=== PATIENT | male | born 1950 | race Caucasian/White ===

== ENCOUNTER 2021-11-11 12:10 | Outpatient (CLI) | payer MEDICARE, BC, SELFPAY ==
[2021-11-11 14:16] LABS: Chloride* 104 mmol/L (96-114); Sodium* 136 mmol/L (135-149)
[2021-11-11 14:19] LABS: Alanine Aminotransferase* 15 U/L (4-50); Blood Urea Nitrogen* 18 mg/dL (7-30); Carbon Dioxide* 26 mmol/L (20-32); Cholesterol* 154 mg/dL (90-199); Creatinine* 0.6 mg/dL (0.5-1.5); Estimated Glomerular Filt Rate 105 ml/min
[2021-11-11 14:20] LABS: Calcium* 8.6 mg/dL (8.4-10.6); Glucose* 177 mg/dL (60-115); HDL Cholesterol* 52 mg/dL (>=40); LDL Cholesterol Calculated 48 mg/dL (<100); Triglycerides* 270 mg/dL (40-149)
== END 2021-11-11 12:11 | disposition home or self-care (01) ==
PROVIDERS: PCP Family Medicine; Visit Provider Family Medicine
DX: I10 Essential (primary) hypertension (principal); E78.5 Hyperlipidemia, unspecified; E11.9 Type 2 diabetes mellitus without complications; L98.9 Disorder of the skin and subcutaneous tissue, unspecified
CPT/HCPCS: 80048; 80061; 84460

== ENCOUNTER 2023-02-09 12:27 | Outpatient (CLI) | payer MEDICARE, BC, SELFPAY | END 2023-02-09 12:28 | disposition home or self-care (01) | LOC: FBOREF 12:29 | PROVIDERS: PCP Family Medicine; Visit Provider Family Medicine | DX: E78.2 Mixed hyperlipidemia (principal) | CPT/HCPCS: 80061; 86612; 86698 ==

== ENCOUNTER 2023-08-30 16:12 | Outpatient (CLI) | payer MEDICARE, BC, SELFPAY ==
--- OUTSIDE RECORDS SUMMARY | 2023-08-30 16:15 | XMS_ITS | Clinical Summary ---
Author Name Unknown Organization [facility] Address [place], [place] [address] Care Team Providers Care Stain Maker Name Role Phone Milton Holden MD Primary Care Provider + Allergies Active Allergy Reactions Criticality Noted Date Comments Pollen Extracts Itching 11/12/2017 Medications Medication Sig Dispensed Refills Start Date End Date Status lancetsIndications :Controlled type 2 diabetes mellitus without complication, with long-term current use of insulin (HC) Microlet Lancets - tests 8 times a day 200 Each 12 08/19/2016 Active Insulin Syringe-Needle U-100 (BD INSULIN SYRINGE MF) 1/2 mL 28 gauge x 1/2 syrgIndications:Ty pe 2 diabetes mellitus with diabetic polyneuropathy, with long-term current use of insulin (HC) As directed. Inject 5 times a day 450 Each 3 12/29/2016 Active Insulin Syringe-Needle U-100 (INSULIN SYRINGE) 1 mL 29 gauge x 1/2 syrgIndications:Ty pe 2 diabetes mellitus with diabetic polyneuropathy, with long-term current use of insulin (HC) As directed. Inject twice daily 200 Syringe 3 12/29/2016 Active glucagon (GLUCAGON EMERGENCY KIT, HUMAN,) 1 mg kitIndications:Typ e 2 diabetes mellitus with diabetic polyneuropathy, with long-term current use of insulin (HC) Inject 1 mg subcutaneous one time if needed for Blood Gluc < 60 mg/dL. 2 mg 12 05/04/2017 Active insulin aspart U-100 (NOVOLOG) 100 unit/mL solution for injectionIndicatio ns:Type 2 diabetes mellitus with diabetic polyneuropathy, with long-term current use of insulin (HC) Uses 150 units/day per insulin pump 140 mL 3 12/13/2017 Active lisinopril (PRINIVIL; ZESTRIL) 20 mg tabletIndications: Hypertension, unspecified type Take 1 tablet by mouth once daily. 90 tablet 2 12/13/2017 Active blood-glucose meterIndications:C ontrolled type 2 diabetes mellitus without complication, with long-term current use of insulin (HC) [place] Contour Next Meter. E11.9 IDDM type II - Test 8 times/day. Reason: Unstable diabetes 2 Device 12/13/2017 Active CPAPIndications:OS A (obstructive sleep apnea) CPAP supplies, heated humidifier, mask, headgear, filters and tubing. For home use. Pressure: TBD Length of Need: Lifelong 1 unit 03/29/2018 Active aspirin chewable 81 mg chewable tablet Take 81 mg by mouth once daily with a meal. Active blood sugar diagnostic (CONTOUR NEXT TEST STRIPS) stripIndications:C ontrolled type 2 diabetes mellitus without complication, with long-term current use of insulin (HC) TEST 8 TIMES DAILY 800 Strip 1 08/17/2019 Active CALCIUM CARBONATE-VITAMIN D3 ORAL Take 1 Tab by mouth. Active furosemide (LASIX) 40 mg tablet Take 40 mg by mouth. Takes 2 in am and 1 in pm 07/29/2019 Active leuprolide acetate (LUPRON DEPOT, 3 MONTH,) 22.5 mg injection Inject 22.5 mg intramuscular every 3 months. 0 mL 0 08/23/2019 Active CPAPIndications:OS A (obstructive sleep apnea) CPAP machine for home use at pressure: 5-16 cmw , Heated humidifier x 1 q 5 yr, Humidifier chamber x 1 q 6 mo, Full face mask x1 q 3mos, with cushion x 1 q mo, standard tubing x 1 q 3 mo, Headgear x 1 q 6 mo, Filters: Disposable x 2 q mo non-disposable filters x1 q 6mo, Length of Need: 99 months, Frequency of use: Daily 1 Device 11 08/24/2019 Active clopidogreL (Plavix) 75 mg tablet Take 75 mg by mouth once daily. Active metoprolol succinate (Toprol XL) 25 mg Sustained-Release tablet Take 25 mg by mouth once daily. Active pantoprazole (Protonix) 40 mg delayed-release tablet Take 40 mg by mouth once daily. Active eplerenone (INSPRA) 25 mg tablet Take 25 mg by mouth once daily. Active torsemide (DEMADEX) 20 mg tablet Take 20 mg by mouth once daily. Active enzalutamide (Xtandi) 40 mg capsule Take 120 mg by mouth once daily. Active fluticasone (50 mcg per actuation) nasal solution (FLONASE) Inhale 1 [place] into affected nostril(s) once daily. Active insulin lispro (HUMALOG; ADMELOG) 100 unit/mL injection Inject subcutaneous three times daily before meals. Active leuprolide, 1 month, (ELIGARD) 7.5 mg (1 month) subcutaneous syringe Inject 7.5 mg subcutaneous one time. Active Active Problems Problem Noted Date Diagnosed Date Type 2 diabetes mellitus wit h diabetic polyneuropathy, with long-term current use of insulin 04/19/2016 Hypertension 01/26/2015 Hyperlipidemia 01/26/2015 Elevated prostate specific antigen (PSA) 010 Overview: Biopsies showed atypia. Needs PSA every 6 months. Diabetic Neuropathy 10/26/2006 Family history of malignant neoplasm of gastrointestinal tract 10/26/2006 Overview: [place] B, resection & chemo Colonoscopy due 03/30 Obesity, unspecified 03/29/2006 ANA LILIA (obstructive sleep apnea) Resolved Problems Problem Noted Date Diagnosed Date Resolved Date Type 2 diabetes mellitus wit h diabetic polyneuropathy 01/22/2015 04/19/2016 DIABETES MELLITUS TYPE I A1C < 8 08/28/2010 09/01/2010 Megan Care Contract 02/14/2010 011 Overview: This patient, PCP and Care Guide have signed a letter agreeing on a set of goals for diabetes, hypertension and/or CHF. Please look for Megan Care Goal Contract in Chart Review/ Letters and support this effort. Please direct questions to Care Guide Belinda Larkin Phone number [phone] Unspecified essential hypertension 03/29/2006 01/22/2015 Other and unspecified hyperlipidemia 03/29/2006 01/22/2015 DIABETES MELLITUS TYPE I A1C < 8 04/19/1970 01/22/2015 Encounters Date Type Department Care Team Description 08/20/2023 9:43 AM CDT - 08/20/2023 11:59 PM CDT Hospital Encounter [facility] [address] [place] [address] Milton Holden MD 08/20/2023 Travel 08/18/2023 9:48 AM CDT - 08/18/2023 11:59 PM CDT Hospital Encounter [facility] [address] [facility] [place] [address] Milton Holden MD 08/18/2023 Travel 08/16/2023 9:46 AM CDT - 08/16/2023 11:59 PM CDT Hospital Encounter [facility] [address] [place] [address] Milton Holden MD 08/16/2023 Travel 08/13/2023 9:50 AM CDT - 08/13/2023 11:59 PM CDT Hospital Encounter [facility] [address] [place] [address] Milton Holden MD 08/13/2023 Travel 08/11/2023 9:53 AM CDT - 08/11/2023 11:59 PM CDT Hospital Encounter [facility] [address] [facility] [place] [address] Milton Holden MD 08/11/2023 Travel 08/09/2023 9:57 AM CDT - 08/09/2023 11:59 PM CDT Hospital Encounter [address] [place] [address] Milton Holden MD 08/09/2023 Travel 08/03/2023 11:00 AM CDT - 08/03/2023 11:59 PM CDT Hospital Encounter [address] [place] [address] 08/03/2023 Travel from Last 3 Months Immunizations Name Administration Dates Next Due Hepatitis B, Unspecified 06/25/1993,01/29/1993,0 12/17/1992 Influenza, IIV3 (Age >=3 years) 01/31/2011,02/07,01/17/2010 Influenza, IIV4 12/23/2017,02/01/2016,02/15/2014 Pneumococcal Poly,23-Valent (Pneumovax) 10/02/19 11 Td (Age >=7 Years) 06/27/1992 Tdap 02/03/2012,02/14/2010 Zoster (Zostavax-ZVL, live) 02/15/2014 Social History Tobacco Use Types Packs/Day Years Used Date Smoking Tobacco: Never Smokeless Tobacco: Never Alcohol Use Standard Drinks/Week Comments Yes 0 (1 standard drink = 0.6 oz pur e alcohol) Occasional PHQ-2 Answer Date Recorded PHQ-2 Score 0 06/18/2018 Social Connections Answer Date Recorded Frequency of Communication with Friends and Fami ly Not on file 04/19/2021 Financial Resource Strain Answer Date R ecorded Difficulty of Paying Living Expenses Not on file 04/19/2021 Difficulty of Paying Living Expenses Not on file 04/19/2021 Sex and Gender Information Value Date Recorded Sex Assigned at Not on file Gender Identity Not on file Sexual Orientation Not on file Obstetrics History Last Filed Vital Signs Vital Sign Reading Time Taken Comments Blood Pressure 90/50 08/03/2023 1:00 PM CDT Pulse 90 08/03/2023 1:00 PM CDT Temperature 36.7 ??C (98 ??F) 02/06/2019 9:28 PM CDT Respiratory Rate 18 08/03/2023 1:00 PM CDT Oxygen Saturation 97% 08/03/2023 1:00 PM CDT Inhaled Oxygen Concentration - - Weight 165.1 kg (363 lb 14.4 oz) 08/03/2023 1:00 PM CDT Height 185.4 cm (6' 1) 08/03/2023 1:00 PM CDT Body Mass Index 48.01 08/03/2023 1:00 PM CDT Plan of Treatment Upcoming Encounters Date Type Department Care Team (Late st Contact Info) Description 09/01/2023 10:00 AM CDT Appointment [facility] [address] [place] [address] 09/03/2023 10:00 AM CDT Appointment [facility] [address] [place] [address] 09/06/2023 10:00 AM CDT Appointment [facility] [address] [place] [address] 09/08/2023 10:00 AM CDT Appointment [facility] [address] [facility] [place] [address] 09/10/2023 10:00 AM CDT Appointment [facility] [address] [place] [address] 09/15/2023 10:00 AM CDT Appointment [facility] [address] [place] [address] 09/17/2023 10:00 AM CDT Appointment [facility] [address] [place] [address] 09/20/2023 10:00 AM CDT Appointment [facility] [address] [place] [address] 09/22/2023 10:00 AM CDT Appointment [facility] [address] [place] [address] 09/24/2023 10:00 AM CDT Appointment [facility] [address] [place] [address] 09/27/2023 10:00 AM CDT Appointment [facility] [address] [place] [address] 09/29/2023 10:00 AM CDT Appointment [facility] [address] [place] [address] 10/01/2023 10:00 AM CDT Appointment [facility] [address] [place] [address] 10/04/2023 10:00 AM CDT Appointment [facility] [address] [place] [address] 10/06/2023 10:00 AM CDT Appointment [facility] [address] [place] [address] 10/08/2023 10:00 AM CDT Appointment [facility] [address] [place] [address] 10/11/2023 10:00 AM CDT Appointment [facility] [address] [place] [address] 10/13/2023 10:00 AM CDT Appointment [facility] [address] [place] [address] 10/15/2023 10:00 AM CDT Appointment [facility] [address] [place] [address] 10/18/2023 10:00 AM CDT Appointment [facility] [address] [place] [address] 10/20/2023 10:00 AM CDT Appointment [facility] [address] [place] [address] 10/22/2023 10:00 AM CDT Appointment [facility] [address] [place] [address] 10/25/2023 10:00 AM CDT Appointment [facility] [address] [place] [address] 10/27/2023 10:00 AM CDT Appointment [facility] [address] [place] [address] 10/29/2023 10:00 AM CDT Appointment [facility] [address] [place] [address] 11/01/2023 10:00 AM CDT Appointment [facility] [address] [place] [address] 11/03/2023 10:00 AM CDT Appointment [facility] [address] [place] [address] 11/05/2023 10:00 AM CDT Appointment [facility] [address] [place] [address] 11/08/2023 10:00 AM CDT Appointment [facility] [address] [place] [address] Health Maintenance Due Date Last Done Comments Hepatitis C screening for ag e 18-79 1970 Zoster (shingles) series for age 50+ (2 of 3) 04/12/2014 02/15/2014 Medicare Wellness for age 65+ 2017 Pneumococcal series for age 65+ (2 of 2 - PCV) 2017 10/01/2010 BMI (ht and wt on same day) for age 18+ 03/29/2019 03/29/2018, 12/23/2017, 05/04/2017, Additional history exists Colonoscopy through age 75 03/29/2019 03/29/2009 Lipids for age 45-75 12/19/2021 12/19/2016, 09/14/2015, 01/19/2015, Additional history exists Tetanus booster 02/02/2022 02/03/2012, 01/18, 06/27/1992 Influenza for age 65+ 12/19/2023 12/23/2017 , 02/01/2016, 02/15/2014, Additional history exists Depression screening for age 12+ 08/02/2024 08/03/19 24, 12/23/2017 Tdap Completed 02/03/2012, 02/14/2010 COVID-19 vaccine series Completed 02/17/20 23, 02/10/2022, 07/15/2021, Additional history exists Procedures Procedure Name Priority Date/Time Associated Diagnosis Comments SCAN-CARDIAC REHABILITATION 08/20/2023 9:57 AM CDT SCAN-CARDIAC REHABILITATION 08/18/2023 9:53 AM CDT SCAN-CARDIAC REHABILITATION 08/16/2023 9:54 AM CDT SCAN-CARDIAC REHABILITATION 08/13/2023 9:54 AM CDT SCAN-CARDIAC REHABILITATION 08/11/2023 9:57 AM CDT SCAN-CARDIAC REHABILITATION 08/09/2023 10:03 AM CDT SCAN-CARDIAC REHABILITATION 08/03/2023 12:06 PM CDT LIPID PANEL W REFLEX MEASURED LDL Routine 12/19/2016 9:23 AM CDT Type 2 diabetes mellitus with diabetic polyneuropathy, with long-term current use of insulin (HC) COLONOSCOPY DIAGNOSTIC Routine 03/29/2009 Personal History of Colon Cancer from Last 3 Months or Most Recently Relevant to Health Maintenance Results * SCAN-CARDIAC REHABILITATION (08/20/2023 9:57 AM CDT) Only the most recent of7 resultswithin the time period is included. Scanner OTHER * LIPID PANEL W REFLEX MEASURED LDL (12/19/2016 9:23 AM CDT) CHOLESTEROL,TOTAL 184 100 - 199 mg/dL 12/19/2016 10:09 AM CDT [facility] TRIGLYCERIDES 99 <150 mg/dL 12/19/2016 10:09 AM CDT [facility] HDL CHOLESTEROL 58 >40 mg/dL 7 10:09 AM CDT [facility] NON-HDL CHOLESTEROL 126 <145 mg/dl 12/19/2016 10:09 AM CDT [facility] CHOL/HDL RATIO 3.17 <4.50 12/19/2016 10:09 AM CDT [facility] LDL CHOLESTEROL 106 <=130 mg/dL 12/19/2016 10:09 AM CDT [facility] PATIENT STATUS FASTING 12/19/2016 10:09 AM CDT [facility] Blood BLOOD SPECIMEN / Unknown Venipuncture / Unknown 12/19/2016 9:23 AM CDT 12/19/2016 9:29 AM CDT Milton Holden MD CHEMISTRY [facility] [address] [place] [address] [facility] [address] [place] [address], * COLONOSCOPY DIAGNOSTIC (03/29/2009) Milton Holden MD GI PROCEDURE ORD from Last 3 Months or Most Recently Relevant to Health Maintenance Advance Directives Documents on File Type Date Recorded Patient Account Contact Associate Expl anation Healthcare Directive 09/02/2022 023 Care Teams Stain Maker Relationship Specialty Start Date End Date Milton Holden MD [address] [place] [address] PCP - General Family Practice 08/23/19
--- OUTSIDE RECORDS SUMMARY | 2023-08-30 16:16 | XMS_ITS | Clinical Summary ---
Author Name Unknown Organization [facility] Address [address] [place] [id number] Care Team Providers Care [employer] Name Role Phone Unavailable Primary Care Provider Unavailabl e Source Comments Patient records contain information from all sites at [facility]. For routine questions regarding patient records, call [phone] during business hours, M-F 8:00 AM - 5:00 PM Central Time. Record requests for emergency care only can be directed to [phone] at any time.[facility] Allergies Active Allergy Reactions Criticality Noted Date Comments Pollen Extracts Itching,Other (see comments) Low Medications Medication Sig Dispensed Refills Start Date End Date Status lisinopril (for_PRINIVIL,Z ESTRIL) 20 mg tablet Take 1 tablet by mouth every evening. 03/09/2013 Active blood-glucose meter kit [place]ma Contour Next Meter. E11.9 IDDM type II - Test 8 times/day. Reason: Unstable diabetes 12/13/2017 Active CONTOUR NEXT EZ METER misc TEST 8 TIMES PER DAY 0 12/15/2017 Active blood sugar diagnostic strips TEST 8 TIMES PER DAY 01/12/2018 Active CALCIUM CARBONATE-VITAM IN D3 ORAL Take 1 tablet by mouth every evening. In the afternoon. Strength Unknown Active ketotifen (ZADITOR) 0.025 % (0.035 %) ophthalmic solution Administer 1 drop into both eyes 2 (two) times a day as needed (irritation). Active loratadine (CLARITIN) 10 mg tablet Take 10 mg by mouth daily. Active acetaminophen (TYLENOL) 500 mg tablet Take 2 tablets (1,000 mg total) by mouth every 6 (six) hours for 80 doses. Continue to take while requiring narcotic pain medication. Do not take more than 4000 mg in one day. 90 tablet 1 07/01/2020 Active DME CPAP Active leuprolide (ELIGARD 1 MONTH) 7.5 mg (1 month) injection Monthly Active aspirin 81 mg chewable tablet Chew 81 mg daily. Ac tive triamcinolone (KENALOG) 0.1 % ointment 1 Application as needed for irritation. 11/11/2021 Active enzalutamide (XTANDI) 40 mg capsule Take 4 capsules (160 mg total) by mouth daily. Take with or without food at the same time each day. Swallow capsules whole. Do not chew, dissolve, or open the capsules. 120 capsule 11 10/21/2022 Active fluticasone propionate (FLONASE) 50 mcg/actuation nasal spray Administer 2 sprays into each nostril daily. 05/11/2023 Active insulin lispro 100 unit/mL injection INJECT 180 UNITS VIA CONTINUOUS UNDER THE SKIN INFUSION EVERY DAY 06/02/2023 Active FreeStyle Jonathan 3 Sensor device CHANGE EVERY 2 WEEKS 05/11/2023 Active glucagon (BAQSIMI) 3 mg/actuation nasal powder Administer 1 spray (3 mg total) into one nostril as needed for low blood sugar. If no response, may repeat in 15 minutes using a new intranasal device. 1 each 1 07/13/2023 Active metoprolol succinate (TOPROL-XL) 25 mg 24 hr tablet Take 1 tablet (25 mg total) by mouth daily. Do not crush or chew. 90 tablet 07/13/2023 4 Active pantoprazole (PROTONIX) 40 mg EC tablet Take 1 tablet (40 mg total) by mouth every morning before breakfast. 30 tablet 2 07/14/2023 4 Active clopidogreL (PLAVIX) 75 mg tablet Take 1 tablet (75 mg total) by mouth daily. 30 tablet 2 07/13/2023 4 Active atorvastatin (LIPITOR) 80 mg tablet Take 1 tablet (80 mg total) by mouth daily. 90 tablet 3 08/05/2023 5 Active eplerenone (INSPRA) 25 mg tablet Take 1 tablet (25 mg total) by mouth daily. STOP Spironolactone and replace with Elerenone 25 mg daily 30 tablet 08/09/2023 4 Active torsemide (DEMADEX) 20 mg tablet Take 3 tablets (60 mg total) by mouth 2 (two) times a day. 180 tablet 08/10/2023 4 Active atorvastatin (LIPITOR) 80 mg tablet Take 1 tablet (80 mg total) by mouth daily. 90 tablet 3 07/23/2022 4 Discontinu ed(Reorder ) torsemide (DEMADEX) 20 mg tablet Take 3 tablets (60 mg total) by mouth 2 (two) times a day. 180 tablet 07/13/2023 4 Discontinu ed(Reorder ) eplerenone (INSPRA) 25 mg tablet Take 1 tablet (25 mg total) by mouth daily. 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 05/18/19 22 Anemia Posthemorrhagic Acute (Blood Loss Anemia) 05/09/2019 Herniorrhaphy Ventral Status Post 05/03/2019 Overview: Added automatically from request for surgery [id number] Apnea Sleep Obstructive 02/14/2019 Primary Osteoarthritis Hip Right 01/18/2019 Morbid Obesity Body Mass Index 45.0-49.9 Adult 1 Secondary Malignant Neoplasm Bone 11/12/2017 Nodule Pulmonary Solitary 11/09/2017 Rising Prostate Specific Ant igen Following Treatment For Malignant Cancer Of Prostate 11/09/2017 Diabetes Mellitus Type 1 With Diabetic Neuropath y 04/19/2016 Primary Malignant Neoplasm Of Prostate 5 Cancer Staging:Clinical stage from 11/05/2017:Stage IV(T4, N0, M1b, PSA: Less than 10, Telma 7) - Signed by Irina Petty M.B.B.S. on 01/29/2018 Hyperlipidemia 01/26/2015 Hypertension Essential Primary 03/09/2013 Neuropathy Peripheral Hypertension NOS Gastroesophageal Reflux Disease NOS Diabetes Mellitus Type 1 Overview: insulin pump Apnea Sleep Obstructive Overview: wears CPAP Resolved Problems Problem Noted Date Diagnosed Date Resolved Date Infection Wound Postoperative Initial 05/04/2019 05/06/2019 Wound Abdominal Wall Open Initial 05/03/2019 05/06/2019 Overview: Added automatically from request for surgery [id number] Wound Abdominal Wall Open Subsequent 03/13/2019 05/07/2019 Dehiscence Wound Subsequent 03/06/2019 05/15/2019 Overview: Added automatically from request for surgery [id number] Hernia Ventral 02/10/2019 05/15/2019 Overview: Added automatically from request for surgery [id number] Encounters Date Type Department Care Team Description 08/12/2023 10:00 AM CDT Infusion Department of Oncology in [place], [place] [address] [place] [address] Ankush Mancia M.B.B.S., M.S. Primary Malignant Neoplasm Of Prostate (HCC) (Primary Dx) 08/09/2023 Clinical Communication Division of Gastroenterology in [place], [place] [address] [place] [address] Dev Jimenez M.D. Order Request (Appt: 11/03/23 @ 10:00 A.MGali patel/ Dev Jimenez M.D.) 08/09/2023 Clinical Communication Division of Gastroenterology in [place], [place] [address] [place] [address] Provider, Unknown 08/06/2023 Refill Department of Cardiovascular Medicine in [place], [place] [address] [place] [address] Sarina Marroquin APRN, C.NDavid, D.N.P. Med Refill 08/05/2023 Clinical Communication Department of Oncology in [place], [place] [address] [place] [phone] Agnieszka Ochoa R.N. Med Refill (eplerenone) 08/05/2023 Refill Department of Cardiovascular Medicine in [place], [place] [address] [place] [address] Sarina Marroquin APRN, C.NEstrella., D.N.P. Med Refill 08/05/2023 Episode Changes Department of Cardiovascular Medicine in [place], [place] [address] [place] [phone] Stephen Sage, MAYELA 08/04/[address] [address] Milton Holden M.D. Dysphagia (Primary Dx); Gastroesophageal Reflux Disease Without Esophagitis 07/29/2023 Orders Only Department of Oncology in [place], [place] [address] [place] [phone] Ankush Mancia M.B.B.S., M.S. Secondary Malignant Neoplasm Bone (HCC) (Primary Dx); Primary Malignant Neoplasm Of Prostate (HCC) 07/22/2023 Clinical Communication Department of Oncology in [place], [place] [address] [place] [phone] Ankush Mancia M.B.B.S., M.S. 07/21/2023 11:00 AM CDT Office Visit Division of Hematology in [place], [place] [address] [place] [phone] Ankush Mancia M.B.BGaliS., M.S. Secondary Malignant Neoplasm Bone (HCC) (Primary Dx); Rising Prostate Specific Antigen Following Treatment For Malignant Cancer Of Prostate; Primary Malignant Neoplasm Of Prostate (HCC); Atherosclerotic Heart Disease [place] 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 (Stable Angina/Angina Of Exertion) (HCC); Morbid Obesity Body Mass Index 45.0-49.9 Adult (HCC); Hypertension Essential Primary; Acute Systolic (Congestive) Heart Failure (HCC) 07/20/2023 1:30 PM CDT Clinical Communication Virtual Review in [place], [place] 200 [place] [address] Pre-visit Intake 07/20/2023 10:40 AM CDT Internal E-Consult Department of Oncology in [place], [place] [address] [place] [phone] Ankush Mancia M.B.B.S., M.S. Vani Morgan, PharmGaliD., M.S., R.Ph., [facility] Secondary Malignant Neoplasm Bone (HCC); Primary Malignant Neoplasm Of Prostate (HCC) 07/16/2023 4:30 PM CDT Infusion Department of Oncology in [place], [place] [address] [place] [phone] Ankush Mancia M.B.B.S., M.S. Primary Malignant Neoplasm Of Prostate (HCC) (Primary Dx) 07/14/2023 Clinical Communication Department of Oncology in [place], [place] [address] [place] [phone] Ankush Mancia M.B.BGaliS., M.S. 07/13/2023 Clinical Communication Department of Oncology in [place], [place] [address] [place] [phone] Agnieszka Ochoa R.N. Drug interaction - Enzalutamide 07/13/2023 Clinical Communication Division of [facility], [facility], in [place], [place] [address] [place] [phone] Sadiq Celestin M.D. 07/12/2023 2:11 PM CDT - 07/12/2023 3:41 PM CDT Surgery Division of Cardiovascular Diseases in [place], [place] [address] [place] [phone] Mt Crum M.D., Ph.D. Stent Placement 07/08/2023 12:01 PM CDT - 07/08/2023 1:16 PM CDT Surgery Division of Cardiovascular Diseases in [place], [place] [address] [place] [place] [phone] Sky Whatley M.D., Ph.D. CORONARY ANGIOGRAPHY WITH POSSIBLE INTERVENTION 07/08/2023 9:08 AM CDT - 07/13/2023 3:19 PM CDT Hospital Encounter [facility], [facility], Fifth Floor [address] [place] [place] [phone] Sky Whatley M.D., Ph.D. Romina Lizama M.B.BGaliS., Ph.D. Addy Arias M.D. Dysphagia [R13.10] (Primary Dx); Shortness Of Breath; Abnormal Coronary Calcium Computed Tomography; Edema Lower Extremity; Atherosclerotic Heart Disease [place] 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 (Stable Angina/Angina Of Exertion) (HCC); Coronary Stent Status Post Discharge Disposition: Home or Self Care 07/07/2023 9:30 AM CDT Virtual Visit Department of Cardiovascular Medicine in [place], [place] [address] [place] [phone] Sarina Marroquin, MILY, C.N.P., D.N.P. Ledy Hall, R.N. Diabetes Mellitus Type 1 (HCC) (Primary Dx); Hyperlipidemia; Shortness Of Breath; Morbid Obesity Body Mass Index 45.0-49.9 Adult (HCC); Hypertension Essential Primary 07/02/2023 Clinical Communication Department of Oncology in [place], [place] [address] [place] [address] Ankush Mancia M.B.B.S., M.S. 07/02/2023 Orders Only Department of Oncology in [place], [place] [address] [place] [address] Ankush Mancia M.B.B.S., M.S. Primary Malignant Neoplasm Of Prostate (HCC) (Primary Dx); Morbid Obesity Body Mass Index 45.0-49.9 Adult (HCC); Secondary Malignant Neoplasm Bone (HCC) 07/01/2023 12:57 PM CDT - 07/01/2023 11:59 PM CDT Hospital Encounter Department of Cardiovascular Diseases in [place], [place] [address] [place] [phone] Sarina Marroquin APRN C.N.PGali, D.N.P. Shortness Of Breath Discharge Disposition: Home or Self Care 07/01/2023 11:00 AM CDT Office Visit Department of Cardiovascular Medicine in [place], [place] [address] [place] [phone] Sarina Marroquin APRN C.N.Jeniffer., D.N.P. 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 Coronary Artery Disease With Stable Angina (HCC) Discharge Disposition: Home or Self Care 07/01/2023 Clinical Communication Department of Cardiovascular Medicine in [place], [place] [address] [place] [phone] Raleigh Denney P.A.-C. Heart failure clinic triage 06/29/2023 9:30 AM CDT - 06/29/2023 11:59 PM CDT Hospital Encounter Department of Laboratory Medicine in [address] [phone] Shaheen Fuentes M.D. 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 Primary Malignant Neoplasm Of Prostate (HCC) (Primary Dx) from Last 3 Months Immunizations Name Administration Dates Next Due SARS-COV-2 (COVID-19) - MODERNA(Discontinued) Family History Medical History Relation Name Comments Diabetes Brother 1 mirlande Diabetes Brother 2 vinod Alzheimers dementia.. Father's Brother 1 Prostate cancer Father's Brother 3 prosta tectomy Cancer Maternal Cousin type unknown , maybe esophageal Prostate cancer Maternal Grandfather 90s, non-metastatic Kidney cancer Mother rashi 60s Colon cancer Mother's Brother 1 [place] 80s Colon cancer Mother's Sister 2 over 50y Colon cancer Mother's Sister 3 over 50y Melanoma Nephew Breast cancer Paternal Cousin early 50s Relation Name Status Comments Brother 1 mirlande Alive Brother 2 vinod Alive Brother 3 Bhakta Alive Daughter 1 Alive Daughter 2 Alive Father (Age 48) d.heart at tack Father's Brother 1 (Age 70s) Father's Brother 2 Father's Brother 3 (Age 84) Father's Sister 1 Father's Sister 2 Maternal Cousin Maternal Grandfather (Age 99) Maternal Grandmother (Age 70s) Mother rashi (Age 74) Mother's Brother 1 [place] Alive Mother's Brother 2 Alive Mother's Brother 3 Mother's Sister 1 Toshia possible c ancer Mother's Sister 2 Mother's Sister 3 Alive Nephew Alive Niece/Nephew 1 Alive Niece/Nephew 2 Alive Niece/Nephew 3 Alive Niece/Nephew 4 Alive Niece/Nephew 5 Alive Niece/Nephew 6 Alive Paternal Cousin Alive Paternal Grandfather (Age 60s) d .heart attack Paternal Grandmother d. old age Sister 1 Alive Sister 2 Alive Sister 3 Alive Son Alive Social History Tobacco Use Types Packs/Day Years Used Date Smoking Tobacco: Never Passive Smoke Exposure: Past Smokeless Tobacco: Never Tobacco Cessation:Counseling Given: Not Answered Alcohol Use Standard Drinks/Week Comments Not Currently 0 (1 standard drink = 0.6 oz pur e alcohol) [facility] Utilities Answer Date Recorded In the past 12 months has th e electric, gas, oil, or water company threatened to shut off services in your home? No 07/08/2023 Humiliation, Afraid, Rape, and Kick questionnair e Answer Date Recorded Within the last year, have y ou been afraid of your partner or ex-partner? No 07/08/2023 Within the last year, have y ou been humiliated or emotionally abused in other ways by your partner or ex-partner? No Within the last year, have y ou been kicked, hit, slapped, or otherwise physically hurt by your partner or ex-partner? No 07/08/2023 Within the last year, have y ou been raped or forced to have any kind of sexual activity by your partner or ex-partner? No 07/08/2023 Social Connection and Isolat ion Panel [NHANES] Answer Date Recorded In a typical week, how many times do you talk on the phone with family, friends, or neighbors? More than three times a week 04/25/2022 How often do you get togethe r with friends or relatives? More than three times a week 04/25/2022 How often do you attend chur or hoahaoism services? 1 to 4 times per year 04/25/2022 Do you belong to any clubs o r organizations such as christian groups, unions, fraternal or athletic groups, or school groups? No 04/25/2022 How often do you attend meet ings of the clubs or organizations you belong to? Never 04/25/2022 Are you , , di vorced, , never , or living with a partner? 04/25/2022 AUDIT-C Answer Date Recorded Q1: How often do you have a drink containing alc ohol? Monthly or less 04/25/2022 Q2: How many drinks containi ng alcohol do you have on a typical day when you are drinking? 1 or 2 04/25/2022 Q3: How often do you have si x or more drinks on one occasion? Never 04/25/2022 Overall Financial Resource Strain (CARDIA) Answe r Date Recorded How hard is it for you to pa y for the very basics like food, housing, medical care, and heating? Not very hard 04/25/2022 [facility] - Occupational Stress Questionnaire Answer Date Recorded Do you feel stress - tense, restless, nervous, or anxious, or unable to sleep at night because your mind is troubled all the time - these days? Not at all 05/13/2021 Exercise Vital Sign Answer Date Recorde d On average, how many days pe r week do you engage in moderate to strenuous exercise (like a brisk walk)? 0 days 06/25/2023 On average, how many minutes do you engage in exercise at this level? 10 min 06/25/2023 Hunger Vital Sign Answer Date Recorded Within the past 12 months, y ou worried that your food would run out before you got the money to buy more. Never true 07/08/19 24 Within the past 12 months, t he food you bought just didn't last and you didn't have money to get more. Never true 07/08/2023 PRAPARE - Transportation Answer Date Re corded In the past 12 months, has l ack of transportation kept you from medical appointments or from getting medications? No 06/18 In the past 12 months, has l ack of transportation kept you from meetings, work, or from getting things needed for daily living? No 07/08/2023 Nutrition Answer Date Recorded Nutrition: EVOO Fat Source Yes 06/24 On average, how many serving s of fruits and vegetables do you eat per day (serving size is equal to 1 cup or approximately the size of a tennis ball)? 0-2 06/25/2023 Dental Answer Date Recorded Dental: Regular Dentist Yes 10/14/19 Employment Answer Date Recorded Employment status Retired 06/25/2023 Housing Stability Answer Date Recorded What is your living situation today? I have [facility] live 07/08/2023 Education Answer Date Recorded What is the highest level of school you have completed or the highest degree you have received? 12th grade 05/13/2021 Sex and Gender Information Value Date Recorded Sex Assigned at Male 09/14/2019 9:19 PM CDT Gender Identity Not on file Sexual Orientation Not on file Last Filed Vital Signs Vital Sign Reading Time Taken Comments Blood Pressure 94/62 07/21/2023 10:56 AM CDT Pulse 79 07/21/2023 10:56 AM CDT Temperature 36.5 ??C (97.7 ??F) 07/21/2023 10:56 AM C DT Respiratory Rate 16 07/21/2023 10:56 AM CDT Oxygen Saturation 94% 07/21/2023 10:56 AM CDT Inhaled Oxygen Concentration - - Weight 168 kg (369 lb 7.9 oz) 07/21/2023 10:56 A M CDT Height 180.4 cm (5' 11.02) 07/21/2023 10:56 AM CDT Body Mass Index 51.5 07/21/2023 10:56 AM CDT Plan of Treatment Upcoming Encounters Date Type Department Care Team (Late st Contact Info) Description 09/07/2023 4:30 PM CDT Infusion Department of Oncology in [place], [place] [address] [place] [phone] Ankush Mancia M.B.B.S., M.S. [address] [place] [phone] 09/22/2023 1:30 PM CDT Appointment Department of Cardiovascular Diseases in [place], [place] [address] [place] [phone] Addy Arias M.D. [address] [place] [phone] 09/27/2023 10:45 AM CDT Comprehensive Visit Department of Cardiovascular Diseases in [place], [place] [address] [place] [address] Laith Feliciano M.D. [address] [place] [phone] 10/06/2023 9:00 AM CDT Infusion Department of Oncology in [place], [place] [address] [place] [phone] Ankush Mancia M.B.BGaliS., M.S. [address] [place] [phone] 11/01/2023 9:00 AM CDT Clinical Communication Virtual Review in [place], [place] [address] [place] [address] 11/03/2023 10:00 AM CDT Comprehensive Visit Division of Gastroenterology in [place], [place] [address] [place] [phone] Milton Holden M.D. [address] [place] [address] 11/03/2023 1:00 PM CDT Appointment Department of Radiology, [facility], in [place], [place] [address] [place] [phone] Dev Jimenez M.D. [address] [place] [phone] 11/04/2023 8:45 AM CDT Appointment Division of Gastroenterology in [place], [place] [address] [place] [phone] Dev Jimenez M.D. [address] [place] [phone] 11/08/2023 8:00 AM CDT Appointment Division of Gastroenterology in [place], [place] [address] [place] [phone] Dev Jimenez M.D. [address] [place] [phone] 11/09/2023 7:45 AM CDT Appointment Division of Gastroenterology in [place], [place] [address] [place] [phone] Dev Jimenez M.D. [address] [place] [address] Health Maintenance Due Date Last Done Comments CT Colonography 1952 Cologuard 1950 Dilated Eye Exam 1950 Hepatitis C Screening 1950 Urine Albumin 1950 Colonoscopy 03/29/2014 03/29/2009 Colorectal Cancer Surveillance 03/29/2014 Pneumococcal vaccine (65+ years) (4 of 4 - PPSV23 or PCV20) 01/05/2020 01/04/2019, 10/15/2010, 10/01/2010 Diabetic Office Visit with Foot Exam 02/18/2020 02/17/2019, 02/17/2019 COVID-19 Vaccine ( season) 2023 02/16/2023, 02/16/2023, 02/10/2022, Additional history exists Depression Screening (Annual PHQ-2) 04/19/2023 Hemoglobin A1C 12/30/2023 06/29/2023, 06/17, 02/14/2019, Additional history exists Creatinine Level (Kidney Function Test) 07/12/2024 07/13/2023, 07/12/2023, 07/11/2023, Additional history exists Potassium Level 07/12/2024 07/13/2023, 06/18, 07/11/2023, Additional history exists Sodium Level 07/12/2024 07/13/2023, 06/18, 07/11/2023, Additional history exists Office Visit for Blood Pressure Check / Re-check 07/20/2024 07/21/2023 Lipid (Cholesterol) Screening 06/28/2028 06/29/2023, 11/13/2021, 08/06/2021, Additional history exists DTaP,Tdap,and Td Vaccines (4 - Td or Tdap) 08/13/2032 08/13/2022, 02/03/2012, 02/14/2010 Hepatitis B Vaccines Completed 06/25/1993, 01/29/1993, 12/17/1992 Zoster Vaccines Completed 03/31/2018, 0 10/2017, 02/15/2014 Influenza Vaccine Completed 02/16/2023, , 01/16/2021, Additional history exists Fall Risk Screen (Annual) Completed 07/08/2023 HPV Vaccines Aged Out No longer eligi ble based on patient's age to complete this topic Medical Devices Implanted 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 at [facility] Bone Cement N/A: Abdomen Susan [id number] / / Cmnt Bn Hi Visc Pmma 20 - [id number] Implanted:Qty: 1 on 03/07/2019 by Stiven Escalona M.D. at [facility] Bone Cement Susan [id number] 04/18/2021 [id number] / / [id number] Cmnt Bn Hi Visc Pmma 20 - Sna - [id number] Implanted:Qty: 1 on 05/04/2019 by Stiven Escalona M.D. at [facility] Bone Cement N/A: Abdomen Susan [id number] 02/16/2021 [id number] / NA / [id number] Stnt Synergy Xd De 3.50x12 - [id number] Implanted:Qty: 1 on 07/12/2023 by Mt Crum M.D., Ph.D. at [facility] Cardiac Stent N/A: Coronary [facility] [employer] 08/11/2024 [id number] / / [id number] Description:LAD Stnt Synergy Xd De 3.00x12 - [id number] Implanted:Qty: 1 on 07/12/2023 by Mt Crum M.D., Ph.D. at [facility] Cardiac Stent N/A: Coronary [facility] [employer] 03/03/2024 [id number] / / [id number] Description:Proximal Circumf patti Shll Acet Trd Chl 58f - [id number] Implanted:Qty: 1 on 07/02/2020 by Braulio Monge M.D. at [facility] Hip Implant Right: Hip Susan 03/20/2025 702-04-58F / / [id number] Lnr X3 10d Szf 36 - [id number] Implanted:Qty: 1 on 07/02/2020 by Braulio Monge M.D. at [facility] Hip Implant Right: Hip [place] 03/22/2025 623-10-36F / / [id number] Hip Stm Actis Hofst Sz7 - [id number] Implanted:Qty: 1 on 07/02/2020 by Braulio Monge M.D. at [facility] Hip Implant Right: Hip Depuy Synthes 04/18/2030 [id number] / / [id number] Fem Hd Art Ez [facility] +1.5x36 - [id number] Implanted:Qty: 1 on 07/02/2020 by Braulio Monge M.D. at [facility] Hip Implant Right: Hip Depuy Synthes 05/19/2025 0 / / [id number] Mesh Proceed 62j76el (10x13) - [id number] Implanted:Qty: 1 on 03/10/2013 Mesh or Patch Abdomen Ethicon Description:Device Manufactu rer - Ethicon. Body Location - Other. Abdominal. Device Status Text - [id number]. [facility] [place] Oval 6x10 - [id number] Implanted:Qty: 1 on 02/17/2019 by Ramon Ramirez M.D. at [facility] Mesh or Patch N/A: Abdomen C.[employer].Bard 10/14/2020 [id number] / / [id number] Procedures Procedure Name Priority Date/Time Associated Diagnosis Comments PROSTATE-SPECIFIC AG (PSA) DIAGNOSTIC, S Routine 07/21/2023 9:25 AM CDT Primary Malignant Neoplasm Of Prostate (HCC) Morbid Obesity Body Mass Index 45.0-49.9 Adult (HCC) Secondary Malignant Neoplasm Bone (HCC) GLUCOSE POCT, B Routine 07/13/2023 11:43 AM CDT GLUCOSE POCT, B Routine 07/13/2023 8:17 AM CDT MAGNESIUM, S Routine 07/13/2023 7:32 AM CDT BASIC METABOLIC PANEL, S/P Routine 07/13/2023 7:32 AM CDT CBC WITH DIFFERENTIAL, B Routine 07/13/2023 7:32 AM CDT GLUCOSE POCT, B Routine 07/13/2023 2:11 AM CDT GLUCOSE POCT, B Routine 07/12/2023 9:19 PM CDT ECG STAT 07/12/2023 7:46 PM CDT GLUCOSE POCT, B Routine 07/12/2023 6:00 PM CDT CARDIAC CATHETERIZATION Routine 07/12/2023 4:33 PM CDT Atherosclerotic Heart Disease [place] 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 (Stable Angina/Angina Of Exertion) (HCC) CARDIAC CATHETERIZATION Routine 07/12/2023 4:33 PM CDT Atherosclerotic Heart Disease [place] 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 (Stable Angina/Angina Of Exertion) (HCC) CARDIAC CATHETERIZATION Routine 07/12/2023 4:33 PM CDT Atherosclerotic Heart Disease [place] 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 (Stable Angina/Angina Of Exertion) (HCC) CARDIAC CATHETERIZATION Routine 07/12/2023 4:33 PM CDT Atherosclerotic Heart Disease [place] 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 (Stable Angina/Angina Of Exertion) (HCC) CARDIAC CATHETERIZATION Routine 07/12/2023 4:33 PM CDT Atherosclerotic Heart Disease [place] 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 (Stable Angina/Angina Of Exertion) (HCC) ACT, POCT, B Routine 07/12/2023 3:54 PM CDT ACT, POCT, B Routine 07/12/2023 3:16 PM CDT GLUCOSE POCT, B Routine 07/12/2023 3:15 PM CDT GLUCOSE POCT, B Routine 07/12/2023 11:50 AM CDT GLUCOSE POCT, B Routine 07/12/2023 8:55 AM CDT ADULT OXYGEN THERAPY Routine 07/12/2023 8:02 AM CDT MAGNESIUM, S Routine 07/12/2023 6:51 AM CDT CYSTATIN C WITH EGFR Routine 07/12/2023 6:51 AM CDT BASIC METABOLIC PANEL, S/P Routine 07/12/2023 6:51 AM CDT CBC WITHOUT DIFFERENTIAL, B Routine 07/12/2023 6:51 AM CDT GLUCOSE POCT, B Routine 07/12/2023 3:28 AM CDT GLUCOSE POCT, B Routine 07/11/2023 10:30 PM CDT ADULT OXYGEN THERAPY Routine 07/11/2023 8:01 PM CDT GLUCOSE POCT, B Routine 07/11/2023 7:25 PM CDT GLUCOSE POCT, B Routine 07/11/2023 6:55 PM CDT GLUCOSE POCT, B Routine 07/11/2023 6:38 PM CDT GLUCOSE POCT, B Routine 07/11/2023 6:19 PM CDT GLUCOSE POCT, B Routine 07/11/2023 5:58 PM CDT GLUCOSE POCT, B Routine 07/11/2023 5:53 PM CDT GLUCOSE POCT, B Routine 07/11/2023 4:41 PM CDT GLUCOSE POCT, B Routine 07/11/2023 12:38 PM CDT ECG Routine 07/11/2023 9:31 AM CDT GLUCOSE POCT, B Routine 07/11/2023 8:06 AM CDT ADULT OXYGEN THERAPY Routine 07/11/2023 8:00 AM CDT CYSTATIN C WITH EGFR Timed 07/11/2023 7:34 AM CDT MAGNESIUM, S Routine 07/11/2023 7:34 AM CDT BASIC METABOLIC PANEL, S/P Routine 07/11/2023 7:34 AM CDT CBC WITH DIFFERENTIAL, B Routine 07/11/2023 7:34 AM CDT GLUCOSE POCT, B Routine 07/11/2023 6:27 AM CDT GLUCOSE POCT, B Routine 07/11/2023 3:28 AM CDT GLUCOSE POCT, B Routine 07/10/2023 10:14 PM CDT MAGNESIUM, S Timed 07/10/2023 8:02 PM CDT BASIC METABOLIC PANEL, S/P Timed 07/10/2023 8:02 PM CDT ADULT OXYGEN THERAPY Routine 07/10/2023 8:00 PM CDT GLUCOSE POCT, B Routine 07/10/2023 5:15 PM CDT GLUCOSE POCT, B Routine 07/10/2023 5:03 PM CDT GLUCOSE POCT, B Routine 07/10/2023 4:46 PM CDT GLUCOSE POCT, B Routine 07/10/2023 4:32 PM CDT GLUCOSE POCT, B Routine 07/10/2023 4:04 PM CDT GLUCOSE POCT, B Routine 07/10/2023 12:36 PM CDT MAGNESIUM, S Routine 07/10/2023 10:32 AM CDT BASIC METABOLIC PANEL, S/P Routine 07/10/2023 10:32 AM CDT CBC WITH DIFFERENTIAL, B Routine 07/10/2023 10:32 AM CDT GLUCOSE POCT, B Routine 07/10/2023 8:15 AM CDT ADULT OXYGEN THERAPY Routine 07/10/2023 8:00 AM CDT GLUCOSE POCT, B Routine 07/10/2023 2:47 AM CDT GLUCOSE POCT, B Routine 07/09/2023 10:07 PM CDT CYSTATIN C WITH EGFR Routine 07/09/2023 9:01 PM CDT BASIC METABOLIC PANEL, S/P Timed 07/09/2023 9:01 PM CDT ADULT OXYGEN THERAPY Routine 07/09/2023 8:00 PM CDT GLUCOSE POCT, B Routine 07/09/2023 6:31 PM CDT GLUCOSE POCT, B Routine 07/09/2023 4:42 PM CDT GLUCOSE POCT, B Routine 07/09/2023 2:07 PM CDT GLUCOSE POCT, B Routine 07/09/2023 1:21 PM CDT GLUCOSE POCT, B Routine 07/09/2023 12:56 PM CDT GLUCOSE POCT, B Routine 07/09/2023 12:34 PM CDT GLUCOSE POCT, B Routine 07/09/2023 12:05 PM CDT PHOSPHORUS (INORGANIC), S Routine 07/09/2023 8:11 AM CDT MAGNESIUM, S Routine 07/09/2023 8:11 AM CDT BASIC METABOLIC PANEL, S/P Routine 07/09/2023 8:11 AM CDT CBC WITHOUT DIFFERENTIAL, B Routine 07/09/2023 8:11 AM CDT CYSTATIN C WITH EGFR Routine 07/09/2023 8:09 AM CDT GLUCOSE POCT, B Routine 07/09/2023 8:05 AM CDT ADULT OXYGEN THERAPY Routine 07/09/2023 8:01 AM CDT GLUCOSE POCT, B Routine 07/09/2023 6:06 AM CDT GLUCOSE POCT, B Routine 07/09/2023 3:10 AM CDT GLUCOSE POCT, B Routine 07/08/2023 11:55 PM CDT GLUCOSE POCT, B Routine 07/08/2023 10:45 PM CDT GLUCOSE POCT, B Routine 07/08/2023 10:20 PM CDT GLUCOSE POCT, B Routine 07/08/2023 9:45 PM CDT GLUCOSE POCT, B Routine 07/08/2023 9:21 PM CDT GLUCOSE POCT, B Routine 07/08/2023 9:08 PM CDT GLUCOSE POCT, B Routine 07/08/2023 8:53 PM CDT GLUCOSE POCT, B Routine 07/08/2023 8:47 PM CDT ADULT OXYGEN THERAPY Routine 07/08/2023 8:01 PM CDT GLUCOSE POCT, B Routine 07/08/2023 6:23 PM CDT GLUCOSE POCT, B Routine 07/08/2023 6:03 PM CDT DX CHEST PORTABLE 1 VIEW RAD - Routine (most inpatients and all outpatients) 07/08/2023 3:51 PM CDT NT-PRO B-TYPE NATRIURETIC PEPTIDE (BNP), S Routine 07/08/2023 3:44 PM CDT THYROID FUNCTION CASCADE, S Routine 07/08/2023 3:44 PM CDT PHOSPHORUS (INORGANIC), S Routine 07/08/2023 3:44 PM CDT MAGNESIUM, S Routine 07/08/2023 3:44 PM CDT COMPREHENSIVE METABOLIC PANEL, S/P Routine 07/08/2023 3:44 PM CDT CBC WITHOUT DIFFERENTIAL, B Routine 07/08/2023 3:44 PM CDT ADULT OXYGEN THERAPY Routine 07/08/2023 2:18 PM CDT ADULT OXYGEN THERAPY Routine 07/08/2023 2:18 PM CDT CARDIAC CATHETERIZATION Routine 07/08/2023 10:52 AM CDT Shortness Of Breath Abnormal Coronary Calcium Computed Tomography Edema Lower Extremity GLUCOSE POCT, B Routine 07/08/2023 9:42 AM CDT (TTE) 2D ECHO DOPPLER COLOR AND CONTRAST Routine 07/01/2023 2:25 PM CDT Shortness Of Breath DX CHEST AP OR PA AND LATERAL 2 VIEWS RAD - Routine (most inpatients and all outpatients) 07/01/2023 9:40 AM CDT Coronary Artery Disease With Stable Angina (HCC) ECG Routine 07/01/2023 9:14 AM CDT Coronary Artery Disease With Stable Angina (HCC) GLUCOSE, FASTING, S/P Routine 06/29/2023 9:45 AM CDT Coronary Artery Disease With Stable Angina (HCC) ALANINE AMINOTRANSFERASE (ALT), S/P Routine 06/29/2023 9:44 AM CDT Coronary Artery Disease With Stable Angina (HCC) ASPARTATE AMINOTRANSFERASE (AST), S/P Routine 06/29/2023 9:44 AM CDT Coronary Artery Disease With Stable Angina (HCC) LIPID PANEL, S Routine 06/29/2023 9:44 AM CDT Coronary Artery Disease With Stable Angina (HCC) PROTHROMBIN TIME (PT), P Routine 06/29/2023 9:44 AM CDT Coronary Artery Disease With Stable Angina (HCC) HEMOGLOBIN A1C, B Routine 06/29/2023 9:4 4 AM CDT Coronary Artery Disease With Stable Angina (HCC) SODIUM, S/P Routine 06/29/2023 9:44 AM CDT Coronary Artery Disease With Stable Angina (HCC) POTASSIUM, S/P Routine 06/29/2023 9:44 AM CDT Coronary Artery Disease With Stable Angina (HCC) CREATININE WITH EGFR, S/P Routine 06/29/2023 9:44 AM CDT Coronary Artery Disease With Stable Angina (HCC) CHLORIDE, S/P Routine 06/29/2023 9:44 AM CDT Coronary Artery Disease With Stable Angina (HCC) BUN (BLOOD UREA NITROGEN), S/P Routine 06/29/2023 9:44 AM CDT Coronary Artery Disease With Stable Angina (HCC) BICARBONATE, B/S/P Routine 06/29/2023 9: 44 AM CDT Coronary Artery Disease With Stable Angina (HCC) CBC WITH DIFFERENTIAL, B Routine 06/29/2023 9:44 AM CDT Coronary Artery Disease With Stable Angina (HCC) from Last 3 Months Results * PSA (Prostate-Specific Antigen), Diagnostic (07/21/2023 9:25 AM CDT) Prostate-Specific Ag <0.10 <=6.5 ng/mL 07/21/2023 10:34 AM CDT DTL Comment: ----ADDITIONAL INFORMATION---- The testing method is an electrochemiluminescence assay manufactured by [employer] and performed on the Modular or Yeimi system. Values obtained with different assay methods or kits may be different and cannot be used interchangeably. Test results cannot be interpreted as absolute evidence for the presence or absence of malignant disease. Blood (Blood, Venous) 07/21/2023 9:25 AM CDT 07/21/2023 10:02 AM CDT Ankush Meza.S., M.S. LAB BLOOD ADD-ON [facility] [address] [place] [address], [facility] DTL [facility] [address] [place] [address] * (ABNORMAL) Glucose, POCT (07/13/2023 11:43 AM CDT) Only the most recent of52 resultswithin the time period is included. Glucose, POCT, B 228(H) 70 - 140 mg/dL 07/13/2023 11:45 AM CDT PCLX Site Capillary 07/13/2023 11:45 AM CDT PCLX Blood 07/13/2023 11:4 3 AM CDT 07/13/2023 11:45 AM CDT Unknown Provider LAB POCT ORDERABLES- MANUAL POC [facility] [address] [place] [address], [facility] PCLX [facility] P[facility] [address] [place] [address] * (ABNORMAL) CBC with Differential, Blood (07/13/2023 7:32 AM CDT) Only the most recent of4 resultswithin the time period is included. Pathologist [facility] Hemoglobin 13.0(L) 13.2 - 16.6 g/dL 07/13/2023 8:23 AM CDT DTL Hematocrit 39.6 38.3 - 48.6 % 07/13/2023 8:23 AM CDT DTL Erythrocytes 4.66 4.35 - 5.65 x10(12)/L 07/13/2023 8:23 AM CDT DTL MCV 85.0 78.2 - 97.9 fL 07/13/2023 8:23 AM CDT DTL RBC Distrib Width 17.8(H) 11.8 - 14.5 % 07/13/2023 8:23 AM CDT DTL Platelet Count 368(H) 135 - 317 x10(9)/L 07/13/2023 8:23 AM CDT DTL Leukocytes 8.7 3.4 - 9.6 x10(9)/L 07/13/2023 8:23 AM CDT DTL Neutrophils 6.16 1.56 - 6.45 x10(9)/L 07/13/2023 8:23 AM CDT DHPM Lymphocytes 1.64 0.95 - 3.07 x10(9)/L 07/13/2023 8:23 AM CDT DTL Monocytes 0.76 0.26 - 0.81 x10(9)/L 07/13/2023 8:23 AM CDT DTL Eosinophils 0.13 0.03 - 0.48 x10(9)/L 07/13/2023 8:23 AM CDT DTL Basophils 0.03 0.01 - 0.08 x10(9)/L 07/13/2023 8:23 AM CDT DTL Blood (Blood, Venous) 07/13/2023 7:32 AM CDT 07/13/2023 7:32 AM CDT Addy Arias M.D. LAB BLOOD ADD-ON Performing Organization Address City/[facility]/ZIP Co de Phone Number [facility] [address] [place] [address], [facility] [address] [place], [place] [id number] [place] [address] [address] [place] [address] * Magnesium (07/13/2023 7:32 AM CDT) Only the most recent of7 resultswithin the time period is included. Magnesium, S 1.9 1.7 - 2.3 mg/dL 07/13/2023 8:41 AM CDT DTL Blood (Blood, Venous) 07/13/2023 7:32 AM CDT 07/13/2023 7:32 AM CDT Addy Arias M.D. LAB BLOOD ADD-ON Performing Organization Address City/[facility]/ZIP Co de Phone Number [facility] [address] [place] [address], [facility] [address] [place] [address] * (ABNORMAL) Basic Metabolic Panel (07/13/2023 7:32 AM CDT) Only the most recent of7 resultswithin the time period is included. Potassium, S 4.6 3.6 - 5.2 mmol/L 07/13/2023 8:41 AM CDT DTL Sodium, S 134(L) 135 - 145 mmol/L 07/13/2023 8:41 AM CDT DTL Chloride, S 93(L) 98 - 107 mmol/L 07/13/2023 8:41 AM CDT DTL Bicarbonate, S 27 22 - 29 mmol/L 07/13/2023 8:41 AM CDT DTL Anion Gap 14 7 - 15 07/13/2023 8:41 AM CDT DTL BUN (Blood Urea Nitrogen), S 27(H) 8 - 24 mg/dL 07/13/2023 8:41 AM CDT DTL Creatinine 0.88 0.74 - 1.35 mg/dL 07/13/2023 8:41 AM CDT DTL Estimated GFR (eGFR) >90 >=60 mL/min/BSA 07/13/2023 8:41 AM CDT DTL Comment: Estimated GFR calculated using the 2020 CKD_EPI creatinine equation. Calcium, Total, S 9.7 8.8 - 10.2 mg/dL 07/13/2023 8:41 AM CDT DTL Glucose, S 160(H) 70 - 140 mg/dL 07/13/2023 8:41 AM CDT DTL Blood (Blood, Venous) 07/13/2023 7:32 AM CDT 07/13/2023 7:32 AM CDT Addy Arias M.D. LAB BLOOD ADD-ON [facility] [address] [place] [address], [facility] [address] [place] [address] * ECG 12 Lead (07/12/2023 7:46 PM CDT) Only the most recent of3 resultswithin the time period is included. Ventricular Rate ECG/Min 94 BPM MUSE [place] Interval 236 ms MUSE QRSD Interval 138 ms MUSE QT Interval 402 ms MUSE QTC Interval 502 ms MUSE R [place] -84 degrees MUSE T Wave [place] 94 degrees MUSE 07/12/2023 7:46 PM CDT 07/12/2023 7:52 PM CDT Impressions MUSE - 07/12/2023 7:52 PM CDT Normal sinus rhythm with 1st degree A-V block Left axis deviation Non-specific intra-ventricular conduction block Nonspecific ST and T wave abnormality Prolonged QT When compared with ECG of 11-JUL-2023 09:31, Fusion complexes are no longer present Reviewed by PLACIDO Irwin Narrative Procedure Note Enoch Ma M.D., Ph.D. - 07/12/2023 IMPRESSION: Normal sinus rhythm with 1st degree A-V block Left axis deviation Non-specific intra-ventricular conduction block Nonspecific ST and T wave abnormality Prolonged QT When compared with ECG of 11-JUL-2023 09:31, Fusion complexes are no longer present Reviewed by PLACIDO Irwin Romina Law, Ph.D. ECG [facility] MUSE NA * STENT PLACEMENT, PERCUTANEOUS CORONARY ANGIOPLASTY, CORONARY ATHERECTOMY, CORONARY INTRAVASCULAR LITHOTRIPSY, INTRAVASCULAR ULTRASOUND (07/12/2023 4:33 PM CDT) Anatomical Region Laterality Modality X-Ray Angiograph y 07/12/2023 3:02 PM CDT Narrative 07/12/2023 5:59 PM CDT For the complete report, see the Order-Level Documents. PROCEDURE TYPES 1. ??CORONARY STENT PLACEMENT ?? 2. ??PERCUTANEOUS CORONARY ANGIOPLASTY ?? 3. ??CORONARY ATHERECTOMY ?? 4. ??CORONARY INTRAVASCULAR LITHOTRIPSY ?? 5. ??INTRAVASCULAR ULTRASOUND ?? FINAL DIAGNOSIS 1. ??Severe coronary artery atherosclerosis ?? 2. ??Coronary calcification ?? 3. ??IVUS ?? 4. ??Rotational atherectomy ?? 5. ??Successful percutaneous coronary intervention with drug eluting stent ?? PRE-PROCEDURE DIAGNOSIS 1. ??Atherosclerotic Heart Disease [place] 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 (Stable Angina/Angina Of Exertion) (HCC) ?? INTERVENTIONAL NOTE Indication: Decompensated heart failure (stabilized), severe ischemic cardiomyopathy, critical multivessel calcified coronary disease on recent angiogram, angina equivalent, heart-team approach and surgical turndown for CABG, obesity. planned high-risk PCI to LAD and ramus, with initial conservative management planned for occluded circumflex and severe RCA disease Procedures: 1. Rotational atherectomy, PTCA, intravascular lithotripsy and drug eluting stent to mid LAD with IVUS. 2. Rotational atherectomy. PTCA, intravascular lithotripsy and drug eluting stent to proximal ramus Following a discussion of the goals risks and alternatives, Mr. Butler provided informed consent to undergo high-risk PCI. We used 6/7 slender R radial access and a 7F XB 3.5 guide. We began with the LAD. We wired with a WH, exchanged for a rota-floppy wire and performed rotational atherectomy of the mid LAD lesion with a 1.25 mm kenroy at 040130 rpm with successful passage and polishing. We wired with the WH and dilated with a 2.75 NC at 20 ambar with burst. Given residual constraint we performed further lesion preparation with a 3.0 mm intravascular lithotripsy balloon administering 60 pulses at 6 ambar. We next deployed a 3.5 x 12 mm Synergy stent at 14 ambar, performed IVUS and postdilated with a 3.5 x 6 mm NC at 18 ambar with a good angiogram result. We next turned our attention to the ramus, wiring and exchanging for the rotafloppy. We performed atherectomy with the 1.25 mm kenroy with successful passage and polishing. We wired into both limbs, removed the rota wire and dilated the ramus with a 2.75 mm NC balloon at 18 ambar and then performed intravascular lithotripsy with the 3.0 mm balloon administering 40 pulses at 4 ambar, with balloon burst at this point. After check angiography we deployed a 3 x 12 Synergy stent in the ramus at 16 ambar and postdilated with a 3.25 x 6 mm NC at 18 ambar with a good result. Diffuse LM and prox LAD noted at baseline, with no significant new compromise. Collaterals to the RPDA also noted. The procedure was tolerated well, covered with established DAPT, heparin boluses guided by ACTs and transient aminophylline to cover the periods of atherectomy. We used a compression band for radial hemostasis. We then transferred the patient back to the PACU, hemodynamically stable and comfortable. CORONARY DIAGNOSTIC SUMMARY Coronary artery dominance is right. ??The ??right coronary was not injected. ?? The left main coronary artery is 40% obstructed by diffuse disease. ?? The proximal left anterior descending artery is 50% obstructed by diffuse disease. ?? The middle left anterior descending artery is 90% obstructed by a discrete lesion and 50% obstructed by a discrete lesion. The distal segment is normal size, diseased. ?? The proximal circumflex artery is 100% obstructed by a discrete lesion. ?? The ramus intermedius segment is 99% obstructed by a discrete lesion. The distal segment is large size, diseased. ?? The first obtuse marginal receives collaterals from the ramus intermedius segment. ?? CORONARY INTERVENTION SUMMARY Successful intervention of the Middle Left Anterior Descending Artery. The preintervention stenosis was 90%. The post intervention stenosis was 10%. Devices used include Atherectomy, PTCA, Stent, and Lithotripsy. ?? Successful intervention of the Ramus Intermedius Segment. The preintervention stenosis was 99%. The post intervention stenosis was 10%. Devices used include Atherectomy, PTCA, Stent, and Lithotripsy. ?? IVUS SUMMARY An ultrasound study of the Middle Left Anterior Descending Artery was performed Post Intervention. Stent Adequately Expanded. Stent Adequately Apposed. No complications. RADIATION DOSE DATA Procedure cumulative skin dose (mGy): 3867.41 Procedure cumulative dose area product (Gy-cm2): 177.86 Fluoro Time (Min): 26.86 CONTRAST DOSE DATA iohexoL 350 mg iodine/mL solution (OMNIPAQUE): 200mL For the complete report, see the Order-Level Documents. Procedure Note Mt Crum M.D., Ph.D. - 07/12/2023 For the complete report, see the Order-Level Documents. PROCEDURE TYPES 1. CORONARY STENT PLACEMENT 2. PERCUTANEOUS CORONARY ANGIOPLASTY 3. CORONARY ATHERECTOMY 4. CORONARY INTRAVASCULAR LITHOTRIPSY 5. INTRAVASCULAR ULTRASOUND FINAL DIAGNOSIS 1. Severe coronary artery atherosclerosis 2. Coronary calcification 3. IVUS 4. Rotational atherectomy 5. Successful percutaneous coronary intervention with drug eluting stent PRE-PROCEDURE DIAGNOSIS 1. Atherosclerotic Heart Disease [place] Coronary Artery With Other FormsAngina Pectoris (Stable Angina/Angina Of Exertion) (HCC) INTERVENTIONAL NOTE Indication: Decompensated heart failure (stabilized), severe ischemiccardiomyopathy, critical multivessel calcified coronary disease on recentangiogram, angina equivalent, heart-team approach and surgical turndownfor CABG, obesity. planned high-risk PCI to LAD and ramus, with initialconservative management planned for occluded circumflex and severe RCAdisease Procedures: 1. Rotational atherectomy, PTCA, intravascular lithotripsy anddrug eluting stent to mid LAD with IVUS. 2. Rotational atherectomy. PTCA,intravascular lithotripsy and drug eluting stent to proximal ramus Following a discussion of the goals risks and alternatives, Mr. Butlerprovided informed consent to undergo high-risk PCI. We used 6/7 slender Rradial access and a 7F XB 3.5 guide. We began with the LAD. We wired witha WH, exchanged for a rota-floppy wire and performed rotationalatherectomy of the mid LAD lesion with a 1.25 mm kenroy at 613437 rpm withsuccessful passage and polishing. We wired with the WH and dilated with a2.75 NC at 20 ambar with burst. Given residual constraint we performedfurther lesion preparation with a 3.0 mm intravascular lithotripsy balloonadministering 60 pulses at 6 ambar. We next deployed a 3.5 x 12 mm Synergystent at 14 ambar, performed IVUS and postdilated with a 3.5 x 6 mm NC at 18atm with a good angiogram result. We next turned our attention to theramus, wiring and exchanging for the rotafloppy. We performed atherectomywith the 1.25 mm kenroy with successful passage and polishing. We wired intoboth limbs, removed the rota wire and dilated the ramus with a 2.75 mm NCballoon at 18 ambar and then performed intravascular lithotripsy with the3.0 mm balloon administering 40 pulses at 4 ambar, with balloon burst atthis point. After check angiography we deployed a 3 x 12 Synergy stent inthe ramus at 16 ambar and postdilated with a 3.25 x 6 mm NC at 18 ambar with agood result. Diffuse LM and prox LAD noted at baseline, with nosignificant new compromise. Collaterals to the RPDA also noted. Theprocedure was tolerated well, covered with established DAPT, heparinboluses guided by ACTs and transient aminophylline to cover the periods ofatherectomy. We used a compression band for radial hemostasis. We thentransferred the patient back to the PACU, hemodynamically stable andcomfortable. CORONARY DIAGNOSTIC SUMMARY Coronary artery dominance is right. The right coronary was not injected. The left main coronary artery is 40% obstructed by diffuse disease. The proximal left anterior descending artery is 50% obstructed by diffusedisease. The middle left anterior descending artery is 90% obstructed by a discretelesion and 50% obstructed by a discrete lesion. The distal segment isnormal size, diseased. The proximal circumflex artery is 100% obstructed by a discrete lesion. The ramus intermedius segment is 99% obstructed by a discrete lesion. Thedistal segment is large size, diseased. The first obtuse marginal receives collaterals from the ramus intermediussegment. CORONARY INTERVENTION SUMMARY Successful intervention of the Middle Left Anterior Descending Artery. Thepreintervention stenosis was 90%. The post intervention stenosis was 10%.Devices used include Atherectomy, PTCA, Stent, and Lithotripsy. Successful intervention of the Ramus Intermedius Segment. Thepreintervention stenosis was 99%. The post intervention stenosis was 10%.Devices used include Atherectomy, PTCA, Stent, and Lithotripsy. IVUS SUMMARY An ultrasound study of the Middle Left Anterior Descending Artery wasperformed Post Intervention. Stent Adequately Expanded. Stent AdequatelyApposed. No complications. RADIATION DOSE DATA Procedure cumulative skin dose (mGy): 3867.41 Procedure cumulative dose area product (Gy-cm2): 177.86 Fluoro Time (Min): 26.86 CONTRAST DOSE DATA iohexoL 350 mg iodine/mL solution (OMNIPAQUE): 200mL For the complete report, see the Order-Level Documents. Addy Arias M.D. CV CARDIAC CATH [place] OCEDURES * (ABNORMAL) ACT (Activated Clotting Time), POCT (07/12/2023 3:54 PM CDT) Only the most recent of2 resultswithin the time period is included. Pathologist [facility] Activated Clotting Time, POCT 306(H) 84 - 139 sec 07/12/2023 3:59 PM CDT PCSM Blood 07/12/2023 3:54 PM CDT 07/12/2023 4:00 PM CDT Unknown Provider LAB POCT ORDERABLES - DEVICE POC RST [facility] [address] [place] [address], [facility] PCSM [facility] [address] [place] [id number] * (ABNORMAL) Cystatin C with Estimated GFR (07/12/2023 6:51 AM CDT) Only the most recent of4 resultswithin the time period is included. eGFR by Cystatin C 50(L) >60 mL/min/BSA 07/12/2023 8:30 AM CDT DTL Comment: Estimated GFR calculated using the CKD-EPI Cystatin C (2012) equation. ----ADDITIONAL INFORMATION---- Cystatin C-based eGFR may differ substantially from creatinine- based eGFR in patients with abnormal muscle mass or acutely changing renal function. ??Please interpret together with relevant clinical features. On 09/12/2020 the cystatin C assay method changed. Cystatin C eGFR results > 50 ml/min/1.73m2 are approximately 10% lower with the new assay. Cystatin C 1.35(H) 0.67 - 1.21 mg/L 07/12/2023 8:30 AM CDT DTL Blood (Blood, Venous) 07/12/2023 6:51 AM CDT 07/12/2023 8:02 AM CDT Addy Arias M.D. LAB BLOOD ADD-ON [facility] [address] [place] [address], [facility] DTL [facility] [address] [place] [address] * (ABNORMAL) CBC without Differential (07/12/2023 6:51 AM CDT) Only the most recent of3 resultswithin the time period is included. Hemoglobin 12.4(L) 13.2 - 16.6 g/dL 07/12/2023 8:04 AM CDT DTL Hematocrit 38.7 38.3 - 48.6 % 07/12/2023 8:04 AM CDT DTL Erythrocytes 4.50 4.35 - 5.65 x10(12)/L 07/12/2023 8:04 AM CDT DTL MCV 86.0 78.2 - 97.9 fL 07/12/2023 8:04 AM CDT DTL RBC Distrib Width 18.0(H) 11.8 - 14.5 % 07/12/2023 8:04 AM CDT DTL Platelet Count 340(H) 135 - 317 x10(9)/L 07/12/2023 8:04 AM CDT DTL Leukocytes 7.6 3.4 - 9.6 x10(9)/L 07/12/2023 8:04 AM CDT DTL Blood (Blood, Venous) 07/12/2023 6:51 AM CDT 07/12/2023 7:45 AM CDT Addy Arias M.D. LAB BLOOD ADD-ON Performing Organization Address City/[facility]/[place] [address] * Phosphorus Inorganic (07/09/2023 8:11 AM CDT) Only the most recent of2 resultswithin the time period is included. [facility] Phosphorus (Inorganic), S 3.3 2.5 - 4.5 mg/dL 07/09/2023 9:25 AM CDT DTL Blood (Blood, Venous) 07/09/2023 8:11 AM CDT 07/09/2023 9:02 AM CDT Romina Dutta., Ph.D. LAB BLOOD ADD-ON Performing Organization Address City/[facility]/[place] [address] * DX Chest Portable 1 View (07/08/2023 3:51 PM CDT) Anatomical Region Laterality Modality Chest, Thoracic RST LOS, Tho racic ARZ LOS, Thoracic FLA LOS N/A Digital Radiography Impressions 07/08/2023 3:53 PM CDT Enlarged cardiac silhouette with mild increased layering bilateral pleural effusions, small to moderate on the right and small left, in a background of probable mild interstitial edema. No definite pneumothorax. Multilevel degenerative changes of the spine. Narrative 07/08/2023 3:53 PM CDT EXAM: ??DX CHEST PORTABLE 1 VIEW Procedure Note Sami Guerrero D.O. - 07/08/2023 EXAM: DX CHEST PORTABLE 1 VIEW IMPRESSION: Enlarged cardiac silhouette with mild increased layering bilateral pleuraleffusions, small to moderate on the right and small left, in a backgroundof probable mild interstitial edema. No definite pneumothorax. Multileveldegenerative changes of the spine. Romina Law, Ph.D. IMG DIAGNO STIC IMAGING PROCEDURES * Thyroid Function [place] (07/08/2023 3:44 PM CDT) Pathologist [facility] TSH, Sensitive 1.3 0.3 - 4.2 mIU/L 07/08/2023 4:48 PM CDT DTL Blood (Blood, Venous) 07/08/2023 3:44 PM CDT 07/08/2023 4:12 PM CDT Romina Law, Ph.D. LAB BLOOD ADD-ON [facility] [address] [place] [address], [facility] [address] [place] [address] * (ABNORMAL) NT-Pro B-Type Natriuretic Peptide (BNP) (07/08/2023 3:44 PM CDT) NT-Pro BNP 6823(H) <=540 pg/mL 07/08/2023 4:48 PM CDT DTL Comment: NT-proBNP values less than 300 pg/mL have a 99% negative predictive value for excluding acute congestive heart failure. A cutoff of 1200 pg/mL for patients with an eGFR<60 yields a diagnostic sensitivity and specificity of 89% and 72% for acute congestive heart failure. A diagnostic NT-proBNP cutoff of 900 pg/mL has been suggested in adults 50-75 years of age in the absence of renal failure. Blood (Blood, Venous) 07/08/2023 3:44 PM CDT 07/08/2023 4:12 PM CDT Romina Law, Ph.D. LAB BLOOD ADD-ON [facility] [address] [place] [address], [facility] [address] [place] [address] * (ABNORMAL) Comprehensive Metabolic Panel (07/08/2023 3:44 PM CDT) [facility] Potassium, S 4.7 3.6 - 5.2 mmol/L 07/08/2023 4:48 PM CDT DTL Sodium, S 137 135 - 145 mmol/L 07/08/2023 4:48 PM CDT DTL Chloride, S 99 98 - 107 mmol/L 07/08/2023 4:48 PM CDT DTL Bicarbonate, S 27 22 - 29 mmol/L 07/08/2023 4:48 PM CDT DTL Anion Gap 11 7 - 15 07/08/2023 4:48 PM CDT DTL BUN (Blood Urea Nitrogen), S 27(H) 8 - 24 mg/dL 07/08/2023 4:48 PM CDT DTL Creatinine 0.80 0.74 - 1.35 mg/dL 07/08/2023 4:48 PM CDT DTL Estimated GFR (eGFR) >90 >=60 mL/min/BS A 07/08/2023 4:48 PM CDT DTL Comment: Estimated GFR calculated using the 2020 CKD_EPI creatinine equation. Calcium, Total, S 9.6 8.8 - 10.2 mg/dL 07/08/2023 4:48 PM CDT DTL Glucose, S 118 70 - 140 mg/dL 07/08/2023 4:48 PM CDT DTL Protein, Total, S 6.5 6.3 - 7.9 g/dL 07/08/2023 4:48 PM CDT DTL Albumin, S 3.7 3.5 - 5.0 g/dL 07/08/2023 4:48 PM CDT DTL Aspartate Aminotransferase (AST), S 60(H) 8 - 48 U/L 07/08/2023 4:48 PM CDT DTL Alkaline Phosphatase, S 119 40 - 129 U/L 07/08/2023 4:48 PM CDT DTL Alanine Aminotransferase (ALT), S 24 7 - 55 U/L 07/08/2023 4:48 PM CDT DTL Bilirubin, Total, S 0.6 0.0 - 1.2 mg/dL 07/08/2023 4:48 PM CDT DTL Blood (Blood, Venous) 07/08/2023 3:44 PM CDT 07/08/2023 4:12 PM CDT S. Nacho Law, Ph.D. [place] [address], [facility] DTL [facility] [address] [place] [address] * CORONARY ANGIOGRAPHY WITH POSSIBLE INTERVENTION (07/08/2023 10:52 AM CDT) Anatomical Region Laterality Modality X-Ray Angiograph y 07/08/2023 10:2 0 AM CDT Narrative 07/08/2023 11:11 AM CDT For the complete report, see the Order-Level Documents. PROCEDURE TYPES 1. ??CORONARY ANGIOGRAPHY WITH POSSIBLE INTERVENTION ?? FINAL DIAGNOSIS 1. ??Severe coronary artery atherosclerosis ?? PRE-PROCEDURE DIAGNOSIS 1. ??Shortness Of Breath ?? 2. ??Abnormal Coronary Calcium Computed Tomography ?? 3. ??Edema Lower Extremity ?? CORONARY DIAGNOSTIC SUMMARY Coronary artery dominance is right. ?? The left main coronary artery is 30% obstructed by a discrete lesion. ?? The proximal left anterior descending artery is 90% obstructed by a discrete lesion. The distal segment is normal size. ?? The proximal circumflex artery is 100% obstructed by a discrete lesion. The distal segment is not visible. ?? The ramus intermedius segment is 99% obstructed by a discrete lesion. The distal segment is large size. ?? The proximal right coronary artery is 99% obstructed by a discrete lesion. ?? The middle right coronary artery is 99% obstructed by a discrete lesion. ?? The distal right coronary artery is 90% obstructed by a discrete lesion. ?? RADIATION DOSE DATA Procedure cumulative skin dose (mGy): 616.62 Procedure cumulative dose area product (Gy-cm2): 46.71 Fluoro Time (Min): 3.46 CONTRAST DOSE DATA iohexoL 350 mg iodine/mL solution (OMNIPAQUE): 100mL For the complete report, see the Order-Level Documents. Procedure Note Sky Whatley M.D., Ph.D. - 07/08/2023 For the complete report, see the Order-Level Documents. PROCEDURE TYPES 1. CORONARY ANGIOGRAPHY WITH POSSIBLE INTERVENTION FINAL DIAGNOSIS 1. Severe coronary artery atherosclerosis PRE-PROCEDURE DIAGNOSIS 1. Shortness Of Breath 2. Abnormal Coronary Calcium Computed Tomography 3. Edema Lower Extremity CORONARY DIAGNOSTIC SUMMARY Coronary artery dominance is right. The left main coronary artery is 30% obstructed by a discrete lesion. The proximal left anterior descending artery is 90% obstructed by adiscrete lesion. The distal segment is normal size. The proximal circumflex artery is 100% obstructed by a discrete lesion.The distal segment is not visible. The ramus intermedius segment is 99% obstructed by a discrete lesion. Thedistal segment is large size. The proximal right coronary artery is 99% obstructed by a discrete lesion. The middle right coronary artery is 99% obstructed by a discrete lesion. The distal right coronary artery is 90% obstructed by a discrete lesion. RADIATION DOSE DATA Procedure cumulative skin dose (mGy): 616.62 Procedure cumulative dose area product (Gy-cm2): 46.71 Fluoro Time (Min): 3.46 CONTRAST DOSE DATA iohexoL 350 mg iodine/mL solution (OMNIPAQUE): 100mL For the complete report, see the Order-Level Documents. Sairna Spears Cara MINOR, C.N.P., D.N.P. CV CARDIAC CATH PROCEDURES * (TTE) 2D ECHO DOPPLER COLOR AND CONTRAST (07/01/2023 2:25 PM CDT) Ejection Fraction 29 MC CV EIMS Sinus of Valsalva 41 MC CV EIMS Mid-Ascending Aorta 36 MC CV EIMS LV Mass Index 120 MC CV EIMS LV End-Diastolic Diameter 63 MC CV EIMS LV End-Systolic Diameter 53 MC CV EIMS LV End-Diastolic Volume 328 MC CV EIMS LV End-Systolic Volume 229 MC CV EIMS MV E Velocity 1 MC CV EIMS MV e' Velocity Medial 0.06 MC CV EIMS MV e' Velocity Lateral 0.08 MC CV EIMS MV E/e' Medial 16.7 MC CV EIMS MV E/e' Lateral 12.5 MC CV EIMS Left ventricular stroke volume index 34 MC CV EIMS Cardiac Output 8.98 MC CV EIMS Cardiac Index 3.16 MC CV EIMS LV Interventricular Septal Wall Thickness 11 MC CV EIMS LV Posterior Wall Thickness 13 MC CV EIMS LV Relative Wall Thickness 41 MC CV EIMS TAPSE 19 MC CV EIMS Tricuspid Annular S? 0.06 MC CV EIMS RA Pressure 20 MC CV EIMS Estimated diastolic pulmonary artery pressure 28 MC CV EIMS AV mean gradient 5 MC CV EIMS Aortic valve area 3.48 MC CV EIMS Aortic Valve Dimensionless Index 0.65 MC CV EIMS MV mean gradient 3 MC CV EIMS LA Volume Index 43 MC CV EIMS Aortic Valve Systolic Peak Velocity 1.5 MC CV EIMS Anatomical Region Laterality Modality Echocardiography 07/01/2023 1:00 PM CDT Impressions 07/01/2023 2:44 PM CDT LEFT VENTRICLE:Moderate-severely enlarged left ventricular chamber size. Calculated 2-D linear left ventricular ejection fraction 29%. Severe generalized left ventricular hypokinesis. No regional wall motion abnormalities. Indeterminate left ventricular filling pressure. RIGHT VENTRICLE:Mildly enlarged right ventricular chamber size by visual estimate. Mild-moderately reduced right ventricular systolic function. Unable to detect peak tricuspid regurgitation velocity for pulmonary artery systolic pressure calculation. ATRIA:Mild-moderately enlarged left atrial size. Left atrial volume index 43 ml/m2. Normal right atrial size by visual estimate. CARDIAC VALVES:Trileaflet aortic valve. Sclerotic aortic valve. Trivial aortic valve regurgitation. Moderately calcified mitral annulus. Mitral valve diastolic mean Doppler gradient 3 mmHg (heart rate 91 BPM). Thickened mitral valve. Mild mitral valve regurgitation. Pulmonary valve not well visualized. Normal pulmonary valve systolic velocities. Trivial pulmonary valve regurgitation. Normal tricuspid valve. Trivial tricuspid valve regurgitation. OTHER ECHO FINDINGS:Enlarged inferior vena cava size with no inspiratory collapse. Normal mid ascending aorta diameter of 36 mm. Upper limit of normal of the mid ascending aorta, for age, sex and BSA is 46 mm. Abdominal aorta not visualized. Normal abdominal aorta Doppler flow pattern. Imaging inadequate for detection of atrial level shunt by color flow imaging. No intracardiac mass or thrombus, but the left atrial appendage cannot be visualized adequately with transthoracic echo to exclude thrombus in this location. No ??pericardial effusion. Prominent anterior and apical epicardial fat layer. Attempts were made to optimize the echocardiographic images and two or more left ventricular segments were not visualized adequately to evaluate cardiac structure. The patient's current allergies and medications have been screened. Intravenous Definity ultrasound enhancement agent(s) administered to enhance endocardial border definition. Imaging enhancement agent administered per Echocardiography Contrast Administration Protocol Reference Document [id number] Rev 07/31/2021. Patient met an inclusion criterion and did not have contraindications in screening sections. For the complete report, see the Order-Level Documents. Narrative 07/01/2023 2:44 PM CDT For the complete report, see the Order-Level Documents. Hemodynamics Heart Rate: 102 BPM Blood Pressure: 96 / 54 mmHg ECG: Sinus rhythm Final Impressions 1. Moderate-severely enlarged left ventricular chamber size, no regional wall motion abnormalities . Calculated 2-D linear left ventricular ejection fraction 29%. \.br\ Severe generalized left ventricular hypokinesis. Visually, the LVEF appears to be 25%. 2. Mildly enlarged right ventricular chamber size, mild-moderately reduced systolic function, unable to detect peak tricuspid regurgitation velocity for pulmonary artery systolic pressure calculation. 3. Indeterminate left ventricular filling pressure. 4. Moderately calcified mitral annulus with a mitral valve diastolic gradient of 3 mm of Hg (HR of 91 BPM) and mild mitral regurgitation 5. No ??pericardial effusion. 6. Enlarged inferior vena cava size with no inspiratory collapse. 7. Compared to the report of 05/23/2021 the following changes have occurred: Left ventricular ejection fraction is now significantly reduced with severe generalized hypokinesis along with [id number] right ventricular systolic dysfunction. . ??Side by side comparison of images performed. Procedure Note Dallas Gomez M.D. - 07/01/2023 For the complete report, see the Order-Level Documents. Hemodynamics Heart Rate: 102 BPM Blood Pressure: 96 / 54 mmHg ECG: Sinus rhythm Final Impressions 1. Moderate-severely enlarged left ventricular chamber size, no regionalwall motion abnormalities . Calculated 2-D linear left ventricularejection fraction 29%. \.br\ Severe generalized left ventricularhypokinesis. Visually, the LVEF appears to be 25%. 2. Mildly enlarged right ventricular chamber size, mild-moderately reducedsystolic function, unable to detect peak tricuspid regurgitation velocityfor pulmonary artery systolic pressure calculation. 3. Indeterminate left ventricular filling pressure. 4. Moderately calcified mitral annulus with a mitral valve diastolicgradient of 3 mm of Hg (HR of 91 BPM) and mild mitral regurgitation 5. No pericardial effusion. 6. Enlarged inferior vena cava size with no inspiratory collapse. 7. Compared to the report of 05/23/2021 the following changes haveoccurred: Left ventricular ejection fraction is now significantly reducedwith severe generalized hypokinesis along with [id number] rightventricular systolic dysfunction. . Side by side comparison of imagesperformed. Findings LEFT VENTRICLE:Moderate-severely enlarged left ventricular chamber size.Calculated 2-D linear left ventricular ejection fraction 29%. Severegeneralized left ventricular hypokinesis. No regional wall motionabnormalities. Indeterminate left ventricular filling pressure. RIGHT VENTRICLE:Mildly enlarged right ventricular chamber size by visualestimate. Mild-moderately reduced right ventricular systolic function.Unable to detect peak tricuspid regurgitation velocity for pulmonaryartery systolic pressure calculation. ATRIA:Mild-moderately enlarged left atrial size. Left atrial volume index43 ml/m2. Normal right atrial size by visual estimate. CARDIAC VALVES:Trileaflet aortic valve. Sclerotic aortic valve. Trivialaortic valve regurgitation. Moderately calcified mitral annulus. Mitralvalve diastolic mean Doppler gradient 3 mmHg (heart rate 91 BPM).Thickened mitral valve. Mild mitral valve regurgitation. Pulmonary valvenot well visualized. Normal pulmonary valve systolic velocities. Trivialpulmonary valve regurgitation. Normal tricuspid valve. Trivial tricuspidvalve regurgitation. OTHER ECHO FINDINGS:Enlarged inferior vena cava size with no inspiratorycollapse. Normal mid ascending aorta diameter of 36 mm. Upper limit ofnormal of the mid ascending aorta, for age, sex and BSA is 46 mm.Abdominal aorta not visualized. Normal abdominal aorta Doppler flowpattern. Imaging inadequate for detection of atrial level shunt by colorflow imaging. No intracardiac mass or thrombus, but the left atrialappendage cannot be visualized adequately with transthoracic echo toexclude thrombus in this location. No pericardial effusion. Prominentanterior and apical epicardial fat layer. Attempts were made to optimizethe echocardiographic images and two or more left ventricular segmentswere not visualized adequately to evaluate cardiac structure. Thepatient's current allergies and medications have been screened.Intravenous Definity ultrasound enhancement agent(s) administered toenhance endocardial border definition. Imaging enhancement agentadministered per Echocardiography Contrast Administration ProtocolReference Document [id number] Rev 07/31/2021. Patient met an inclusioncriterion and did not have contraindications in screening sections. For the complete report, see the Order-Level Documents. Sarina Marroquin APRN, C.N.P., D.N.P. CV ECHO PROCEDURES * DX Chest AP or PA and Lateral 2 Views (07/01/2023 9:40 AM CDT) Anatomical Region Laterality Modality Chest, Thoracic RST LOS, Tho racic ARZ LOS, Thoracic FLA LOS N/A Digital Radiography Impressions 07/01/2023 11:08 AM CDT No comparison radiographs. Cardiomegaly. ??Mildly prominent central pulmonary vascularity. Bilateral calcified pleural plaques. Small cluster of nodular opacities in the right upper lobe, corresponds to the calcified pleural plaques on CT of 10/26/2022. There may be an additional parenchymal opacities in the right upper lung, better delineated on the chest CT. Consider chest CT follow-up for more accurate comparison. Small right pleural effusion with associated atelectasis. Tiny left pleural effusion. Pleural effusion size is difficult to compare due to differences in positioning. Degenerative changes in the spine. Narrative 07/01/2023 11:08 AM CDT EXAM: ??DX CHEST AP OR PA AND LATERAL 2 VIEWS Procedure Note Beth Vinson M.D. - 07/01/2023 EXAM: DX CHEST AP OR PA AND LATERAL 2 VIEWS IMPRESSION: No comparison radiographs. Cardiomegaly. Mildly prominent centralpulmonary vascularity. Bilateral calcified pleural plaques. Small clusterof nodular opacities in the right upper lobe, corresponds to the calcifiedpleural plaques on CT of 10/26/2022. There may be an additional parenchymal opacities in the rightupper lung, better delineated on the chest CT. Consider chest CT follow-upfor more accurate comparison. Small right pleural effusion with associatedatelectasis. Tiny left pleural effusion. Pleural effusion size is difficult to compare due todifferences in positioning. Degenerative changes in the spine. Shaheen Fuentes M.D. IMG DIAGNOSTIC I MAGING PROCEDURES * (ABNORMAL) Glucose, Fasting (06/29/2023 9:45 AM CDT) Glucose, P 108(H) 70 - 100 mg/dL 06/29/2023 2:34 PM CDT OWAT Last Intake 2 hr 06/29/2023 1:31 PM CDT OWAT Blood (Blood, Venous) 06/29/2023 9:45 AM CDT 06/29/2023 1:29 PM CDT Shaheen Fuentes M.D. LAB BLOOD NON AD D-ON [facility] [address] [place] [address], [facility] OWAT [facility] [place] [address] [place] [address] * Lipid Panel (06/29/2023 9:44 AM CDT) Triglycerides 95 mg/dL 06/29/2023 2:42 PM CDT OWAT Comment: ----REFERENCE VALUE---- Normal: <150 mg/dL Borderline High: 150-199 mg/dL High: 200-499 mg/dL Very High: > or =500 mg/dL Cholesterol, Total 131 mg/dL 2023 2:42 PM CDT OWAT Comment: ----REFERENCE VALUE---- Desirable: < 200 mg/dL Borderline High: 200 - 239 mg/dL High: > or = 240 mg/dL Cholesterol, LDL, Calculated 60 mg/dL 06/29/2023 2:42 PM CDT OWAT Comment: ----REFERENCE VALUE---- Desirable: <100 mg/dL Above Desirable: 100-129 mg/dL Borderline High: 130-159 mg/dL High: 160-189 mg/dL Very High: >=190 mg/dL ----ADDITIONAL INFORMATION---- LDL cholesterol calculated using the Crocker/NIH equation. Cholesterol, HDL 53 >=40 mg/dL 06/29/19 2:42 PM CDT OWAT Cholesterol, Non-HDL, Calculated 78 mg/dL 06/29/2023 2:42 PM CDT OWAT Comment: ----REFERENCE VALUE---- Desirable: <130 mg/dL Above Desirable: 130-159 mg/dL Borderline High: 160-189 mg/dL High: 190-219 mg/dL Very High: > or =220 mg/dL Fasting (8 HR or more) no 06/29/2023 1:31 PM CDT OWAT Blood (Blood, Venous) 06/29/2023 9:44 AM CDT 06/29/2023 1:31 PM CDT Shaheen Fuentes M.D. LAB BLOOD ADD-ON [facility] [address] [place] [address], [facility] OWAT [facility] [place] [address] [place] [address] * Prothrombin Time (PT) (06/29/2023 9:44 AM CDT) Prothrombin Time, P 11.4 9.4 - 12.5 sec 06/29/2023 2:06 PM CDT OWAT INR 1.0 0.9 - 1.1 06/29/2023 2:06 PM CDT OWAT Comment: ----ADDITIONAL INFORMATION---- Standard intensity warfarin therapeutic range: 2.0 to 3.0 ?? High intensity warfarin therapeutic range: 2.5 to 3.5 Blood (Blood, Venous) 06/29/2023 9:44 AM CDT 06/29/2023 1:29 PM CDT Shaheen Fuentes M.D. LAB BLOOD ADD-ON Performing Organization Address City/[facility]/ZIP Co de Phone Number [facility] [address] [place] [address], [place] OWAT [facility] [place] [address], [place] [address] * BUN (Blood Urea Nitrogen) (06/29/2023 9:44 AM CDT) BUN (Blood Urea Nitrogen), P 22 8 - 24 mg/dL 06/29/2023 2:42 PM CDT OWAT Blood (Blood, Venous) 06/29/2023 9:44 AM CDT 06/29/2023 1:31 PM CDT Shaheen Fuentes M.D. LAB BLOOD ADD-ON Performing Organization Address City/[facility]/ZIP Co de Phone Number [facility] [address] [place] [address], [place] [facility] [place] [address], [place] [address] * ALT (Alanine Aminotransferase) (06/29/2023 9:44 AM CDT) Alanine Aminotransferase (ALT), P 9 7 - 55 U/L 06/29/2023 2:42 PM CDT OWAT Blood (Blood, Venous) 06/29/2023 9:44 AM CDT 06/29/2023 1:31 PM CDT Shaheen Fuentes M.D. LAB BLOOD ADD-ON Performing Organization Address City/[facility]/ZIP Co de Phone Number [facility] [address] [place] [address], [place] OWAT [facility] [place] [address] [place] [address] * AST (Aspartate Aminotransferase) (06/29/2023 9:44 AM CDT) Aspartate Aminotransferase (AST), P 20 8 - 48 U/L 06/29/2023 2:42 PM CDT OWAT Blood (Blood, Venous) 06/29/2023 9:44 AM CDT 06/29/2023 1:31 PM CDT Shaheen Fuentes M.D. LAB BLOOD ADD-ON [facility] [address] [place] [address], [facility] [place] [address] [place] [address] * Sodium (06/29/2023 9:44 AM CDT) Sodium, P 139 135 - 145 mmol/L 06/29/2023 2:42 PM CDT OWAT Blood (Blood, Venous) 06/29/2023 9:44 AM CDT 06/29/2023 1:31 PM CDT Shaheen Fuentes M.D. LAB BLOOD ADD-ON [facility] [address] [place] [address], [place] AT [facility] [place] [address], [place] [address] * Potassium (06/29/2023 9:44 AM CDT) Potassium, P 4.0 3.6 - 5.2 mmol/L 06/29/2023 2:42 PM CDT OWAT Blood (Blood, Venous) 06/29/2023 9:44 AM CDT 06/29/2023 1:31 PM CDT Shaheen Fuentes M.D. LAB BLOOD ADD-ON Performing Organization Address City/[facility]/ZIP Co de Phone Number [facility] [address] [place] [address], [place] OW[place] [facility] [address] [place] [address] * (ABNORMAL) Hemoglobin A1c (06/29/2023 9:44 AM CDT) Hemoglobin A1c, B 7.2(H) 4.2 - 5.6 % 06/29/2023 2:09 PM CDT OWAT Comment: Hemoglobin A1c values greater than or equal to 6.5 percent are diagnostic for diabetes mellitus. ??Diagnosis should be confirmed by repeat testing. ??In diabetic patients, HbA1c goals should be discussed with healthcare provider. Blood (Blood, Venous) 06/29/2023 9:44 AM CDT 06/29/2023 1:31 PM CDT Shaheen Fuentes M.D. LAB BLOOD ADD-ON Performing Organization Address City/[facility] Co de Phone Number [facility] [address] [place] [address], [place] OW[place] [facility] [place] [address], [place] [address] * (ABNORMAL) Creatinine with Estimated GFR (06/29/2023 9:44 AM CDT) Creatinine 0.68(L) 0.74 - 1.35 mg/dL 06/29/2023 2:42 PM CDT OWAT Estimated GFR (eGFR) >90 >=60 mL/min/BSA 06/29/2023 2:42 PM CDT OWAT Comment: Estimated GFR calculated using the 2020 CKD_EPI creatinine equation. Blood (Blood, Venous) 06/29/2023 9:44 AM CDT 06/29/2023 1:31 PM CDT Shaheen Fuentes M.D. LAB BLOOD ADD-ON [facility] [address] [place] [address], [place] OW[place] [facility] [place] [address] [place] [address] * Chloride (06/29/2023 9:44 AM CDT) Chloride, P 99 98 - 107 mmol/L 06/29/2023 2:42 PM CDT OWAT Blood (Blood, Venous) 06/29/2023 9:44 AM CDT 06/29/2023 1:31 PM CDT Shaheen Fuentes M.D. LAB BLOOD ADD-ON Performing Organization Address City/[facility]/ZIP Co de Phone Number [facility] [address] [place] [address], [place] OW[place] [facility] [address] [place] [address] * Bicarbonate (06/29/2023 9:44 AM CDT) Bicarbonate, P 27 22 - 29 mmol/L 06/29/2023 2:42 PM CDT OWAT Blood (Blood, Venous) 06/29/2023 9:44 AM CDT 06/29/2023 1:31 PM CDT Shaheen Fuentes M.D. LAB BLOOD ADD-ON [facility] [address] [place] [address], [place] OW[place] [facility] [place] [address] [place] [address] from Last 3 Months Advance Directives For more information, please contact: [phone] Documents on File Type Date Recorded Patient [employer] Expl anation Advance Directives 09/09/2022 4:08 PM Shani Lindsey Brittany Escalona HCPOA/ADVOCATE/AGENT/R EPRESENTATIVE/SURROGAT E * Full Code (Latest Code Status on File) Date Activated Date Inactivated Comments 07/08/2023 2:18 PM 07/13/2023 5:25 PM Question Answer Comments Full Code: Discussed * Full Code Date Activated Date Inactivated Comments 07/02/2020 4:39 PM 07/03/2020 6:17 PM Question Answer Comments Full Code: Not Discussed Due to: Patient not available * Full Code Date Activated Date Inactivated Comments 05/04/2019 3:52 PM 05/09/2019 4:30 PM Question Answer Comments Full Code: Not Discussed Due to: Not medically appropriate * Full Code Date Activated Date Inactivated Comments 03/07/2019 10:49 PM 03/08/2019 4:39 PM Question Answer Comments Full Code: Not Discussed Due to: Patient not available * Full Code Date Activated Date Inactivated Comments 03/07/2019 4:32 PM 03/07/2019 10:49 PM Question Answer Comments Full Code: Discussed Healthcare Agents on File Name Relationship Healthcare Agent Relationship Communication Shani Butler Spouse Health Care Agent Rosalia Goyal Daughter First Alternate Health Care Agent Jose Ramirezver Unknown Second Alternate Health Care Agent Julienne Escalona Unknown Second Alternate Health Care Agent
--- OUTSIDE RECORDS SUMMARY | 2023-08-30 16:16 | XMS_ITS | Referral Summary ---
Author Name Unknown Organization [facility] Address [address] [place] [id number] Care Team Providers Care Director Of Collections And Archives Name Role Phone Unavailable Primary Care Provider Unavailabl e Source Comments Patient records contain information from all sites at [facility]. For routine questions regarding patient records, call [phone] during business hours, M-F 8:00 AM - 5:00 PM Central Time. Record requests for emergency care only can be directed to [phone] at any time.[facility] Encounters Date Type Department Care Team Description 08/12/2023 10:00 AM CDT Infusion Department of Oncology in [place], [place] [address] [place] [phone] Ankush Mancia M.B.B.S., M.S. Primary Malignant Neoplasm Of Prostate (HCC) (Primary Dx) 08/09/2023 Clinical Communication Division of Gastroenterology in [place], [place] [address] [place] [phone] Dev Jimenez M.D. Order Request (Appt: 11/03/23 @ 10:00 A.M. w/ Dev Jimenez M.D.) 08/09/2023 Clinical Communication Division of Gastroenterology in [place], [place] [address] [place] [phone] Provider, Unknown 08/06/2023 Refill Department of Cardiovascular Medicine in [place], [place] [address] [place] [address] Sarina Marroquin APRN C.N.PGali, D.N.P. Med Refill 08/05/2023 Clinical Communication Department of Oncology in [place], [place] [address] [place] [address] Agnieszka Ochoa R.N. Med Refill (eplerenone) 08/05/2023 Refill Department of Cardiovascular Medicine in [place], [place] [address] [place] [address] Sarina Marroquin APRN, C.N.Mercy, D.N.P. Med Refill 08/05/2023 Episode Changes Department of Cardiovascular Medicine in [place], [place] [address] [place] [address] Stephen Sage, CEP 08/04/2023 [facility] AND [address] [address] Milton Holden M.D. Dysphagia (Primary Dx); Gastroesophageal Reflux Disease Without Esophagitis 07/29/2023 Orders Only Department of Oncology in [place], [place] [address] [place] [address] Ankush Mancia M.B.BWillow, M.S. Secondary Malignant Neoplasm Bone (HCC) (Primary Dx); Primary Malignant Neoplasm Of Prostate (HCC) 07/22/2023 Clinical Communication Department of Oncology in [place], [place] [address] [place] [address] Ankush Mancia M.B.B.S., M.S. 07/21/2023 11:00 AM CDT Office Visit Division of Hematology in [place], [place] [address] [place] [address] Ankush Mancia M.B.BGaliS., M.S. Secondary Malignant Neoplasm Bone (HCC) (Primary Dx); Rising Prostate Specific Antigen Following Treatment For Malignant Cancer Of Prostate; Primary Malignant Neoplasm Of Prostate (HCC); Atherosclerotic Heart Disease [place] 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 (Stable Angina/Angina Of Exertion) (HCC); Morbid Obesity Body Mass Index 45.0-49.9 Adult (HCC); Hypertension Essential Primary; Acute Systolic (Congestive) Heart Failure (HCC) 07/20/2023 10:40 AM CDT Internal E-Consult Department of Oncology in [address] [phone] Ankush Mancia M.B.B.S., M.S. Vani Morgan, PharmGaliD., M.S., R.Ph., OP Secondary Malignant Neoplasm Bone (HCC); Primary Malignant Neoplasm Of Prostate (HCC) 07/20/2023 1:30 PM CDT Clinical Communication Virtual Review in [place], [place] 200 [place] [address] Pre-visit Intake 07/16/2023 4:30 PM CDT Infusion Department of Oncology in [place], [place] [address] [place] [phone] Ankush Mancia M.B.B.S., M.S. Primary Malignant Neoplasm Of Prostate (HCC) (Primary Dx) 07/14/2023 Clinical Communication Department of Oncology in [address] [phone] Ankush Mancia M.B.B.S., M.S. 07/13/2023 Clinical Communication Department of Oncology in [address] [phone] Agnieszka Ochoa R.N. Drug interaction - Enzalutamide 07/13/2023 Clinical Communication Division of Community Internal Medicine, [facility], in [place], [place] [address] [place] [phone] Sadiq Celestin M.D. 07/08/2023 9:08 AM CDT - 07/13/2023 3:19 PM CDT Hospital Encounter [facility], [facility], Fifth Floor [address] [place] [phone] Sky Whatley M.D., Ph.D. Romina Liazma M.B.B.S., Ph.D. Addy Arias M.D. Dysphagia [R13.10] (Primary Dx); Shortness Of Breath; Abnormal Coronary Calcium Computed Tomography; Edema Lower Extremity; Atherosclerotic Heart Disease [place] 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 (Stable Angina/Angina Of Exertion) (HCC); Coronary Stent Status Post Discharge Disposition: Home or Self Care 07/12/2023 2:11 PM CDT - 07/12/2023 3:41 PM CDT Surgery Division of Cardiovascular Diseases in [address] [phone] Mt Crum M.D., Ph.D. Stent Placement 07/08/2023 12:01 PM CDT - 07/08/2023 1:16 PM CDT Surgery Division of Cardiovascular Diseases in [place], [place] [address] [place] [phone] Sky Whatley M.D., Ph.D. CORONARY ANGIOGRAPHY WITH POSSIBLE INTERVENTION 07/07/2023 9:30 AM CDT Virtual Visit Department of Cardiovascular Medicine in [place], [place] [address] [place] [phone] Sarina Marroquin, FIELD HAND, C.N.P., D.N.P. Ledy Hall, R.N. Diabetes Mellitus Type 1 (HCC) (Primary Dx); Hyperlipidemia; Shortness Of Breath; Morbid Obesity Body Mass Index 45.0-49.9 Adult (HCC); Hypertension Essential Primary 07/02/2023 Clinical Communication Department of Oncology in [place], [place] [address] [place] [phone] Ankush Mancia M.B.B.S., M.S. 07/02/2023 Orders Only Department of Oncology in [place], [place] [address] [place] [phone] Ankush Mancia M.B.B.S., M.S. Primary Malignant Neoplasm Of Prostate (HCC) (Primary Dx); Morbid Obesity Body Mass Index 45.0-49.9 Adult (HCC); Secondary Malignant Neoplasm Bone (HCC) 07/01/2023 Clinical Communication Department of Cardiovascular Medicine in [place], [place] [address] [place] [phone] Raleigh Denney P.A.-C. Heart failure clinic triage 07/01/2023 12:57 PM CDT - 07/01/2023 11:59 PM CDT Hospital Encounter Department of Cardiovascular Diseases in [place], [place] [address] [place] [phone] Sarina Marroquin APRN, C.N.P., D.N.P. Shortness Of Breath Discharge Disposition: Home or Self Care 07/01/2023 9:31 AM CDT - 07/01/2023 12:56 PM CDT Hospital Encounter Department of Radiology, [facility], in [place], [place] [address] [place] [phone] Shaheen Fuentes M.D. Coronary Artery Disease With Stable Angina (HCC) Discharge Disposition: Home or Self Care 07/01/2023 11:00 AM CDT Office Visit Department of Cardiovascular Medicine in [place], [place] [address] [place] [phone] Sarina Marroquin APRN, C.N.P., D.N.P. 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 Coronary Artery Disease With Stable Angina (HCC) Discharge Disposition: Home or Self Care 06/28/2023 12:45 PM CDT Clinical Communication Virtual Review in [place], [place] [address] [place] [address] Pre-scheduling Questionnaire 06/16/2023 4:30 PM FIELD APPLICATIONS SPECIALIST Infusion Department of Oncology in [place], [place] [address] [place] [address] Ankush Mancia M.B.B.S., M.S. 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 [...] Overview: Added automatically from request for surgery [id number] Wound Abdominal Wall Open Subsequent 03/13/2019 05/07/2019 Dehiscence Wound Subsequent 03/06/2019 05/15/2019 Overview: Added automatically from request for surgery [id number] Hernia Ventral 02/10/2019 05/15/2019 Overview: Added automatically from request for surgery [id number] Immunizations Name Administration Dates Next Due SARS-COV-2 (COVID-19) - MODERNA(Discontinued) Social History Tobacco Use Types Packs/Day Years Used Date Smoking Tobacco: Never Passive Smoke Exposure: Past Smokeless Tobacco: Never Tobacco Cessation:Counseling Given: Not Answered Alcohol Use Standard Drinks/Week Comments Not Currently 0 (1 standard drink = 0.6 oz pur e alcohol) [facility] Utilities Answer Date Recorded In the past 12 months has e [employer], gas, oil, or water [employer] threatened to shut off services in your [...] week 04/25/2022 How often do you attend [facility] or rastafarian services? 1 to 4 times per year 04/25/2022 Do you belong to any clubs o r organizations such as adventist groups, unions, fraternal or athletic groups, or [...] care, and heating? Not very hard 04/25/2022 [facility] - Occupational Stress Questionnaire Answer Date Recorded [...] your living situation today? I have a [facility] place to live 07/08/2023 Education Answer Date [...] PM CDT Infusion Department of Oncology in [place], [place] 200 [place] [address] Ankush Mancia M.B.B.S., M.S. 200 [place] [address] 09/22/2023 1:30 PM CDT Appointment Department of Cardiovascular Diseases in [place] [address] [place] [phone] Addy Arias M.D. [address] [place] [phone] 09/27/2023 10:45 AM CDT Comprehensive Visit Department of Cardiovascular Diseases in [place], [place] [address] [place] [address] Laith Feliciano M.D. [address] [place] [phone] 10/06/2023 9:00 AM CDT Infusion Department of Oncology in [place], [place] [address] [place] [phone] Ankush Mancia M.B.BGaliS., M.S. [address] [place] [phone] 11/01/2023 9:00 AM CDT Clinical Communication Virtual Review in [place], [place] [address] [place] [address] 11/03/2023 10:00 AM CDT Comprehensive Visit Division of Gastroenterology in [place], [place] [address] [place] [phone] Milton Holden M.D. [address] [place] [address] 11/03/2023 1:00 PM CDT Appointment Department of Radiology, [facility], in [place], [place] [address] [place] [phone] Dev Jimenez M.D. [address] [place] [phone] 11/04/2023 8:45 AM CDT Appointment Division of Gastroenterology in [place], [place] [address] [place] [phone] Dev Jimenez M.D. [address] [place] [phone] 11/08/2023 8:00 AM CDT Appointment Division of Gastroenterology in [place], [place] [address] [place] [address] Dev Jimenez M.D. [address] [place] [phone] 11/09/2023 7:45 AM CDT Appointment Division of Gastroenterology in [place], [place] [address] [place] [address] Dev Jimenez M.D. [address] [place] [phone] Medical Devices Implanted Type Area Loss Prevention Agent Device Identifier Shelf Expiration Date Model / Serial / Lot Cmnt Bn Hi Visc Pmma 40 - [id number] Implanted:Qty: 1 on 02/17/2019 by Ramon Ramirez M.D. at [facility] Bone Cement N/A: Abdomen [place] [id number] / / Cmnt Bn Hi Visc Pmma 20 - [id number] Implanted:Qty: 1 on 03/07/2019 by Stiven Escalona M.D. at [facility] Bone Cement Susan [id number] 04/18/2021 6188- / / [id number] Cmnt Bn Hi Visc Pmma 20 - Sna - [id number] Implanted:Qty: 1 on 05/04/2019 by Stiven Escalona M.D. at [facility] Bone Cement N/A: Abdomen [place] [id number] 02/16/2021 6188 / NA / [id number]d De 3.50x12 - [id number] Implanted:Qty: 1 on 07/12/2023 by Mt Crum M.D., Ph.D. at [facility] Cardiac Stent N/A: Coronary [employer] 08/11/2024 [id number] / / [id number] Description:LAD Stnt Synergy Xd De 3.00x12 - [id number] Implanted:Qty: 1 on 07/12/2023 by Mt Crum M.D., Ph.D. at [facility] Cardiac Stent N/A: Coronary [employer] 03/03/2024 [id number] 2300 / / [id number] Description:Proximal Circumf patti Shll Acet Trd Chl 58f - [id number] Implanted:Qty: 1 on 07/02/2020 by Braulio Monge M.D. at [facility] Hip Implant Right: Hip Susan 03/20/2025 702-04-58F / / [id number] Lnr X3 10d Szf 36 - [id number] Implanted:Qty: 1 on 07/02/2020 by Braulio Monge M.D. at [facility] Hip Implant Right: Hip Susan 03/22/2025 623-10-36F / / [id number] Hip Stm Actis Hofst Sz7 - [id number] Implanted:Qty: 1 on 07/02/2020 by Braulio Monge M.D. at [facility] Hip Implant Right: Hip Depuy Synthes 04/18/2030 [id number] / / [id number] Fem Hd Art Ez Crmc +1.5x36 - [id number] Implanted:Qty: 1 on 07/02/2020 by Braulio Monge M.D. at [facility] Hip Implant Right: Hip Depuy Synthes 05/19/2025 0 / / [id number] Mesh Proceed [id number] (10x13) - [id number] Implanted:Qty: 1 on 03/10/2013 Mesh or Patch Abdomen Ethicon Description:Device Manufactu rer - Ethicon. Body Location - Other. Abdominal. Device Status Text - [id number]. [place] Vnt Darby Oval 6x10 - [id number] Implanted:Qty: 1 on 02/17/2019 by Ramon Ramirez M.D. at [facility] Mesh or Patch N/A: Abdomen C.R.Bard 10/14/2020 [id number] / / [id number] Procedures Procedure Name Priority Date/Time Associated Diagnosis [...] 07/12/2023 4:33 PM CDT Atherosclerotic Heart Disease [place] 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 (Stable Angina/Angina Of Exertion) (HCC) CARDIAC CATHETERIZATION Routine 07/12/2023 4:33 PM CDT Atherosclerotic Heart Disease [place] 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 (Stable Angina/Angina Of Exertion) (HCC) CARDIAC CATHETERIZATION Routine 07/12/2023 4:33 PM CDT Atherosclerotic Heart Disease [place] 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 (Stable Angina/Angina Of Exertion) (HCC) CARDIAC CATHETERIZATION Routine 07/12/2023 4:33 PM CDT Atherosclerotic Heart Disease [place] 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 (Stable Angina/Angina Of Exertion) (HCC) CARDIAC CATHETERIZATION Routine 07/12/2023 4:33 PM CDT Atherosclerotic Heart Disease [place] 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 [...] AM CDT 07/21/2023 10:02 AM CDT Ankush Law M.S. LAB BLOOD ADD-ON [facility] [address] [facility] [address] [place] [address] * (ABNORMAL) Glucose, POCT (07/13/2023 11:43 AM CDT) Only the most recent of52 resultswithin the time period is included. Pathologist [facility] Glucose, POCT, B 228(H) 70 - 140 mg/dL 07/13/2023 11:45 AM CDT PCLX Site Capillary 07/13/2023 11:45 AM CDT PCLX Blood 07/13/2023 11:4 3 AM CDT 07/13/2023 11:45 AM CDT Unknown Provider LAB POCT ORDERABLES- MANUAL POC [facility] [address], [place] [phone] [place] [address] PCLX [facility] POC 200 [place] [address] * (ABNORMAL) CBC with Differential, Blood (07/13/2023 7:32 AM CDT) Only the most recent of4 resultswithin the time period is included. Hemoglobin 13.0(L) 13.2 - 16.6 g/dL 07/13/2023 [...] CDT Addy Arias M.D. LAB BLOOD ADD-ON [facility] [address] [place] [address], [facility] D[facility] [address] [place] [address] [facility] [address] [place] [address] * Magnesium (07/13/2023 7:32 AM CDT) Only the most recent of7 resultswithin the time period is included. Magnesium, S 1.9 1.7 - 2.3 mg/dL 07/13/2023 8:41 AM CDT DTL Blood (Blood, Venous) 07/13/2023 7:32 AM CDT 07/13/2023 7:32 AM CDT Addy Arias M.D. LAB BLOOD ADD-ON [facility] [address] [place] [address], [facility] D[facility] [address] [place] [address] * (ABNORMAL) Basic Metabolic Panel (07/13/2023 7:32 [...] CDT Addy Arias M.D. LAB BLOOD ADD-ON [facility] [address] [place] [address], [facility] D[facility] [address] [place] [address] * ECG 12 Lead (07/12/2023 7:46 PM CDT) Only the most recent of3 resultswithin the time period is included. Ventricular Rate ECG/Min 94 BPM MUSE MT Interval 236 ms MUSE QRSD Interval 138 ms MUSE QT Interval 402 ms MUSE QTC Interval 502 ms MUSE R [place] -84 degrees MUSE T Wave [place] 94 degrees MUSE 07/12/2023 7:46 PM CDT [...] PLACIDO Irwin Romina Law, Ph.D. ECG ORDERA [facility] MUSE NA * STENT PLACEMENT, PERCUTANEOUS CORONARY [...] ?? PRE-PROCEDURE DIAGNOSIS 1. ??Atherosclerotic Heart Disease [place] 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 (Stable Angina/Angina Of Exertion) ([facility]) ?? INTERVENTIONAL NOTE Indication: Decompensated heart failure [...] lesion with a 1.25 mm kenroy at 999258 rpm with successful passage and polishing. We [...] stent PRE-PROCEDURE DIAGNOSIS 1. Atherosclerotic Heart Disease [place] Coronary Artery With Other FormsAngina Pectoris (Stable [...] lesion with a 1.25 mm kenroy at 782871 rpm withsuccessful passage and polishing. We wired [...] Documents. Addy Arias M.D. CV CARDIAC CATH MT OCEDURES * (ABNORMAL) ACT (Activated Clotting Time), POCT (07/12/2023 3:54 PM CDT) Only the most recent of2 resultswithin the time period is included. Activated Clotting Time, POCT 306(H) 84 - 139 sec 07/12/2023 3:59 PM CDT PCSM Blood 07/12/2023 3:54 PM CDT 07/12/2023 4:00 PM CDT Unknown Provider LAB POCT ORDERABLES - DEVICE Performing Organization Address [facility] Co de Phone Number POC [facility] [address] [place] [address], [facility] PCSM [facility] [address] [place] [address] * (ABNORMAL) Cystatin C with Estimated GFR (07/12/2023 6:51 AM CDT) Only the most recent of4 resultswithin the time period is included. Pathologist [facility] eGFR by Cystatin C 50(L) >60 mL/min/BSA [...] M.D. LAB BLOOD ADD-ON Performing Organization Address City/[facility]/ZIP Co de Phone Number [facility] [address] [place] [address], [facility] D[facility] [address] [place] [address] * (ABNORMAL) CBC without Differential (07/12/2023 6:51 [...] CDT Addy Arias M.D. LAB BLOOD ADD-ON [facility] 200 [place] [address], [facility] [address] [place] [address] * Phosphorus Inorganic (07/09/2023 8:11 AM CDT) Only the most recent of2 resultswithin the time period is included. Phosphorus (Inorganic), S 3.3 2.5 - 4.5 mg/dL 07/09/2023 9:25 AM CDT DTL Blood (Blood, Venous) 07/09/2023 8:11 AM CDT 07/09/2023 9:02 AM CDT Romina Law, Ph.D. LAB BLOOD ADD-ON [facility] [address] [place] [address], [place] D[place] [facility] [address] [place] [address] * DX Chest Portable 1 View (07/08/2023 [...] DIAGNO STIC IMAGING PROCEDURES * Thyroid Function [place] (07/08/2023 3:44 PM CDT) TSH, Sensitive 1.3 0.3 - 4.2 mIU/L 07/08/2023 4:48 PM CDT DTL Blood (Blood, Venous) 07/08/2023 3:44 PM CDT 07/08/2023 4:12 PM CDT Romina Law, Ph.D. LAB BLOOD ADD-ON [address] [address] * (ABNORMAL) NT-Pro B-Type Natriuretic Peptide (BNP) (07/08/2023 3:44 PM CDT) [facility] NT-Pro BNP 6823(H) <=540 pg/mL 07/08/2023 4:48 [...] 3:44 PM CDT 07/08/2023 4:12 PM CDT Romnia Dutta., Ph.D. LAB BLOOD ADD-ON [address] [address], [address] [address] * (ABNORMAL) Comprehensive Metabolic Panel (07/08/2023 3:44 PM CDT) [facility] Potassium, S 4.7 3.6 - 5.2 mmol/L [...] PM CDT 07/08/2023 4:12 PM CDT Romina PageS., Ph.D. LAB BLOOD ADD-ON [facility] [address] [place] [address], [facility] D[facility] [address] [place] [address] * CORONARY ANGIOGRAPHY WITH POSSIBLE INTERVENTION (07/08/2023 [...] Documents. Sarina Marroquin APRN, C.N.P., D.N.P. CV CARDIAC CATH PROCEDURES * [...] per Echocardiography Contrast Administration Protocol Reference Document [id number] Rev 07/31/2021. Patient met an inclusion criterion [...] reduced with severe generalized hypokinesis along with esoi-yh-hlrygibh right ventricular systolic dysfunction. . ??Side by [...] significantly reducedwith severe generalized hypokinesis along with qnhl-ol-xldglhvo rightventricular systolic dysfunction. . Side by side [...] agentadministered per Echocardiography Contrast Administration ProtocolReference Document [id number] Rev 07/31/2021. Patient met an inclusioncriterion and [...] in positioning. Degenerative changes in the spine. Authorizing Provider Result Sandra Fuentes M.D. IMG DIAGNOSTIC I MAGING PROCEDURES * (ABNORMAL) Glucose, Fasting (06/29/2023 9:45 AM CDT) Glucose, P 108(H) 70 - 100 mg/dL 06/29/2023 2:34 PM CDT OWAT Last Intake 2 hr 06/29/2023 1:31 PM CDT OWAT Blood (Blood, Venous) 06/29/2023 9:45 AM CDT 06/29/2023 1:29 PM CDT Narrative Authorizing Provider Result Sandra Fuentes M.D. LAB BLOOD NON AD D-ON [facility] [address] [place] [address], [facility] OWAT [facility] in [place] [address] [place] [address] * Lipid Panel (06/29/2023 9:44 AM CDT) [...] CDT Shaheen Fuentes M.D. LAB BLOOD ADD-ON [facility] [address] [place], [place] [address] in [place] [address] [place] [address] * Prothrombin Time (PT) (06/29/2023 9:44 AM [...] M.D. LAB BLOOD ADD-ON Performing Organization Address City/[facility]/ZIP Co de Phone Number [facility] [address] [place] [address], [facility] in [place] [address] [place] [address] * BUN (Blood Urea Nitrogen) (06/29/2023 9:44 AM CDT) BUN (Blood Urea Nitrogen), P 22 8 - 24 mg/dL 06/29/2023 2:42 PM CDT OW Blood (Blood, Venous) 06/29/2023 9:44 AM CDT 06/29/2023 1:31 PM CDT Shaheen Fuentes M.D. LAB BLOOD ADD-ON [facility] [address] [place] [address], [facility] in [place] [address] [place] [address] * ALT (Alanine Aminotransferase) (06/29/2023 9:44 AM CDT) Alanine Aminotransferase (ALT), P 9 7 - 55 U/L 06/29/2023 2:42 PM CDT OWAT Blood (Blood, Venous) 06/29/2023 9:44 AM CDT 06/29/2023 1:31 PM CDT Shaheen Fuentes M.D. LAB BLOOD ADD-ON Performing Organization Address City/[facility]/ZIP Co de Phone Number [facility] [address] [place] [address], [place] OWAT [facility] in [place] [address], [place] [address] * AST (Aspartate Aminotransferase) (06/29/2023 9:44 AM CDT) Aspartate Aminotransferase (AST), P 20 8 - 48 U/L 06/29/2023 2:42 PM CDT OWAT Blood (Blood, Venous) 06/29/2023 9:44 AM CDT 06/29/2023 1:31 PM CDT Shaheen Fuentes M.D. LAB BLOOD ADD-ON Performing Organization Address [facility]/ZIP Co de Phone Number [facility] [address] [place] [address], [place] OW[place] [facility] in [place] [address], [place] [address] * Sodium (06/29/2023 9:44 AM CDT) Sodium, P 139 135 - 145 mmol/L 06/29/2023 2:42 PM CDT OWAT Blood (Blood, Venous) 06/29/2023 9:44 AM CDT 06/29/2023 1:31 PM CDT Shaheen Fuentes M.D. LAB BLOOD ADD-ON [facility] [address] [place] [address], [place] [facility] [place] [address] [place] [address] * Potassium (06/29/2023 9:44 AM CDT) Potassium, P 4.0 3.6 - 5.2 mmol/L 06/29/2023 2:42 PM CDT OW Blood (Blood, Venous) 06/29/2023 9:44 AM CDT 06/29/2023 1:31 PM CDT Shaheen Fuentes M.D. LAB BLOOD ADD-ON [facility] [address] [place] [address], [place] [facility] in [place] [address] [place] [address] * (ABNORMAL) Hemoglobin A1c (06/29/2023 9:44 AM CDT) Hemoglobin A1c, B 7.2(H) 4.2 - 5.6 % 06/29/2023 2:09 PM CDT [facility] Comment: Hemoglobin A1c values greater than or equal to 6.5 percent are diagnostic for diabetes mellitus. ??Diagnosis should be confirmed by repeat testing. ??In diabetic patients, HbA1c goals should be discussed with healthcare provider. Blood (Blood, Venous) 06/29/2023 9:44 AM CDT 06/29/2023 1:31 PM CDT Shaheen Fuentes M.D. LAB BLOOD ADD-ON [facility] [address] [place] [address], [place] [facility] [place] [address] [place] [address] * (ABNORMAL) Creatinine with Estimated GFR (06/29/2023 9:44 AM CDT) Creatinine 0.68(L) 0.74 - 1.35 mg/dL 06/29/2023 2:42 PM CDT OWAT Estimated GFR (eGFR) >90 >=60 mL/min/BSA 06/29/2023 2:42 PM CDT OWAT Comment: Estimated GFR calculated using the 2020 CKD_EPI creatinine equation. Blood (Blood, Venous) 06/29/2023 9:44 AM CDT 06/29/2023 1:31 PM CDT Shaheen Fuentes M.D. LAB BLOOD ADD-ON Performing Organization Address City/[facility]/ZIP Co de Phone Number [facility] [address], [place] [address], [facility] in [place] [address] [place] [address] * Chloride (06/29/2023 9:44 AM CDT) Chloride, P 99 98 - 107 mmol/L 06/29/2023 2:42 PM CDT OWAT Blood (Blood, Venous) 06/29/2023 9:44 AM CDT 06/29/2023 1:31 PM CDT Shaheen Fuentes M.D. LAB BLOOD ADD-ON [facility] [address] [place] [address], [facility] [place] [address] [place] [address] * Bicarbonate (06/29/2023 9:44 AM CDT) Bicarbonate, P 27 22 - 29 mmol/L 06/29/2023 2:42 PM CDT OWAT Blood (Blood, Venous) 06/29/2023 9:44 AM CDT 06/29/2023 1:31 PM CDT Shaheen Fuentes M.D. LAB BLOOD ADD-ON [facility] [address] [place] [address], [place] OW[place] [facility] in [place] [address] [place] [address] from Last 3 Months Advance Directives For more information, please contact: [phone] Documents on File Type Date Recorded Patient Household Chores Expl anation Advance Directives 09/09/2022 4:08 PM Shani Escalona HCPOA/ADVOCATE/AGENT/R EPRESENTATIVE/SURROGAT E * Full Code [...] Daughter First Alternate Health Care Agent Jose Butler Unknown Second Alternate Health Care Agent Julienne Escalona Unknown Second Alternate Health Care Agent
--- OUTSIDE RECORDS SUMMARY | 2023-08-30 16:17 | XMS_ITS | Encounter Summary ---
Author Name Unknown Organization [facility] Address [address] [place] [address] Care Team Providers Care Science Instructor Name Role Phone Unavailable Primary Care Provider Unavailabl e Reason for Referral * Outpatient (Routine) - Authorized Specialty Diagnoses / Procedures Referred By Contac t Referred To Contact Diagnoses Dysphagia Procedures EGD (EsophagealGastroDuodenoscopy ) Dev Jimenez M.D. [address] [place] [phone] [facility] Referral ID Status Reason Start Date Expiration Date V isits Requested Visits Authorized [id number] Authorized 08/09/2023 08/08/2024 1 1 * Outpatient (Routine) - Authorized Specialty Diagnoses / Procedures Referred By Contramos t Referred To Contact Diagnoses Dysphagia Procedures Esophageal pH Testing Impedance Removal Dev Jimenez M.D. [address] [place] [phone] [facility] Referral ID Status Reason Start Date Expiration Date V isits Requested Visits Authorized [id number] Authorized 08/09/2023 08/08/2024 1 1 * Outpatient (Routine) - Authorized Specialty Diagnoses / Procedures Referred By Contac t Referred To Contact Diagnoses Dysphagia Procedures Esophageal pH Testing Dev Jimenez M.D. [address] [place] [phone] [facility] Referral ID Status Reason Start Date Expiration Date V isits Requested Visits Authorized [id number] Authorized 08/09/2023 08/08/2024 1 1 * Outpatient (Routine) - Authorized Specialty Diagnoses / Procedures Referred By Cornelio t Referred To Contact Diagnoses Dysphagia Procedures Esophageal Manometry Dev Jimenez M.D. [address] [place] [phone] [facility] Referral ID Status Reason Start Date Expiration Date V isits Requested Visits Authorized [id number] Authorized 08/09/2023 08/08/2024 1 1 * Outpatient (Routine) - Authorized Specialty Diagnoses / Procedures Referred By Contramos t Referred To Contact Diagnoses Dysphagia Procedures FL Esophagram Single Contrast Dev Jimenez M.D. [address] [place] [phone] [facility] Referral ID Status Reason Start Date Expiration Date V isits Requested Visits Authorized [id number] Authorized 08/09/2023 08/08/2024 1 1 Encounter Details Date Type Department Care Team (Latest Contact Info) Description 08/09/2023 Clinical Communication Division of Gastroenterology in [place], [place] [address] [place] [phone] Provider, Unknown Social History Tobacco Use Types Packs/Day Years Used Date Smoking Tobacco: Never Passive Smoke Exposure: Past Smokeless Tobacco: Never Alcohol Use Standard Drinks/Week Comments Not Currently 0 (1 standard drink = 0.6 oz pur e alcohol) [facility] Utilities Answer Date Recorded In the past [...] 04/25/2022 How often do you attend chur ch or zoroastrianism services? 1 to 4 times per year 04/25/2022 Do you belong to any clubs o r organizations such as scientologist groups, unions, fraternal or athletic groups, or [...] care, and heating? Not very hard 04/25/2022 [facility] [place] of Occupat ional [facility] - Occupational Stress Questionnaire Answer Date [...] your living situation today? I have a [facility] place to live 07/08/2023 Education Answer Date Recorded What is the highest level of school you have completed or the highest degree you have received? 12th grade 05/13/2021 Sex and Gender Information Value Date Recorded Sex Assigned at Male 09/14/2019 9:19 PM CDT Gender Identity Not on file Sexual Orientation Not on file documented as of this encounter Miscellaneous Notes * Telephone Encounter - Nadia Yanes - 08/09/2023 9:33 AM CDT Date of appt.: 11/03/23 Are you diabetic? Yes Type 1 Diagnosis or Indication: Dysphagia [R13.10]; Gastroesophageal Reflux Disease Without Esophagitis [K21.9] Are you taking any blood thinners such as Warfarin/Coumadin or anti-platelet agents such as Clopidogrel/Plavix (this excludes aspirin)? Yes, Clopidogrel-- 75 mg once a day What is your height and weight? Height 6' 2 Weight 360 lbs Is BMI over 40? Yes Are you currently taking narcotic medications for chronic pain? No Have you had trouble with anesthesia or sedation in the past? No Have you had head or neck surgery? No Do you have a continuous infusion device or on continuous oxygen? Yes Insulin pump, continuous glucose monitor If answer is Yes to any question, send to [facility] JENELLE NURSE. documented in this encounter Plan of Treatment Upcoming Encounters Date Type Department Care Team (Late st Contact Info) Description 09/07/2023 4:30 PM CDT Infusion Department of Oncology in [place], [place] [address] [place] [phone] Ankush Mancia M.B.B.S., M.S. [address] [place] [phone] 09/22/2023 1:30 PM CDT Appointment Department of Cardiovascular Diseases in [place], [place] [address] [place] [phone] Addy Arias M.D. [address] [place] [phone] 09/27/2023 10:45 AM CDT Comprehensive Visit Department of Cardiovascular Diseases in [place], [place] [address] [place] [phone] Laith Feliciano M.D. [address] [place] [phone] 10/06/2023 9:00 AM CDT Infusion Department of Oncology in [place], [place] [address] [place] [phone] Ankush Mancia M.B.B.S., M.S. [address] [place] [phone] 11/01/2023 9:00 AM CDT Clinical Communication Virtual Review in [place], [place] [address] [place] [phone] 11/03/2023 10:00 AM CDT Comprehensive Visit Division of Gastroenterology in [place], [place] [address] [place] [phone] Milton Holden M.D. [address] [place] [phone] 11/03/2023 1:00 PM CDT Appointment Department of Radiology, [facility], in [place], [place] [address] [place] [phone] Dev Jimenez M.D. [address] [place] [phone] 11/04/2023 8:45 AM CDT Appointment Division of Gastroenterology in [place], [place] [address] [place] [phone] Dev Jimenez M.D. [address] [place] [phone] 11/08/2023 8:00 AM CDT Appointment Division of Gastroenterology in [place], [place] [address] [place] [phone] Dev Jimenez M.D. [address] [place] [phone] 11/09/2023 7:45 AM CDT Appointment Division of Gastroenterology in [place], [place] [address] [place] [phone] Dev Jimenez M.D. [address] [place] [phone] Scheduled Orders Name Type Priority Associated Diagnoses Orde r Schedule FL Esophagram Single Contrast Imaging RAD - Routine (most inpatients and all outpatients) Dysphagia Expected: 11/03/2023 (Approximate), Expires: 11/07/2024 Esophageal Manometry GI Routine Dysphagia Expected: 11/03/2023 (Approximate), Expires: 11/07/2024 Esophageal pH Testing GI Routine Dysphagia Expected: 11/03/2023 (Approximate), Expires: 11/07/2024 Esophageal pH Testing Impedance Removal GI Routine Dysphagia Expected: 11/03/2023 (Approximate), Expires: 11/07/2024 EGD (EsophagealGastroDuo denoscopy) GI Routine Dysphagia Expected: 11/03/2023, Expires: 11/07/2024 documented as of this encounter Visit Diagnoses Diagnosis Dysphagia- Primary documented in this encounter
--- OUTSIDE RECORDS SUMMARY | 2023-08-30 16:17 | XMS_ITS | Encounter Summary ---
Author Name Unknown Organization [facility] Address [address] [place] [address] Care Team Providers Care Pants Busheler Name Role Phone Unavailable Primary Care Provider Unavailabl e Reason for Visit * Reason Onset Date Comments Order Request 08/09/2023 Appt: 11/03/23 @ 10:00 A.Abundio patel/ Dev Jimenez M.D. Encounter Details Date Type Department Care Team (Latest Contact Info) Description 08/09/2023 Clinical Communication Division of Gastroenterology in [place], [place] [address] [place] [address] Dev Jimenez M.D. [address] [place] [phone] Order Request (Appt: 11/03/23 @ 10:00 A.Abundio patel/ Dev Jimenez M.D.) Social History Tobacco Use Types Packs/Day Years Used Date Smoking Tobacco: Never Passive Smoke Exposure: Past Smokeless Tobacco: Never Alcohol Use Standard Drinks/Week Comments Not Currently 0 (1 standard drink = 0.6 oz pur e alcohol) [facility] Utilities Answer Date Recorded In the past 12 months has e electric, gas, oil, or water company [...] How often do you attend chur or buddhist services? 1 to 4 times per year 04/25/2022 Do you belong to any clubs o r organizations such as mormonism groups, unions, fraternal or athletic groups, or [...] care, and heating? Not very hard 04/25/2022 [facility] [place] of Occupat ional Health - Occupational Stress Questionnaire Answer Date Recorded [...] your living situation today? I have a [facility] place to live 07/08/2023 Education Answer Date Recorded What is the highest level of school you have completed or the highest degree you have received? 12th grade 05/13/2021 Sex and Gender Information Value Date Recorded Sex Assigned at Male 09/14/2019 9:19 PM CDT Gender Identity Not on file Sexual Orientation Not on file documented as of this encounter Plan of Treatment Upcoming Encounters Date Type Department Care Team (Late st Contact Info) Description 09/07/2023 4:30 PM CDT Infusion Department of Oncology in [place], [place] [address] [place] [phone] EmAnkush eubanks M.B.B.S., M.S. [address] [place] [phone] 09/22/2023 1:30 PM CDT Appointment Department of Cardiovascular Diseases in [place], [place] 300 [place] [phone] Addy Arias M.D. [address] [place] [phone] 09/27/2023 10:45 AM CDT Comprehensive Visit Department of Cardiovascular Diseases in [place], [place] [address] [place] [phone] Laith Feliciano M.D. [address] [place] [phone] 10/06/2023 9:00 AM CDT Infusion Department of Oncology in [place], [place] [address] [place] [address] Ankush Mancia M.B.B.S., M.S. [address] [place] [phone] 11/01/2023 9:00 AM CDT Clinical Communication Virtual Review in [place], [place] [address] [place] [address] 11/03/2023 10:00 AM CDT Comprehensive Visit Division of Gastroenterology in [place], [place] [address] [place] [phone] Milton Holden M.D. [address] [place] [phone] 11/03/2023 1:00 PM CDT Appointment Department of Radiology, [facility], in [place], [place] [address] [place] [phone] Dev Jimenez M.D. [address] [place] [phone] 11/04/2023 8:45 AM CDT Appointment Division of Gastroenterology in [place], [place] [address] [place] [address] Dev Jimenez M.D. [address] [place] [phone] 11/08/2023 8:00 AM CDT Appointment Division of Gastroenterology in [place], [place] [address] [place] [address] Dev Jimenez M.D. [address] [place] [phone] 11/09/2023 7:45 AM CDT Appointment Division of Gastroenterology in [place], [place] [address] [place] [address] Dev Jimenez M.D. [address] [place] [phone] documented as of this encounter Visit Diagnoses Not on filedocumented in this encounter
--- OUTSIDE RECORDS SUMMARY | 2023-08-30 16:17 | XMS_ITS | Encounter Summary ---
Author Name Unknown Organization [facility] Address [address] [place] [address] Care Team Providers Care Results Engineer Name Role Phone Unavailable Primary Care Provider Unavailabl e Reason for Visit * Reason Comments Med Refill Encounter Details Date Type Department Care Team (Late st Contact Info) Description 08/05/2023 Refill Department of Cardiovascular Medicine in [place], [place] [address] [place] [phone] Sarina Marroquin, CLOTH PRINTING UTILITY WORKER, C.N.P., D.N.P. [address] [place] [phone] Med Refill Social History Tobacco Use Types Packs/Day Years Used Date Smoking Tobacco: Never Passive Smoke Exposure: Past Smokeless Tobacco: Never Alcohol Use Standard Drinks/Week Comments Not Currently 0 (1 standard drink = 0.6 oz pur e alcohol) [facility] Utilities Answer Date Recorded In the [...] often do you attend chur ch or amish services? 1 to 4 times per year 04/25/2022 Do you belong to any clubs o r organizations such as jew groups, unions, fraternal or athletic groups, or [...] care, and heating? Not very hard 04/25/2022 [facility] [place] of Occupat ional Health - Occupational Stress [...] your living situation today? I have a [facility] place to live 07/08/2023 Education Answer [...] PM CDT Infusion Department of Oncology in [place], [place] [address] [place] [address] Ankush Mancia M.B.B.S., M.S. 200 [place] [phone] 09/22/2023 1:30 PM CDT Appointment Department of Cardiovascular Diseases in [place], [place] 300 [place] [phone] Addy Arias M.D. [address] [place] [phone] 09/27/2023 10:45 AM CDT Comprehensive Visit Department of Cardiovascular Diseases in [place], [place] [address] [place] [phone] Laith Feliciano M.D. [address] [place] [phone] 10/06/2023 9:00 AM CDT Infusion Department of Oncology in [place], [place] [address] [place] [phone] Ankush Mancia M.B.B.S., M.S. [address] [place] [phone] 11/01/2023 9:00 AM CDT Clinical Communication Virtual Review in [place], [place] 200 [place] [phone] 11/03/2023 10:00 AM CDT Comprehensive Visit Division of Gastroenterology in [place], [place] [address] [place] [phone] Milton Holden M.D. [address] [place] [address] 11/03/2023 1:00 PM CDT Appointment Department of Radiology, [facility], in [place], [place] [address] [place] [phone] Dev Jimenez M.D. [address] [place] [phone] 11/04/2023 8:45 AM CDT Appointment Division of Gastroenterology in [place], [place] [address] [place] [address] Dev Jimenez M.D. [address] [place] [phone] 11/08/2023 8:00 AM CDT Appointment Division of Gastroenterology in [place], [place] [address] [place] [phone] Dev Jimenez M.D. [address] [place] [phone] 11/09/2023 7:45 AM CDT Appointment Division of Gastroenterology in [place], [place] [address] [place] [address] Dev Jimenez M.D. [address] [place] [phone] documented as of this encounter Visit Diagnoses Not on filedocumented in this encounter
--- OUTSIDE RECORDS SUMMARY | 2023-08-30 16:17 | XMS_ITS | Encounter Summary ---
Author Name Unknown Organization [facility] Address [address] [place] [address] Care Team Providers Care Wafer Slicer Name Role Phone Unavailable Primary Care Provider Unavailabl e Reason for Visit * Reason Onset Date Comments Med Refill 08/05/2023 eplerenone Encounter Details Date Type Department Care Team (Latest Contact Info) Description 08/05/2023 Clinical Communication Department of Oncology in [place], [place] [address] [place] [phone] Agnieszka Ochoa, RGaliN. [address] [place] [phone] Med Refill (eplerenone) Social History Tobacco Use Types Packs/Day Years Used Date Smoking Tobacco: Never Passive Smoke Exposure: Past Smokeless Tobacco: Never Alcohol Use Standard Drinks/Week Comments Not Currently 0 (1 standard drink = 0.6 oz pur e alcohol) [facility] Utilities Answer Date Recorded In the [...] week 04/25/2022 How often do you attend [facility] or rastafari services? 1 to 4 times per year 04/25/2022 Do you belong to any clubs o r organizations such as bahai groups, unions, fraternal or athletic groups, or [...] care, and heating? Not very hard 04/25/2022 [facility] [place] of Occupat ional Health - Occupational Stress [...] money to buy more. Never true 07/08/19 Within the past 12 months, t he [...] your living situation today? I have a [facility] place to live 07/08/2023 Education Answer [...] PM CDT Infusion Department of Oncology in [place], [place] 200 [place] [address] Ankush Mancia M.B.B.S., M.S. [address] [place] [address] 09/22/2023 1:30 PM CDT Appointment Department of Cardiovascular Diseases in [place], [place] 300 [place] [phone] Addy Arias M.D. [address] [place] [phone] 09/27/2023 10:45 AM CDT Comprehensive Visit Department of Cardiovascular Diseases in [place], [place] [address] [place] [phone] Laith Feliciano M.D. [address] [place] [phone] 10/06/2023 9:00 AM CDT Infusion Department of Oncology in [place], [place] [address] [place] [phone] Ankush Mancia M.B.BGaliS., M.S. [address] [place] [phone] 11/01/2023 9:00 AM CDT Clinical Communication Virtual Review in [place], [place] 200 [place] [address] 11/03/2023 10:00 AM CDT Comprehensive Visit Division of Gastroenterology in [place], [place] [address] [place] [phone] Milton Holden M.D. [address] [place] [phone] 11/03/2023 1:00 PM CDT Appointment Department of Radiology, [facility], in [place], [place] [address] [place] [phone] Dev Jimenez M.D. [address] [place] [phone] 11/04/2023 8:45 AM CDT Appointment Division of Gastroenterology in [place], [place] [address] [place] [phone] Dev Jimenez M.D. [address] [place] [phone] 11/08/2023 8:00 AM CDT Appointment Division of Gastroenterology in [place], [place] [address] [place] [phone] Dev Jimenez M.D. [address] [place] [phone] 11/09/2023 7:45 AM CDT Appointment Division of Gastroenterology in [place], [place] [address] [place] [phone] Dev Jimenez M.D. [address] [place] [phone] documented as of this encounter Visit Diagnoses Not on filedocumented in this encounter
--- OUTSIDE RECORDS SUMMARY | 2023-08-30 16:17 | XMS_ITS ---
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 (Stable Angina/Angina Of Exertion) 07/08/2023 Shortness Of Breath 07/01/2023 Abnormal Coronary Calcium Computed Tomography Edema Lower Extremity 07/01/2023 Counseling Phase Of Life Problem 07/20/2022 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 05/18/19 22 Anemia Posthemorrhagic Acute (Blood Loss Anemia) 05/09/2019 Herniorrhaphy Ventral Status Post 05/03/2019 Overview: Added automatically from request for surgery [id number] Apnea Sleep Obstructive 02/14/2019 Primary Osteoarthritis Hip [...] Telma 7) - Signed by Irina Petty M.B.B.SGali on 01/29/2018 Hyperlipidemia 01/26/2015 Hypertension Essential Primary 03/09/2013 Neuropathy Peripheral Hypertension NOS Gastroesophageal Reflux Disease NOS Diabetes Mellitus Type 1 Overview: insulin pump Apnea Sleep Obstructive Overview: wears CPAP Current Oncology Plans Leuprolide Acetate Every 4 Weeks* Plan Start Date:05/08/2022 Plan Provider:Ankush Mancia M.B.B.S. M.S. Linked Problems Primary Malignant Neoplasm O f Prostate (HCC) Treatment Medications No medications scheduled. Past Plans Flushes/Hydration Plan Name Start Date Discontinue Date Treatment Medications Discontinue Reason Plan Provider VASCULAR ACCESS PATENCY - PERIPHERAL INTRAVENOUS CATHETER AND RAPID INFUSION CATHETER 04/23/2021 12/08/2021 No medications scheduled. Therapy Complete - Hem/Onc Therapy Plan 1 Plan Name Start Date Discontinue Date Treatment Medications Discontinue Reason Plan Provider LEUPROLIDE ACETATE EVERY 4 WEEKS 12/03/2020 04/22/2022 No medications scheduled. Amendment Change Curtis Velasquez M.D. Leuprolide Acetate Every 4 Weeks 08/30/2019 12/03/2020 No medications scheduled. Therapy Complete Irina Petty M.B.B.S. LEUPROLIDE ACETATE ( LUPRON DEPOT ) EVERY 12 WEEKS 09/29/2018 08/29/2019 No medications scheduled. Therapy Complete Irina Petty M.B.B.S. LEUPROLIDE ACETATE ( LUPRON DEPOT ) EVERY 12 WEEKS 12/14/2017 09/29/2018 No medications scheduled. Therapy Complete Irina Petty M.B.B.SGali Hem/Onc Therapy Plan 2 Plan Name Start Date Discontinue Date Treatment Medications Discontinue Reason Plan Provider Zoledronic Acid ( ZOMETA ) Every 3 Months - for Bone Metastasis 11/01/2019 11/27/2021 No medications scheduled. Therapy Complete Irina Petty M.B.B.S. Radiation Treatments * No radiation treatments are documented for this patient in [facility]. Treatments may have been administered in another system. Lifetime Dose Tracking * Chemical Lifetime Dose Automatic Entry Manual Entr y Radiation 122.013 mGy 122.013 mGy 0 mGy Fluoro Time 3.005 minutes 3.005 minutes 0 minutes Resolved Problems Problem Noted Date Diagnosed Date Resolved Date Infection Wound Postoperative Initial 05/04/2019 05/06/2019 Wound Abdominal Wall Open Initial 05/03/2019 05/06/2019 Overview: Added automatically from request for surgery [id number] Wound Abdominal Wall Open Subsequent 03/13/2019 05/07/2019 Dehiscence Wound Subsequent 03/06/2019 05/15/2019 Overview: Added automatically from request for surgery [id number] Hernia Ventral 02/10/2019 05/15/2019 Overview: Added automatically from request for surgery [id number]
--- OUTSIDE RECORDS SUMMARY | 2023-08-30 16:17 | XMS_ITS | Encounter Summary ---
Author Name Unknown Organization [facility] Address [address] [place] [address] Care Team Providers Care Gold Blower Name Role Phone Unavailable Primary Care Provider Unavailabl e Reason for Visit * Reason Comments Med Refill Encounter Details Date Type Department Care Team (Late st Contact Info) Description 08/06/2023 Refill Department of Cardiovascular Medicine in [place], [place] [address] [place] [phone] Sarina Marroquin, FIRST OFFICER, C.N.P., D.N.P. [address] [place] [phone] Med Refill Social History Tobacco Use Types Packs/Day Years Used Date Smoking Tobacco: Never Passive Smoke Exposure: Past Smokeless Tobacco: Never Alcohol Use Standard Drinks/Week Comments Not Currently 0 (1 standard drink = 0.6 oz pur e alcohol) [facility] Utilities Answer Date Recorded In the [...] often do you attend chur ch or anabaptist services? 1 to 4 times per year [...] care, and heating? Not very hard 04/25/2022 [facility] [place] of Occupat ional Health - Occupational Stress [...] your living situation today? I have a [facility] place to live 07/08/2023 Education Answer Date Recorded What is the highest level of school you have completed or the highest degree you have received? 12th grade 05/13/2021 Sex and Gender Information Value Date Recorded Sex Assigned at Male 09/14/2019 9:19 PM CDT Gender Identity Not on file Sexual Orientation Not on file documented as of this encounter Miscellaneous Notes * Addendum Note - Sadiq Roger M.D. - 08/10/2023 12:19 PM CDTAddended by: SADIQ ROGER on: 08/10/2023 12:19 PM Modules accepted: Orders * Addendum Note - Sahra Toussaint - 08/10/2023 12:14 PM CDTAddended by: SAHRA TOUSSAINT on: 08/10/2023 12:14 PM Modules accepted: Orders * Telephone Encounter - Yinka Rivas R.N. - 08/10/2023 12:10 PM CDT This patient was dismissed on 13 July 2023 on a new medication, torsemide 60 mg daily, and was notprovided with a sufficient supply to last until his follow-up appointment, nor were arrangements made for serial labs to monitor his renal function. Ms. Sarina Marroquin did not make that change, and she was away from the office. I would request thatsomebody on the Cardiology 1 service provide a prescription for this patient to last him until his follow-up visit with Dr. Laith Feliciano on 26 September * Telephone Encounter - Yinka Rivas R.N. - 08/09/2023 1:17 PM CDT This patient was hospitalized in late June 2023. Furosemide and omeprazole were stopped. Metoprolol spironolactone 25 were started. Patient was provided a prescription for eplerenone (30 days), Toprol-XL 25 (1 year) torsemide 60 (3months) These prescriptions were sent to the requesting pharmacy Labs at the time of his hospitalization included creatinine 0.88 with EGFR greater than 90, potassium 4.6. Given that the patient has adequate prescriptions for metoprolol and torsemide I have removed thesemedications from the request. The patient does not have enough eplerenone to last until his visit with Dr. Laith Feliciano in September documented in this encounter Plan of Treatment Upcoming Encounters Date Type Department Care Team (Late st Contact Info) Description 09/07/2023 4:30 PM CDT Infusion Department of Oncology in [place], [place] [address] [place] [phone] Ankush Mancia M.B.B.S., M.S. [address] [place] [phone] 09/22/2023 1:30 PM CDT Appointment Department of Cardiovascular Diseases in [place], [place] [address] [place] [phone] Addy Arias M.D. [address] [place] [phone] 09/27/2023 10:45 AM CDT Comprehensive Visit Department of Cardiovascular Diseases in [place], [place] [address] [place] [phone] Laith Feliciano M.D. [address] [place] [phone] 10/06/2023 9:00 AM CDT Infusion Department of Oncology in [place], [place] [address] [place] [phone] Ankush Mancia M.B.B.S., M.S. [address] [place] [phone] 11/01/2023 9:00 AM CDT Clinical Communication Virtual Review in [place], [place] 200 [place] [phone] 11/03/2023 10:00 AM CDT Comprehensive Visit Division of Gastroenterology in [place], [place] [address] [place] [phone] Milton Holden M.D. [address] [place] [phone] 11/03/2023 1:00 PM CDT Appointment Department of Radiology, [facility], in [place], [place] [address] [place] [phone] Dev Jimenez M.D. [address] [place] [phone] 11/04/2023 8:45 AM CDT Appointment Division of Gastroenterology in [place], [place] [address] [place] [phone] Dev Jimenez M.D. [address] [place] [phone] 11/08/2023 8:00 AM CDT Appointment Division of Gastroenterology in [place], [place] [address] [place] [phone] Dev Jimenez M.D. [address] [place] [phone] 11/09/2023 7:45 AM CDT Appointment Division of Gastroenterology in [place], [place] [address] [place] [phone] Dev Jimenez M.D. [address] [place] [phone] documented as of this encounter Visit Diagnoses Not on filedocumented in this encounter
--- OUTSIDE RECORDS SUMMARY | 2023-08-30 16:17 | XMS_ITS | Encounter Summary ---
Author Name Unknown Organization [facility] Address [address] [place] [address] Care Team Providers Care Social Sciences Lecturer Name Role Phone Unavailable Primary Care Provider Unavailabl e Reason for Referral * Outpatient (Routine) - Authorized Specialty Diagnoses / Procedures Referred By Cornelio price Referred To Contact Diagnoses Secondary Malignant Neoplasm Bone (HCC) Primary Malignant Neoplasm Of Prostate (HCC) Procedures NM Bone Scan Whole Body Ankush Mancia M.B.BGaliS., M.S. [address] [place] [phone] [place] [facility] Referral ID Status Reason Start Date Expiration Date V isits Requested Visits Authorized [id number] Authorized 07/29/2023 07/28/2024 8 8 * MRI/CAT/PET Scan (Routine) - Authorized Specialty Diagnoses / Procedures Referred By Cornelio price Referred To Contact Radiology Diagnoses Secondary Malignant Neoplasm Bone (HCC) Primary Malignant Neoplasm Of Prostate (HCC) Procedures CT Abdomen Pelvis with IV Contrast Ankush Mancia M.B.BGaliS., M.S. [address] [place] [phone] [facility] Referral ID Status Reason Start Date Expiration Date V isits Requested Visits Authorized [id number] Authorized 07/29/2023 07/28/2024 1 1 * MRI/CAT/PET Scan (Routine) - Authorized Specialty Diagnoses / Procedures Referred By Contac t Referred To Contact Radiology Diagnoses Secondary Malignant Neoplasm Bone (HCC) Primary Malignant Neoplasm Of Prostate (HCC) Procedures CT Chest with IV Contrast Ankush Mancia M.B.B.S., M.S. [address] [place] [phone] [facility] Referral ID Status Reason Start Date Expiration Date V isits Requested Visits Authorized [id number] Authorized 07/29/2023 07/28/2024 1 1 Encounter Details Date Type Department Care Team (Late st Contact Info) Description 07/29/2023 Orders Only Department of Oncology in [place], [place] [address] [place] [phone] Ankush Mancia M.B.B.S., M.S. [address] [place] [phone] Secondary Malignant Neoplasm Bone (HCC) (Primary Dx); Primary Malignant Neoplasm Of Prostate (HCC) Social History Tobacco Use Types Packs/Day Years Used Date Smoking Tobacco: Never Passive Smoke Exposure: Past Smokeless Tobacco: Never Alcohol Use Standard Drinks/Week Comments Not Currently 0 (1 standard drink = 0.6 oz pur e alcohol) [facility] Utilities Answer Date Recorded In the past 12 months has [employer], gas, oil, or water [employer] threatened to shut off services in your [...] week 04/25/2022 How often do you attend [facility] or church services? 1 to 4 times per year 04/25/2022 Do you belong to any clubs o r organizations such as hoahaoism groups, unions, fraternal or athletic groups, or [...] care, and heating? Not very hard 04/25/2022 [facility] [place] of Occupat ional Health - Occupational Stress [...] PM CDT Infusion Department of Oncology in [place], [place] [address] [place] [phone] Ankush Mancia M.B.B.S., M.S. [address] [place] [phone] 09/22/2023 1:30 PM CDT Appointment Department of Cardiovascular Diseases in [place], [place] [address] [place] [phone] Addy Arias M.D. [address] [place] [phone] 09/27/2023 10:45 AM CDT Comprehensive Visit Department of Cardiovascular Diseases in [place], [place] [address] [place] [phone] Laith Feliciano M.D. [address] [place] [phone] 10/06/2023 9:00 AM CDT Infusion Department of Oncology in [place], [place] [address] [place] [phone] Ankush Mancia M.B.BGaliS., M.S. [address] [place] [phone] 11/01/2023 9:00 AM CDT Clinical Communication Virtual Review in [place], [place] [address] [place] [phone] 11/03/2023 10:00 AM CDT Comprehensive Visit Division of Gastroenterology in [place], [place] [address] [place] [phone] Milton Holden M.D. [address] [place] [phone] 11/03/2023 1:00 PM CDT Appointment Department of Radiology, [facility], in [place], [place] [address] [place] [phone] Dev Jimenez M.D. [address] [place] [phone] 11/04/2023 8:45 AM CDT Appointment Division of Gastroenterology in [place], [place] [address] [place] [phone] Dev Jimenez M.D. [address] [place] [phone] 11/08/2023 8:00 AM CDT Appointment Division of Gastroenterology in [place], [place] [address] [place] [phone] Dev Jimenez M.D. [address] [place] [phone] 11/09/2023 7:45 AM CDT Appointment Division of Gastroenterology in [place], [place] [address] [place] [phone] Dev Jimenez M.D. [address] [place] [phone] Scheduled Orders Name Type Priority Associated Diagnoses Order Schedule CT Chest with IV Contrast Imaging RAD - Routine (most inpatients and all outpatients) Secondary Malignant Neoplasm Bone (HCC) Primary Malignant Neoplasm Of Prostate (HCC) Expected: 10/20/2023, Expires: 10/27/2024 CT Abdomen Pelvis with IV Contrast Imaging RAD - Routine (most inpatients and all outpatients) Secondary Malignant Neoplasm Bone (HCC) Primary Malignant Neoplasm Of Prostate (HCC) Expected: 10/20/2023, Expires: 10/27/2024 Comprehensive Metabolic Panel Lab Routine Secondary Malignant Neoplasm Bone (HCC) Primary Malignant Neoplasm Of Prostate (HCC) Expected: 10/20/2023, Expires: 10/27/2024 CBC with Differential, Blood Lab Routine Secondary Malignant Neoplasm Bone (HCC) Primary Malignant Neoplasm Of Prostate (HCC) Expected: 10/20/2023, Expires: 10/27/2024 PSA (Prostate-Specific Antigen), Diagnostic Lab Routine Secondary Malignant Neoplasm Bone (HCC) Primary Malignant Neoplasm Of Prostate (HCC) Expected: 10/20/2023, Expires: 10/27/2024 NM Bone Scan Whole Body Imaging RAD - Routine (most inpatients and all outpatients) Secondary Malignant Neoplasm Bone (HCC) Primary Malignant Neoplasm Of Prostate (HCC) Expected: 10/20/2023, Expires: 10/27/2024 documented as of this encounter Visit Diagnoses Diagnosis Secondary Malignant Neoplasm Bone (HCC)- Primary Primary Malignant Neoplasm Of Prostate (HCC) documented in this encounter
--- OUTSIDE RECORDS SUMMARY | 2023-08-30 16:17 | XMS_ITS | Encounter Summary ---
Author Name Unknown Organization [facility] Address [address] [place] [id number] Care Team Providers Care Material Carrier Name Role Phone Unavailable Primary Care Provider Unavailabl e Reason for Visit * Reason Comments Med Management * Outpatient (Routine) - Closed Specialty Diagnoses / Procedures Referred By Cornelio price Referred To Contact Pharmacy Diagnoses Secondary Malignant Neoplasm Bone (HCC) Primary Malignant Neoplasm Of Prostate (HCC) Procedures Pharmacy - Medical oncology eConsult Ankush Mancia M.B.B.S., M.S. [address] [place] [phone] [facility] Referral ID Status Reason Start Date Expiration Date Visits Re quested Visits Authorized [id number] Closed 07/14/2023 07/13/2024 1 1 Encounter Details Date Type Department Care Team (Late st Contact Info) Description 07/20/2023 10:40 AM CDT Internal E-Consult Department of Oncology in [place], [place] [address] [place] [phone] Ankush Mancia M.B.B.S., M.S. [address] [place] [address] [phone] Vani Morgan, D., M.S., R.Ph., [facility] [address] [place] [phone] Secondary Malignant Neoplasm Bone (HCC); Primary Malignant Neoplasm Of Prostate (HCC) Social History Tobacco Use Types Packs/Day Years Used Date Smoking Tobacco: Never Passive Smoke Exposure: Past Smokeless Tobacco: Never Alcohol Use Standard Drinks/Week Comments Not Currently 0 (1 standard drink = 0.6 oz pur e alcohol) [facility] Utilities Answer Date Recorded In the past 12 months has e electric, gas, oil, or water [employer] threatened to shut off services in your [...] often do you attend chur ch or oriental orthodox services? 1 to 4 times per year 04/25/2022 Do you belong to any clubs o r organizations such as restoration groups, unions, fraternal or athletic groups, or [...] care, and heating? Not very hard 04/25/2022 [facility] [place] of Occupat ional Health - Occupational Stress [...] living situation today? I have a [facility] [place] place to live 07/08/2023 Education Answer Date Recorded What is the highest level of school you have completed or the highest degree you have received? 12th grade 05/13/2021 Sex and Gender Information Value Date Recorded Sex Assigned at Male 09/14/2019 9:19 PM CDT Gender Identity Not on file Sexual Orientation Not on file documented as of this encounter Consult Notes * Popeye Young - 07/20/2023 10:40 AM CDT Medication Therapy Management SUBJECTIVE Referring Provider:Ankush aMncia M.B.B.S., M.S. Reason for Visit Targeted eConsult - drug interaction review for Enzalutamide. History of Present Illness Mr. [place] is a 72 y.o. male with a history of Prostate cancer, T2DM, HTN, HF, CAD, sleep apnea, HLD, neuropathy. I was asked to review Mr. [place]'s medications for prostate cancer and coronary artery disease. I have reviewed his medications as listed in the most current outpatient medication list. The following portions of the patient's history were reviewed as appropriate: allergies, current medications, family history, medical history, social history, surgical history and problem list. OBJECTIVE Current Medications Current Outpatient Medications Medication Sig Dispense Refill acetaminophen (TYLENOL) 500 mg tablet Take 2 tablets (1,000 mg total) by mouth every 6 (six) hours for 80 doses. Continue to take while requiring narcotic pain medication. Do not take more than 4000 mg in one day. 90 tablet 1 aspirin 81 mg chewable tablet Chew 81 mg daily. atorvastatin (LIPITOR) 80 mg tablet Take 1 tablet (80 mg total) by mouth daily. 90 tablet 3 blood sugar diagnostic strips TEST 8 TIMES PER DAY blood-glucose meter kit [place] Contour Next Meter. E11.9 IDDM type II - Test 8 times/day. Reason: Unstable diabetes CALCIUM CARBONATE-VITAMIN D3 ORAL Take 1 tablet by mouth every evening. In the afternoon. Strength Unknown clopidogreL (PLAVIX) 75 mg tablet Take 1 tablet (75 mg total) by mouth daily. 30 tablet 2 CONTOUR NEXT EZ METER misc TEST 8 TIMES PER DAY 0 DME CPAP enzalutamide (XTANDI) 40 mg capsule Take 4 capsules (160 mg total) by mouth daily. Take with or without food at the same time each day. Swallow capsules whole. Do not chew, dissolve, or open the capsules. 120 capsule 11 fluticasone propionate (FLONASE) 50 mcg/actuation nasal spray Administer 2 sprays into each nostrildaily. FreeStyle Jonathan 3 Sensor device CHANGE EVERY 2 WEEKS glucagon (BAQSIMI) 3 mg/actuation nasal powder Administer 1 spray (3 mg total) into one nostril as needed for low blood sugar. If no response, may repeat in 15 minutes using a new intranasal device. 1 each 1 insulin lispro 100 unit/mL injection INJECT 180 UNITS VIA CONTINUOUS UNDER THE SKIN INFUSION EVERY DAY ketotifen (ZADITOR) 0.025 % (0.035 %) ophthalmic solution Administer 1 drop into both eyes 2 (two) times a day as needed (irritation). leuprolide (ELIGARD 1 MONTH) 7.5 mg (1 month) injection Monthly lisinopril (for_PRINIVIL,ZESTRIL) 20 mg tablet Take 1 tablet by mouth every evening. loratadine (CLARITIN) 10 mg tablet Take 10 mg by mouth daily. metoprolol succinate (TOPROL-XL) 25 mg 24 hr tablet Take 1 tablet (25 mg total) by mouth daily. Do not crush or chew. 90 tablet 0 pantoprazole (PROTONIX) 40 mg EC tablet Take 1 tablet (40 mg total) by mouth every morning before breakfast. 30 tablet 2 spironolactone (ALDACTONE) 25 mg tablet Take 0.5 tablets (12.5 mg total) by mouth daily. 45 tablet 0 torsemide (DEMADEX) 20 mg tablet Take 3 tablets (60 mg total) by mouth 2 (two) times a day. 180 tablet 0 triamcinolone (KENALOG) 0.1 % ointment 1 Application as needed for irritation. No current facility-administered medications for this visit. Labs: Lab Results Component Value Date NA 134 (L) 07/13/2023 CL 93 (L) 07/13/2023 CREATININE 0.88 07/13/2023 EGFR >90 07/13/2023 BUN 27 (H) 07/13/2023 ANIONGAP 14 07/13/2023 GLUCOSE 160 (H) 07/13/2023 CALCIUM 9.7 07/13/2023 Lab Results Component Value Date WBC 8.7 07/13/2023 RBC 4.66 07/13/2023 HGB 13.0 (L) 07/13/2023 HCT 39.6 07/13/2023 PLT 368 (H) 07/13/2023 Lab Results Component Value Date ALT 24 07/08/2023 AST 60 (H) 07/08/2023 ALKPHOS 119 07/08/2023 BILITOT 0.6 07/08/2023 ASSESSMENT / PLAN 1. Medication Therapy Management: Targeted eConsult - drug interaction review for Enzalutamide. RECOMMENDATIONS: Enzalutamide may reduce the effectiveness of atorvastatin. Monitor the patient's cholesterol levels, and signs of enzalutamide toxicity such as asthenia and hot flushes. Enzalutamide levels may be elevated due to concurrent clopidogrel use. Recommend monitoring for adverse effects We recommend switching to eplerenone and converting from spironolactone equivalent in light of spironolactone's antiadrenergic effects. Enzalutamide is a CY inducer and CYP2D8 substrate. Given his concurrent therapy with clopidogrel (a CYP2D8 inhibitor) and atorvastatin (A CY substrate) we recommend enhanced monitoring. Evidence suggests dose reductions to 80 mg with strong inhibitors of CYP2D8 but evidence is scant to support dose changes with moderate inhibitors such as clopidogrel. Above recommendations were communicated to the care team via an electronically routed chart. Popeye Young References: Unintentional combining enzalutamide with a moderate CYP2C8 inhibitor in a patient withmetastatic castration-resistant prostate cancer: a case report - PubMed (nih.gov) Pharmacokinetic Drug Interaction Studies with Enzalutamide - PubMed (nih.gov) documented in this encounter Plan of Treatment Upcoming Encounters Date Type Department Care Team (Late st Contact Info) Description 09/07/2023 4:30 PM CDT Infusion Department of Oncology in [place], [place] [address] [place] [phone] Ankush Mancia M.B.B.S., M.S. [address] [place] [phone] 09/22/2023 1:30 PM CDT Appointment Department of Cardiovascular Diseases in [place], [place] [address] [place] [phone] Addy Arias M.D. [address] [place] [phone] 09/27/2023 10:45 AM CDT Comprehensive Visit Department of Cardiovascular Diseases in [place], [place] [address] [place] [phone] Laith Feliciano M.D. [address] [place] [phone] 10/06/2023 9:00 AM CDT Infusion Department of Oncology in [place], [place] [address] [place] [phone] Ankush Mancia M.B.B.S., M.S. [address] [place] [phone] 11/01/2023 9:00 AM CDT Clinical Communication Virtual Review in [place], [place] 200 [place] [phone] 11/03/2023 10:00 AM CDT Comprehensive Visit Division of Gastroenterology in [place], [place] [address] [place] [phone] Milton Holden M.D. [address] [place] [phone] 11/03/2023 1:00 PM CDT Appointment Department of Radiology, [facility], in [place], [place] [address] [place] [phone] Dev Jimenez M.D. [address] [place] [phone] 11/04/2023 8:45 AM CDT Appointment Division of Gastroenterology in [place], [place] [address] [place] [phone] Dev Jimenez M.D. [address] [place] [phone] 11/08/2023 8:00 AM CDT Appointment Division of Gastroenterology in [place], [place] [address] [place] [phone] Dev Jimenez M.D. [address] [place] [phone] 11/09/2023 7:45 AM CDT Appointment Division of Gastroenterology in [place], [place] [address] [place] [phone] Dev Jimenez M.D. [address] [place] [phone] documented as of this encounter Visit Diagnoses Diagnosis Secondary Malignant Neoplasm Bone (HCC) Primary Malignant Neoplasm Of Prostate (HCC) documented in this encounter
--- OUTSIDE RECORDS SUMMARY | 2023-08-30 16:17 | XMS_ITS | Encounter Summary ---
Author Name Unknown Organization [facility] Address [address] [place] [address] Care Team Providers Care Tunnel Form Placing Supervisor Name Role Phone Unavailable Primary Care Provider Unavailabl e Reason for Referral * Outpatient (Routine) - Authorized Specialty Diagnoses / Procedures Referred By Contact Referred To Contact Gastroenterology and Hepatology Diagnoses Dysphagia Gastroesophageal Reflux Disease Without Esophagitis Milton Holden M.D. [address] [place] [phone] [facility] Referral ID Status Reason Start Date Expiration Date V isits Requested Visits Authorized [id number] Authorized 08/04/2023 02/02/2025 1 1 Encounter Details Date Type Department Care Team (Late st Contact Info) Description 08/04/2023 [facility] [address] [place], [place] [phone] Milton Holden M.D. [address] [place] [phone] Dysphagia (Primary Dx); Gastroesophageal Reflux Disease Without Esophagitis Social History Tobacco Use Types Packs/Day Years Used Date Smoking Tobacco: Never Passive Smoke Exposure: Past Smokeless Tobacco: Never Alcohol Use Standard Drinks/Week Comments Not Currently 0 (1 standard drink = 0.6 oz pur e alcohol) [facility] Utilities Answer Date Recorded In the past [...] How often do you attend chur or restorationist services? 1 to 4 times per year 04/25/2022 Do you belong to any clubs o r organizations such as nondenominational groups, unions, fraternal or athletic groups, or [...] care, and heating? Not very hard 04/25/2022 [facility] [place] of Occupat ional Health - Occupational Stress [...] your living situation today? I have a [facility] place to live 07/08/2023 Education Answer Date [...] PM CDT Infusion Department of Oncology in [place], [place] [address] [place] [phone] Ankush Mancia M.B.B.S., M.S. [address] [place] [place] [phone] 09/22/2023 1:30 PM CDT Appointment Department of Cardiovascular Diseases in [place], [place] 300 [place] [phone] Addy Arias M.D. [address] [place] [place] [phone] 09/27/2023 10:45 AM CDT Comprehensive Visit Department of Cardiovascular Diseases in [place], [place] [address] [place] [phone] Laith Feliciano M.D. [address] [place] [place] [phone] 10/06/2023 9:00 AM CDT Infusion Department of Oncology in [place], [place] [address] [place] [phone] Ankush Mancia M.B.BGaliS., M.S. [address] [place] [place] [phone] 11/01/2023 9:00 AM CDT Clinical Communication Virtual Review in [place], [place] 200 [place] [address] 11/03/2023 10:00 AM CDT Comprehensive Visit Division of Gastroenterology in [place], [place] [address] [place] [phone] Milton Holden M.D. [address] [place] [phone] 11/03/2023 1:00 PM CDT Appointment Department of Radiology, [facility], in [place], [place] [address] [place] [phone] Dev Jimenez M.D. [address] [place] [place] [phone] 11/04/2023 8:45 AM CDT Appointment Division of Gastroenterology in [place], [place] [address] [place] [phone] Dev Jimenez M.D. [address] [place] [place] [phone] 11/08/2023 8:00 AM CDT Appointment Division of Gastroenterology in [place], [place] [address] [place] [phone] Dev Jimenez M.D. [address] [place] [place] [phone] 11/09/2023 7:45 AM CDT Appointment Division of Gastroenterology in [place], [place] [address] [place] [phone] Dev Jimenez M.D. [address] [place] [place] [phone] Scheduled Referrals Name Type Priority Associated Diagnoses Order Schedule Gastroenterology & Hepatology Referral Outpatient Referral Routine Dysphagia Gastroesophageal Reflux Disease Without Esophagitis Expected: 08/04/2023 (Approximate), Expires: 11/02/2024 documented as of this encounter Visit Diagnoses Diagnosis Dysphagia- Primary Gastroesophageal Reflux Disease Without Esophagitis documented in this encounter
--- OUTSIDE RECORDS SUMMARY | 2023-08-30 16:17 | XMS_ITS | Encounter Summary ---
Author Name Unknown Organization [facility] Address [address] [place] [address] Care Team Providers Care Tile Trimmer Name Role Phone Unavailable Primary Care Provider Unavailabl e Encounter Details Date Type Department Care Team (Late st Contact Info) Description 08/05/2023 Episode Changes Department of Cardiovascular Medicine in [place], [place] [address] [place] [address] Stephen Sage, [facility] Social History Tobacco Use Types Packs/Day Years Used Date Smoking Tobacco: Never Passive Smoke Exposure: Past Smokeless Tobacco: Never Alcohol Use Standard Drinks/Week Comments Not Currently 0 (1 standard drink = 0.6 oz pur e alcohol) [facility] Utilities Answer Date Recorded In the past 12 months has [facility] [employer], gas, oil, or water [employer] threatened to shut off services in your [...] often do you attend chur ch or judaism services? 1 to 4 times per year 04/25/2022 Do you belong to any clubs o r organizations such as holiness groups, unions, fraternal or athletic groups, or [...] care, and heating? Not very hard 04/25/2022 [facility] of Occupat ional Health - Occupational Stress [...] your living situation today? I have a [facility] place to live 07/08/2023 Education Answer [...] PM CDT Infusion Department of Oncology in [place], [place] 200 [place] [address] Ankush Mancia M.B.B.S., M.S. 200 [place] [phone] 09/22/2023 1:30 PM CDT Appointment Department of Cardiovascular Diseases in [place] [address] [place] [phone] Addy Arias M.D. [address] [place] [phone] 09/27/2023 10:45 AM CDT Comprehensive Visit Department of Cardiovascular Diseases in [place], [place] [address] [place] [phone] Laith Feliciano M.D. [address] [place] [phone] 10/06/2023 9:00 AM CDT Infusion Department of Oncology in [place], [place] [address] [place] [phone] Anuksh Mancia M.B.BGaliS., M.S. [address] [place] [phone] 11/01/2023 9:00 AM CDT Clinical Communication Virtual Review in [place], [place] [address] [place] [address] 11/03/2023 10:00 AM CDT Comprehensive Visit Division of Gastroenterology in [place], [place] [address] [place] [phone] Milton Holden M.D. [address] [place] [phone] 11/03/2023 1:00 PM CDT Appointment Department of Radiology, [facility], in [place], [place] [address] [place] [phone] Dev Jimenez M.D. [address] [place] [phone] 11/04/2023 8:45 AM CDT Appointment Division of Gastroenterology in [place], [place] [address] [place] [phone] Dev Jimenez M.D. [address] [place] [phone] 11/08/2023 8:00 AM CDT Appointment Division of Gastroenterology in [place], [place] [address] [place] [address] Dev Jimenez M.D. [address] [place] [phone] 11/09/2023 7:45 AM CDT Appointment Division of Gastroenterology in [place], [place] [address] [place] [address] Dev Jimenez M.D. [address] [place] [phone] documented as of this encounter Visit Diagnoses Not on filedocumented in this encounter
--- OUTSIDE RECORDS SUMMARY | 2023-08-30 16:17 | XMS_ITS ---
Author Name Unknown Organization [facility] Address [address] [place] [address] Care Team Providers Care Fruit Washer Name Role Phone Unavailable Unavailable Unavailable Surgery Details Not on file Complications Check Surgery Details section. Procedure Estimated Blood Loss Check Surgery Details section. Procedure Findings Check Surgery Details section. Procedure Specimens Taken Check Surgery Details section.
--- OUTSIDE RECORDS SUMMARY | 2023-08-30 16:17 | XMS_ITS | Encounter Summary ---
Author Name Unknown Organization [facility] Address [address] [place] [address] Care Team Providers Care Rotary Drier Name Role Phone Unavailable Primary Care Provider Unavailabl e Reason for Referral * Outpatient (Routine) - Closed Specialty Diagnoses / Procedures Referred By Cornelio price Referred To Contact Pharmacy Diagnoses Secondary Malignant Neoplasm Bone (HCC) Primary Malignant Neoplasm Of Prostate (HCC) Procedures Pharmacy - Medical oncology eConsult Ankush Mancia M.B.BWillow, M.S. [address] [place] [address] [facility] Referral ID Status Reason Start Date Expiration Date Visits Re quested Visits Authorized [id number] Closed 07/14/2023 07/13/2024 1 1 Reason for Visit * Outpatient (Routine) - Closed Specialty Diagnoses / Procedures Referred By Cornelio price Referred To Contact Oncology Diagnoses Primary Malignant Neoplasm Of Prostate (HCC) Morbid Obesity Body Mass Index 45.0-49.9 Adult (HCC) Secondary Malignant Neoplasm Bone (HCC) Ankush Mancia M.B.B.S., M.S. [address] [place] [address] [facility] Referral ID Status Reason Start Date Expiration Date Visits Re quested Visits Authorized [id number] Closed 07/02/2023 2024 1 1 Encounter Details Date Type Department Care Team (Late st Contact Info) Description 07/21/2023 11:00 AM CDT Office Visit Division of Hematology in [place], [place] [address] [place] [phone] Ankush Mancia M.B.B.S., M.S. [address] [place] [phone] Secondary Malignant Neoplasm Bone (HCC) (Primary Dx); Rising Prostate Specific Antigen Following Treatment For Malignant Cancer Of Prostate; Primary Malignant Neoplasm Of Prostate (HCC); Atherosclerotic Heart Disease [place] 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 (Stable Angina/Angina Of Exertion) (HCC); Morbid Obesity Body Mass Index 45.0-49.9 Adult (HCC); Hypertension Essential Primary; Acute Systolic (Congestive) Heart Failure (HCC) Social History Tobacco Use Types Packs/Day Years Used Date Smoking Tobacco: Never Passive Smoke Exposure: Past Smokeless Tobacco: Never Alcohol Use Standard Drinks/Week Comments Not Currently 0 (1 standard drink = 0.6 oz pur e alcohol) [facility] Utilities Answer Date Recorded In the past 12 months has [facility] [employer], gas, oil, or water [employer] threatened to shut off services in your [...] How often do you attend chur or spiritism services? 1 to 4 times per year 04/25/2022 Do you belong to any clubs o r organizations such as alevism groups, unions, fraternal or athletic groups, or [...] care, and heating? Not very hard 04/25/2022 [facility]at ionmi Health - Occupational Stress Questionnaire Answer Date [...] your living situation today? I have a [facility] place to live 07/08/2023 Education Answer Date Recorded What is the highest level of school you have completed or the highest degree you have received? 12th grade 05/13/2021 Sex and Gender Information Value Date Recorded Sex Assigned at Male 09/14/2019 9:19 PM CDT Gender Identity Not on file Sexual Orientation Not on file documented as of this encounter Last Filed Vital Signs Vital Sign Reading [...] Mass Index 51.5 07/21/2023 10:56 AM CDT documented in this encounter Progress Notes * Ankush Mancia M.B.B.S., M.S. - 07/21/2023 11:00 AM CDT SUBJECTIVE PRIMARY [place] ONCOLOGIST Curtis Velasquez M.D. Supervising oncologist Miki Mansfield M.D Responsible fellow Ankush Mancia M.B.B.S., M.S. CHIEF COMPLAINT / REASON FOR VISIT Lawrence Butler is a 72 y.o. male who presents for evaluation of metastatic castrate resistant prostate adenocarcinoma. He is accompanied by his . HISTORY OF PRESENT ILLNESS Oncology History Overview Note PSA had remained normal from 2801-5910. First elevated PSA noted in 2009. He presented to his localoncologist after rising PSA to 4.86ng/ml noted in April 2011. Prostate was imaged and biopsy dated 06/09/2011 and pathology was consistent with high-grade prostatic intraepithelial neoplasia. He was started on finasteride. PSA was noted to be 9.10 ng/mL on 01/31/2015; MRI performed 02/13/2015 was highly suggestive of prostate cancer, without evidence metastatic disease, or pelvic adenopathy. Prostate biopsy Was repeated 02/26/2015, 18 cores were examined; Telma 3 + 4 in 11 cores, Buffalo 4 + 3 in 4 cores, perineural invasion was present. Bone scan 03/13/2015 demonstrated no osseous disease. He was assessed as clinical stage IIB( T2c, N0 N0). He started Casodex 50 mg per day for 2 weeks on 03/15/2015, and Lupron 30 mg (4 months) IM on 03/19/2015. His PSA responded well, and declined to 0.36ng/ml on evaluation 05/14/2015. This was followedby radiation, total of 4500cGy in [address], with boost to prostate and proximal seminal vessels for a total of 7740cGy in 43 fractions. His PSA was trended at the [facility] , and remained below 1.0 from August 31, 2015 till February 23, 2017 ( 0.04 => 0.07=> 0.15 => 0.50 => 0.69 ), until follow up on 08/18/2017 demonstrated a sharp uptrend to 3.70ng/ml and 6.9on 10/16/2017. An endorectal MRI on 10/25/2017 demonstrated small areas of moderate diffusion restriction in the right mid to lower prostate which was concerning for residual prostate cancer. Primary Malignant Neoplasm Of Prostate (HCC) 03/11/2015 Initial Diagnosis Primary Malignant Neoplasm Of Prostate (HCC) Clinical Stage Cancer Staging Primary Malignant Neoplasm Of Prostate (HCC) Staging form: Prostate, AJCC V7 - Clinical stage from 08/12/2017: T2c, N0, M0, PSA: 10 to 19, Buffalo 7 Staged by: Managing physician Specimen type: Biopsy / Limited Resection Telma 3 + 4 in 11 cores, Telma 4 + 3 in 4 cores, + PNI 2014 - Biological/Targeted/Hormone Therapy Casodex 50 mg a day for two weeks initiated March 15, 2015, followed by a four month Lupron injection on March 19, 2015, no additional hormone therapy is planned 2015 - Radiation Therapy Definitive radiation therapy completed July 17, 2015 10/16/2017 Progression/Relapse PSA 6.49 10/2017 Other Endorectal MRI consistent with recurrence of prostate cancer PET choline CT demonstrates multiple choline avid osseous metastases. Several focal areas of increased choline activity right side of the prostate gland suggestive of locally recurrent disease. Indeterminate 1.3 cm noncalcified pulmonary nodule in the right upper lobe which demonstrates subtle choline activity. PSA 7.2 11/05/2017 Restage Restaged Cancer Staging: Cancer Staging Primary Malignant Neoplasm Of Prostate (HCC) Staging form: Prostate, AJCC V7 - Clinical stage from 08/12/2017: T2, N0, M0, PSA: 10 to 19, Telma 7 Staged by: Managing physician Specimen type: Biopsy / Limited Resection 11/05/[address] Choline: Multiple choline avid osseous metastases.Several focal areas of increased choline activity right side of the prostate gland suggestive of locally recurrent disease.Indeterminate 1.3 cm noncalcified pulmonary nodule in the right upper lobe which demonstrates subtle choline activity. Extensive calcified and noncalcified pleural plaques, some with low level uptake (correlate for prior asbestos exposure). 12/14/2017 - Biological/Targeted/Hormone Therapy 3 month Lupron 01/13/2019 Other PET CHOLINE Increased choline activity in the prostate could be intraprostatic recurrence, BPH or prostatitis. Nearly all prior choline avid osseous metastases have responded to therapy and are no longer choline avid. A few remain choline avid but are unchanged. Extensive degenerative changes with inflammatory choline activity about the right hip, without new discrete osseous metastasis here. 10/31/2019 Progression/Relapse Continued biochemical progression, based on doubling of PSA to 1.4 Bone scan of 10/29/2019 demonstrates increased activity at known sites of disease and new areas of osseous disease 11/06/2019 - Biological/Targeted/Hormone Therapy Enzalutamide 160 mg daily 05/08/2022 Genetic Testing and Tumor Genotyping [employer] 60 gene panel germline testing: NEGATIVE. 05/18/2022 Genetic Testing and Tumor Genotyping Negative germline genetic testing in 2022; Custom Cancer panel (Common Hereditary Cancers + Colorectal Cancer + Prostate Cancer + Prostate Cancer HRR panels) through [facility] INTERVAL HISTORY was diagnosed with heart failure with reduced ejection fraction on 07/01/2023 with LVEF of 25%, secondary to coronary artery disease for which he underwent cardiac catheterization on 07/08/2023 and was found to have severe multivessel coronary artery disease requiring intervention with stenting on 07/12/2023. Following his coronary catheterization and stenting, he has been commenced on dual antiplatelet therapy with clopidogrel and aspirin. For his heart failure, he has been commencedon spironolactone 12.5 mg daily and metoprolol; and he continues his statin, and RADHA inhibitor. For his prostate cancer treatment, he remains on enzalutamide 160 mg daily, to which he is adherent. He continues leuprolide monthly, most recent treatment in 07/16/2023. He has no bone pain, no myalgia, no arthralgia. He reports subjectively feeling better, with much less peripheral edema, and is able to ambulate better. The following portions of the patient's history were reviewed and updated as appropriate: allergies, current medications, medical history, surgical history, and problem list. REVIEW OF SYSTEMS Pertinent review of systems as in interval history. OBJECTIVE BP 94/62 (BP Location: Left arm, Patient Position: Sitting, Cuff Size: Large) Pulse 79 Temp 36.5 ??C (Tympanic) Resp 16 Ht 180.4 cm Wt (!) 168 kg SpO2 94% BMI 51.50 kg/m?? PHYSICAL EXAM Vitals reviewed. Constitutional General: He is not in acute distress. Appearance: He is not toxic-appearing. Cardiovascular Rate and Rhythm: Regular rhythm. Heart sounds: No murmur heard. No gallop. Pulmonary Effort: No respiratory distress. Breath sounds: No wheezing. Comments: Unable to appreciate added sounds on auscultation, probably due to body habitus Musculoskeletal Right lower leg: Edema present. Left lower leg: Edema present. Comments: Chronic bilateral lower extremity edema, much less compared to April 2023 Neurological Mental Status: He is alert and oriented to person, place, and time. LABORATORY DATA Latest Reference Range & Units 07/13/23 07:32 07/21/23 09:25 Sodium, S 135 - 145 mmol/L 134 (L) Potassium, S 3.6 - 5.2 mmol/L 4.6 Chloride, S 98 - 107 mmol/L 93 (L) Bicarbonate, S 22 - 29 mmol/L 27 Anion Gap 7 - 15 14 BUN (Blood Urea Nitrogen), S 8 - 24 mg/dL 27 (H) Creatinine 0.74 - 1.35 mg/dL 0.88 Estimated GFR (eGFR) >=60 mL/min/BSA >90 Calcium, Total, S 8.8 - 10.2 mg/dL 9.7 Glucose, S 70 - 140 mg/dL 160 (H) Magnesium 1.7 - 2.3 mg/dL 1.9 Prostate-Specific Ag <=6.5 ng/mL <0.10 (L): Data is abnormally low (H): Data is abnormally high ASSESSMENT / PLAN # Metastatic castrate resistant prostate cancer ( bone only), on enzalutamide, androgen deprivationtherapy with monthly Lupron # Secondary Malignancy of Bone # acute heart failure with reduced ejection fraction secondary to multivessel coronary artery disease status post PCI with stenting June 2023 # Pancreatic Cyst, stable dating back to MRI on 02/14/[address] scans in 2019, 2020, 2021 # Osteoarthritis status post right total hip replacement in June 2020 # infectious/inflammatory nodularities on CT chest Jan 2023 Mr. Butler is a pleasant 72-year-old male with metastatic castrate resistant prostate cancer. In summary, he was treated with with definitive radiation therapy in 2016, with biochemical and osseous relapse in 2018 evident with high volume osseous disease. He was started on bicalutamide in October 2017 and ADT with leuprolide was initiated on December 14, 2017. He has been on ADT with leuprolide since November 2017. Docetaxel was not given because of significant diabetic neuropathy; abiraterone/prednisone was alsonot chosen because of concerns with worsening of blood glucose control with chronic prednisone. Enzaluatmide was not approved for upfront metastatic castrate sensitive prostate cancer at that time. He again had biochemical and osseous progression in October 2019 so he was switched to enzalutamide 160 mg daily with ADT with monthly leuprolide. He has completed his 2 year course of zoledronic acid every 3 months. He underwent germline testing in April 2022 in view of his metastatic castrate resistant prostate cancer, and this was negative. Since initiating enzlutamide, he has had good response, PSA continues to be undetectable on labs from 07/21/2023, and no evidence of progression on CT chest, abdomen and pelvis and bone scan from 02/02/2023. He will continue with enzalutamide 160mg daily, and Monthly leuprolide. Most recent leuprolide injection was on July 16, 2023. Mr Butler has been on enzaluatmide for metastatic prostate cancer for the last 4 years with good control of his cancer. It is never possible to draw a causal link between enzalutamide and a specific cardiac event but we know that enzalutamide is associated with higher risk of secondary cardiovascular events. He has clearly benefitted from enzalutamide, and arbiraterone is contraindicated because of his diabetes. In the face of other major cardiac risk factors including diabetes mellitus, hypertension, hyperlipidemia and extreme obesity, I am not sure how much of his CAD can be attributed to enzalutamide. Since the benefit outweighs the risk in this case, he is in agreement with continuing en zalutamide. We will follow-up again in 3 months with PSA, labs, CT chest, abdomen pelvis and bone scan, but sooner if new symptoms develop. Thankfully, his pancreatic cyst remains stable dating back to MRI on 02/14/[address] scans in 2019, 2020, 2021 and 2022. We discussed medication interactions with enzalutamide including potential for interaction between clopidogrel and enzalutamide, and discussed Enzalutamide side effects to monitor for. Given potential androgenic effect of spironolactone, we will replace spironolactone with eplerenone 25 mg daily, and I have provided an initial prescription today. I did discuss this with his cardiology service attending Dr. Arias, and he is in agreement. He has a planned follow-up with his family physician on 07/28/2023, and at that time he will have his basic metabolic panel rechecked to monitor his potassiumlevel following initiation of eplerenone. Appreciate the assistance of Vani Morgan, Nora.D., M.S., R.Ph., BCPS in reviewing medication interactions (Please see econsult dated 07/20/2023). He will continue follow-up with Cardiology, currently scheduled for September 2023 in [place], but willattempt to schedule a heart failure follow-up sooner if possible. Since I will be graduating from the fellowship in the summer of 2023, Mr. Butler understands that he will meet with a new fellow at his next follow-up appointment in 3 months. Summary of plan Follow-up with cardiology Follow-up with family physician for repeat BMP on 07/28/2023 following initiation of eplerenone Continue enzalutamide 160 mg daily Stop Spironolactone Start eplerenone 25 mg daily Continue all other goal-directed medical therapy as recommended by Cardiology Continue leuprolide monthly (most recent injection July 16, 2023) Follow-up with PSA, labs, CT chest, abdomen pelvis and bone scan in 3 months, but sooner if new symptoms develop. Plan discussed with Dr. Velasquez. PATIENT EDUCATION Explained diagnosis and treatment plan; patient expressed understanding of the content. ADMINISTRATIVE BILLING I personally spent over half of a total 40 minutes face to face with the patient in counseling and discussion and/or coordination of care as described above. documented in this encounter Plan of Treatment Upcoming Encounters Date Type Department Care Team (Late st Contact Info) Description 09/07/2023 4:30 PM CDT Infusion Department of Oncology in [place], [place] [address] [place] [address] Ankush Mancia M.B.B.S., M.S. [address] [place] [address] 09/22/2023 1:30 PM CDT Appointment Department of Cardiovascular Diseases in [place], [place] [address] [place] [address] Addy Arias M.D. [address] [place] [phone] 09/27/2023 10:45 AM CDT Comprehensive Visit Department of Cardiovascular Diseases in [place], [place] [address] [place] [phone] Laith Feliciano M.D. [address] [place] [phone] 10/06/2023 9:00 AM CDT Infusion Department of Oncology in [place], [place] [address] [place] [phone] Ankush Mancia M.B.BGaliS., M.S. [address] [place] [phone] 11/01/2023 9:00 AM CDT Clinical Communication Virtual Review in [place], [place] [address] [place] [address] 11/03/2023 10:00 AM CDT Comprehensive Visit Division of Gastroenterology in [place], [place] [address] [place] [phone] Milton Holden M.D. [address] [place] [address] 11/03/2023 1:00 PM CDT Appointment Department of Radiology, [facility], in [place], [place] [address] [place] [phone] Dev Jimenez M.D. [address] [place] [phone] 11/04/2023 8:45 AM CDT Appointment Division of Gastroenterology in [place], [place] [address] [place] [phone] Dev Jimenez M.D. [address] [place] [phone] 11/08/2023 8:00 AM CDT Appointment Division of Gastroenterology in [place], [place] [address] [place] [phone] Dev Jimenez M.D. [address] [place] [phone] 11/09/2023 7:45 AM CDT Appointment Division of Gastroenterology in [place], [place] [address] [place] [phone] Dev Jimenez M.D. [address] [place] [phone] documented as of this encounter Visit Diagnoses Diagnosis Secondary Malignant Neoplasm Bone (HCC)- Primary Rising Prostate Specific Antigen Following Treatment For Malignant Cancer Of Prostate Primary Malignant Neoplasm Of Prostate (HCC) Atherosclerotic Heart Disease [place] 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 (Stable Angina/Angina Of Exertion) (HCC) Morbid Obesity Body Mass Index 45.0-49.9 Adult (HCC) Hypertension Essential Primary Acute Systolic (Congestive) Heart Failure (HCC) documented in this encounter
--- OUTSIDE RECORDS SUMMARY | 2023-08-30 16:17 | XMS_ITS | Encounter Summary ---
Author Name Unknown Organization [facility] Address [address] [place] [address] Care Team Providers Care Occupational Therapy Manager Name Role Phone Unavailable Primary Care Provider Unavailabl e Encounter Details Date Type Department Care Team (Late st Contact Info) Description 07/22/2023 Clinical Communication Department of Oncology in [place], [place] [address] [place] [phone] Ankush Mancia M.B.B.S., M.S. [address] [place] [phone] Social History Tobacco Use Types Packs/Day Years Used Date Smoking Tobacco: Never Passive Smoke Exposure: Past Smokeless Tobacco: Never Alcohol Use Standard Drinks/Week Comments Not Currently 0 (1 standard drink = 0.6 oz pur e alcohol) [facility] Utilities Answer Date Recorded In the [...] How often do you attend chur or yazdanism services? 1 to 4 times per year 04/25/2022 Do you belong to any clubs o r organizations such as gnosticist groups, unions, fraternal or athletic groups, or [...] care, and heating? Not very hard 04/25/2022 [facility] of Occupat ional Health - Occupational Stress [...] your living situation today? I have a [facility] place to live 07/08/2023 Education [...] PM CDT Infusion Department of Oncology in [place], [place] [address] [place] [address] Ankush Mancia M.B.B.S., M.S. [address] [place] [phone] 09/22/2023 1:30 PM CDT Appointment Department of Cardiovascular Diseases in [place], [place] [address] [place] [phone] Addy Arias M.D. [address] [place] [phone] 09/27/2023 10:45 AM CDT Comprehensive Visit Department of Cardiovascular Diseases in [place], [place] [address] [place] [phone] Laith Feliciano M.D. [address] [place] [phone] 10/06/2023 9:00 AM CDT Infusion Department of Oncology in [place], [place] [address] [place] [phone] Ankush Mancia M.B.B.S., M.S. [address] [place] [phone] 11/01/2023 9:00 AM CDT Clinical Communication Virtual Review in [place], [place] 200 [place] [address] 11/03/2023 10:00 AM CDT Comprehensive Visit Division of Gastroenterology in [place], [place] [address] [place] [phone] Milton Holden M.D. [address] [place] [phone] 11/03/2023 1:00 PM CDT Appointment Department of Radiology, [facility], in [place], [place] [address] [place] [phone] Dev Jimenez M.D. [address] [place] [phone] 11/04/2023 8:45 AM CDT Appointment Division of Gastroenterology in [place], [place] [address] [place] [address] Dev Jimenez M.D. [address] [place] [phone] 11/08/2023 8:00 AM CDT Appointment Division of Gastroenterology in [place], [place] [address] [place] [phone] Dev Jimenez M.D. [address] [place] [phone] 11/09/2023 7:45 AM CDT Appointment Division of Gastroenterology in [place], [place] [address] [place] [phone] Dev Jimenez M.D. [address] [place] [phone] documented as of this encounter Visit Diagnoses Not on filedocumented in this encounter
--- OUTSIDE RECORDS SUMMARY | 2023-08-30 16:17 | XMS_ITS | Encounter Summary ---
Author Name Unknown Organization [facility] Address [address] [place] [address] Care Team Providers Care Direct Support Professional Name Role Phone Unavailable Primary Care Provider Unavailabl e Reason for Visit * Episode Based Medications (Routine) - Authorized Specialty Diagnoses / Procedures Referred By Contac t Referred To Contact Diagnoses Primary Malignant Neoplasm Of Prostate (HCC) Procedures [place] LEUPROLIDE ACETATE SUSPNSION Ankush Mancia M.B.B.S., M.S. [address] [place] [phone] Rst Onc [facility] [address] [place] [phone] Referral ID Status Reason Start Date Expiration Date V isits Requested Visits Authorized [id number] Authorized 12/03/2020 06/23/2024 99 99 Encounter Details Date Type Department Care Team (Late st Contact Info) Description 08/12/2023 10:00 AM CDT Infusion Department of Oncology in [place], [place] [address] [place] [phone] Ankush Mancia M.B.BGaliS., M.S. [address] [place] [phone] Primary Malignant Neoplasm Of Prostate (HCC) (Primary Dx) Social History Tobacco Use Types Packs/Day Years Used Date Smoking Tobacco: Never Passive Smoke Exposure: Past Smokeless Tobacco: Never Alcohol Use Standard Drinks/Week Comments Not Currently 0 (1 standard drink = 0.6 oz pur e alcohol) [facility] Utilities Answer Date Recorded In the past 12 months has e [employer], gas, oil, or water [employer] threatened to shut off services in your [...] week 04/25/2022 How often do you attend [facility] or nondenominational services? 1 to 4 times per year 04/25/2022 Do you belong to any clubs o r organizations such as advent groups, unions, fraternal or athletic groups, or [...] care, and heating? Not very hard 04/25/2022 [facility] - Occupational Stress Questionnaire Answer Date [...] your living situation today? [facility] 07/08/2023 Education Answer Date [...] PM CDT Infusion Department of Oncology in [place], [place] [address] [place] [phone] Ankush Mancia M.B.BGaliS., M.S. [address] [place] [phone] 09/22/2023 1:30 PM CDT Appointment Department of Cardiovascular Diseases in [place], [place] [address] [place] [phone] Addy Arias M.D. [address] [place] [phone] 09/27/2023 10:45 AM CDT Comprehensive Visit Department of Cardiovascular Diseases in [place], [place] [address] [place] [phone] Laith Feliciano M.D. [address] [place] [phone] 10/06/2023 9:00 AM CDT Infusion Department of Oncology in [place], [place] [address] [place] [phone] Ankush Mancia M.B.BGaliS., M.S. [address] [place] [phone] 11/01/2023 9:00 AM CDT Clinical Communication Virtual Review in [place], [place] [address] [place] [address] 11/03/2023 10:00 AM CDT Comprehensive Visit Division of Gastroenterology in [place], [place] [address] [place] [phone] Milton Holden M.D. [address] [place] [address] 11/03/2023 1:00 PM CDT Appointment Department of Radiology, [facility], in [place], [place] [address] [place] [phone] Dev Jimenez M.D. [address] [place] [phone] 11/04/2023 8:45 AM CDT Appointment Division of Gastroenterology in [place], [place] [address] [place] [phone] Dev Jimenez M.D. [address] [place] [phone] 11/08/2023 8:00 AM CDT Appointment Division of Gastroenterology in [place], [place] [address] [place] [phone] Dev Jimenez M.D. [address] [place] [phone] 11/09/2023 7:45 AM CDT Appointment Division of Gastroenterology in [place], [place] [address] [place] [phone] Dev Jimenez M.D. [address] [place] [phone] documented as of this encounter Visit Diagnoses Diagnosis Primary Malignant Neoplasm Of Prostate (HCC)- Primary documented in this encounter Administered Medications Inactive Administered Medications - up to 3 most recent administrations Medication Order MAR Action Action Date Dose Rate Site leuprolide injection 7.5 mg (ELIGARD 1 MONTH) 7.5 mg, subcutaneous, Once, On Tania 08/12/23 at 1045, For 1 dose Given 08/12/2023 11:11 AM CDT 7.5 mg Right Lower Abdomen documented in this encounter
--- OUTSIDE RECORDS SUMMARY | 2023-08-30 16:18 | XMS_ITS | Encounter Summary ---
Author Name Unknown Organization [facility] Address [address] [place] [address] Care Team Providers Care Mock Up Builder Name Role Phone Unavailable Primary Care Provider Unavailabl e Reason for Referral * Outpatient (Routine) - Authorized Specialty Diagnoses / Procedures Referred By Contact Referred To Contact Cardiovascular Diseases / Cardiovascular Disease Diagnoses Acute On Chronic Systolic (Congestive) Heart Failure (HCC) Addy Arias M.D. 200 [place] [phone] [facility] Region Referral ID Status Reason Start Date Expiration Date V isits Requested Visits Authorized [id number] Authorized 07/13/2023 01/11/2025 1 1 * Cardiovascular-Diagnostic (Routine) - Authorized Specialty Diagnoses / Procedures Referred By Contac t Referred To Contact Diagnoses Acute On Chronic Systolic (Congestive) Heart Failure (HCC) Procedures Echo Transthoracic (TTE) Addy Arias M.D. 200 [place] [phone] [facility] Region Referral ID Status Reason Start Date Expiration Date V isits Requested Visits Authorized [id number] Authorized 07/13/2023 07/12/2024 1 1 Encounter Details Date Type Department Care Team (Late st Contact Info) Description 07/13/2023 Clinical Communication Division of [facility] Internal Medicine, [facility] in [place], [place] [address] [place] [address] Sadiq Celestin M.D. [address] [place] [phone] Social History Tobacco Use Types Packs/Day Years Used Date Smoking Tobacco: Never Passive Smoke Exposure: Past Smokeless Tobacco: Never Alcohol Use Standard Drinks/Week Comments Not Currently 0 (1 standard drink = 0.6 oz pur e alcohol) [facility] Utilities Answer Date Recorded In the past 12 months has [employer], gas, oil, or water [employer] threatened to shut off services in your [...] week 04/25/2022 How often do you attend [facility] or worship services? 1 to 4 times per year 04/25/2022 Do you belong to any clubs o r organizations such as buddhism groups, unions, fraternal or athletic groups, or [...] care, and heating? Not very hard 04/25/2022 [facility] - Occupational Stress [...] your living situation today? I have a [facility] place to live 07/08/2023 Education Answer [...] PM CDT Infusion Department of Oncology in [place], [place] [address] [place] [phone] Ankush Mancia M.B.B.S., M.S. [address] [place] [phone] 09/22/2023 1:30 PM CDT Appointment Department of Cardiovascular Diseases in [place], [place] 300 [place] [phone] Addy Arias M.D. [address] [place] [phone] 09/27/2023 10:45 AM CDT Comprehensive Visit Department of Cardiovascular Diseases in [place], [place] [address] [place] [phone] Laith Feliciano M.D. [address] [place] [phone] 10/06/2023 9:00 AM CDT Infusion Department of Oncology in [place], [place] [address] [place] [phone] Ankush Mancia M.B.B.S., M.S. [address] [place] [phone] 11/01/2023 9:00 AM CDT Clinical Communication Virtual Review in [place], [place] 200 [place] [address] 11/03/2023 10:00 AM CDT Comprehensive Visit Division of Gastroenterology in [place], [place] [address] [place] [phone] Milton Holden M.D. [address] [place] [phone] 11/03/2023 1:00 PM CDT Appointment Department of Radiology, [facility], in [place], [place] [address] [place] [phone] Dev Jimenez M.D. [address] [place] [phone] 11/04/2023 8:45 AM CDT Appointment Division of Gastroenterology in [place], [place] [address] [place] [phone] Dev Jimenez M.D. [address] [place] [phone] 11/08/2023 8:00 AM CDT Appointment Division of Gastroenterology in [place], [place] [address] [place] [phone] Dev Jimenez M.D. [address] [place] [phone] 11/09/2023 7:45 AM CDT Appointment Division of Gastroenterology in [place], [place] [address] [place] [phone] Dev Jimenez M.D. [address] [place] [phone] Scheduled Orders Name Type Priority Associated Diagnoses Order Schedule Echo Transthoracic (TTE) Echocardiography Routine Acute On Chronic Systolic (Congestive) Heart Failure (HCC) Expected: 08/27/2023, Expires: 10/12/2024 Scheduled Referrals Name Type Priority Associated Diagnoses Order Schedule Cardiovascular Disease - General cardiology consult (clinic) Outpatient Referral Routine Acute On Chronic Systolic (Congestive) Heart Failure (HCC) Expected: 08/27/2023, Expires: 10/12/2024 documented as of this encounter Visit Diagnoses Diagnosis Acute On Chronic Systolic (Congestive) Heart Failure (HCC)- Primary documented in this encounter
--- OUTSIDE RECORDS SUMMARY | 2023-08-30 16:18 | XMS_ITS | Encounter Summary ---
Author Name Unknown Organization [facility] Address [address] [place] [phone] Care Team Providers Care Clinical Nurse Leader Name Role Phone Unavailable Primary Care Provider Unavailabl e Reason for Visit * Episode Based Medications (Routine) - Authorized Specialty Diagnoses / Procedures Referred By Contac t Referred To Contact Diagnoses Primary Malignant Neoplasm Of Prostate (HCC) Procedures NE LEUPROLIDE ACETATE SUSPNSION Ankush Mancia M.B.B.S., M.S. [address] [place] [phone] Rst Onc Rogo [address] [place] [phone] Referral ID Status Reason Start Date Expiration Date V isits Requested Visits Authorized [id number] Authorized 12/03/2020 06/23/2024 99 99 Encounter Details Date Type Department Care Team (Late st Contact Info) Description 07/16/2023 4:30 PM CDT Infusion Department of Oncology in [place], [place] [address] [place] [phone] Ankush Mancia M.B.BGaliS., M.S. [address] [place] [phone] Primary Malignant Neoplasm Of Prostate (HCC) (Primary Dx) Social History Tobacco Use Types Packs/Day Years Used Date Smoking Tobacco: Never Passive Smoke Exposure: Past Smokeless Tobacco: Never Alcohol Use Standard Drinks/Week Comments Not Currently 0 (1 standard drink = 0.6 oz pur e alcohol) [facility] Utilities Answer Date Recorded In the past 12 months has e [employer], gas, oil, or water [employer] threatened to shut off services in your [...] week 04/25/2022 How often do you attend [facility] or moravian services? 1 to 4 times per year [...] care, and heating? Not very hard 04/25/2022 [facility] - Occupational Stress Questionnaire Answer Date [...] your living situation today? [facility] 07/08/2023 Education Answer [...] PM CDT Infusion Department of Oncology in [place], [place] [address] [place] [phone] Ankush Mancia M.B.BGaliS., M.S. [address] [place] [phone] 09/22/2023 1:30 PM CDT Appointment Department of Cardiovascular Diseases in [place], [place] 300 [place] [address] Addy Arias M.D. [address] [place] [phone] 09/27/2023 10:45 AM CDT Comprehensive Visit Department of Cardiovascular Diseases in [place], [place] [address] [place] [phone] Laith Feliciano M.D. [address] [place] [phone] 10/06/2023 9:00 AM CDT Infusion Department of Oncology in [place], [place] [address] [place] [phone] Ankush Mancia M.B.BGaliS., M.S. [address] [place] [phone] 11/01/2023 9:00 AM CDT Clinical Communication Virtual Review in [place], [place] [address] [place] [address] 11/03/2023 10:00 AM CDT Comprehensive Visit Division of Gastroenterology in [place], [place] [address] [place] [phone] Milton Holden M.D. [address] [place] [address] 11/03/2023 1:00 PM CDT Appointment Department of Radiology, [facility], in [place], [place] [address] [place] [phone] Dev Jimenez M.D. [address] [place] [phone] 11/04/2023 8:45 AM CDT Appointment Division of Gastroenterology in [place], [place] [address] [place] [phone] Dev Jimenez M.D. [address] [place] [phone] 11/08/2023 8:00 AM CDT Appointment Division of Gastroenterology in [place], [place] [address] [place] [phone] Dev Jimenez M.D. [address] [place] [phone] 11/09/2023 7:45 AM CDT Appointment Division of Gastroenterology in [place], [place] [address] [place] [phone] Dev Jimenez M.D. [address] [place] [phone] documented as of this encounter Visit Diagnoses Diagnosis Primary Malignant Neoplasm Of Prostate (HCC)- Primary documented in this encounter Administered Medications Inactive Administered Medications - up to 3 most recent administrations Medication Order MAR Action Action Date Dose Rate Site leuprolide injection 7.5 mg (ELIGARD 1 MONTH) 7.5 mg, subcutaneous, Once, On Wed07/16/23 at 1630, For 1 dose Given 07/16/2023 4:20 PM CDT 7.5 mg Left Lower Abdomen documented in this encounter
--- OUTSIDE RECORDS SUMMARY | 2023-08-30 16:18 | XMS_ITS | Encounter Summary ---
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 [address] [place] [phone] Referral ID Status Reason Start Date Expiration Date Visits Requested Visits Authorized [id number] Authorized Continuity of Care 07/13/2023 01/11/2025 1 1 Encounter Details Date Type Department Care Team (Latest Contact Info) Description 07/08/2023 9:08 AM CDT - 07/13/2023 3:19 PM CDT Hospital Encounter [facility], [facility], Fifth Floor [address] [place] [phone] Sky Whatley M.D., Ph.D. [address] [place] [phone] Romina Lizama M.B.BGaliS., Ph.D. 200 [place] [phone] Addy Arias M.D. 200 [place] [phone] Dysphagia [R13.10] (Primary Dx); Shortness Of Breath; Abnormal Coronary Calcium Computed Tomography; Edema Lower Extremity; 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 (Stable Angina/Angina Of Exertion) ([facility]); Coronary Stent Status Post Discharge Disposition: Home or Self Care Social History Tobacco Use Types Packs/Day Years Used Date Smoking Tobacco: Never Passive Smoke Exposure: Past Smokeless Tobacco: Never Alcohol Use Standard Drinks/Week Comments Not Currently 0 (1 standard drink = 0.6 oz pur e alcohol) [facility] [employer] Answer Date Recorded In the past 12 months has [employer], or water [employer] threatened to shut off services in your [...] often do you attend chur ch or restoration services? 1 to 4 times per year [...] 04/25/2022 [facility] - Occupational Stress [...] Sign Reading Time Taken Comments Blood Pressure 97/61 07/13/2023 12:30 PM CDT Pulse 81 07/13/2023 8:15 AM CDT Temperature 36.6 ??C (97.9 ??F) 07/13/2023 12:30 PM C DT Respiratory Rate 20 07/13/2023 8:15 AM CDT Oxygen Saturation 96% 07/13/2023 12:30 PM CDT Inhaled Oxygen Concentration - - Weight 176 kg (387 lb 5.6 oz) 07/12/2023 8:00 AM CDT Height 181.9 cm (5' 11.61) 07/08/2023 9:28 AM C DT Body Mass Index 53.1 07/08/2023 9:28 AM CDT documented in this encounter Discharge Summaries * Sadiq Celestin M.D. - 07/13/2023 1:13 PM CDT CARDIOLOGY HOSPITAL DISCHARGE SUMMARY DATE OF ADMISSION: 07/08/2023 DATE OF DISCHARGE: 07/13/2023 Discharge Provider: Addy Arias M.D. Discharge Provider Team: RST CARD 1 PRINCIPAL DIAGNOSIS Acute On Chronic Systolic (Congestive) Heart Failure (HCC) DISMISSAL DIAGNOSES Congestive heart failure DISCHARGE DISPOSITION: Home or Self Care [1] RECOMMENDATIONS FOR FOLLOW-UP APPOINTMENTS MEDICATIONS CHANGED DURING HOSPITAL STAY: Medications Stopped: Furosemide 80 mg daily, omeprazole 40 mg daily Medications Started: Metoprolol 25 mg daily, spironolactone 12.5 mg daily, pantoprazole 40 mg daily, clopidogrel 75 mg daily for 6 months FOLLOW-UP APPOINTMENTS Scheduled Appointments Next 10 Appointments 07/14/2023 4:30 PM ONC CHAIR CHEMO 16 [facility] Oncology 07/20/2023 1:30 PM RST INTAKE VISIT POD C 03 Admitting/Central Scheduling 07/21/2023 9:00 AM LAB BLOOD ROGO 10 E Laboratory Medicine 07/21/2023 11:00 AM Ankush Mancia M.B.B.S., M.S. Hematology 08/11/2023 2:00 PM ONC CHAIR CHEMO 39 [facility]GO Oncology 09/07/2023 6:40 AM LAB BLOOD ROHI CL C Laboratory Medicine 09/07/2023 8:00 AM NM ROCH INJ RM Radiology 09/07/2023 11:00 AM NM [facility] [address] RM 04 Radiology 09/07/2023 3:[address] MONICA ABD LOS 814 Radiology 09/08/2023 11:00 AM Ankush Mancia M.B.B.S., M.S. Oncology Displaying the next 10 appointments. This patient has additional appointments scheduled. For appointment details refer to your Patient Appointment Guide. HOSPITAL COURSE Admission Weight: (!) 182 kg Dismissal Weight: (!) 176 kg BMI: Body mass index is 53.1 kg/m??. Mr. Lawrence Butler is a 72 y.o. male with insulin-dependent type 1 DM, ANA LILIA w/ CPAP compliance, morbid obesity, and metastatic prostate cancer to bone, pulmonary nodules who presents with worsening shortness of breath. Pre-admission: In brief, TTE from 2021 showed LVEF 56% without RWMA with grade 1 LV diastolic dysfunction. Repeat TTE on 06/30 showed LVEF of 29% with severe generalized left ventricular hypokinesis, mildly enlarged right ventricular with reduced systolic function, and did not enlarged IVC with no inspiratory collapse. He underwent coronary angiography for evaluation of the sudden drop in LVEF on 07/07 which showed 90% occlusion of the proximal LAD, 100% occlusion of the proximal circumflex, 99% occlusion of the ramus intermedius, 99% occlusion of the proximal and middle RCA, and 90% occlusion of the distalright RCA. Given the findings of severe, critical three-vessel coronary artery disease, he was admit nicole to inpatient cardiology for surgical consultation. Cardiology 1 Service (07/07- 07/12) : On presentation, Mr. Butler was found to have an elevated NT-Pro BNP and appeared volume overloaded. He underwent diuresis during his hospitalization to achieve close to euvolemia, with diuresis to continue at home. Additionally, he was seen by Cardiac Surgery who ultimately came to the decision that surgery would would not be the safest option given his comorbidities. Therefore, coronary angiogram was performed on 07/11 and stents were placed in the middle LAD and ramus intermedius. INSTRUCTIONS FOR THE PATIENT Please start taking metoprolol 25 mg daily, spironolactone 12.5 mg daily, clopidogrel 75 mg daily, pantoprazole 40 mg daily (stop taking omeprazole) For home diuretic: stop taking your furosemide. Please start taking torsemide 60 mg twice daily RECOMMENDATIONS FOR OUTPATIENT PROVIDER Titrate diuretics Increase GDMT to maximally tolerated dose Follow up chest pain, currently asymptomatic. If he develops angina, consider intervention on right-sided CAD. CONTACT INFORMATION If you experience a medical emergency, please call your local emergency response telephone number. For other questions, call the [facility] 24-hour telephone number: [phone]. Ask to be connected to the following service: RST CARD 1 CONDITION ON DISCHARGE: Stable. DIET AT DISCHARGE: Adult Diet Regular; Cardiovascular Discharge Diet for Adults, 2L fluid restriction, 2 g sodium restriction PRIMARY PROVIDER Patient Care Team: Milton Holden M.D. as External Primary Care Physician (Family Medicine) No primary care provider on file. Primary Care Provider Phone Number: None Primary Care Provider Fax Number: None MARGIN CODE I personally spent total time of 30 minutes with >50% spent with counseling/coordination of care, independent from other providers on our team. documented in this encounter Discharge Instructions * Discharge Instructions* Yanni Lange APRN, C.N.P. - 07/08/2023 2:01 PM CDT You were discharged from the RST CARD 1 Service. Please identify this service name if you call withquestions after hospitalization. BLOOD GLUCOSE MANAGEMENT: Monitor blood glucose four times daily or via continuous glucose monitor (CGM) before meals and at bedtime. Blood glucose goal is 100-140 mg/dL. Most recent A1c on record: Lab Results Component Value Date HGBA1C 7.2 (H) 06/29/2023 Follow-up with primary care provider within 7-10 days of discharge or earlier if blood glucose values are consistently out of goal range. As Diabetes and Nutritional Education is important to your diabetes management, yearly follow up with a local Pack Puller and Dietitian is recommended. Please check with your insurance company as diabetes education visits are commonly covered. Your primary care provider can provide referrals for education. * Attachments The following attachments cannot be sent through Care Everywhere. * Glucagon (Into the nose) (Ugandan) * Metoprolol (By mouth) (Ugandan) * Pantoprazole (By mouth) (Ugandan) * Spironolactone (By mouth) (Ugandan) * Torsemide (By mouth) (Ugandan) documented in this encounter Medications at Time of Discharge Medication Sig Dispensed Refills Start Date End Date aspirin 81 mg chewable tablet Chew 81 mg daily. blood sugar diagnostic strips TEST 8 TIMES PER DAY 01/12/2018 blood-glucose meter kit [place] Contour Next Meter. E11.9 IDDM type II - Test 8 times/day. Reason: Unstable diabetes 12/13/2017 CALCIUM CARBONATE-VITAMIN D3 ORAL Take 1 tablet by mouth every evening. In the afternoon. Strength Unknown clopidogreL (PLAVIX) 75 mg tablet Take 1 tablet (75 mg total) by mouth daily. 30 tablet 2 07/13/2023 10/11/2023 CONTOUR NEXT EZ METER misc TEST 8 TIMES PER DAY 0 12/15/2017 DME CPAP enzalutamide (XTANDI) 40 mg capsule Take 4 capsules (160 mg total) by mouth daily. Take with or without food at the same time each day. Swallow capsules whole. Do not chew, dissolve, or open the capsules. 120 capsule 11 10/21/2022 fluticasone propionate (FLONASE) 50 mcg/actuation nasal spray Administer 2 sprays into each nostril daily. 05/11/2023 [employer] Renetta 3 Sensor device CHANGE EVERY 2 WEEKS 05/11/2023 glucagon (BAQSIMI) 3 mg/actuation nasal powder Administer 1 spray (3 mg total) into one nostril as needed for low blood sugar. If no response, may repeat in 15 minutes using a new intranasal device. 1 each 1 07/13/2023 insulin lispro 100 unit/mL injection INJECT 180 UNITS VIA CONTINUOUS UNDER THE SKIN INFUSION EVERY DAY 06/02/2023 ketotifen (ZADITOR) 0.025 % (0.035 %) ophthalmic solution Administer 1 drop into both eyes 2 (two) times a day as needed (irritation). leuprolide (ELIGARD 1 MONTH) 7.5 mg (1 month) injection Monthly lisinopril (for_PRINIVIL,ZESTRI L) 20 mg tablet Take 1 tablet by mouth every evening. 03/09/2013 loratadine (CLARITIN) 10 mg tablet Take 10 mg by mouth daily. metoprolol succinate (TOPROL-XL) 25 mg 24 hr tablet Take 1 tablet (25 mg total) by mouth daily. Do not crush or chew. 90 tablet 07/13/2023 10/11/2023 pantoprazole (PROTONIX) 40 mg EC tablet Take 1 tablet (40 mg total) by mouth every morning before breakfast. 30 tablet 2 07/14/2023 10/12/2023 triamcinolone (KENALOG) 0.1 % ointment 1 Application as needed for irritation. 11/11/2021 atorvastatin (LIPITOR) 80 mg tablet Take 1 tablet (80 mg total) by mouth daily. 90 tablet 3 07/23/2022 08/05/2023 spironolactone (ALDACTONE) 25 mg tablet Take 0.5 tablets (12.5 mg total) by mouth daily. 45 tablet 07/14/2023 07/21/2023 torsemide (DEMADEX) 20 mg tablet Take 3 tablets (60 mg total) by mouth 2 (two) times a day. 180 tablet 07/13/2023 08/10/2023 documented as of this encounter Progress Notes * Yanni Lange, MILY, C.N.P. - 07/13/2023 10:22 AM CDT SUBJECTIVE LOS: 5 days DCS continues to follow this 72 y.o. male for blood glucose management admitted on 07/08/2023 for Acute On Chronic Systolic (Congestive) Heart Failure (HCC) PREADMISSION THERAPY: Medtronic 670G manual mode Insulin type: Humalog (for 1 mo, formerly Aspart) Change infusion site: Last site change 07/11 Basal Rate: TDD 59.2 units/day. MN-4A: 2.4 units/hr 4A-10P: 2.5 units/hr 10P-MN: 2.3 units/hr Insulin/carb ratio: MN: 1 unit for 4 grams of carbohydrates 4A: 1 unit for 3 grams of carbohydrates 9A: 1 unit for 4 grams of carbohydrates Insulin sensitivity factor: 1 unit reduces blood glucose by 10 mg/dL Glucose goal range: MN-MN: 100 mg/dL Active insulin time: 4 hours Patient is in no acute distress. Sitting in their chair. Family is present at the bedside. Reviewedhospital insulin regimen. Reviewed dismissal plan. OBJECTIVE Blood glucose results in last 24 hours: Recent Labs 07/13/23 0817 07/13/23 0732 07/13/23 0211 07/12/23 2119 07/12/23 1800 07/12/23 1515 07/12/23 1150 GLUCOSEPOC 168 H -- 128 216 H 206 H 265 H 266 H GLUCOSE -- 160 H -- -- -- -- -- Yesterday, given: He was running with a temp basal of 80% throughout the day yesterday. Yesterday he bolused 11.2 units at 7:37 pm and 16.4 units at 8:54 am today. Steroids: None Current Diet Adult Diet Regular; Cardiovascular starting at 07/11 1658 VITALS Temperature: 36.4 ??C Heart Rate: 80 Resp Rate: 20 Blood Pressure: 99/59 BP Location: Right arm Arterial Line BP: 90/58 SpO2: 93 % Flow Rate (L/min): 3 L/min Height: 181.9 cm Weight: (!) 176 kg Body mass index is 53.1 kg/m??. LABORATORY Lab Results Component Value Date CREATININE 0.88 07/13/2023 Estimated Creatinine Clearance: 128.2 mL/min (by C-G formula based on SCr of 0.88 mg/dL). ASSESSMENT / PLAN #1 Diabetes mellitus, type 1, preadmission hypoglycemia, A1c 7.2% complicated by diabetic retinopathy and diabetic neuropathy #2 Hypoglycemia #3 Insulin pump use INPATIENT PLAN: - Blood glucose monitoring: four times daily and 2 am - Glucose goal: 140-180 mg/dL - Basal: - Patient is alert, oriented, and able to self-manage insulin pump. Last site change 07/11.Site change due 07/14. - Continue current insulin pump settings (verified today). Current settings are as follows: Medtronic 670G manual mode Insulin type: Humalog (for 1 mo, formerly Aspart) Change infusion site: Last site change 07/11 Basal Rate: Temporary basal of 80% today and expires tomorrow at 9 am. MN-6A: 2.3 units/hr 6A-10P: 2.5 units/hr 10P-MN: 2.3 units/hr Insulin/carb ratio: 1 unit for every 8 grams CHO for the full 24 hours Insulin sensitivity factor: 1 unit reduces blood glucose by 10 mg/dL Glucose goal range: MN-MN: 100 mg/dL Active insulin time: 4 hours - Patient to notify RN of bolus doses for charting purposes. - DCS will continue to see patient and assess ability to self-manage daily; if patient is unable toself-manage please notify DCS immediately and will transition to SQ insulin. - Mealtime: Humalog via patient insulin pump. - Correction scale: Humalog via patient insulin pump - DCS will evaluate and adjust insulin doses as indicated to achieve glycemic goal. ANTICIPATED DISMISSAL PLAN: Preadmission regimen with dose adjustment. Blood glucose frequency: via continuous glucose monitor (CGM) Goal: 100-160 mg/dL Please page DCS within 24 hours prior to hospital dismissal for final dismissal recommendations. Discussed above plan with the patient and patient's family. Patient is alert and oriented and in agreement with the plan. DCS pager [phone] will continue to follow. Call primary service for diabetes concerns between [phone]. Primary service to contact solutions analyst Endo fellow via hospital press operator automatic for questions. * Addy Arias M.D. - 07/13/2023 10:09 AM CDT CARDIOVASCULAR PROGRESS NOTE Cardiology 1 Service; [facility], room [facility] [id number]. Patient seen and examined on rounds with the Cardiology 1 team. I reviewed the note recorded by Dr.Jonah Celestin on 13-Jul-23, and I agree with his findings, assessment, and plan of care. ASSESS / PLAN #1 Severe 3-vessel coronary artery disease (angio 08-Jul-23) #1A Post PCI (ather-x, lithotripsy, ANNA x 1) to mid-LAD and (ather-x, lithotripsy, ANNA x 1) to RInt [OM-1], 12-Jul-23 #2 Severely depressed LV function, EF 25% by Echo Jun-2023 #2A Acute on chronic systolic and diastolic LV-CHF No chest pain, SOB. VS stable. HR 86. BP 99/59. I/O neg 2.0 L. Wt N/A. Persist LE edema, much better than when admitted. CBC: Hgb 13.0. WBC 8.7. Plt 368. Chem: Na/K 134/4.6. BUN/creat 27/0.88. Successful percutaneous coronary intervention yesterday. Left coronary artery well treated, with stents in LAD and large RInt. Right coronary artery has more diffuse disease with some distal collaterals from left side - will not consider PCI unless clearly causing symptoms. Good diuretic response to addition of metolazone with furosemide. Will transition to torsemide for homegoing oral diuretic therapy. Continue ASA + Plavix, atorvastatin, lisinopril, metoprolol, and spironolactone. If responds to first dose of torsemide, should be able to dismiss later today. Will need follow-up in 6 to 8 weeks to see if LV function has improved in response to PCI. If EF remains severely depressed, he may be candidate for ICD. #3 Type 1 DM #4 Morbid obesity, BMI 53.1 #5 Metastatic prostate cancer * Sadiq Celestin M.D. - 07/13/2023 6:56 AM CDT CARDIOLOGY 1 SERVICE PROGRESS NOTE REASON FOR ADMISSION: Dyspnea ADMISSION DATE: 07/07 SUBJECTIVE Doing well this morning. Family at bedside on team rounds. Discussed with the patient that we will trial oral diuretics, and if he urinates well, he will be able to go home today. Catheterization yesterday with ANNA to middle LAD, ramus intermedius. Further details below. OBJECTIVE INTAKE/OUTPUT: Past 24 hours: Intake/Output Summary (Last 24 hours) at 07/13/2023 0656 Last data filed at 07/13/2023 0620 Gross per 24 hour Intake 990 ml Output 2950 ml Net -1960 ml Wt Readings from Last 3 Encounters: 07/12/23 (!) 176 kg 07/01/23 (!) 180 kg 05/05/23 (!) 180 kg PHYSICAL EXAMINATION: VITAL SIGNS: BP (!) 113/41 Pulse 82 Temp 36.4 ??C (Oral) Resp (!) 25 Ht 181.9 cm Wt (!) 176 kg SpO2 96% BMI 53.10 kg/m?? A few soft blood pressures overnight 87/62 and 81/55, asymptomatic. GEN: Well-appearing male in no acute distress. CARDS: Regular rate and rhythm, no murmurs. 1+ pitting edema of lower extremities bilaterally PULM: Clear to auscultation bilaterally. ABD: Soft. Non-distended, nontender to palpation. INTEG: Overlying venous stasis changes of lower extremities. NEURO: Grossly non-focal. Moves all extremities spontaneously. PSYCH: Appropriate, cooperative. IMAGING: Echo: TTE on 06/30 showed LVEF of 29% with severe generalized left ventricular hypokinesis, mildly enlarged right ventricular with reduced systolic function, and did not enlarged IVC with no inspiratory collapse. Angiogram 07/11: CORONARY DIAGNOSTIC SUMMARY Coronary artery dominance is right. The right coronary was not injected. The left main coronary artery is 40% obstructed by diffuse disease. The proximal left anterior descending artery is 50% obstructed by diffuse disease. The middle left anterior descending artery is 90% obstructed by a discrete lesion and 50% obstructed by a discrete lesion. The distal segment is normal size, diseased. The proximal circumflex artery is 100% obstructed by a discrete lesion. The ramus intermedius segment is 99% obstructed by a discrete lesion. The distal segment is large size, diseased. The first obtuse marginal receives collaterals from the ramus intermedius segment. CORONARY INTERVENTION SUMMARY Successful intervention of the Middle Left Anterior Descending Artery. The preintervention stenosiswas 90%. The post intervention stenosis was 10%. Devices used include Atherectomy, PTCA, Stent, andLithotripsy. Successful intervention of the Ramus Intermedius Segment. The preintervention stenosis was 99%. Thepost intervention stenosis was 10%. Devices used include Atherectomy, PTCA, Stent, and Lithotripsy. CXR 07/07: Enlarged cardiac silhouette with mild increased layering bilateral pleural effusions, small to moderate on the right and small left, in a background of probable mild interstitial edema. No definite pneumothorax. Multilevel degenerative changes of the spine. ASSESSMENT / PLAN Mr. Butler is hospitalized on RST CARD 1 for evaluation and management of acute on chronic heart failure exacerbation likely secondary to ischemic cardiomyopathy. Patient underwent angiogram on 07/07showed severe, critical three-vessel coronary artery disease and was admitted to Cardiology for surgical consultation in addition to treatment of heart failure exacerbation. Mr. Butler was seen by cardiovascular surgery during his hospitalization. He is not a surgical candidate due to comorbiditiesand PCI was again performed 07/12/2023 with ANNA to middle LAD and ramus intermedius. If patient is able to diurese well on oral diuretics, he can go home today with close outpatient follow up. Today's plan: - Transition to torsemide for home diuresis, 60 BID # Acute on Chronic Heart Failure Exacerbation # Severe CAD # HLD # HTN # Hyponatremia - Continue ASA, atorvastatin, clopidogrel (6 months) - Continue home lisinopril - Addition of metoprolol 25 mg BID, spironolactone 12.5 mg - No indication for SGLT2 inhibitor in T1DM - torsemide 60 BID #Insulin Dependent T1DM, A1c 7.2% (06/29/23) #Peripheral neuropathy #diabetic retinopathy - Patient on lispro insulin pump - DCS consult to manage insulin pump while inpatient - Diabetic, cardiovascular diet #Metastatic Prostate Cancer - Continue home enzalutamide - Pharmacy OK for patient to bring this from home. Patient and family notified, will bring it on morning of 07/08. #ANA LILIA on CPAP #Obesity #GERD - Continue home Protonix 40 mg daily - Patient will use home CPAP machine - PRN bowel regimen Diet: NPO for procedure VTE prophylaxis: heparin Disposition: Home pending angiogram Plan discussed with RST CARD 1 Chucking Machine Operator, Addy Romero M.D., who was present during phillips portions of the evaluation today. [place] contact [place] 1 [place] [phone] with questions. Sadiq Celestin MD PGY-1 Internal Medicine Pager [phone] * Yanni Lange APRN, C.N.P. - 07/12/2023 10:14 AM CDT SUBJECTIVE LOS: 4 days DCS continues to follow this 72 y.o. male for blood glucose management admitted on 07/08/2023 for Acute On Chronic Systolic (Congestive) Heart Failure (HCC) PREADMISSION THERAPY: Medtronic 670G manual mode Insulin type: Humalog (for 1 mo, formerly Aspart) Change infusion site: Last site change 07/08 Basal Rate: TDD 59.2 units/day. MN-4A: 2.4 units/hr 4A-10P: 2.5 units/hr 10P-MN: 2.3 units/hr Insulin/carb ratio: MN: 1 unit for 4 grams of carbohydrates 4A: 1 unit for 3 grams of carbohydrates 9A: 1 unit for 4 grams of carbohydrates Insulin sensitivity factor: 1 unit reduces blood glucose by 10 mg/dL Glucose goal range: MN-MN: 100 mg/dL Active insulin time: 4 hours Patient is in no acute distress. Sitting in their chair. Family is present at the bedside. Reviewedhospital insulin regimen. Reviewed dismissal plan. OBJECTIVE Blood glucose results in last 24 hours: Recent Labs 07/12/23 0651 07/12/23 0328 07/11/23 2230 07/11/23 1925 07/11/23 1855 07/11/23 1838 07/11/23 1819 07/11/23 1758 07/11/23 1753 07/11/23 1641 07/11/23 1238 GLUCOSEPOC -- 282 H 286 H 148 H 121 82 58 L 44 L 47 L 128 232 H GLUCOSE 257 H -- -- -- -- -- -- -- -- -- -- Yesterday, given: He was running with a temp basal of 80% throughout the day yesterday. Yesterday he bolused 8.3 units at 3:31 am. He suspended his pump from 6:13 am to 9:50 am. He bolused 14.35 units at 9:52 am and 22.7 units at 12:50 pm. He then suspended his pump from 6:17 pm to 9:06pm. He has not bolused yet today. He is having an angiogram this afternoon. He plans to remove his pump during the procedure. Steroids: None Current Diet No oral nutrition, no tube feeding starting at 07/11 0000 VITALS Temperature: 36.2 ??C Heart Rate: 87 Resp Rate: 24 Blood Pressure: 101/62 BP Location: Right arm;Upper SpO2: 97 % BMI (Calculated): 53.1 kg/m?? Height: 181.9 cm Weight: (!) 176 kg Body mass index is 53.1 kg/m??. LABORATORY Lab Results Component Value Date CREATININE 0.91 07/12/2023 Estimated Creatinine Clearance: 123.9 mL/min (by C-G formula based on SCr of 0.91 mg/dL). ASSESSMENT / PLAN #1 Diabetes mellitus, type 1, preadmission hypoglycemia, A1c 7.2% complicated by diabetic retinopathy and diabetic neuropathy #2 Hypoglycemia #3 Insulin pump use INPATIENT PLAN: - Blood glucose monitoring: four times daily and 2 am - Glucose goal: 140-180 mg/dL - Basal: - Patient is alert, oriented, and able to self-manage insulin pump. Last site change 07/08.Site change due 07/11. He plans to do this prior to his angiogram today. - Continue current insulin pump settings (verified today). Current settings are as follows: Medtronic 670G manual mode Insulin type: Humalog (for 1 mo, formerly Aspart) Change infusion site: Last site change 07/08 Basal Rate: Temporary basal of 80% today and expires tomorrow at 9 am. MN-6A: 2.3 units/hr 6A-10P: 2.5 units/hr 10P-MN: 2.3 units/hr Insulin/carb ratio: Changed to 1 unit for every 8 grams CHO for the full 24 hours Insulin sensitivity factor: 1 unit reduces blood glucose by 10 mg/dL Glucose goal range: MN-MN: 100 mg/dL Active insulin time: 4 hours - Patient to notify RN of bolus doses for charting purposes. - DCS will continue to see patient and assess ability to self-manage daily; if patient is unable toself-manage please notify DCS immediately and will transition to SQ insulin. - Mealtime: Humalog via patient insulin pump. - Correction scale: Humalog via patient insulin pump - DCS will evaluate and adjust insulin doses as indicated to achieve glycemic goal. ANTICIPATED DISMISSAL PLAN: Preadmission regimen with dose adjustment. Blood glucose frequency: via continuous glucose monitor (CGM) Goal: 100-160 mg/dL Please page DCS within 24 hours prior to hospital dismissal for final dismissal recommendations. Discussed above plan with the patient and patient's family. Patient is alert and oriented and in agreement with the plan. DCS pager [phone] will continue to follow. Call primary service for diabetes concerns between [phone]. Primary service to contact solutions analyst Endo fellow via hospital press operator automatic for questions. * Addy Arias M.D. - 07/12/2023 8:54 AM CDT CARDIOVASCULAR PROGRESS NOTE Cardiology 1 Service; [facility], room [place] [id number]. Patient seen and examined on rounds with the Cardiology 1 team. I reviewed the note recorded by Dr.Julia Sharma on 12-Jul-23, and I agree with her findings, assessment, and plan of care. ASSESS / PLAN #1 Severe 3-vessel coronary artery disease (angio 08-Jul-23) #2 Severely depressed LV function, EF 25% by Echo Jun-2023 #2A Acute on chronic systolic and diastolic LV-CHF No chest pain, SOB. VS stable. HR 79. BP 101/62. I/O neg 3.7 L. Wt 176 (down 2.0). Persist LE edema, much better than when admitted. CBC: Hgb 12.4. WBC 7.6. Plt 340. Chem: Na/K 137/5.0. BUN/creat 27/0.91. Overall stable with symptomatic improvement as he diureses. Good diuretic response to addition of metolazone with furosemide - will continue. Continue ASA + Plavix, atorvastatin, lisinopril, metoprolol, and spironolactone. Will proceed with PCI today. Plan is to treat high grade lesions in prox-LAD and large OM-1, and todefer treatment of diffusely diseased RCA. * Shania Roca, Pharm.D., R.Ph. - 07/12/2023 7:01 AM CDT Pharmacist Progress Note Reason for admission: multivessel coronary artery disease PMH: insulin-dependent type 1 DM, ANA LILIA w/ CPAP compliance, morbid obesity, and metastatic prostate cancer to bone, pulmonary nodules who presents with worsening shortness of breath. OBJECTIVE CV: CAD - aspirin 81 mg, atorvastatin 80 mg. HF - lisinopril 20 mg, spironolactone 12.5 mg Neph: Estimated Creatinine Clearance: 126.4 mL/min (by C-G formula based on SCr of 0.9 mg/dL). BL SCr 0.8 Endo: DM1, A1c 7.2%% - insulin pump Onc: enzalutamide 160 mg PPX: SQH, home PPI Medication Reconciliation: Held: nasal fluticasone, furosemide, loratadine, Changed: Omeprazole for Pantoprazole (TTI) New: - ASSESSMENT / PLAN Multivessel CAD. PCI to be obtained today. Reduced EF with volume overload Diurese. Supplement to keep K > 4 and Mg > 2. Consider beta susan initiation when euvolemic. Consider ACEi initiation after coronary intervention. SGLT2: Avoiding in the setting of DM1. Prostate Cancer Continuing enzalutamide Will be due for leuprolide 07/14 Shania Roca Pharm.D., R.Ph. * Kyaleen Sharma M.D. - 07/12/2023 6:01 AM CDT CARDIOLOGY 1 SERVICE PROGRESS NOTE REASON FOR ADMISSION: Dyspnea ADMISSION DATE: 07/07 SUBJECTIVE Doing well this morning, awaiting coronary angio this afternoon. Family at bedside on team rounds. OBJECTIVE TELEMETRY INTAKE/OUTPUT: Past 24 hours: Intake/Output Summary (Last 24 hours) at 07/12/2023 0604 Last data filed at 07/12/2023 0400 Gross per 24 hour Intake 970 ml Output 3550 ml Net -2580 ml Wt Readings from Last 3 Encounters: 07/11/23 (!) 178 kg 07/01/23 (!) 180 kg 05/05/23 (!) 180 kg PHYSICAL EXAMINATION: VITAL SIGNS: BP 105/69 (BP Location: Right arm;Upper, Patient Position: Semi- recumbent) Pulse 75 Temp 36.5 ??C (Oral) Resp 24 Ht 181.9 cm Wt (!) 178 kg SpO2 95% BMI 53.92 kg/m?? A few soft blood pressures overnight 87/62 and 81/55, asymptomatic. GEN: Well-appearing male in no acute distress. CARDS: Regular rate and rhythm, no murmurs. Significant pitting edema 2+ of the bilateral feet and shins, up to the knees. JVP difficult to assess on exam. PULM: Clear to auscultation bilaterally. ABD: Soft. Non-distended, nontender to palpation. INTEG: Overlying venous stasis changes of lower extremities. NEURO: Grossly non-focal. Moves all extremities spontaneously. PSYCH: Appropriate, cooperative. IMAGING: Echo: TTE on 06/30 showed LVEF of 29% with severe generalized left ventricular hypokinesis, mildly enlarged right ventricular with reduced systolic function, and did not enlarged IVC with no inspiratory collapse. Angiogram 07/07: Coronary artery dominance is right. The left main coronary artery is 30% obstructed by a discrete lesion. The proximal left anterior descending artery is 90% obstructed by a discrete lesion. The distal segment is normal size. The proximal circumflex artery is 100% obstructed by a discrete lesion. The distal segment is not visible. The ramus intermedius segment is 99% obstructed by a discrete lesion. The distal segment is large size. The proximal right coronary artery is 99% obstructed by a discrete lesion. The middle right coronary artery is 99% obstructed by a discrete lesion. The distal right coronary artery is 90% obstructed by a discrete lesion. CXR 07/07: Enlarged cardiac silhouette with mild increased layering bilateral pleural effusions, small to moderate on the right and small left, in a background of probable mild interstitial edema. No definite pneumothorax. Multilevel degenerative changes of the spine. ASSESSMENT / PLAN Mr. Butler is hospitalized on RST CARD 1 for evaluation and management of acute on chronic heart failure exacerbation likely secondary to ischemic cardiomyopathy. Patient underwent angiogram on 07/07showed severe, critical three-vessel coronary artery disease and was admitted to Cardiology for surgical consultation in addition to treatment of heart failure exacerbation. Mr. Butler was seen by cardiovascular surgery during his hospitalization. He is not a surgical candidate due to comorbidities and recommended to explore PCI as an option for revascularization. At this time, we will continue to diurese while planning for coronary angiogram with likely intervention. Today's plan: - Coronary angiogram with possible PCI today. - He will require further diuresis, will redose with lasix 200 IV and metolazone 5 mg oral - Transition to torsemide for home diuresis, 40 mg BID #Acute on Chronic Heart Failure Exacerbation #Severe CAD #HLD #HTN - No surgical intervention. - Plan for coronary angiogram with possible PCI on 07/11 - Continue home ASA, atorvastatin - Continue home lisinopril - Will require Plavix load prior to coronary angiogram. - Holding home regimen while we aggressively diurese. - Addition of metoprolol 25 mg BID, spironolactone 12.5 mg - No indication for SGLT2 inhibitor in T1DM #Insulin Dependent T1DM, A1c 7.2% (06/29/23) #Peripheral neuropathy #diabetic retinopathy - Patient on lispro insulin pump - DCS consult to manage insulin pump while inpatient - Diabetic, cardiovascular diet #Metastatic Prostate Cancer - Continue home enzalutamide - Pharmacy OK for patient to bring this from home. Patient and family notified, will bring it on morning of 07/08. #ANA LILIA on CPAP #Obesity #GERD - Continue home Protonix 40 mg daily - Patient will use home CPAP machine - PRN bowel regimen Diet: NPO for procedure VTE prophylaxis: heparin Disposition: Home pending angiogram Plan discussed with RST CARD 1 Chucking Machine Operator, Addy Romero M.D., who was present during phillips portions of the evaluation today. [place] 1 [place] [phone] with questions. * Lori Aguirre APRN, C.N.P. - 07/11/2023 12:45 PM CDT SUBJECTIVE LOS: 3 days DCS continues to follow this 72 y.o. male for blood glucose management admitted on 07/08/2023 for Acute On Chronic Systolic (Congestive) Heart Failure (HCC) PREADMISSION THERAPY: Medtronic 670G manual mode Insulin type: Humalog (for 1 mo, formerly Aspart) Change infusion site: Last site change 07/08 Basal Rate: TDD 59.2 units/day. MN-4A: 2.4 units/hr 4A-10P: 2.5 units/hr 10P-MN: 2.3 units/hr Insulin/carb ratio: MN: 1 unit for 4 grams of carbohydrates 4A: 1 unit for 3 grams of carbohydrates 9A: 1 unit for 4 grams of carbohydrates Insulin sensitivity factor: 1 unit reduces blood glucose by 10 mg/dL Glucose goal range: MN-MN: 100 mg/dL Active insulin time: 4 hours Patient is in no acute distress. Sitting in their chair. Family is present at the bedside. Reviewedhospital insulin regimen. Reviewed dismissal plan. OBJECTIVE Blood glucose results in last 24 hours: Recent Labs 07/11/23 0806 07/11/23 0734 07/11/23 0627 07/11/23 0328 07/10/23 2214 07/10/23200107/10/23 1715 07/10/23 1703 07/10/23 1646 07/10/23 1632 07/10/23 1604 GLUCOSEPOC 100 -- 121 223 H 186 H -- 97 106 81 51 L 54 L GLUCOSE -- 82 -- -- -- 199 H -- -- -- -- -- Yesterday, given: He was running with a temp basal of 80% throughout the day yesterday. He bolused for breakfast with12.6 unitsand 5.5 units for lunch. He subsequently developed hypoglycemia and suspended his pump from 4067-0158. He then ate evening meal of pot roast, potatoes, nathan food cake and did not bolus forhis evening meal. He ran in the 200s overnight and opted to correct for the high @ 0331 with 8.3 uni ts. He suspended the pump at 0613 and did not bolus for his breakfast this morning. When I met withpatient @ 1050, pump was still suspended and glucose was 260 on his CGM. We resumed the pump and hethen bolused with 14.35 units. Steroids: None Current Diet No oral nutrition, no tube feeding starting at 07/11 0000 Adult Diet Regular; 90 gm Carbs (per meal); 1500 mL Fluid; Cardiovascular starting at 07/07 1513 VITALS Temperature: 36.3 ??C Heart Rate: 89 Resp Rate: 28 Blood Pressure: 106/60 BP Location: Right arm;Upper SpO2: 97 % BMI (Calculated): 53.9 kg/m?? Height: 181.9 cm Weight: (!) 178 kg Body mass index is 53.92 kg/m??. LABORATORY Lab Results Component Value Date CREATININE 0.90 07/11/2023 Estimated Creatinine Clearance: 126.4 mL/min (by C-G formula based on SCr of 0.9 mg/dL). ASSESSMENT / PLAN #1 Diabetes mellitus, type 1, preadmission hypoglycemia, A1c 7.2% complicated by diabetic retinopathy and diabetic neuropathy #2 Hypoglycemia #3 Insulin pump use INPATIENT PLAN: - Blood glucose monitoring: four times daily - Glucose goal: 140-180 mg/dL - Basal: - Patient is alert, oriented, and able to self-manage insulin pump. Last site change 07/08.Site change due 07/11. - Continue current insulin pump settings (verified today, no changes made). Current settings are asfollows: Medtronic 670G manual mode Insulin type: Humalog (for 1 mo, formerly Aspart) Change infusion site: Last site change 07/08 Basal Rate: TDD 59.2 units/day. Will likely renew temp basal 80% tonight as he is going from [employer] tomorrow. MN-4A: 2.4 units/hr 4A-10P: 2.5 units/hr 10P-MN: 2.3 units/hr Insulin/carb ratio: 1 unit for every 5 grams CHO for the full 24 hours Insulin sensitivity factor: 1 unit reduces blood glucose by 10 mg/dL NOTE I would recommend adjusting this to at least 15, however patient is not interested in making anymore changes to his pump settings today. Glucose goal range: MN-MN: 100 mg/dL Active insulin time: 4 hours - Patient to notify RN of bolus doses for charting purposes. - DCS will continue to see patient and assess ability to self-manage daily; if patient is unable toself-manage please notify DCS immediately and will transition to SQ insulin. - Mealtime: Humalog via patient insulin pump. - Correction scale: Humalog via patient insulin pump - DCS will evaluate and adjust insulin doses as indicated to achieve glycemic goal. ANTICIPATED DISMISSAL PLAN: Preadmission regimen with dose adjustment. Likely needs adjustment to sensitivity from 10 to 15 andadjust CHO ratio to 1:6 and consider lower overnight basal based on patient report of overnight hypoglycemia. He is hesitant to make changes at this point. Will continue to follow and discuss with him. He plans to continue to follow through his provider in [place]. Blood glucose frequency: via continuous glucose monitor (CGM) Goal: 100-160 mg/dL Please page DCS within 24 hours prior to hospital dismissal for final dismissal recommendations. Discussed above plan with the patient and patient's family. Patient is alert and oriented and in agreement with the plan. DCS pager [phone] will continue to follow. Call primary service for diabetes concerns between [phone]. Primary service to contact solutions analyst Endo fellow via hospital press operator automatic for questions. Addendum: Met with patient again this afternoon to discuss plan for insulin management prior to procedure tomorrow. He was willing to adjust CHO ratio to 1:6 starting this evening. Also reset temp basal at 80% starting at 1630 x24hrs. He was instructed to bolus for evening meal tonight but plans tounderestimate his CHO. Showed him how to cancel the temp basal if needed. He asked about suspendinghis pump overnight, which I advised against unless he is low and remembers to restart when glucose normalizes and within an hour. He is on board with IV insulin infusion during procedure if needed. * Addy Arias M.D. - 07/11/2023 9:08 AM CDT CARDIOVASCULAR PROGRESS NOTE Cardiology 1 Service; [facility], room [facility] [id number]. Patient seen and examined on rounds with the Cardiology 1 team. I reviewed the note recorded by Dr.Julia Sharma on 11-Jul-23, and I agree with her findings, assessment, and plan of care. ASSESS / PLAN #1 Severe 3-vessel coronary artery disease (angio 08-Jul-23) #2 Severely depressed LV function, EF 25% by Echo Jun-2023 #2A Acute on chronic systolic and diastolic LV-CHF No chest pain, SOB. VS stable. HR 86. BP 102/67. I/O neg 1.1 L. Wt 178 (even). Persist significant LE edema. CBC: Hgb 12.5. WBC 7.4. Plt 337. Chem: Na/K 137/4.5. BUN/creat 23/0.78. Overall stable with symptomatic improvement as he diureses. Will add metolazone to furosemide for diuresis. Continue ASA + Plavix, atorvastatin, lisinopril, metoprolol, and spironolactone. Have arranged for PCI on 12-Jul-23. * Kayleen Sharma M.D. - 07/11/2023 5:56 AM CDT CARDIOLOGY 1 SERVICE PROGRESS NOTE REASON FOR ADMISSION: Dyspnea, heart failure exacerbation ADMISSION DATE: 07/07 SUBJECTIVE Mr. Butler was seen at bedside this morning. He was sent good spirits and tells me that he slept well overnight. He is hopeful that stenting tomorrow will go well. We discussed a plan for the day including increasing diuresis than other medication. Encouraged him to follow up with the fluid restriction of 1.5 L daily. OBJECTIVE TELEMETRY sinus rhythm, rates 60s-70s INTAKE/OUTPUT: Past 24 hours: Intake/Output Summary (Last 24 hours) at 07/11/2023 0808 Last data filed at 07/11/2023 0600 Gross per 24 hour Intake 1840 ml Output 1900 ml Net -60 ml Wt Readings from Last 3 Encounters: 07/10/23 (!) 178 kg 07/01/23 (!) 180 kg 05/05/23 (!) 180 kg Weight 07/08 174 kg > 178 kg 07/09 PHYSICAL EXAMINATION: VITAL SIGNS: BP 102/67 (BP Location: Right arm;Upper, Patient Position: Semi- recumbent) Pulse 74 Temp 36.5 ??C (Oral) Resp 20 Ht 181.9 cm Wt (!) 178 kg SpO2 97% BMI 53.92 kg/m?? Tachypneic overnight RR up to 28 GEN: Well-appearing male in no acute distress. HEENT: Moist mucous membranes. CARDS: Regular rate and rhythm. Significant LE edema up to the knees bilaterally. Lower extremitieswith wraps in place. PULM: Clear to auscultation bilaterally. ABD: Soft. Non-distended, nontender to palpation. INTEG: No visible rashes or skin lesions. PV: Warm, well-perfused. NEURO: Grossly non-focal. Moves all extremities spontaneously. PSYCH: Appropriate, cooperative. DIAGNOSTICS: Labs notable for: Cystatin C 1.36 IMAGING: Echo: TTE on 06/30 showed LVEF of 29% with severe generalized left ventricular hypokinesis, mildly enlarged right ventricular with reduced systolic function, and did not enlarged IVC with no inspiratory collapse. Angiogram 07/07: Coronary artery dominance is right. The left main coronary artery is 30% obstructed by a discrete lesion. The proximal left anterior descending artery is 90% obstructed by a discrete lesion. The distal segment is normal size. The proximal circumflex artery is 100% obstructed by a discrete lesion. The distal segment is not visible. The ramus intermedius segment is 99% obstructed by a discrete lesion. The distal segment is large size. The proximal right coronary artery is 99% obstructed by a discrete lesion. The middle right coronary artery is 99% obstructed by a discrete lesion. The distal right coronary artery is 90% obstructed by a discrete lesion. CXR 07/07: Enlarged cardiac silhouette with mild increased layering bilateral pleural effusions, small to moderate on the right and small left, in a background of probable mild interstitial edema. No definite pneumothorax. Multilevel degenerative changes of the spine. ASSESSMENT / PLAN Mr. Butler is hospitalized on RST CARD 1 for evaluation and management of acute on chronic heart failure exacerbation likely secondary to ischemic cardiomyopathy. Patient underwent angiogram on 07/07showed severe, critical three-vessel coronary artery disease and was admitted to Cardiology for surgical consultation in addition to treatment of heart failure exacerbation. Mr. Butler was seen by cardiovascular surgery during his hospitalization. He is not a surgical candidate due to comorbidities and recommended to explore PCI as an option for revascularization. At this time, we will continue to diurese while planning for coronary angiogram with possible interventionon 07/11. Net even despite 400 mg IV lasix yesterday. We will implement metolazone for further diuresis needs. I suspect that he is net even secondary to oral intake and poor furosemide response. He would likely benefit from transitioning to torsemide for home diuresis given his large home dose of furosemideand torsemide with better absorption. Today's plan: - Plan for coronary angiogram with possible PCI on Wednesday with Dr. Crum. - Metolazone 5 mg and lasix 200 mg IV for diuresis. - Will require loading Plavix loading dose 600 mg today and 75 mg tomorrow - Continue home aspirin - Transition to torsemide for home diuresis. #Acute on Chronic Heart Failure Exacerbation #Severe CAD #HLD #HTN - CV Surgery consult for evaluation of surgical intervention: patient and daughter wish to explore PCI as an option given that he would be a poor surgical candidate. - Plan for coronary angiogram with possible PCI on 07/11 - Continue home ASA, atorvastatin - Continue home lisinopril - Will require Plavix load prior to coronary angiogram. - Holding home regimen while we aggressively diurese. - Addition of metoprolol 25 mg BID, spironolactone 12.5 mg - No indication for SGLT2 inhibitor in T1DM #Insulin Dependent T1DM, A1c 7.2% (06/29/23) #Peripheral neuropathy #diabetic retinopathy - Patient on lispro insulin pump - DCS consult to manage insulin pump while inpatient - Diabetic, cardiovascular diet #Metastatic Prostate Cancer - Continue home enzalutamide - Pharmacy OK for patient to bring this from home. Patient and family notified, will bring it on morning of 07/08. #ANAL ILIA on CPAP #Obesity #GERD - Continue home Protonix 40 mg daily - Patient will use home CPAP machine - PRN bowel regimen Diet: Adult Diet Regular; 90 gm Carbs (per meal); 1500 mL Fluid; Cardiovascular VTE prophylaxis: heparin Disposition: Uncertain Plan discussed with RST CARD 1 Chucking Machine Operator, Addy Romero M.D., who was present during phillips portions of the evaluation today. [place] 1 [place] [phone] with questions. * Lori Aguirre, MILY, C.N.P. - 07/10/2023 4:00 PM CDT SUBJECTIVE LOS: 2 days DCS continues to follow this 72 y.o. male for blood glucose management admitted on 07/08/2023 for dyspnea, acute on chronic heart failure. PREADMISSION THERAPY: Medtronic 670G Insulin type: Humalog (for 1 mo, formerly Aspart) Change infusion site: Last site change 07/08 Basal Rate: TDD 59.2 units/day. MN-4A: 2.4 units/hr 4A-10P: 2.5 units/hr 10P-MN: 2.3 units/hr Insulin/carb ratio: MN: 1 unit for 4 grams of carbohydrates 4A: 1 unit for 3 grams of carbohydrates 9A: 1 unit for 4 grams of carbohydrates Insulin sensitivity factor: 1 unit reduces blood glucose by 10 mg/dL Glucose goal range: MN-MN: 100 mg/dL Active insulin time: 4 hours Auto off: Off Patient is in no acute distress. Sitting in their chair. Reviewed dismissal plan. Nurse is present at the bedside. He has close follow up with his PCP. OBJECTIVE Blood glucose results in last 24 hours: Recent Labs 07/10/23 1236 07/10/23 1032 07/10/23 0815 07/10/23 0247 07/09/23 2207 07/09/23 2101 07/09/23 1831 07/09/23 1642 GLUCOSEPOC 73 -- 121 117 158 H -- 117 87 GLUCOSE -- 197 H -- -- -- 182 H -- -- Yesterday, given: Bolus 12.6 units @ 0924 am. No other boluses performed This mornin 16.5 units, 0608 9.2 units and 0921 14.7 units. Steroids: None Current Diet Adult Diet Regular; 90 gm Carbs (per meal); 1500 mL Fluid; Cardiovascular starting at 07/07 1513 VITALS Temperature: 36.5 ??C Heart Rate: 82 Resp Rate: 19 Blood Pressure: 93/62 BP Location: Right arm;Upper SpO2: 98 % BMI (Calculated): 53.9 kg/m?? Height: 181.9 cm Weight: (!) 178 kg Body mass index is 53.92 kg/m??. LABORATORY Lab Results Component Value Date CREATININE 0.78 07/10/2023 Estimated Creatinine Clearance: 145.8 mL/min (by C-G formula based on SCr of 0.78 mg/dL). ASSESSMENT / PLAN #1 Diabetes mellitus, type 1, preadmission hypoglycemia, A1c 7.2% complicated by diabetic retinopathy and diabetic neuropathy #2 Hypoglycemia #3 Insulin pump use INPATIENT PLAN: - Blood glucose monitoring: four times daily and 0200 - Glucose goal: 140-180 mg/dL - Basal: - Patient is alert, oriented, and able to self-manage insulin pump. Last site change 07/05/21. Site change due today. - Continue current insulin pump settings (verified today). Current settings are as follows: Basal Rate: TDD 59.2 units/day. MN-4A: 2.3 units/hr 4A-10P: 2.5 units/hr 10P-MN: 2.3 units/hr Insulin/carb ratio: 1 unit for every 5 grams CHO for full 24 hours Insulin sensitivity factor: 1 unit reduces blood glucose by 10 mg/dL Glucose goal range: MN-MN: 100 mg/dL Active insulin time: 4 hours Auto off: Off Reset temp basal of 80% for 24 hours starting @ 1100 this morning. - Patient to notify RN of bolus doses for charting purposes. - DCS will continue to see patient and assess ability to self-manage daily; if patient is unable toself-manage please notify DCS immediately and will transition to SQ insulin. - Mealtime: Humalog via patient insulin pump. - Correction scale: Humalog via patient insulin pump - DCS will evaluate and adjust insulin doses as indicated to achieve glycemic goal. ANTICIPATED DISMISSAL PLAN: Preadmission regimen with dose adjustment. Prescription sign and held for [employer]. Blood glucose frequency: four times daily or via continuous glucose monitor (CGM) Goal: 100-140 mg/dL Please page DCS within 24 hours prior to hospital dismissal for final dismissal recommendations. Discussed above plan with the patient and patient's family. Patient is alert and oriented and in agreement with the plan. DCS pager [phone] will continue to follow. Call primary service for diabetes concerns between [phone]. Primary service to contact solutions analyst Endo fellow via hospital press operator automatic for questions. * Addy Arias M.D. - 07/10/2023 10:38 AM CDT CARDIOVASCULAR PROGRESS NOTE Cardiology 1 Service; [facility], room [address]. Patient seen and examined on rounds with the Cardiology 1 team. I reviewed the note recorded by Dr.Julia Sharma on 10-Jul-23, and I agree with her findings, assessment, and plan of care. ASSESS / PLAN #1 Severe 3-vessel coronary artery disease (angio 08-Jul-23) #2 Severely depressed LV function, EF 25% by Echo Jun-2023 #2A Acute on chronic systolic and diastolic LV-CHF No chest pain, SOB. VS stable. HR 79. BP 99/52. I/O neg 1.1 L. Wt N/A. Persist significant LE edema. CBC: Hgb 12.5. WBC 7.4. Plt 337. Chem: Na/K 137/4.5. BUN/creat 23/0.78. Overall stable with symptomatic improvement as he diureses. We should continue diuresis, continue home ASA, lisinopril, atorvastatin. Have also added metoprolol and spironolactone. Have arranged for PCI on Wednesday, 12-Jul-23. Should resume Plavix. * Kayleen Sharma M.D. - 07/10/2023 6:04 AM CDT CARDIOLOGY 1 SERVICE PROGRESS NOTE REASON FOR ADMISSION: Dyspnea ADMISSION DATE: 07/07 SUBJECTIVE Mr. Butler was seen at bedside this morning. He feels well and offers no complaints. He denies chest pain or shortness of breath. He had a bowel movement yesterday, 07/08. OBJECTIVE TELEMETRY sinus rhythm, rate 70s. INTAKE/OUTPUT: Past 24 hours: Intake/Output Summary (Last 24 hours) at 07/10/2023 0604 Last data filed at 07/09/2023 2200 Gross per 24 hour Intake 1382 ml Output 2150 ml Net -768 ml Wt Readings from Last 3 Encounters: 07/09/23 (!) 174 kg 07/01/23 (!) 180 kg 05/05/23 (!) 180 kg PHYSICAL EXAMINATION: VITAL SIGNS: BP 104/63 (BP Location: Right arm;Upper, Patient Position: Semi- recumbent) Pulse 84 Temp 36.5 ??C (Oral) Resp 24 Ht 181.9 cm Wt (!) 174 kg SpO2 96% BMI 52.59 kg/m?? Tachypneic overnight RR up to 34, BP soft ranging 102-119/55-72 GEN: Well-appearing male in no acute distress. HEENT: Moist mucous membranes. CARDS: Regular rate and rhythm. Significant LE edema up to the knees bilaterally. Lower extremitieswith wraps in place. PULM: Clear to auscultation bilaterally. ABD: Soft. Non-distended, nontender to palpation. INTEG: No visible rashes or skin lesions. PV: Warm, well-perfused. NEURO: Grossly non-focal. Moves all extremities spontaneously. PSYCH: Appropriate, cooperative. IMAGING: Echo: TTE on 06/30 showed LVEF of 29% with severe generalized left ventricular hypokinesis, mildly enlarged right ventricular with reduced systolic function, and did not enlarged IVC with no inspiratory collapse. Angiogram 07/07: Coronary artery dominance is right. The left main coronary artery is 30% obstructed by a discrete lesion. The proximal left anterior descending artery is 90% obstructed by a discrete lesion. The distal segment is normal size. The proximal circumflex artery is 100% obstructed by a discrete lesion. The distal segment is not visible. The ramus intermedius segment is 99% obstructed by a discrete lesion. The distal segment is large size. The proximal right coronary artery is 99% obstructed by a discrete lesion. The middle right coronary artery is 99% obstructed by a discrete lesion. The distal right coronary artery is 90% obstructed by a discrete lesion. CXR 07/07: Enlarged cardiac silhouette with mild increased layering bilateral pleural effusions, small to moderate on the right and small left, in a background of probable mild interstitial edema. No definite pneumothorax. Multilevel degenerative changes of the spine. ASSESSMENT / PLAN Mr. Butler is hospitalized on RST CARD 1 for evaluation and management of acute on chronic heart failure exacerbation likely secondary to ischemic cardiomyopathy. Patient underwent angiogram on 07/07showed severe, critical three-vessel coronary artery disease and was admitted to Cardiology for surgical consultation in addition to treatment of heart failure exacerbation. Mr. Butler was seen by cardiovascular surgery during his hospitalization. He is not a surgical candidate due to comorbidities and recommended to explore PCI as an option for revascularization. At this time, we will continue to diurese while planning for coronary angiogram with possible interventionon 07/11. We will continue to diurese and monitor his clinical response. Today's plan: - Diuresis 200 IV lasix. Home regimen furosemide 80 mg every am, 80 mg every evening. - Plan for coronary angiogram with possible PCI on Wednesday with Dr. Crum. #Acute on Chronic Heart Failure Exacerbation #Severe CAD #HLD #HTN - CV Surgery consult for evaluation of surgical intervention: patient and daughter wish to explore PCI as an option given that he would be a poor surgical candidate. - Plan for coronary angiogram with possible PCI on 07/11 - Continue home ASA, atorvastatin - Continue home lisinopril - Hold Plavix while diuresing, will initiate for coronary angiogram with possible PCI prior to procedure. - Lasix 200 mg IV, holding home regimen. - Addition of metoprolol 25 mg BID, spironolactone 12.5 mg - No indication for SGLT2 inhibitor in T1DM #Insulin Dependent T1DM, A1c 7.2% (06/29/23) #Peripheral neuropathy - Patient on lispro insulin pump - DCS consult to manage insulin pump while inpatient - Diabetic, cardiovascular diet #Metastatic Prostate Cancer - Continue home enzalutamide - Pharmacy OK for patient to bring this from home. Patient and family notified, will bring it on morning of 07/08. #ANA LILIA on CPAP #Obesity #GERD - Continue home Protonix 40 mg daily - Patient will use home CPAP machine - PRN bowel regimen Diet: Adult Diet Regular; 90 gm Carbs (per meal); 1500 mL Fluid; Cardiovascular VTE prophylaxis: heparin Disposition: Uncertain Plan discussed with RST CARD 1 Chucking Machine Operator, Addy Romero M.D., who was present during phillips portions of the evaluation today. [place] contact [place] 1 [place] [phone] with questions. * Madonna Reyes, [facility]-SONOGRAM TECHNICIAN - 07/09/2023 12:51 PM CDT Speech Language Pathology Dysphagia Evaluation- Acute Care Session Type: Evaluation Length of session: 20 minutes Time of Dysphagia Session: 1140 SUBJECTIVE Referred By: RST CARD 1 History: Mr. Butler is a 72 y.o. male who was admitted to [facility] on 07/08/2023 due to severe multi-vessel CAD. Mr. Butler's medical history is well documented in the electronic medical record, please refer to admission notes for full history. Briefly, pmhx is significant for D PR, ANA LILIA w/ CPAP compliance, morbid obesity and metastatic prostate cancer to bone. Recent chest imaging revealed enlarged cardiac silhouette with mild increased layering bilateral pleural effusions and probably mild interstitial edema. Mr. Butler has not received prior Speech Pathology services. Speech Pathology consult was received for evaluation of dysphagia. Prior Level of Functioning: Mr. Butler was previously independent with all ADL and IADLs. He reports several+ years history of dysphagia described as: pills and solid food dysphagia with regurgitation of bread, meats and pills;sensation of pills sticking; and coughing after PO intake. Patient/Family Goal(s): To improve General Family/Caregiver Present: Yes (Dtr. Rosalia present) Arousal/Alertness: Appropriate responses to stimuli Current Vision: No visual deficits Hearing: Within Normal Limits (WNL) Behavior: Alert, Cooperative, Pleasant mood Pain Pain Assessment Pain Assessment: 0-10 Numeric Pain Intensity Scale Pain Score: 0 - No pain OBJECTIVE Objective Session Data Oral Motor Dentition: Adequate, Some missing teeth Facial Symmetry: Within Functional Limits (WFL) Facial Sensation: wfl Labial Structure and Function: Within Functional Limits (WFL) Lingual Structure and Function: Within Functional Limits (WFL) Palatal Structure and Function: Within Functional Limits (WFL) Mandible Strength and Function: Within Functional Limits (WFL) Laryngeal Function: Within Functional Limits (WFL) Motor Speech Voice: Within Functional Limits (WFL) Respiration: Within Functional Limits (WFL) Breath Support for Speech: Adequate Resonance (NETWORK ACCOUNT MANAGER Function): Within Functional Limits (WFL) Articulation: Within Functional Limits (WFL) Rate and Prosody: Within Functional Limits (WFL) Intelligibility: Intelligible Consistencies Assessed: Level 0 Thin Presentation: Cup, Straw, Self Fed Amount Given: 6 oz Oral: Within Functional Limits (WFL) Pharyngeal: Within Functional Limits (WFL) Level 7 Regular Presentation: Self Fed Number of Trials Given: 4 Oral: Within Functional Limits (WFL) Pharyngeal: Within Functional Limits (WFL) Pharyngeal Phase Comments: Pt had delayed sensation of bolus return, then coughed up a small particle of tiago cracker Assessment Mr. Butler was seen for dysphagia evaluation with Speech Pathology. Oral mechanism examination was unremarkable. He and his dtr report symptoms of dysphagia such as regurgitation of breads and meats,and pills sticking and/or coming back up. He demonstrated adequate labial seal around straw with no anterior loss of bolus. Normal timing of bolus prep/formation and a-p transit, but complete oral clearance observed after each swallow. Pharyngeal phase is unable to be formally assessed due to limitations of clinical swallow / bedside evaluation, however, no overt s/sx of aspiration across 100% oftrials. Overall, Mr. Butler presents with suspected WFL oropharyngeal swallow and s/sx of esophageal dysphagia. Extensive education and discussion held with pt and dtr re: potential ways to facilitate improved swallow efficiency, standard GERD / esophageal precautions or strategies and recommended follow up. Recommendations also discussed with Dr. Sharma of Card 1 team. Goals: NA Diagnosis: Impressions Dysphagia Consistent with a diagnosis of:: Signs of esophageal dysphagia observed, Within Functional Limits (WFL) (Suspected WFL oropharyngeal swallow; Suspected esophageal dysphagia) Plan DYSPHAGIA RECOMMENDATIONS: Diet Recommendation-Solids: IDDSI Level 7 Regular Diet Recommendation-Liquids: IDDSI Level 0 Thin Medication Recommendation: Whole, Crushed (per physician/pharmacy approval), With puree (as best tolerated) Safety Precautions: Standard GERD precautions SONOGRAM TECHNICIAN to sign off at this time Discharge Location: Unknown SONOGRAM TECHNICIAN Ongoing Services: Ongoing formal Speech Pathology services not indicated at this time: follow written home program Rehab Potential: Good Thank you, Vicky Reyes MA, CCC-SONOGRAM TECHNICIAN Contact: Pager #[phone] Speech-Language Pathologist Speech Pathology Service Pager: Dysphagia [phone] Speech Pathology Service Pager: Communication [phone] * Lima Alas R.N., C.W.C.N. - 07/09/2023 11:50 AM CDT [facility] Wound RN consulted to assess Lawrence Butler skin alterations. Wound assessment, pain, and Octavio score noted in the flowsheet. No images were taken during this patient assessment. History: Mr. Lawrence Butler is a 72 y.o. male with insulin-dependent type 1 DM, ANA LILIA w/ CPAP compliance, morbid obesity, and metastatic prostate cancer to bone, pulmonary nodules who presents with worsening shortness of breath. Per provider note. Assessment: Patient was assessed in bed; he is an assist of two. His gluteal cleft, buttocks, perineum, groin folds present with intact skin, mild pink blanchable erythema. See below for further assessment. Patient agreeable to treatment plan noted below. 07/09/231034 Wound 07/09/23 Intertriginous Dermatitis Gluteal cleft ;Buttocks;Perineum Date First Assessed/Time First Assessed: 07/09/231034 Present on Original Admission: Yes Wound Approximate Age at First Assessment: Unknown Primary Wound Type: Intertriginous Dermatitis Location: Gluteal cleft Wound Description (Comments): ;But... Pain Score 0 - none *Signs of Infection None Unable to Measure Y *Wound Bed Closed;[place] Tissue Exposed None Odor None *Exudate Amount None Shakila-wound Assessment Blanchable erythema;[place];Intact *Primary Dressing Liquid skin protectant *Primary Dressing Frequency of Change 2x/day & PRN *Secondary Dressing Foam *Secondary Dressing Frequency of Change Daily & PRN Changed by Unit based nurse Complications none Ongoing management Nursing Documentation done by WOC RN? Yes Wound 07/09/23 Incontinence Associated Dermatitis Groin Bilateral Date First Assessed/Time First Assessed: 07/09/23 103 Present on Original Admission: Yes Wound Approximate Age at First Assessment: Unknown Primary Wound Type: Incontinence Associated Dermatitis Location: Groin Wound Location Orientation: Bilat... *Signs of Infection None Unable to Measure Y *Wound Bed Closed;[place] Tissue Exposed None Odor Mild *Exudate Amount None Shakila-wound Assessment Blanchable erythema;[place] (moist) *Primary Dressing (nystatin powder to be ordered) *Primary Dressing Frequency of Change 2x/day & PRN *Secondary Dressing Textile Changed by Unit based nurse Complications none Ongoing management Nursing Documentation done by WOC RN? Yes Focused assessment completed DRESSING RECOMMENDATIONS: #1 Mild Intertriginous Dermatitis Gluteal Cleft;Buttocks;Perineum -Cleanse the area with foam cleanser and dampened WypAlls. Pat dry. -Apply SurePrep wand or spray and allow to dry completely. Reapply BID and PRN. -Apply a sacral Mepilex?? border dressing to cover the gluteal cleft/coccyx/sacral area. -Ensure the dressing is in full contact with the skin to prevent moisture- related skin breakdown. - Change once daily and PRN. #2 Mild Incontinence Associated Dermatitis Groin Bilateral Folds -Cleanse the affected area(s) with foam cleanser and dampened WypAlls, being sure to remove all of the previous product. Pat dry completely. -Apply a thin layer of Nystatin powder to the affected area(s), dust off excess powder. -Inspect skin folds and fabric placement at least twice daily. -Apply InterDry?? Ag textile with one edge of the textile in the base of the skin fold. -Smooth the rest of the fabric over the skin single layered. -Ensure at least 2 inches of fabric is exposed to air on at least one side of the skin fold for moisture evaporation to be effective. -Replace InterDry?? Ag textile if it becomes soiled with urine, feces, excessive serous drainage, or in five days. Recommended interventions for pressure redistribution and shear reduction: Offload heels on pillows at all times when in bed. Full 30 degree turns side to side every 2 hours with supine positioning only for meals. Apply and utilize the LEAF monitoring system. Reposition at least every hour while in the chair. Keep the HOB below 30 degrees except for meals unless medically contraindicated. Apply a prophylactic sacral Mepilex?? border dressing to cover the coccyx/sacral area. Ensure the dressing is in full contact with the skin to prevent moisture- related skin breakdown. Lift twice daily to assess when used for prevention. Change every 3 days and PRN. Utilize Isolibrium mattress with InTouch Frame (standard for ICU). Utilize a ROHO cushion when up to the chair. Recommended interventions for moisture control: InterDry?? Ag placed between folds. Allow at least 2 inches of fabric exposed to air on at least one side of the skin fold for moisture evaporation. Can be used up to 5 days unless soiled with stool or urine. Do not rinse with water. Utilize external male catheter Cleanse with foaming cleanser or wipes after each incontinence episode and for routine hygiene cares. Utilize the Low Air Loss (GIULIA) function of the IsoFlex GIULIA?? Mattress. Apply liquid skin protectant as directed. Apply antifungal powder twice daily. Consult recommendations: NA Education: Discussed the plan of care with the patient and nursing. They agree to the plan. The WOC RN will sign-off. Please place a wound care consult for any new concerns. Electronically signed by: Lima Alas R.N., [place] 07/09/23 11:52 AM CDT * Yanni Lange APRN, C.N.P. - 07/09/2023 10:52 AM CDT SUBJECTIVE LOS: 1 day DCS continues to follow this 72 y.o. male for blood glucose management admitted on 07/08/2023 for dyspnea, acute on chronic heart failure. PREADMISSION THERAPY: Medtronic 670G Insulin type: Humalog (for 1 mo, formerly Aspart) Change infusion site: Last site change 07/05. going to get supplies today and will change his pump site later today. Basal Rate: TDD 59.2 units/day. MN-4A: 2.4 units/hr 4A-10P: 2.5 units/hr 10P-MN: 2.3 units/hr Insulin/carb ratio: MN: 1 unit for 4 grams of carbohydrates 4A: 1 unit for 3 grams of carbohydrates 9A: 1 unit for 4 grams of carbohydrates Insulin sensitivity factor: 1 unit reduces blood glucose by 10 mg/dL Glucose goal range: MN-MN: 100 mg/dL Active insulin time: 4 hours Auto off: Off Patient is in no acute distress. Sitting in their chair. Family is present at the bedside. Reviewedhospital insulin regimen. Reviewed dismissal plan. Nurse is present at the bedside.Discussed changing his pump settings but he prefers to only decrease his basal insulin at midnight to 6 am to 2.3 units hour. He has close follow up with his PCP. OBJECTIVE Blood glucose results in last 24 hours: Recent Labs 07/09/23 0811 07/09/23 0805 07/09/23 0606 07/09/23 0310 07/08/23 2355 07/08/23 2245 03/[id number]/08/[id number]/08/23 1823 07/08/23 1803 07/08/23 1544 GLUCOSEPOC -- 139 227 H 265 H 137 82 117 59 L 40 L 33 L 37 L 35 L 75 48 L -- GLUCOSE 107 -- -- -- -- -- -- -- -- -- -- -- -- -- 118 Yesterday, given: 9.3 units at 11:36 am, 4.5 units at 2:22 pm, 17.4 units at 6:35 pm. He reports he bolused for dinner and then didn't eat even half his meal which caused hypoglycemia. He then suspended his pump from 9 pm to 3 am. Today he bolused 16.5 units at 3:16 am and 9.2 units at 6:08 am. Steroids: None Current Diet Adult Diet Regular; 90 gm Carbs (per meal); 1500 mL Fluid; Cardiovascular starting at 07/07 1513 VITALS Temperature: 36.3 ??C Heart Rate: 87 Resp Rate: 20 Blood Pressure: 102/55 BP Location: Left arm SpO2: 98 % BMI (Calculated): 52.6 kg/m?? Height: 181.9 cm Weight: (!) 174 kg Body mass index is 52.59 kg/m??. LABORATORY Lab Results Component Value Date CREATININE 0.77 07/09/2023 Estimated Creatinine Clearance: 146.5 mL/min (by C-G formula based on SCr of 0.77 mg/dL). ASSESSMENT / PLAN #1 Diabetes mellitus, type 1, preadmission hypoglycemia, A1c 7.2% complicated by diabetic retinopathy and diabetic neuropathy #2 Hypoglycemia #3 Insulin pump use INPATIENT PLAN: - Blood glucose monitoring: four times daily and 0200 - Glucose goal: 140-180 mg/dL - Basal: - Patient is alert, oriented, and able to self-manage insulin pump. Last site change 07/05/21. Site change due today. - Continue current insulin pump settings (verified today). Current settings are as follows: changedMN to 6 am basal to 2.3 units/hour. - Patient to notify RN of bolus doses for charting purposes. - DCS will continue to see patient and assess ability to self-manage daily; if patient is unable toself-manage please notify DCS immediately and will transition to SQ insulin. - Mealtime: Humalog via patient insulin pump. - Correction scale: Humalog via patient insulin pump - DCS will evaluate and adjust insulin doses as indicated to achieve glycemic goal. ANTICIPATED DISMISSAL PLAN: Preadmission regimen with dose adjustment. Prescription sign and held for Baqsimi. Blood glucose frequency: four times daily or via continuous glucose monitor (CGM) Goal: 100-140 mg/dL Please page DCS within 24 hours prior to hospital dismissal for final dismissal recommendations. Discussed above plan with the patient and patient's family. Patient is alert and oriented and in agreement with the plan. DCS pager [phone] will continue to follow. Call primary service for diabetes concerns between [phone]. Primary service to contact solutions analyst Endo fellow via hospital press operator automatic for questions. ADDENDUM: Patient was hypoglycemic again at lunch. Having my colleague Meka Wilson CNP change hisbolus to 1 unit per 5 grams of carbohydrate and starting a temporary basal of 80% for the next 24 hours. Told patient to not cover for lunch today. He is in agreement with plan. * Rolly Keyes R.N., TINO - 07/09/2023 10:15 AM CDT Patient's diabetes technology (Medtronic 770G and Renetta 3 CGM) downloaded. Reports have been uploaded to patient's chart for our DCS providers to review. * Claudio Marroquin, Pharm.D., R.Ph. - 07/09/2023 7:31 AM CDT Pharmacist Progress Note Reason for admission: multivessel coronary artery disease PMH: insulin-dependent type 1 DM, ANA LILIA w/ CPAP compliance, morbid obesity, and metastatic prostate cancer to bone, pulmonary nodules who presents with worsening shortness of breath. OBJECTIVE CV: CAD - aspirin 81 mg, atorvastatin 80 mg. HF - lisinopril 20 mg (held, recent angiogram), spironolactone 12.5 mg Neph: Estimated Creatinine Clearance: 143.4 mL/min (by C-G formula based on SCr of 0.8 mg/dL). BL SCr 0.8 Endo: DM1, A1c 7.2%% - insulin pump Onc: enzalutamide 160 mg PPX: SQH, pantoprazole Medication Reconciliation: Held: plavix Changed: - New: - ASSESSMENT / PLAN Multivessel CAD. PCI vs CABG. Note plavix remains on hold given possible surgical intervention. Reduced EF with volume overload Diurese. Supplement to keep K > 4 and Mg > 2. Consider beta susan initiation when euvolemic. Consider ACEi initiation after coronary intervention. SGLT2: Avoiding in the setting of DM1. Svc to touch base with oncology to determine if enzalutamide should be continued. JANET Marroquin, Pharm.DGali, R.Ph. * Kayleen Sharma M.D. - 07/09/2023 6:35 AM CDT CARDIOLOGY 1 SERVICE PROGRESS NOTE REASON FOR ADMISSION: Dyspnea ADMISSION DATE: 07/07 SUBJECTIVE Lawrence Butler is a 72 y.o. male who presents with SOB. He was evaluated in the outpatient setting and was referred for a cardiovascular evaluation for three vessel disease following an angiogram 07/07. Patient underwent coronary angiography for evaluation of the sudden drop in LVEF on 07/07 which showed 90% occlusion of the proximal LAD, 100% occlusion of the proximal circumflex, 99% occlusion of the ramus intermedius, 99% occlusion of the proximal and middle RCA, and 90% occlusion of the distal right RCA. Given the findings of severe, critical three-vessel coronary artery disease, he was admitted to inpatient cardiology for surgical consultation. Medical comorbidities significant for metastatic prostate cancer with mets to bone and pulmonary nodules, T1DM on insulin pump, obesity, HLD, HTN, ANA LILIA on CPAP. He reports since in 2022 he has had issues with progressive shortness of breath on exertion and lower limb edema. He has orthopnoea, requiring 3 pillows to sleep and PND. Overnight: patient had indwelling emery placed, hypoglycemia with glucose to 33, improved with oralintake and patient decreased the basal rate of insulin pump. OBJECTIVE TELEMETRY sinus rhythm rate 70s-80s INTAKE/OUTPUT: Past 24 hours: Intake/Output Summary (Last 24 hours) at 07/09/2023 1340 Last data filed at 07/09/2023 1300 Gross per 24 hour Intake 1634 ml Output 1900 ml Net -266 ml Net positive 260ml Wt Readings from Last 3 Encounters: 07/09/23 (!) 174 kg 07/01/23 (!) 180 kg 05/05/23 (!) 180 kg PHYSICAL EXAMINATION: VITAL SIGNS: BP 102/55 (BP Location: Left arm, Patient Position: Semi-recumbent) Pulse 73 Temp 36.3 ??C (Oral) Resp 20 Ht 181.9 cm Wt (!) 174 kg SpO2 98% BMI 52.59 kg/m?? GEN: Well-appearing male in no acute distress. CARDS: Regular rate and rhythm. Significant LE edema up to the thigh, wraps in place. JVP 2 cm above the clavicle. PULM: Clear to auscultation bilaterally. ABD: Soft. Non-distended, nontender to palpation. INTEG: No visible rashes or skin lesions. PV: Warm, well-perfused. NEURO: Grossly non-focal. Moves all extremities spontaneously. PSYCH: Appropriate, cooperative. DIAGNOSTICS: Labs notable for: NT pro BNP 6823 (05/2021 401) IMAGING: Echo: TTE on 06/30 showed LVEF of 29% with severe generalized left ventricular hypokinesis, mildly enlarged right ventricular with reduced systolic function, and did not enlarged IVC with no inspiratory collapse. Angiogram 07/07: Coronary artery dominance is right. The left main coronary artery is 30% obstructed by a discrete lesion. The proximal left anterior descending artery is 90% obstructed by a discrete lesion. The distal segment is normal size. The proximal circumflex artery is 100% obstructed by a discrete lesion. The distal segment is not visible. The ramus intermedius segment is 99% obstructed by a discrete lesion. The distal segment is large size. The proximal right coronary artery is 99% obstructed by a discrete lesion. The middle right coronary artery is 99% obstructed by a discrete lesion. The distal right coronary artery is 90% obstructed by a discrete lesion. ASSESSMENT / PLAN Mr. Butler is hospitalized on RST CARD 1 for evaluation and management of acute on chronic heart failure exacerbation likely secondary to ischemic cardiomyopathy. Patient underwent angiogram on 07/07showed severe, critical three-vessel coronary artery disease and was admitted to Cardiology for surgical consultation in addition to treatment of heart failure exacerbation. Mr. Butler was seen by cardiovascular surgery during his hospitalization. He is not a surgical candidate due to comorbidities and recommended to explore PCI as an option for revascularization. At this time, we will continue to diurese and discuss with our interventional cardiology colleagues for recommendations regarding PCI. Today's plan: - Diuresis 120 IV lasix. Home regimen furosemide 80 mg every am, 40 mg every evening. Will re-evaluate urine output at 3pm and if he remains net positive, will redose with 120 IV lasix. - Plan for coronary angiogram with possible PCI on Wednesday with Dr. Crum. #Acute on Chronic Heart Failure Exacerbation #Severe CAD #HLD #HTN - CV Surgery consult for evaluation of surgical intervention: patient and daughter wish to explore PCI as an option given that he would be a poor surgical candidate. - Plan for coronary angiogram with possible PCI on 07/11 - Continue home ASA, atorvastatin - Continue home lisinopril - Hold Plavix while diuresing, will initiate for coronary angiogram with possible PCI prior to procedure. - Lasix 120 mg IV, holding home regimen. - Addition of metoprolol 25 mg BID, spironolactone 12.5 mg - No indication for SGLT2 inhibitor in T1DM #Insulin Dependent T1DM #Peripheral neuropathy - Patient on lispro insulin pump - DCS consult to manage insulin pump while inpatient - Diabetic, cardiovascular diet #Metastatic Prostate Cancer - Continue home enzalutamide - Pharmacy OK for patient to bring this from home. Patient and family notified, will bring it on morning of 07/08. Pharmacy needs to verify medication before administered. #ANA LILIA on CPAP #Obesity #GERD - Continue home Protonix 40 mg daily - Patient will use home CPAP machine - PRN bowel regimen Diet: Adult Diet Regular; 90 gm Carbs (per meal); 1500 mL Fluid; Cardiovascular VTE prophylaxis: heparin Disposition: Uncertain Plan discussed with RST CARD 1 Chucking Machine Operator, Addy Romero M.D., who was present during phillips portions of the evaluation today. [place] 1 [place] [phone] with questions. * Claudio Marroquin, Pharm.D., R.Ph. - 07/08/2023 2:27 PM CDT Images from the original note were not included. Admission Medication History Note Adherence issues: Unable to assess Medication list source: Pharmacy or dispense records Prior to Admission Medications Med List Status: Pharmacy/RN Complete Set By: Claudio Marroquin, Pharm.D., R.Ph. at 07/08/2023 2:23 PM Taking? Last Dose Informant Start Date End Date LT acetaminophen (TYLENOL) 500 mg tablet 07/07/2023 at 1200 Self 07/01/20 07/08/23 Take 2 tablets (1,000 mg total) by mouth every 6 (six) hours for 80 doses. Continue to take while requiring narcotic pain medication. Do not take more than 4000 mg in one day. aspirin 81 mg chewable tablet 07/07/2023 at 1200 -- -- -- Chew 81 mg daily. atorvastatin (LIPITOR) 80 mg tablet 07/07/2023 at 1800 -- 07/23/22 07/23/23 Take 1 tablet (80 mg total) by mouth daily. blood sugar diagnostic strips -- Self 01/12/18 -- TEST 8 TIMES PER DAY blood-glucose meter kit -- Self 12/13/17 -- Palma Contour Next Meter. E11.9 IDDM type II - Test 8 times/day. Reason: Unstable diabetes CALCIUM CARBONATE-VITAMIN D3 ORAL 07/06/2023 at 1200 Self -- -- Take 1 tablet by mouth every evening. In the afternoon. Strength Unknown clopidogreL (PLAVIX) 75 mg tablet 07/08/2023 at 0600 -- 07/01/23 -- Take 1-4 tablets (75-300 mg total) by mouth as directed. 300 mg (4 tabs at once) on 06 July, and 75 mg on 07 July CONTOUR NEXT EZ METER misc -- Self 12/15/17 -- TEST 8 TIMES PER DAY DME CPAP -- -- -- -- enzalutamide (XTANDI) 40 mg capsule 07/07/2023 at 1200 -- 10/21/22 -- Take 4 capsules (160 mg total) by mouth daily. Take with or without food at the same time each day.Swallow capsules whole. Do not chew, dissolve, or open the capsules. fluticasone propionate (FLONASE) 50 mcg/actuation nasal spray 07/08/2023 at 0600 -- 05/11/23 -- Administer 2 sprays into each nostril daily. FreeStyle Renetta 3 Sensor device -- -- 05/11/23 -- CHANGE EVERY 2 WEEKS furosemide (LASIX) 40 mg tablet 07/07/2023 at 1200 -- -- -- Take by mouth 2 (two) times a day. 2 tablets in the AM, 1 tablet in the afternoon GLUCAGON 1 mg injection -- Self 12/12/17 -- INJECT 1 MG UNDER THE SKIN ONE TIME NEEDED FOR BLOOD GLUCOSE <60 MG/DL Notes: As needed, emergencies insulin lispro 100 unit/mL injection 07/08/2023 -- 06/02/23 -- INJECT 180 UNITS VIA CONTINUOUS UNDER THE SKIN INFUSION EVERY DAY ketotifen (ZADITOR) 0.025 % (0.035 %) ophthalmic solution Past Month Self -- -- Administer 1 drop into both eyes 2 (two) times a day as needed (irritation). leuprolide (ELIGARD 1 MONTH) 7.5 mg (1 month) injection 06/17/2023 -- -- -- Monthly lisinopril (for_PRINIVIL,ZESTRIL) 20 mg tablet 07/07/2023 at 1800 Self 03/09/13 -- Take 1 tablet by mouth every evening. loratadine (CLARITIN) 10 mg tablet 07/08/2023 at 0600 Self -- -- Take 10 mg by mouth daily. Notes: PCP told him to use with caution omeprazole (PriLOSEC) [address] capsule 07/08/2023 at 0600 -- 08/14/22 -- Take 40 mg by mouth daily. triamcinolone (KENALOG) 0.1 % ointment Past Month -- 11/11/21 -- 1 Application as needed for irritation. Ongoing Comment Clary Beal, C.Ph.T. 05/20/2023 11:26 AM * Sky Whatley M.D., Ph.D. - 07/08/2023 10:49 AM CDT Mr. Butler is a 72-year-old male with morbid obesity, and metastatic prostate cancer who was evaluated by my colleagues Dr. Salas and Sarina Marroquin APRN for progressively worsening shortness of breath. He was recently diagnosed with a drop in his ejection fraction to 25% and was referred for coronary angiography. I discussed the results with the patient as well as Sraina Marroquin. He has 100% occluded circumflex, 99% heavily calcified ostial right coronary lesion with poor flow distally. Additionally his proximal LAD has a focal 90% lesion. He also has a very large caliber ramus with a proximal 99% lesion. Given the active heart failure and the severe, critical three-vessel coronary artery disease, we shall admit him to an inpatient Cardiology Service for a surgical consultation. His malignancy is apparently stable and being followed at this time. If surgery is not an option, then we may be able to revascularize his ramus intermedius and LAD with stent placement. The circumflex is not doable, and the RCA would be a complex and extensive procedure, and that could potentially be staged at a 2nd setting if clinically indicated. In the interim he will require optimization of his heart failure medications as an inpatient, a CV surgery consultation, and will then follow up with Sarina Marroquin or heart failure clinic for ongoing care as an outpatient. documented in this encounter H&P Notes * Addy Arias M.D. - 07/09/2023 9:02 AM CDT CARDIOVASCULAR ADMISSION NOTE Cardiology 1 Service; [facility], room [address] Mr. Lawrence Butler is a 72-year-old man with known coronary artery disease (calcification on CT), admitted through the CAD Clinic after elective angiography revealed severe three-vessel coronary diseasein the setting of newly diagnosed depressed LV function. I have reviewed the admission history and physical exams performed by Dr. Socrates Altamirano and Dr. Barby Gruber on 08-Jul-23, as well as the progress note recorded by Dr. Kayleen Sharma on 09-Jul-23. I have interviewed and examined the patient myself. I agree with the findings, assessment, and plan of care recorded by Dr. Altamirano, Dr. Gruber, and Dr. Sharma unless otherwise noted below. ASSESS / PLAN #1 Severe 3-vessel coronary artery disease #2 Severely depressed LV function, EF 25% by Echo Jun-2023 #2A Acute on chronic systolic and diastolic LV-CHF Sub / Obj No prior PR, angina - ? MCCLELLAN as angina equivalent. Risk factors of Type 1 DM, hyperlipidemia, hypertension, morbid obesity (BMI 52.6), and ANA LILIA. Home cardiac med Rx includes ASA, atorvastatin, furosemide, lisinopril. Significant coronary calcification first noted on abdominal CT in Dec-2012. Had CV consult for thisin Apr-2021. EF 56%, no clear symptoms. Started on statin Rx. to : prolonged URI, onset progressive MCCLELLAN, peripheral edema. 01-Jul-23: return to CAD Clinic for f/u. Echo EF 25%. Decision to proceed with cor angio. 08-Jul-23: coronary angiogram, with lesions: prox-LAD 90%, prox-LCx 100%, RInt (or OM-1) 99%, prox-RCA 99%, mid-RCA 99%, dist-RCA 90%. Due to severe coronary disease and presence of CHF, admit to [facility] Cardiology 1 Service. Overnight, VS have remained stable. No new symptoms. Did receive Cardiology Surgery consultation from Dr. Mercy Abbasi, who felt patient was a poor candidate for CABG, and would be better served by PCI iffeasible. Imp / Plan Multiple risk factors for coronary disease, most notably Type [address] scans for other reasons haveshown severe coronary calcifications for at least 10 years. Still had preserved LV function when first seen by Cardiology in 2021. Progressive symptoms of CHF with marked MCCLELLAN, but no chest pain, over last 6 months. Recent Echo with severely depressed LV function, likely due to chronic ischemic damage. Coronary angiogram now shows severe 3-vessel CAD. He will achieve a survival benefit from coronary revascularization, and a symptomatic benefit from medical optimization of therapy for CHF. He has essentially been turned down for CABG, so we will try to arrange for multivessel PCI. Over the next couple of days, we should try to diurese some of the excess volume which is evident by his peripheral edema, and attempt to advance his medical therapy for CHF. #3 Type 1 DM On lispro insulin pump. Appreciate DCS help in management. #4 Metastatic prostate cancer Has been stable on treatment with enzalutamide. * Barby Gruber M.B., B.Ch., B.A.O. - 07/08/2023 3:55 PM CDT Cards 1 Supervisory Note This is a supervisory note. I have personally seen and examined the patient, and reviewed the medical chart. Please refer to the documentation by Dr Altamirano for further details regarding the assessment and plan Presenting Complaint Planned angiogram 07/08/23 to work up progressive shortness of breath and reduced EF PMHx Metastatic Prostate Cancer - Continue home enzalutamide, has been stable 2. T1DM on insulin pump (recent HBA1c 7.2) 3. Obesity 4. Hypercholesterolaemia 5. HTN 6. ANA LILIA on CPAP 7. Never smoker History Presenting Illness's Lawrence Butler is a 72 y.o. male who presents for a cardiovascular evaluation for three vessel disease following an angiogram today. He reports since in 2022 he has had issues with progressive shortness of breath on exertion and lower limb oedema. He has orthopnoea 3 pillows and PND. He has not been physically active over the last 5-6 years primarily due to his cancer diagnoses andright hip arthroplasty (June 2020)- the most exertion he has done as of recent is walk to and fromthe bathroom at home. He uses a walking frame to mobilize. He still drives. He denies chest pain, palpitations, presyncopal symptoms. He never has exertional angina. OBJECTIVE VITAL SIGNS Temperature: [36.6 ??C] 36.6 ??C Heart Rate: [82-92] 87 Resp Rate: [21-30] 28 Blood Pressure: (96-129)/(46-100) 96/46 SpO2: [89 %-100 %] 97 % Flow Rate (L/min): [2 L/min] 2 L/min Height: [181.9 cm] 181.9 cm Weight: [182 kg] 182 kg BSA (Calculated - sq m): [3.03 sq meters] 3.03 sq meters BMI (Calculated): [55 kg/m??] 55 kg/m?? Pulse Rate: [82-99] 85 PHYSICAL EXAM General GCS 15/15. Insulin pump in situ. Right radial access site clean, TR removed, statseal in situ. No haematoma palpable Lungs: Clear to auscultation, no wheeze Heart: JVP difficult to appreciate with body habitus. HS dual, nil murmur appreciated. Pulse regular rate and rhythm. Bilateral pitting edema to the knee Abdomen: Soft nontender, distended secondary to body habitus, no palpable masses or organomegaly. Social History Lives with his Drives a car Non smoker No ETOH Walks with a walking frame, exercise tolerance reduced to 100 feet. DIAGNOSTICS I have reviewed the diagnostics from admission. Labs HBA1c 7.2 LDL 60 Cholesterol Total 131 PSA <0.1 Cardiac Investigations The TTE showed a newly reduced LVEF of 25% (previously 56% in 2021). TTE Final Impressions 1. Moderate-severely enlarged left ventricular chamber size, no regional wall motion abnormalities . Calculated 2-D linear left ventricular ejection fraction 29%. Severe generalized left ventricular hypokinesis. Visually, the [...] reduced with severe generalized hypokinesis along with [id number] right ventricular systolic dysfunction. . Side by side comparison of images performed. Coronary Angiogram 07/08/2023 Coronary artery dominance is right. The left main coronary artery is 30% obstructed by a discrete lesion. The proximal left anterior descending artery is 90% obstructed by a discrete lesion. The distal segment is normal size. The proximal circumflex artery is 100% obstructed by a discrete lesion. The distal segment is not visible. The ramus intermedius segment is 99% obstructed by a discrete lesion. The distal segment is large size. The proximal right coronary artery is 99% obstructed by a discrete lesion. The middle right coronary artery is 99% obstructed by a discrete lesion. The distal right coronary artery is 90% obstructed by a discrete lesion. Summary of Plan He is aware he is being admitted due to the severity of findings on angiogram and he will be consulted by [facility] query for CABG. He may not be a candidate for this with his functional status, diabetes, raised BMI and his metastatic prostate ca. We will await a discussion with cardiovascular surgery. If they do not consider him a surgical candidate we may discuss complex PCI. In the interim he will be admitted under CARDS-1 for optimization of HFrEF. #Heart Failure Reduced Ejection Fraction NYHA III --GDMT-- - B Susan, start metoprolol 25mg BID - RADHA-i , on hold following cath, to be restarted tomorrow if renal function stable post angiogram (versus starting Entresto if not surgical candidate) - MRA- start spironolactone -SGLT2- can consider starting 07/09/23, on insulin pump closely monitoring sugars to prevent hypo. #Severe CAD- critical three vessel disease #HLD #HTN - CV Surgery consult for evaluation of surgical intervention CABG - Hold Plavix while awaiting CVS evaluation (had been loaded for angiogram 07/07) - Continue home ASA, atorvastatin -- Hold home lisinopril until Cr evaluated post angiogram - LDL is at at the goal of <70 with atorvastatin 80mg daily. Blood pressure is at the goal of <130/80 with the current medical therapy. - if not candidate for cardiovascular surgery may consider complex PCI with ramus intermedius and LAD with stent placement. The circumflex iwas not felt to be ameanable to stenting doable, and the RCA would be a complex and extensive procedure, and that could potentially be staged at a 2nd setting if clinically indicated #Insulin Dependent T1DM #Peripheral neuropathy - Patient on lispro insulin pump - DCS consult to manage insulin pump while inpatient - Diabetic, cardiovascular diet #Metastatic Prostate Cancer - Continue home enzalutamide, has been stable - Previous radiation to pelvis - Due re-imaging CT TAP for staging, consider this as inpatient as may under go cardiovascular surgery - PSA not detectable May 12 #ANA LILIA on CPAP #Obesity #GERD query aspirating - Continue home Protonix 40 mg daily - Patient will use home CPAP machine - SONOGRAM TECHNICIAN swallow assessment - PRN bowel regimen Medication Reconciliation Stop Plavix Start Metoprolol BID Start Spironolactone Start IV Furosemide Consider SGLT2 addition Restart RADHA-i if renal function normal post cath Barby Gruber PGY3 Resident. Patient will be staffed with Dr Arias within 24 hours of admission. Please contact service pager [phone] if there are any questions regarding this case. * Socrates Altamirano M.D. - 07/08/2023 1:31 PM CDT Cardiology for surgical consultation RST CARD 1 Admission Note SUBJECTIVE CHIEF COMPLAINT Acute on chronic HFrEF exacerbation HISTORY OF PRESENT ILLNESS Mr. Lawrence Butler is a 72 y.o. male with insulin-dependent type 1 DM, ANA LILIA w/ CPAP compliance, morbid obesity, and metastatic prostate cancer to bone, pulmonary nodules who presents with worsening shortness of breath. Patient was evaluated outpatient by Sarina Marroquin and Dr. Salas (2021) and was referred for cardiac evaluation after severe coronary calcification seen on chest CT. Please see Sarina Marroquin's note on 06/30 for further details. In brief, TTE from 2021 showed LVEF 56% without RWMA with grade 1 LV diastolic dysfunction. Repeat TTE on 06/30 showed LVEF of 29% with severe generalized left ventricular hypokinesis, mildly enlarged right ventricular with reduced systolic function, and did not enlarged IVC with no inspiratory collapse. Over the last couple of months, the patient has had worsening bilateral LE edema, SOBOE, and can currently only walk a few short steps before becoming short of breath. Patient underwent coronary angiography for evaluation of the sudden drop in LVEF on 07/07 which showed 90% occlusion of the proximal LAD, 100% occlusion of the proximal circumflex, 99% occlusion of the ramus intermedius, 99% occlusion of the proximal and middle RCA, and 90% occlusion of the distal right RCA. Given the findings of severe, critical three-vessel coronary artery disease, he was admitted to inpatient cardiology for surgical consultation. Per Dr. Whatley's note from earlier today, the patient's ramus intermedius and LAD may be amenable to revascularization with stent placement, however the circumflex is not doable, the RCA to be a complex and extensive procedure. In the interim, we will treat his heart failure exacerbation and obtaina CV surgery consultation. Active Home Medications Medication Sig Taking acetaminophen (TYLENOL) 500 mg tablet Take 2 tablets (1,000 mg total) by mouth every 6 (six) hours for 80 doses. Continue to take while requiring narcotic pain medication. Do not take more than 4000 mg in one day. Yes aspirin 81 mg chewable tablet Chew 81 mg daily. Yes atorvastatin (LIPITOR) 80 mg tablet Take 1 tablet (80 mg total) by mouth daily. Yes clopidogreL (PLAVIX) 75 mg tablet Take 1-4 tablets (75-300 mg total) by mouth as directed. 300 mg (4 tabs at once) on 06 July, and 75 mg on 07 July Yes enzalutamide (XTANDI) 40 mg capsule Take 4 capsules (160 mg total) by mouth daily. Take with or without food at the same time each day. Swallow capsules whole. Do not chew, dissolve, or open the capsules. Yes fluticasone propionate (FLONASE) 50 mcg/actuation nasal spray Administer 2 sprays into each nostrildaily. Yes furosemide (LASIX) 40 mg tablet Take 40 mg by mouth 2 (two) times a day. 2 tablets in the AM, 1 tablet in the afternoon Yes insulin lispro 100 unit/mL injection INJECT 180 UNITS VIA CONTINUOUS UNDER THE SKIN INFUSION EVERY DAY Yes ketotifen (ZADITOR) 0.025 % (0.035 %) ophthalmic solution Administer 1 drop into both eyes 2 (two) times a day as needed (irritation). Yes lisinopril (for_PRINIVIL,ZESTRIL) 20 mg tablet Take 1 tablet by mouth every evening. Yes loratadine (CLARITIN) 10 mg tablet Take 10 mg by mouth daily. Yes omeprazole (PriLOSEC) [address] capsule Take 40 mg by mouth daily. Yes triamcinolone (KENALOG) 0.1 % ointment 1 Application as needed for irritation. Yes blood sugar diagnostic strips TEST 8 TIMES PER DAY blood-glucose meter kit [place]ma Contour Next Meter. E11.9 IDDM type II - Test 8 times/day. Reason: Unstable diabetes CALCIUM CARBONATE-VITAMIN D3 ORAL Take 1 tablet by mouth every evening. In the afternoon. Strength Unknown CONTOUR NEXT EZ METER misc TEST 8 TIMES PER DAY DME CPAP FreeStyle Renetta 3 Sensor device CHANGE EVERY 2 WEEKS GLUCAGON 1 mg injection INJECT 1 MG UNDER THE SKIN ONE TIME NEEDED FOR BLOOD GLUCOSE <60 MG/DL leuprolide (ELIGARD 1 MONTH) 7.5 mg (1 month) injection Monthly OBJECTIVE VITAL SIGNS Temperature: [36.6 ??C] 36.6 ??C Heart Rate: [82-92] 87 Resp Rate: [21-30] 28 Blood Pressure: (96-129)/(46-100) 96/46 SpO2: [89 %-100 %] 97 % Flow Rate (L/min): [2 L/min] 2 L/min Height: [181.9 cm] 181.9 cm Weight: [182 kg] 182 kg BSA (Calculated - sq m): [3.03 sq meters] 3.03 sq meters BMI (Calculated): [55 kg/m??] 55 kg/m?? Pulse Rate: [82-99] 85 PHYSICAL EXAM General: Alert, interactive, not acutely ill. Skin: No rashes or lesions. Eyes: Pupils equal and round. Sclera anicteric. ENT: Hearing grossly intact. Dentition intact. No oral or pharyngeal erythema or lesions noted. Lymph: No cervical or subclavicular adenopathy. Lungs: Clear to auscultation. No wheezes or crackles. Heart: RRR, no M/R/G. Bilateral pitting edema to the thigh, no JVD appreciated Abdomen: Soft, flat, bowel sounds normoactive, nontender, nondistended, no palpable masses or organomegaly. Neuro: Cranial nerves II-XII intact. Strength 5/5 in all extremities. Mental: Mood and affect congruent. Alert and oriented. Attention intact. No evidence of disorganized thinking. Reliable history room manager. DIAGNOSTICS I have reviewed the diagnostics from admission. ASSESSMENT / PLAN Mr. Butler is hospitalized on RST CARD 1 for evaluation and management of acute on chronic heart failure exacerbation likely secondary to ischemic cardiomyopathy. Patient underwent angiogram on 07/07showed severe, critical three-vessel coronary artery disease and was admitted to Cardiology for surgical consultation in addition to treatment of heart failure exacerbation. Patient will be evaluated by our CV surgery colleagues for possible surgical intervention. Surgery is not an option, then we may explore revascularization with stent placement. This may be a staged procedure, especially in the RCA. #Acute on Chronic Heart Failure Exacerbation #Severe CAD #HLD #HTN - CV Surgery consult for evaluation of surgical intervention - Continue home ASA, atorvastatin - Hold home lisinopril until Cr evaluated - Hold Plavix while awaiting CVS evaluation - Hold home lasix - Lasix 120 mg IV - Addition of metoprolol 25 mg BID, spironolactone 12.5 mg - Will wait for initiation of SGLT2 inhibitor until discussion with DCS - Obtain CBC, CMP, Mg, Ph, BNP, CXR, TSH #Insulin Dependent T1DM #Peripheral neuropathy - Patient on lispro insulin pump - DCS consult to manage insulin pump while inpatient - Diabetic, cardiovascular diet #Metastatic Prostate Cancer - Continue home enzalutamide - Pharmacy OK for patient to bring this from home. Patient and family notified, will bring it on morning of 07/08. Pharmacy needs to verify medication before administered. #ANA LILIA on CPAP #Obesity #GERD - Continue home Protonix 40 mg daily - Patient will use home CPAP machine - PRN bowel regimen Diet: diabetic diet Tubes/lines: PIV VTE prophylaxis: heparin Code status: Prior Surrogate Decision Maker: Spouse, Shani Butler Disposition: Uncertain This plan will be discussed with the RST CARD 1 Chucking Machine Operator. [place] 1 [place] [phone] with questions. documented in this encounter Consult Notes * Rosalia Blackwell, CEP - 07/13/2023 10:32 AM CDTAssociated Order(s): IP CONSULT TO CARDIAC REHABILITATION Cardiac Rehabilitation Referral Reason for Visit: Cardiovascular Health Clinic consultation for referral to cardiac rehabilitation. Liaison met with the patient/family to discuss cardiac rehabilitation referral. Patient/family was provided with progressive verbal and printed home-going exercise guidelines. Patient/family understands and agrees with the exercise guidelines. 1. Participation in a Phase II cardiac rehabilitation program is recommended. Patient was informed about what cardiac rehabilitation has to offer and why it is beneficial. The plan of care for the rehabilitation program consists of risk factor modification, monitored and supervised exercise and assistance in the recovery process with ongoing education and support. Patient is interested in attending a cardiac rehabilitation program. 2. Eligibility: PCI 3. Exceptions/exclusions: None. 4. Referral: Patient agreed with referral to a cardiac rehabilitation program. Please see dischargeorder and/or letter for program details. 5. Appropriate referral information will be sent to the receiving cardiac rehabilitation program asapplicable. Patient provided verbal authorization to send relevant materials to the cardiac rehab program. Patient referred to: [facility] [address] [place] [address] Recommend that the patient check with insurance company to verify coverage of the cost of cardiac rehabilitation program visits. * Min Abbasi M.D., Ph.D. - 07/08/2023 7:43 PM CDT Patient personally seen and evaluated. 72yo M with severe 3 vessel CAD with LVEF 25% with moderate RV dysfunction. He also has a history of type 1 diabetes, metastatic prostate cancer, ANA LILIA on CPAP, and morbid obesity with BMI 54.55. This combination of poor functional status, very large body habitus and severely impaired cardiac function puts him at very high risk od surgery. He is at significantrisk for perioperative low cardiac output for which implementation of mechanical support will be very challenging given his body habitus. He will need to generate a very higher cardiac output to avoid cardiogenic shock in the perioperative period given his weight. This is challenging given his depressed cardiac function. The patient and daughter wishes to explore PCI option which is reasonable. * Meka Wilson APRN, C.N.P. - 07/08/2023 4:16 PM CDTAssociated Order(s): Diabetes consult (hospital) SUBJECTIVE Diabetes consult (hospital) Referring Provider: Romina Lizama M.B.B.S., Ph.D. CHIEF COMPLAINT Patient seen today for blood glucose management. He is seen sitting in the chair in no acute distress. His is present. The patient is admitted on 07/08/2023 for Acute On Chronic Systolic (Congestive) Heart Failure (HCC) HISTORY OF PRESENT ILLNESS DIABETES HISTORY History of diabetes mellitus, type 1 Diagnosed age 22. PREADMISSION THERAPY Preadmit therapy: Medtronic 670G Insulin type: Humalog (for 1 mo, formerly Aspart) Change infusion site: Last site change 07/05 The pump is interrogated to find the following settings: Basal Rate: TDD 59.2 units/day. MN-4A: 2.4 units/hr 4A-10P: 2.5 units/hr 10P-MN: 2.3 units/hr Insulin/carb ratio: MN: 1 unit for 4 grams of carbohydrates 4A: 1 unit for 3 grams of carbohydrates 9A: 1 unit for 4 grams of carbohydrates Insulin sensitivity factor: 1 unit reduces blood glucose by 10 mg/dL Glucose goal range: MN-MN: 100 mg/dL Active insulin time: 4 hours Auto off: Off GLUCOSE MONITORING: The patient monitors blood glucose at home continuously with [email or web address] Renetta continuous glucose monitor (CGM). Results of home glucose monitoring per patient report: 100-150. HYPOGLYCEMIA: Patient experiences hypoglycemia 2/week in the overnight hours Does not have intact awareness. Symptoms include none Treats with juice Episode of hypoglycemia requiring assistance include none DIABETES COMPLICATIONS Diabetic retinopathy - mild Neuropathy - peripheral Coronary artery disease. CO-MORBIDITIES Hypertension, Dyslipidemia, Obesity, BMI (Calculated): 54.6 kg/m??, Obstructive Sleep Apnea (ANA LILIA), and Heart failure - Ejection Fraction reduced. DIET: Eats 3 meals a day. WEIGHT: Patients weight has been stable. ACTIVITY: No regular exercise. SCREENING: Last dilated eye exam up to date. Reports history of retinopathy. FAMILY HISTORY: Family history of diabetes mellitus includes siblings HOSPITAL COURSE: Past 24 hour blood glucose readings: Recent Labs 07/08/23 0942 GLUCOSEPOC 140 Steroids: None Current Diet Adult Diet Regular; 90 gm Carbs (per meal); 1500 mL Fluid; Cardiovascular starting at 07/07 1513 REVIEW OF SYSTEMS Pertinent items are noted in HPI PREADMISSION MEDICATION: Diabetes medication(s) were reconciled on 07/08/2023 OBJECTIVE VITALS Temperature: 36.7 ??C Heart Rate: 86 Resp Rate: 29 Blood Pressure: 102/63 BP Location: Left arm;Upper SpO2: 85 % Flow Rate (L/min): 2 L/min BSA (Calculated - sq m): 3.03 sq meters BMI (Calculated): 54.6 kg/m?? Height: 181.9 cm Weight: (!) 180 kg Body mass index is 54.55 kg/m??. PHYSICAL EXAMINATION Constitutional Appearance: Normal appearance. Pulmonary Effort: Pulmonary effort is normal. Neurological Mental Status: They are alert and oriented to person, place, and time. Psychiatric Behavior: Behavior normal. DIAGNOSTICS I have reviewed relevant diagnostics and labs. Lab Results Component Value Date HGBA1C 7.2 (H) 06/29/2023 CrCl cannot be calculated (Patient's most recent lab result is older than the maximum 7 days allowed.). Lab Results Component Value Date CREATININE 0.68 (L) 06/29/2023 ASSESSMENT / PLAN #1 Diabetes Mellitus type 1, uncontrolled HbA1c 7.2 #2 Retinopathy #3 Peripheral neuropathy #4 Hypoglycemia unawareness #5 Insulin pump therapy #6 Coronary artery disease #7 Obesity, BMI 54.5 INPATIENT PLAN: - Blood glucose monitoring: four times daily and 0200 - Glucose goal: 140-180 mg/dL - Basal: - Patient is alert, oriented, and able to self-manage insulin pump. Last site change 07/05.Site change due 07/08. - Continue current insulin pump settings (verified today, no changes made). Current settings are asfollows: as above - Patient to notify RN of bolus doses for charting purposes. - DCS will continue to see patient and assess ability to self-manage daily; if patient is unable toself-manage please notify DCS immediately and will transition to SQ insulin. - Mealtime: Humalog via patient insulin pump. - Correction scale: Humalog via patient insulin pump - DCS will evaluate and adjust insulin doses as indicated to achieve glycemic goal. - Consults: Diabetes Educators ANTICIPATED DISMISSAL PLAN: Preadmission therapy pending any contraindications. Blood glucose frequency: via continuous glucose monitor (CGM) Goal: 100-140 mg/dL Please page DCS within 24 hours prior to hospital dismissal for final dismissal recommendations. Discussed above plan with the patient, nurse, and patient's family. Patient is alert and oriented and in agreement with the plan. Thank you for the consult. DCS pager [phone] will follow. Call primary service for diabetes concerns between [phone]. Primary service to contact solutions analyst Endo fellow via hospital press operator automatic for questions. * Kathryn Rivero APRN, C.N.P., M.S.N. - 07/08/2023 3:23 PM CDTAssociated Order(s): IP CONSULT TO CARDIOVASCULAR SURGERY SUBJECTIVE Chief Complaint: Multi-vessel CAD History of present illness: Mr. Butler is a 72 y.o. male admitted to [facility] on 07/07 following a coronary angio where he was found to have severe mult-vessel CAD. PMH: insulin-dependent type 1 DM (on insulin pump), ANA LILIA w/ CPAP compliance, morbid obesity (BMI 54.55), and metastatic prostate cancer to bone (received pelvic radiation and biological/target/hormonetherapy for the cancer) Mr. Butler presented to the CAD clinic on 07/01/2023 for ongoing exertional shortness of breath thatbegan in the Fall of 2022. At that time he also had a constellation of symptoms including cough, nasal congestion, worsening BLE edema, and orthopnea. He was treated with antibiotics for a URI and most of his symptoms resolved except for the exertional dyspnea. He presented to the CAD clinic for further work-up. A TTE was obtained and demonstrated a newly reduced LVEF of 25% (previously 56% in 2021). He was sent for a coronary angio which demonstrated severe triple vessel disease. He was admitted to [facility] for consideration for surgical revascularization versus complex PCI. Cardiovascular Surgery was consulted to see by [facility] for evaluation and treatment of multi-vessel CAD. Upon assessment, Mr. Butler denies chest pain, shortness of breath, or lightheadedness. He gets short of breath with minimal exertion. He has not been active at baseline for the past 5-6 years due tohis cancer diagnosis and right hip arthroplasty (2020). He currently only walks around the house and very short distances outside of the house. He states that he has had generalized fatigue for the past 2 years. He has had ongoing issues with bilateral lower extremity edema. He would like to pursuethe best option to improve his quality of life. He continues ongoing care for his metastatic prostate cancer with Lupron and enzalutamide. He uses an insulin pump for glycemic control. Last clopidogrel (Plavix) dose was taken 07/08/23. Inpatient Medications: [START ON 07/09/2023] aspirin, 81 mg, oral, Daily [START ON 07/09/2023] atorvastatin, 80 mg, oral, Daily calcium carbonate-vitamin D3, 1 tablet, oral, QPM [START ON 07/09/2023] enzalutamide, 160 mg, oral, Daily [START ON 07/09/2023] heparin (porcine), 7,500 Units, subcutaneous, Q8H ENEDELIA insulin lispro, , subcutaneous, TID with meals [Held by provider] lisinopriL, 20 mg, oral, QPM metoprolol tartrate, 25 mg, oral, BID [START ON 07/09/2023] pantoprazole, 40 mg, oral, Daily before breakfast sodium chloride, 3 mL, intravenous, Q12H ENEDELIA [START ON 07/09/2023] spironolactone, 12.5 mg, oral, Daily Outpatient Medications: No current facility-administered medications on file prior to encounter. Current Outpatient Medications on File Prior to Encounter Medication Sig acetaminophen (TYLENOL) 500 mg tablet Take 2 tablets (1,000 mg total) by mouth every 6 (six) hours for 80 doses. Continue to take while requiring narcotic pain medication. Do not take more than 4000 mg in one day. aspirin 81 mg chewable tablet Chew 81 mg daily. atorvastatin (LIPITOR) 80 mg tablet Take 1 tablet (80 mg total) by mouth daily. clopidogreL (PLAVIX) 75 mg tablet Take 1-4 tablets (75-300 mg total) by mouth as directed. 300 mg (4 tabs at once) on 06 July, and 75 mg on 07 July enzalutamide (XTANDI) 40 mg capsule Take 4 capsules (160 mg total) by mouth daily. Take with or without food at the same time each day. Swallow capsules whole. Do not chew, dissolve, or open the capsules. fluticasone propionate (FLONASE) 50 mcg/actuation nasal spray Administer 2 sprays into each nostrildaily. furosemide (LASIX) 40 mg tablet Take by mouth 2 (two) times a day. 2 tablets in the AM, 1 tablet inthe afternoon insulin lispro 100 unit/mL injection INJECT 180 UNITS VIA CONTINUOUS UNDER THE SKIN INFUSION EVERY DAY ketotifen (ZADITOR) 0.025 % (0.035 %) ophthalmic solution Administer 1 drop into both eyes 2 (two) times a day as needed (irritation). lisinopril (for_PRINIVIL,ZESTRIL) 20 mg tablet Take 1 tablet by mouth every evening. loratadine (CLARITIN) 10 mg tablet Take 10 mg by mouth daily. omeprazole (PriLOSEC) [address] capsule Take 40 mg by mouth daily. triamcinolone (KENALOG) 0.1 % ointment 1 Application as needed for irritation. blood sugar diagnostic strips TEST 8 TIMES PER DAY blood-glucose meter kit [place] Contour Next Meter. E11.9 IDDM type II - Test 8 times/day. Reason: Unstable diabetes CALCIUM CARBONATE-VITAMIN D3 ORAL Take 1 tablet by mouth every evening. In the afternoon. Strength Unknown CONTOUR NEXT EZ METER misc TEST 8 TIMES PER DAY DME CPAP FreeStyle Renetta 3 Sensor device CHANGE EVERY 2 WEEKS GLUCAGON 1 mg injection INJECT 1 MG UNDER THE SKIN ONE TIME NEEDED FOR BLOOD GLUCOSE <60 MG/DL leuprolide (ELIGARD 1 MONTH) 7.5 mg (1 month) injection Monthly Allergies: Allergies Allergen Reactions Pollen Extracts Itching and Other (see comments) Past Medical History: Past Medical History: Diagnosis Date Apnea Sleep Obstructive wears CPAP BenignProstatic Hyperplasia Localized Cataract Removed Diabetes Mellitus Type 1 (HCC) insulin pump Gastroesophageal Reflux Disease NOS Hyperlipidemia 01/26/2015 Hypertension NOS Malignant Neoplasm Of Colon Adenocarcinoma (HCC) Neuropathy Peripheral Other Injury Of Unspecified Body Region Primary Malignant Neoplasm Of Prostate (HCC) metastatic Primary Osteoarthritis Hip Right Hips Past Surgical History: Past Surgical History: Procedure Laterality Date ARTHROPLASTY REPLACEMENT TOTAL HIP Right 07/02/2020 Procedure: ARTHROPLASTY REPLACEMENT TOTAL HIP RIGHT.; Surgeon: Braulio Monge M.D.; Location: [facility] CATARACT EXTRACTION, BILATERAL ~2001 COLON SURGERY ~1988 DEBRIDEMENT AND IRRIGATION ABDOMINAL WALL Midline 03/07/2019 Procedure: DEBRIDEMENT, IRRIGATION ABDOMINAL WALL, ANTIBIOTIC BEAD EXCHANGE. WOUND VAC PLACEMENT, Full-thickness excision of skin and subcutaneous fat 5 x 3 cm (15 cm2 tbsa), local skin flap creationto close open abdominal wound, antibiotic bead exchange (45 beads out, 45 beads in); Surgeon: Stiven Escalona M.D.; Location: [facility] HERNIA REPAIR x's 3 INCISION AND DRAINAGE N/A 05/04/2019 Procedure: INCISION, DRAINAGE abdominal wall, antbiotic bead exchange, primary closure abdominal wound with local skin advancement flaps.; Surgeon: Stiven Escalona M.D.; Location: [facility] REPAIR HERNIA VENTRAL WITH MESH N/A 03/10/2013 >1. Complex ventral hernia repair with intraperitoneal sublay Proceed mesh, 10 x 13 inch(protected large pore REPAIR HERNIA VENTRAL WITH MESH N/A 02/17/2019 Procedure: Recurrent ventral hernia repair with onlay mesh, antibiotic bead placement, excision of umbilicus (full thickness excision of skin and subcutaneous tissue 30 sq cm), incisional wound VAC placement; Surgeon: Ramon Ramirez M.D.; Location: [facility] Past Social History: Social History Tobacco Use Smoking status: Never Passive exposure: Past Smokeless tobacco: Never Vaping Use Vaping Use: never used Substance Use Topics Alcohol use: Not Currently Drug use: Never REVIEW OF SYSTEMS Negative for seizure, stroke, history of thyroid issues, lung problems, irregular heart rate or rhythm, history of blood clot or bleeding disorders, history of stomach ulcer or bleed, liver or kidneyissues, difficulty with urination, muscle or joint problems, vein stripping or vein ablation, current skin issues, or chronic skin ulcers. The patient has not had previous difficulties with anesthesia. No steroids or blood transfusions within the last three months. Denies pain at the current time. Last visit to the dentist in the past year, no current dental issues. See HPI for pertinent positives. Intermittent swallowing issues, never had an endoscopy Reports: CORONARY DIAGNOSTIC SUMMARY (07/08/2023) Coronary artery dominance is right. The left main coronary artery is 30% obstructed by a discrete lesion. The proximal left anterior descending artery is 90% obstructed by a discrete lesion. The distal segment is normal size. The proximal circumflex artery is 100% obstructed by a discrete lesion. The distal segment is not visible. The ramus intermedius segment is 99% obstructed by a discrete lesion. The distal segment is large size. The proximal right coronary artery is 99% obstructed by a discrete lesion. The middle right coronary artery is 99% obstructed by a discrete lesion. The distal right coronary artery is 90% obstructed by a discrete lesion. Echocardiogram (07/01/2023) Final Impressions 1. Moderate-severely enlarged left ventricular [...] reduced with severe generalized hypokinesis along with [id number] right ventricular systolic dysfunction. . Side by side comparison of images performed. Chest x-ray (07/01/2023) EXAM: DX CHEST AP OR PA AND LATERAL 2 VIEWS IMPRESSION: No comparison radiographs. Cardiomegaly. Mildly prominent central pulmonary vascularity. Bilateral calcified pleural [...] left pleural effusion. Pleural effusion size is difficultto compare due to differences in positioning. Degenerative changes in the spine. Labs (06/29/2023) Hgb 13, Platelets 285, WBC 8.1, Cr. 0.68, BUN 22, Hgb A1c 7.2 OBJECTIVE PHYSICAL EXAM General: Very pleasant, obese gentleman, in no acute distress Cardiovascular: Regular rate and rhythm, no murmur appreciated Respiratory: Lungs are clear to auscultation bilaterally Extremities: Warm, distal pulses intact. Severe edema present bilaterally in lower extremities. Vessels: No JVD. Abdomen: Active bowel sounds. Soft, nontender. ASSESSMENT / PLAN Diagnoses: #1 Shortness Of Breath #2 Abnormal Coronary Calcium Computed Tomography #3 Edema Lower Extremity #4 Acute On Chronic Systolic (Congestive) Heart Failure (HCC) #5 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 (Stable Angina/Angina Of Exertion) (HCC) Mr. Butler is a 72 y.o. male admitted to [facility] with acute on chronic heart failure and multivessel coronary artery disease. A TTE showed a newly reduced EF of 25% with severe generalize LV hypokinesis. He underwent a coronary angio today (07/07) which demonstrated severe multi-vessel disease. [facility] was consulted for consideration for surgical revascularization. After talking with Mr. Butler and his daughter, they are interested to hear his options to best manage his cardiac symptoms while still maintaining quality of life. This consult will be staffed by Dr. Abbasi. Please reach out to the [employer] executive officer special warfare team pager ([phone]) with questions. documented in this encounter Nursing Notes * Humble Holbrook R.N. - 07/13/2023 3:19 PM CDT Shift Goals: Clinical Goals for the Shift: Patient will diurese adequately overnight Identify possible barriers to meeting goals/advancing plan of care: . End of Shift Summary: pt dc hsc all education completed with teachback. VSS. * Marivel Fields R.N. - 07/13/2023 5:53 AM CDT Problem: CARDIOVASCULAR - ADULT Goal: Maintains optimal cardiac output and hemodynamic stability Outcome: Progressing Goal: Achieve stable or improve cardiac rhythm Outcome: Progressing Shift Goals: Clinical Goals for the Shift: Patient will diurese adequately overnight Identify possible barriers to meeting goals/advancing plan of care: End of Shift Summary: Goal met. Patient responded well to diuretics overnight, however, was not able to get much rest. Also contributing to lack of rest was his old heparin site from 07/11 is still bleeding. Due to this, there have been multiple dressing changes overnight. Service was made aware, they came to bedside and assessed. Plan is to continue monitoring this bleed and diurese with possibledischarge to home self care. VSS. ..Electronically signed by: Alejandra Fields R.N. 07/13/23 5:57 AM CDT * Terrie Goddard R.N. - 07/11/2023 6:10 PM CDT Shift Goals: Clinical Goals for the Shift: Pt will have adequate diuresis during this shift. Identify possible barriers to meeting goals/advancing plan of care: Dysphagia, COPD, Heart failure. End of Shift Summary: Goals met. VS stable. Patient received PO metolazone 5 mg and IV Lasix 200 mg. Patient fluid balance net negative at 2.3 L. Patient ambulated in rajan and tolerated well. Patients groin was cleansed, Nystatin powder applied, and Interdry to groin. Patient had low blood sugar of44 which was treated per hypoglycemia protocol. Plan is for high-risk PCI Wednesday. Electronically signed by: Terrie Goddard R.N. 07/11/23 6:11 PM CDT Problem: SKIN/TISSUE INTEGRITY Goal: Skin/Tissue integrity maintained or improved 07/11/2023 180 by Terrie Goddard R.N. Outcome: Progressing Note: Patients groin was cleansed and Nystatin powder applied. Interdry applied to groin. 07/11/2023 172 by Terrie Goddard R.N. Outcome: Progressing Problem: SAFETY ADULT Goal: Maintain a safe environment Outcome: Progressing Note: Patient used call light appropriately and remained free from falls during the shift. Problem: SAFETY ADULT - RISK FOR FALL AND OR FALL INJURY Goal: Patient remains free from fall/fall injury 07/11/2023 1805 by Terrie Goddard RGaliNGali Outcome: Progressing 07/11/2023 1722 by Terrie Goddard R.NGali Outcome: Progressing Note: Patient used call light adequately and remained free from falls. 07/11/2023 172 by Terrie Goddard R.N. Outcome: Progressing Problem: POTENTIAL OR ACTUAL PRESSURE INJURY-ADULT Goal: Achieve optimal activity and/or mobility to maintain or improve skin integrity 07/11/2023 1805 by Terrie Goddard R.N. Outcome: Progressing Note: Patient ambulated in hallway and tolerated fairly well. 07/11/2023 172 by Terrie Goddard R.N. Outcome: Progressing Note: Patient ambulated in hallway with walker. 07/11/2023 172 by Terrie Goddard R.NGali Outcome: Progressing Problem: Compromised Skin Integrity Goal: Skin/Tissue integrity maintained or improved 07/11/2023 180 by Terrie Goddard R.N. Outcome: Progressing Note: Patients groin was cleansed and Nystatin powder applied. Interdry applied to groin. 07/11/2023 172 by Terrie Goddard R.N. Outcome: Progressing Problem: Incontinence and/or Moisture Goal: Skin integrity is maintained or improved Outcome: Progressing Note: Patient's groin was cleansed and Nystatin powder applied. Interdry applied to groin. * Terrie Goddard R.N. - 07/10/2023 5:30 PM CDT Shift Goals: Clinical Goals for the Shift: Pt will have adequate diuresis during this shift. Identify possible barriers to meeting goals/advancing plan of care: fluid status. End of Shift Summary: Goal met. VS stable. Patient received 400 mg IV Lasix total throughout shift.Pt showered and compression wraps reapplied. Plan for high risk PCI Wednesday after continued diuresis. Electronically signed by: Terrie Goddard R.N. 07/10/23 5:33 PM CDT Problem: SKIN/TISSUE INTEGRITY Goal: Skin/Tissue integrity maintained or improved 07/10/20231726 by Terrie Goddard R.N. Outcome: Progressing Note: Patient showered, Nystatin applied to groin and skin folds, Liquid skin protectant applied togluteal cleft, new Mepilex applied, external catheter changed. 07/10/2023 172 by Terrie Goddard R.N. Outcome: Progressing Problem: SAFETY ADULT - RISK FOR FALL AND OR FALL INJURY Goal: Patient remains free from fall/fall injury 07/10/2023 172 by Terrie Goddard R.N. Outcome: Progressing Note: Patient used the call light appropriately and remained free from falls. Patient used seated walker with ambulation. 07/10/2023 172 by Terrie Goddard R.N. Outcome: Progressing Problem: Compromised Skin Integrity Goal: Skin/Tissue integrity maintained or improved 07/10/2023 172 by Terrie Goddard R.N. Outcome: Progressing Note: Patient showered, Nystatin applied to groin and skin folds, Liquid skin protectant applied togluteal cleft, new Mepilex applied, external catheter changed. 07/10/2023 172 by Terrie Goddard R.N. Outcome: Progressing Problem: Incontinence and/or Moisture Goal: Skin integrity is maintained or improved Outcome: Progressing documented in this encounter Miscellaneous Notes * Hospital Course - Sadiq Celestin M.D. - 07/10/2023 1:47 PM CDT Mr. Lawrence Butler is a 72 y.o. male with insulin-dependent type 1 DM, ANA LILIA w/ CPAP compliance, morbid obesity, and metastatic prostate cancer to bone, pulmonary nodules who presents with worsening shortness of breath. Pre-admission: In brief, TTE from 2021 showed LVEF 56% without RWMA with grade 1 LV diastolic dysfunction. Repeat TTE on 06/30 showed LVEF of 29% with severe generalized left ventricular hypokinesis, mildly enlarged right ventricular with reduced systolic function, and did not enlarged IVC with no inspiratory collapse. He underwent coronary angiography for evaluation of the sudden drop in LVEF on 07/07 which showed 90% occlusion of the proximal LAD, 100% occlusion of the proximal circumflex, 99% occlusion of the ramus intermedius, 99% occlusion of the proximal and middle RCA, and 90% occlusion of the distalright RCA. Given the findings of severe, critical three-vessel coronary artery disease, he was admit nicole to inpatient cardiology for surgical consultation. Cardiology 1 Service (07/07- 07/12) : On presentation, Mr. Butler was found to have an elevated NT-Pro BNP and appeared volume overloaded. He underwent diuresis during his hospitalization to achieve close to euvolemia, with diuresis to continue at home. Additionally, he was seen by Cardiac Surgery who ultimately came to the decision that surgery would would not be the safest option given his comorbidities. Therefore, coronary angiogram was performed on 07/11 and stents were placed in the middle LAD and ramus intermedius. INSTRUCTIONS FOR THE PATIENT Please start taking metoprolol 25 mg daily, spironolactone 12.5 mg daily, clopidogrel 75 mg daily, pantoprazole 40 mg daily (stop taking omeprazole) For home diuretic: stop taking your furosemide. Please start taking torsemide 60 mg twice daily RECOMMENDATIONS FOR OUTPATIENT PROVIDER Titrate diuretics Increase GDMT to maximally tolerated dose Follow up chest pain, currently asymptomatic. If he develops angina, consider intervention on right-sided CAD. CONTACT INFORMATION If you experience a medical emergency, please call your local emergency response telephone number. For other questions, call the [facility] 24-hour telephone number: [phone]. Ask to be connected to the following service: RST CARD 1 documented in this encounter Plan of Treatment Upcoming Encounters Date Type Department Care Team (Late st Contact Info) Description 09/07/2023 4:30 PM CDT Infusion Department of Oncology in [place], [place] [address] [place] [phone] Ankush Mancia M.B.B.S., M.S. [address] [place] [phone] 09/22/2023 1:30 PM CDT Appointment Department of Cardiovascular Diseases in [place], [place] [address] [place] [address] Addy Arias M.D. [address] [place] [phone] 09/27/2023 10:45 AM CDT Comprehensive Visit Department of Cardiovascular Diseases in [place], [place] [address] [place] [address] Laith Feliciano M.D. [address] [place] [phone] 10/06/2023 9:00 AM CDT Infusion Department of Oncology in [place], [place] [address] [place] [phone] Ankush Mancia M.B.BGaliS., M.S. [address] [place] [phone] 11/01/2023 9:00 AM CDT Clinical Communication Virtual Review in [place], [place] 200 [place] [address] 11/03/2023 10:00 AM CDT Comprehensive Visit Division of Gastroenterology in [place], [place] [address] [place] [phone] Milton Holden M.D. [address] [place] [address] 11/03/2023 1:00 PM CDT Appointment Department of Radiology, [facility], in [place], [place] [address] [place] [phone] Dev Jimenez M.D. [address] [place] [phone] 11/04/2023 8:45 AM CDT Appointment Division of Gastroenterology in [place], [place] [address] [place] [phone] Dev Jimenez M.D. [address] [place] [phone] 11/08/2023 8:00 AM CDT Appointment Division of Gastroenterology in [place], [place] [address] [place] [phone] Dev Jimenez M.D. [address] [place] [phone] 11/09/2023 7:45 AM CDT Appointment Division of Gastroenterology in [place], [place] [address] [place] [address] Dev Jimenez M.D. [address] [place] [phone] Scheduled Referrals Name Type Priority Associated Diagnoses Orde r Schedule External referral cardiac rehab program (non-[facility]) Outpatient Referral Routine Coronary Stent Status Post Ordered: 07/13/2023 documented as of this encounter Procedures Procedure Name Priority Date/Time Associated Diagnosis Comments GLUCOSE POCT, B Routine 07/13/2023 11:43 AM CDT GLUCOSE POCT, B Routine 07/13/2023 8:17 AM CDT CBC WITH DIFFERENTIAL, B Routine 07/13/2023 7:32 AM CDT MAGNESIUM, S Routine 07/13/2023 7:32 AM CDT BASIC METABOLIC PANEL, S/P Routine 07/13/2023 7:32 AM CDT GLUCOSE POCT, B Routine 07/13/2023 2:11 AM CDT GLUCOSE POCT, B Routine 07/12/2023 9:19 PM CDT ECG STAT 07/12/2023 7:46 PM CDT GLUCOSE POCT, B Routine 07/12/2023 6:00 PM CDT CARDIAC CATHETERIZATION Routine 07/12/2023 4:33 PM CDT 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 (Stable Angina/Angina Of Exertion) (HCC) CARDIAC CATHETERIZATION Routine 07/12/2023 4:33 PM CDT 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 (Stable Angina/Angina Of Exertion) (HCC) CARDIAC CATHETERIZATION Routine 07/12/2023 4:33 PM CDT 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 (Stable Angina/Angina Of Exertion) (HCC) CARDIAC CATHETERIZATION Routine 07/12/2023 4:33 PM CDT 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 (Stable Angina/Angina Of Exertion) (HCC) CARDIAC CATHETERIZATION Routine 07/12/2023 4:33 PM CDT 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 (Stable Angina/Angina Of Exertion) (HCC) ACT, POCT, B Routine 07/12/2023 3:54 PM CDT ACT, POCT, B Routine 07/12/2023 3:16 PM CDT GLUCOSE POCT, B Routine 07/12/2023 3:15 PM CDT GLUCOSE POCT, B Routine 07/12/2023 11:50 AM CDT GLUCOSE POCT, B Routine 07/12/2023 8:55 AM CDT ADULT OXYGEN THERAPY Routine 07/12/2023 8:02 AM CDT CYSTATIN C WITH EGFR Routine 07/12/2023 6:51 AM CDT CBC WITHOUT DIFFERENTIAL, B Routine 07/12/2023 6:51 AM CDT MAGNESIUM, S Routine 07/12/2023 6:51 AM CDT BASIC METABOLIC PANEL, S/P Routine 07/12/2023 6:51 AM CDT GLUCOSE POCT, [...] WITH EGFR Timed 07/11/2023 7:34 AM CDT CBC WITH DIFFERENTIAL, B Routine 07/11/2023 7:34 AM CDT MAGNESIUM, S Routine 07/11/2023 7:34 AM CDT BASIC METABOLIC PANEL, S/P Routine 07/11/2023 7:34 AM CDT GLUCOSE POCT, [...] POCT, B Routine 07/10/2023 12:36 PM CDT CBC WITH DIFFERENTIAL, B Routine 07/10/2023 10:32 AM CDT MAGNESIUM, S Routine 07/10/2023 10:32 AM CDT BASIC METABOLIC PANEL, S/P Routine 07/10/2023 10:32 AM CDT GLUCOSE POCT, [...] POCT, B Routine 07/09/2023 12:05 PM CDT CBC WITHOUT DIFFERENTIAL, B Routine 07/09/2023 8:11 AM CDT PHOSPHORUS (INORGANIC), S Routine 07/09/2023 8:11 AM CDT MAGNESIUM, S Routine 07/09/2023 8:11 AM CDT BASIC METABOLIC PANEL, S/P Routine 07/09/2023 8:11 AM CDT CYSTATIN C [...] and all outpatients) 07/08/2023 3:51 PM CDT THYROID FUNCTION CASCADE, S Routine 07/08/2023 3:44 PM CDT NT-PRO B-TYPE NATRIURETIC PEPTIDE (BNP), S Routine 07/08/2023 3:44 PM CDT CBC WITHOUT DIFFERENTIAL, B Routine 07/08/2023 3:44 PM CDT PHOSPHORUS (INORGANIC), S Routine 07/08/2023 3:44 PM CDT MAGNESIUM, S Routine 07/08/2023 3:44 PM CDT COMPREHENSIVE METABOLIC PANEL, S/P Routine 07/08/2023 3:44 PM CDT ADULT OXYGEN THERAPY Routine 07/08/2023 2:18 PM CDT ADULT OXYGEN THERAPY Routine 07/08/2023 2:18 PM CDT CARDIAC CATHETERIZATION Routine 07/08/2023 10:52 AM CDT Shortness Of Breath Abnormal Coronary Calcium Computed Tomography Edema Lower Extremity GLUCOSE POCT, B Routine 07/08/2023 9:42 AM CDT documented in this encounter Results * (ABNORMAL) Glucose, POCT (07/13/2023 11:43 AM CDT) Glucose, POCT, B 228(H) 70 - 140 mg/dL 07/13/2023 11:45 AM CDT PCLX Site Capillary 07/13/2023 11:45 AM CDT PCLX Blood 07/13/2023 11:4 3 AM CDT 07/13/2023 11:45 AM CDT Unknown Provider LAB POCT ORDERABLES- MANUAL POC [facility] [address] [place] [address], [facility] PCLX [facility] POC [address] [place] [address] * (ABNORMAL) Glucose, POCT (07/13/2023 8:17 AM CDT) Glucose, POCT, B 168(H) 70 - 140 mg/dL 07/13/2023 9:57 AM CDT PCLX Site Capillary 07/13/2023 9:57 AM CDT PCLX Last Intake 3-4 hours 07/13/2023 9:57 AM CDT PCLX Blood 07/13/2023 8:17 AM CDT 07/13/2023 9:57 AM CDT Unknown Provider LAB POCT ORDERABLES- MANUAL Performing Organization Address [facility]/ZIP Co de Phone Number POC [facility] 200 [place] [address], [facility] PCLX [facility] POC 200 [place] [address] * Magnesium (07/13/2023 7:32 AM CDT) Magnesium, S 1.9 1.7 - 2.3 mg/dL 07/13/2023 8:41 AM CDT DTL Blood (Blood, Venous) 07/13/2023 7:32 AM CDT 07/13/2023 7:32 AM CDT Addy Arias M.D. LAB BLOOD ADD-ON Performing Organization Address [facility]/ZIP Co de Phone Number [facility] 200 [place] [address], [facility] DTL [facility] 200 [place] [address] * (ABNORMAL) Basic Metabolic Panel (07/13/2023 7:32 AM CDT) Potassium, S 4.6 3.6 - 5.2 mmol/L [...] CDT Addy Arias M.D. LAB BLOOD ADD-ON [place] [address] [place] [address], [facility] [place] [address] [place] [address] * (ABNORMAL) CBC with Differential, Blood (07/13/2023 7:32 AM CDT) Hemoglobin 13.0(L) 13.2 - 16.6 g/dL 07/13/2023 [...] CDT Addy Arias M.D. LAB BLOOD ADD-ON [facility] 200 [place] [address], [facility] DTL [facility] 200 [place] [address] DHPM [facility] [address] [place] [address] * Glucose, POCT (07/13/2023 2:11 AM CDT) [facility] Glucose, POCT, B 128 70 - 140 mg/dL 07/13/2023 2:12 AM CDT PCLX Site Capillary 07/13/2023 2:12 AM CDT PCLX Last Intake 3-4 hours 07/13/2023 2:12 AM CDT PCLX Blood 07/13/2023 2:11 AM CDT 07/13/2023 2:13 AM CDT Unknown Provider LAB POCT ORDERABLES- MANUAL POC [facility] [address] [place] [address], [facility] PCLX [facility] POC [address] [place] [address] * (ABNORMAL) Glucose, POCT (07/12/2023 9:19 PM CDT) Glucose, POCT, B 216(H) 70 - 140 mg/dL 07/12/2023 9:27 PM CDT PCLX Site Capillary 07/12/2023 9:27 PM CDT PCLX Last Intake 3-4 hours 07/12/2023 9:27 PM CDT PCLX Blood 07/12/2023 9:19 PM CDT 07/12/2023 9:28 PM CDT Unknown Provider LAB POCT ORDERABLES- MANUAL Performing Organization Address [facility] Co de Phone Number POC [facility] [address] [place] [address], [place] PCLX [facility] POC [address] [place] [address] * ECG 12 Lead (07/12/2023 7:46 PM CDT) Ventricular Rate ECG/Min 94 BPM MUSE ID Interval 236 ms MUSE QRSD Interval 138 ms MUSE QT Interval 402 ms MUSE QTC Interval 502 ms MUSE R [place] -84 degrees MUSE T Wave [place] 94 degrees MUSE 07/12/2023 7:46 PM CDT [...] PLACIDO Irwin Romina Law, Ph.D. ECG ORDERA BLES MUSE NA * (ABNORMAL) Glucose, POCT (07/12/2023 6:00 PM CDT) Glucose, POCT, B 206(H) 70 - 140 mg/dL 07/12/2023 7:09 PM CDT PCLX Site Capillary 07/12/2023 7:09 PM CDT PCLX Last Intake 3-4 hours 07/12/2023 7:09 PM CDT PCLX Blood 07/12/2023 6:00 PM CDT 07/12/2023 7:09 PM CDT Unknown Provider LAB POCT ORDERABLES- MANUAL POC [facility] [address] [place] [address], [facility] PCLX [facility] POC [address] [place] [address] * STENT PLACEMENT, PERCUTANEOUS CORONARY ANGIOPLASTY, CORONARY [...] ?? PRE-PROCEDURE DIAGNOSIS 1. ??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 [...] lesion with a 1.25 mm kenroy at 316600 rpm with successful passage and polishing. We [...] stent PRE-PROCEDURE DIAGNOSIS 1. 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Angina Pectoris (Stable [...] lesion with a 1.25 mm kenroy at 790951 rpm withsuccessful passage and polishing. We wired [...] Documents. Addy Arias M.D. CV CARDIAC CATH ID OCEDURES * (ABNORMAL) ACT (Activated Clotting Time), POCT (07/12/2023 3:54 PM CDT) Activated Clotting Time, POCT 306(H) 84 - 139 sec 07/12/2023 3:59 PM CDT PCSM Blood 07/12/2023 3:54 PM CDT 07/12/2023 4:00 PM CDT Unknown Provider LAB POCT ORDERABLES - DEVICE POC RST [facility] INPATIENT [facility] [address] [place] [address], [facility] PCSM [facility] POC [address] [place] [id number] * (ABNORMAL) ACT (Activated Clotting Time), POCT (07/12/2023 3:16 PM CDT) Activated Clotting Time, POCT 330(H) 84 - 139 sec 07/12/2023 3:21 PM CDT PCSM Blood 07/12/2023 3:16 PM CDT 07/12/2023 3:22 PM CDT Unknown Provider LAB POCT ORDERABLES - DEVICE Performing Organization Address City/[facility]/ZIP Co de Phone Number POC RST [facility] IN[facility]IENT [facility] 200 [place] [address], [facility] PCSM [facility] POC [address] [place] [address] * (ABNORMAL) Glucose, POCT (07/12/2023 3:15 PM CDT) Glucose, POCT, B 265(H) 70 - 140 mg/dL 07/12/2023 4:41 PM CDT PCLX Blood 07/12/2023 3:15 PM CDT 07/12/2023 4:42 PM CDT Unknown Provider LAB POCT ORDERABLES- MANUAL Performing Organization Address City/[facility]/ZIP Co de Phone Number POC [facility] [address] [place] [address], [facility] PCLX [facility] POC 200 [place] [address] * (ABNORMAL) Glucose, POCT (07/12/2023 11:50 AM CDT) Glucose, POCT, B 266(H) 70 - 140 mg/dL 07/12/2023 11:53 AM CDT PCLX Site Capillary 07/12/2023 11:53 AM CDT PCLX Last Intake 3-4 hours 07/12/2023 11:53 AM CDT PCLX Blood 07/12/2023 11:5 0 AM CDT 07/12/2023 11:53 AM CDT Unknown Provider LAB POCT ORDERABLES- MANUAL POC [facility] [address] [place] [address], [place] PCLX [facility] POC [address] [place] [address] * (ABNORMAL) Glucose, POCT (07/12/2023 8:55 AM CDT) [facility] Glucose, POCT, B 275(H) 70 - 140 mg/dL 07/12/2023 11:52 AM CDT PCLX Site Capillary 07/12/2023 11:52 AM CDT PCLX Last Intake 3-4 hours 07/12/2023 11:52 AM CDT PCLX Blood 07/12/2023 8:55 AM CDT 07/12/2023 11:53 AM CDT Unknown Provider LAB POCT ORDERABLES- MANUAL POC [facility] [address] [place] [address], [facility] PCLX [facility] POC [address] [place] [address] * Magnesium (07/12/2023 6:51 AM CDT) [facility] Magnesium, S 2.1 1.7 - 2.3 mg/dL 07/12/2023 8:30 AM CDT DTL Blood (Blood, Venous) 07/12/2023 6:51 AM CDT 07/12/2023 8:02 AM CDT Addy Arias M.D. LAB BLOOD ADD-ON [facility] 200 [place] [address], [facility] 200 [place] [address] * (ABNORMAL) Cystatin C with Estimated GFR (07/12/2023 6:51 AM CDT) [facility] eGFR by Cystatin C 50(L) >60 [...] CDT Addy Arias M.D. LAB BLOOD ADD-ON [address] [address], [facility] 200 [place] [address] * (ABNORMAL) Basic Metabolic Panel (07/12/2023 6:51 AM CDT) [facility] Potassium, S 5.0 3.6 - 5.2 mmol/L 07/12/2023 8:30 AM CDT DTL Sodium, S 137 135 - 145 mmol/L 07/12/2023 8:30 AM CDT DTL Chloride, S 94(L) 98 - 107 mmol/L 07/12/2023 8:30 AM CDT DTL Bicarbonate, S 32(H) 22 - 29 mmol/L 07/12/2023 8:30 AM CDT DTL Anion Gap 11 7 - 15 07/12/2023 8:30 AM CDT DTL BUN (Blood Urea Nitrogen), S 27(H) 8 - 24 mg/dL 07/12/2023 8:30 AM CDT DTL Creatinine 0.91 0.74 - 1.35 mg/dL 07/12/2023 8:30 AM CDT DTL Estimated GFR (eGFR) >90 >=60 mL/min/BSA 07/12/2023 8:30 AM CDT DTL Comment: Estimated GFR calculated using the 2020 CKD_EPI creatinine equation. Calcium, Total, S 9.4 8.8 - 10.2 mg/dL 07/12/2023 8:30 AM CDT DTL Glucose, S 257(H) 70 - 140 mg/dL 07/12/2023 8:30 AM CDT DTL Blood (Blood, Venous) 07/12/2023 6:51 AM CDT 07/12/2023 8:02 AM CDT Addy Arias M.D. LAB BLOOD ADD-ON [facility] 200 [place] [address], [facility] 200 [place] [address] * (ABNORMAL) CBC without Differential (07/12/2023 6:51 AM CDT) Pathologist [facility] Hemoglobin 12.4(L) 13.2 - 16.6 g/dL 07/12/2023 [...] CDT Addy Arias M.D. LAB BLOOD ADD-ON [facility] [address] [place] [address], [facility] DTL [facility] 200 [place] [address] * (ABNORMAL) Glucose, POCT (07/12/2023 3:28 AM CDT) Glucose, POCT, B 282(H) 70 - 140 mg/dL 07/12/2023 3:30 AM CDT PCLX Site Capillary 07/12/2023 3:30 AM CDT PCLX Last Intake > 4 hours 07/12/2023 3:30 AM CDT PCLX Blood 07/12/2023 3:28 AM CDT 07/12/2023 3:30 AM CDT Unknown Provider LAB POCT ORDERABLES- MANUAL Performing Organization Address [facility]/ZIP Co de Phone Number [facility] 200 [place] [address], [place] PCLX [facility] POC [address] [place] [address] * (ABNORMAL) Glucose, POCT (07/11/2023 10:30 PM CDT) Glucose, POCT, B 286(H) 70 - 140 mg/dL 07/11/2023 10:43 PM CDT PCLX Site Capillary 07/11/2023 10:43 PM CDT PCLX Last Intake > 4 hours 07/11/2023 10:43 PM CDT PCLX Blood 07/11/2023 10:3 0 PM CDT 07/11/2023 10:43 PM CDT Unknown Provider LAB POCT ORDERABLES- MANUAL Performing Organization Address City/[facility]/ZIP Co de Phone Number [facility] [address] [place] [address], [facility] PCLX [facility] POC [address] [place] [address] * (ABNORMAL) Glucose, POCT (07/11/2023 7:25 PM CDT) Glucose, POCT, B 148(H) 70 - 140 mg/dL 07/11/2023 7:29 PM CDT PCLX Site Capillary 07/11/2023 7:29 PM CDT PCLX Last Intake 1-2 hours 07/11/2023 7:29 PM CDT PCLX Blood 07/11/2023 7:25 PM CDT 07/11/2023 7:29 PM CDT Unknown Provider LAB POCT ORDERABLES- MANUAL Performing Organization Address City/[facility] Co de Phone Number POC [facility] [address] [place] [address], [facility] PCLX [facility] POC [address] [place] [address] * Glucose, POCT (07/11/2023 6:55 PM CDT) Glucose, POCT, B 121 70 - 140 mg/dL 07/11/2023 7:05 PM CDT PCLX Site Capillary 07/11/2023 7:05 PM CDT PCLX Last Intake <1 hour 07/11/2023 7:05 PM CDT PCLX Blood 07/11/2023 6:55 PM CDT 07/11/2023 7:05 PM CDT Unknown Provider LAB POCT ORDERABLES- MANUAL Performing Organization Address [facility] de Phone Number POC [facility] [address] [place] [address], [facility] PCLX [facility] POC [address] [place] [address] * Glucose, POCT (07/11/2023 6:38 PM CDT) Glucose, POCT, B 82 70 - 140 mg/dL 07/11/2023 6:40 PM CDT PCLX Site Capillary 07/11/2023 6:40 PM CDT PCLX Last Intake <1 hour 07/11/2023 6:40 PM CDT PCLX Blood 07/11/2023 6:38 PM CDT 07/11/2023 6:41 PM CDT Unknown Provider LAB POCT ORDERABLES- MANUAL POC [facility] [address] [place] [address], [facility] PCLX [facility] POC [address] [place] [address] * (ABNORMAL) Glucose, POCT (07/11/2023 6:19 PM CDT) Glucose, POCT, B 58(L) 70 - 140 mg/dL 07/11/2023 6:23 PM CDT PCLX Site Capillary 07/11/2023 6:23 PM CDT PCLX Last Intake <1 hour 07/11/2023 6:23 PM CDT PCLX Blood 07/11/2023 6:19 PM CDT 07/11/2023 6:23 PM CDT Unknown Provider LAB POCT ORDERABLES- MANUAL Performing Organization Address City/[facility]/ZIP Co de Phone Number [facility] [address] [place] [address], [facility] PCLX [facility] POC [address] [place] [address] * (ABNORMAL) Glucose, POCT (07/11/2023 5:58 PM CDT) Glucose, POCT, B 44(L) 70 - 140 mg/dL 07/11/2023 6:00 PM CDT PCLX Site Capillary 07/11/2023 6:00 PM CDT PCLX Last Intake 3-4 hours 07/11/2023 6:00 PM CDT PCLX Blood 07/11/2023 5:58 PM CDT 07/11/2023 6:01 PM CDT Unknown Provider LAB POCT ORDERABLES- MANUAL [facility] [address] [place] [address], [facility] PCLX [facility] POC [address] [place] [address] * (ABNORMAL) Glucose, POCT (07/11/2023 5:53 PM CDT) Glucose, POCT, B 47(L) 70 - 140 mg/dL 07/11/2023 5:58 PM CDT PCLX Site Capillary 07/11/2023 5:58 PM CDT PCLX Last Intake 3-4 hours 07/11/2023 5:58 PM CDT PCLX Blood 07/11/2023 5:53 PM CDT 07/11/2023 5:59 PM CDT Unknown Provider LAB POCT ORDERABLES- MANUAL Performing Organization Address City/[facility]/ZIP Co de Phone Number POC [facility] [address] [place] [address], [facility] PCLX [facility] POC [address] [place] [address] * Glucose, POCT (07/11/2023 4:41 PM CDT) Glucose, POCT, B 128 70 - 140 mg/dL 07/11/2023 4:44 PM CDT PCLX Site Capillary 07/11/2023 4:44 PM CDT PCLX Blood 07/11/2023 4:41 PM CDT 07/11/2023 4:44 PM CDT Unknown Provider LAB POCT ORDERABLES- MANUAL Performing Organization Address City/[facility] Co de Phone Number [facility] [address] [place] [address], [place] PCLX [facility] POC [address] [place] [address] * (ABNORMAL) Glucose, POCT (07/11/2023 12:38 PM CDT) Glucose, POCT, B 232(H) 70 - 140 mg/dL 07/11/2023 12:45 PM CDT PCLX Site Capillary 07/11/2023 12:45 PM CDT PCLX Last Intake 3-4 hours 07/11/2023 12:45 PM CDT PCLX Blood 07/11/2023 12:3 8 PM CDT 07/11/2023 12:45 PM CDT Unknown Provider LAB POCT ORDERABLES- MANUAL Performing Organization Address City/[facility] de Phone Number POC [facility] [address] [place] [address], [place] PCLX [facility] [address] [place] [address] * ECG 12 Lead (07/11/2023 9:31 AM CDT) Ventricular Rate ECG/Min 83 BPM MUSE ID Interval 248 ms MUSE QRSD Interval 126 ms MUSE QT Interval 410 ms MUSE QTC Interval 481 ms MUSE P [place] 19 degrees MUSE R [place] -84 degrees MUSE T Wave [place] 102 degrees MUSE 07/11/2023 9:31 AM CDT 07/12/2023 8:51 AM CDT Impressions MUSE - 07/11/2023 9:34 AM CDT Sinus rhythm with 1st degree A-V block Possible ??Fusion complexes Left axis deviation Non-specific intra-ventricular conduction block Nonspecific ST and T wave abnormality When compared with ECG of 01-JUL-2023 09:14, QT has shortened Reviewed by PLACIDO Ovalle Narrative Procedure Note Arnav Armstrong M.D. - 07/12/2023 IMPRESSION: Sinus rhythm with 1st degree A-V block Possible Fusion complexes Left axis deviation Non-specific intra-ventricular conduction block Nonspecific ST and T wave abnormality When compared with ECG of 01-JUL-2023 09:14, QT has shortened Reviewed by PLACIDO Ovalle Addy Arias M.D. ECG ORDERABLES Performing Organization Address [facility] Co de Phone Number MUSE NA * Glucose, POCT (07/11/2023 8:06 AM CDT) Glucose, POCT, B 100 70 - 140 mg/dL 07/11/2023 8:15 AM CDT PCLX Site Capillary 07/11/2023 8:15 AM CDT PCLX Last Intake > 4 hours 07/11/2023 8:15 AM CDT PCLX Blood 07/11/2023 8:06 AM CDT 07/11/2023 8:15 AM CDT Unknown Provider LAB POCT ORDERABLES- MANUAL POC [facility] [address] [place] [address], [facility] PCLX [facility] [address] [place] [address] * (ABNORMAL) Cystatin C with Estimated GFR (07/11/2023 7:34 AM CDT) eGFR by Cystatin C 50(L) >60 mL/min/BSA 07/11/2023 9:14 AM CDT DTL Comment: Estimated GFR calculated [...] lower with the new assay. Cystatin C 1.36(H) 0.67 - 1.21 mg/L 07/11/2023 9:14 AM CDT DTL Blood (Blood, Venous) 07/11/2023 7:34 AM CDT 07/11/2023 8:31 AM CDT Addy Arias M.D. LAB BLOOD ADD-ON [facility] [address] [place] [address], [place] DTL [facility] [address] [place] [address] * Magnesium (07/11/2023 7:34 AM CDT) Magnesium, S 2.2 1.7 - 2.3 mg/dL 07/11/2023 9:14 AM CDT DTL Blood (Blood, Venous) 07/11/2023 7:34 AM CDT 07/11/2023 8:28 AM CDT Addy Arias M.D. LAB BLOOD ADD-ON Performing Organization Address City/[facility]/ZIP Co de Phone Number [facility] [address] [place] [address], [facility] [facility] DTL [facility] [address] [place] [address] * (ABNORMAL) Basic Metabolic Panel (07/11/2023 7:34 AM CDT) Potassium, S 5.0 3.6 - 5.2 mmol/L 07/11/2023 9:14 AM CDT DTL Sodium, S 139 135 - 145 mmol/L 07/11/2023 9:14 AM CDT DTL Chloride, S 98 98 - 107 mmol/L 07/11/2023 9:14 AM CDT DTL Bicarbonate, S 30(H) 22 - 29 mmol/L 07/11/2023 9:14 AM CDT DTL Anion Gap 11 7 - 15 07/11/2023 9:14 AM CDT DTL BUN (Blood Urea Nitrogen), S 22 8 - 24 mg/dL 07/11/2023 9:14 AM CDT DTL Creatinine 0.90 0.74 - 1.35 mg/dL 07/11/2023 9:14 AM CDT DTL Estimated GFR (eGFR) >90 >=60 mL/min/BSA 07/11/2023 9:14 AM CDT DTL Comment: Estimated GFR calculated using the 2020 CKD_EPI creatinine equation. Calcium, Total, S 9.1 8.8 - 10.2 mg/dL 07/11/2023 9:14 AM CDT DTL Glucose, S 82 70 - 140 mg/dL 07/11/2023 9:14 AM CDT DTL Blood (Blood, Venous) 07/11/2023 7:34 AM CDT 07/11/2023 8:28 AM CDT Addy Arias M.D. LAB BLOOD ADD-ON [facility] [address] [place] [address], [facility] DTL [facility] [address] [place] [address] * (ABNORMAL) CBC with Differential, Blood (07/11/2023 7:34 AM CDT) Hemoglobin 12.2(L) 13.2 - 16.6 g/dL 07/11/2023 8:22 AM CDT DTL Hematocrit 38.0(L) 38.3 - 48.6 % 07/11/2023 8:22 AM CDT DTL Erythrocytes 4.37 4.35 - 5.65 x10(12)/L 07/11/2023 8:22 AM CDT DTL MCV 87.0 78.2 - 97.9 fL 07/11/2023 8:22 AM CDT DTL RBC Distrib Width 17.9(H) 11.8 - 14.5 % 07/11/2023 8:22 AM CDT DTL Platelet Count 324(H) 135 - 317 x10(9)/L 07/11/2023 8:22 AM CDT DTL Leukocytes 7.0 3.4 - 9.6 x10(9)/L 07/11/2023 8:22 AM CDT DTL Neutrophils 4.10 1.56 - 6.45 x10(9)/L 07/11/2023 8:22 AM CDT DHPM Lymphocytes 1.73 0.95 - 3.07 x10(9)/L 07/11/2023 8:22 AM CDT DTL Monocytes 0.91(H) 0.26 - 0.81 x10(9)/L 07/11/2023 8:22 AM CDT DTL Eosinophils 0.18 0.03 - 0.48 x10(9)/L 07/11/2023 8:22 AM CDT DTL Basophils 0.04 0.01 - 0.08 x10(9)/L 07/11/2023 8:22 AM CDT DTL Blood (Blood, Venous) 07/11/2023 7:34 AM CDT 07/11/2023 8:12 AM CDT Addy Arias M.D. LAB BLOOD ADD-ON [facility] [address] [place] [address], [facility] DTL [facility] [address] [place] [address] [facility] [address] [place] [address] * Glucose, POCT (07/11/2023 6:27 AM CDT) Glucose, POCT, B 121 70 - 140 mg/dL 07/11/2023 6:34 AM CDT PCLX Site Capillary 07/11/2023 6:34 AM CDT PCLX Last Intake > 4 hours 07/11/2023 6:34 AM CDT PCLX Blood 07/11/2023 6:27 AM CDT 07/11/2023 6:34 AM CDT Unknown Provider LAB POCT ORDERABLES- MANUAL [facility] [address] [place] [address], [facility] PCLX [facility] [address] [place] [address] * (ABNORMAL) Glucose, POCT (07/11/2023 3:28 AM CDT) Glucose, POCT, B 223(H) 70 - 140 mg/dL 07/11/2023 3:34 AM CDT PCLX Site Capillary 07/11/2023 3:34 AM CDT PCLX Last Intake > 4 hours 07/11/2023 3:34 AM CDT PCLX Blood 07/11/2023 3:28 AM CDT 07/11/2023 3:34 AM CDT Unknown Provider LAB POCT ORDERABLES- MANUAL POC [facility] [address] [place] [address], [facility] PCLX [facility] [address] [place] [address] * (ABNORMAL) Glucose, POCT (07/10/2023 10:14 PM CDT) Glucose, POCT, B 186(H) 70 - 140 mg/dL 07/10/2023 10:18 PM CDT PCLX Site Capillary 07/10/2023 10:18 PM CDT PCLX Last Intake > 4 hours 07/10/2023 10:18 PM CDT PCLX Blood 07/10/2023 10:1 4 PM CDT 07/10/2023 10:18 PM CDT Unknown Provider LAB POCT ORDERABLES- MANUAL Performing Organization Address City/[facility]/ZIP Co de Phone Number POC [facility] [address] [place] [address], [facility] PCLX [facility] [address] [place] [address] * Magnesium (07/10/2023 8:02 PM CDT) Magnesium, S 1.9 1.7 - 2.3 mg/dL 07/10/2023 8:49 PM CDT DTL Blood (Blood, Venous) 07/10/2023 8:02 PM CDT 07/10/2023 8:34 PM CDT Addy Arias M.D. LAB BLOOD ADD-ON Performing Organization Address [facility]/ZIP Co de Phone Number [facility] [address] [place] [address], [facility] [address] [place] [address] * (ABNORMAL) Basic Metabolic Panel (07/10/2023 8:02 PM CDT) Potassium, S 4.6 3.6 - 5.2 mmol/L 07/10/2023 8:49 PM CDT DTL Sodium, S 136 135 - 145 mmol/L 07/10/2023 8:49 PM CDT DTL Chloride, S 96(L) 98 - 107 mmol/L 07/10/2023 8:49 PM CDT DTL Bicarbonate, S 29 22 - 29 mmol/L 07/10/2023 8:49 PM CDT DTL Anion Gap 11 7 - 15 07/10/2023 8:49 PM CDT DTL BUN (Blood Urea Nitrogen), S 22 8 - 24 mg/dL 07/10/2023 8:49 PM CDT DTL Creatinine 0.95 0.74 - 1.35 mg/dL 07/10/2023 8:49 PM CDT DTL Estimated GFR (eGFR) 86 >=60 mL/min/BSA 07/10/2023 8:49 PM CDT DTL Comment: Estimated GFR calculated using the 2020 CKD_EPI creatinine equation. Calcium, Total, S 8.7(L) 8.8 - 10.2 mg/dL 07/10/2023 8:49 PM CDT DTL Glucose, S 199(H) 70 - 140 mg/dL 07/10/2023 8:49 PM CDT DTL Blood (Blood, Venous) 07/10/2023 8:02 PM CDT 07/10/2023 8:34 PM CDT Addy Arias M.D. LAB BLOOD ADD-ON Performing Organization Address City/[facility]/ZIP Co de Phone Number [facility] [address] [place] [address], [facility] DTL [facility] [address] [place] [address] * Glucose, POCT (07/10/2023 5:15 PM CDT) Glucose, POCT, B 97 70 - 140 mg/dL 07/10/2023 5:17 PM CDT PCLX Site Capillary 07/10/2023 5:17 PM CDT PCLX Last Intake 1-2 hours 07/10/2023 5:17 PM CDT PCLX Blood 07/10/2023 5:15 PM CDT 07/10/2023 5:17 PM CDT Unknown Provider LAB POCT ORDERABLES- MANUAL Performing Organization Address City/[facility]/ZIP Co de Phone Number POC [facility] [address] [place] [address], [facility] PCLX [facility] [address] [place] [address] * Glucose, POCT (07/10/2023 5:03 PM CDT) Glucose, POCT, B 106 70 - 140 mg/dL 07/10/2023 5:06 PM CDT PCLX Site Capillary 07/10/2023 5:06 PM CDT PCLX Last Intake <1 hour 07/10/2023 5:06 PM CDT PCLX Blood 07/10/2023 5:03 PM CDT 07/10/2023 5:06 PM CDT Unknown Provider LAB POCT ORDERABLES- MANUAL Performing Organization Address City/[facility]/ZIP Co de Phone Number POC [facility] [address] [place] [address], [place] PCLX [facility] [address] [place] [address] * Glucose, POCT (07/10/2023 4:46 PM CDT) Glucose, POCT, B 81 70 - 140 mg/dL 07/10/2023 4:55 PM CDT PCLX Site Capillary 07/10/2023 4:55 PM CDT PCLX Last Intake 1-2 hours 07/10/2023 4:55 PM CDT PCLX Blood 07/10/2023 4:46 PM CDT 07/10/2023 4:55 PM CDT Unknown Provider LAB POCT ORDERABLES- MANUAL Performing Organization Address [facility] de Phone Number [facility] [address] [place] [address], [place] PCLX [facility] [address] [place] [address] * (ABNORMAL) Glucose, POCT (07/10/2023 4:32 PM CDT) Glucose, POCT, B 51(L) 70 - 140 mg/dL 07/10/2023 4:35 PM CDT PCLX Site Capillary 07/10/2023 4:35 PM CDT PCLX Last Intake 1-2 hours 07/10/2023 4:35 PM CDT PCLX Blood 07/10/2023 4:32 PM CDT 07/10/2023 4:35 PM CDT Unknown Provider LAB POCT ORDERABLES- MANUAL Performing Organization Address City/[facility] Co de Phone Number POC [facility] [address] [place] [address], [place] PCLX [facility] [address] [place] [address] * (ABNORMAL) Glucose, POCT (07/10/2023 4:04 PM CDT) Glucose, POCT, B 54(L) 70 - 140 mg/dL 07/10/2023 4:08 PM CDT PCLX Site Capillary 07/10/2023 4:08 PM CDT PCLX Last Intake 3-4 hours 07/10/2023 4:08 PM CDT PCLX Blood 07/10/2023 4:04 PM CDT 07/10/2023 4:08 PM CDT Unknown Provider LAB POCT ORDERABLES- MANUAL Performing Organization Address City/[facility]/ZIP Co de Phone Number POC [facility] [address] [place] [address], [place] PCLX [facility] [address] [place] [address] * Glucose, POCT (07/10/2023 12:36 PM CDT) Glucose, POCT, B 73 70 - 140 mg/dL 07/10/2023 12:38 PM CDT PCLX Site Capillary 07/10/2023 12:38 PM CDT PCLX Last Intake 2-3 hours 07/10/2023 12:38 PM CDT PCLX Blood 07/10/2023 12:3 6 PM CDT 07/10/2023 12:39 PM CDT Unknown Provider LAB POCT ORDERABLES- MANUAL Performing Organization Address City/[facility]/ZIP Co de Phone Number POC [facility] [address] [place] [address], [facility] PCLX [facility] [address] [place] [address] * Magnesium (07/10/2023 10:32 AM CDT) Magnesium, S 2.0 1.7 - 2.3 mg/dL 07/10/2023 11:51 AM CDT DTL Blood (Blood, Venous) 07/10/2023 10:32 AM CDT 07/10/2023 11:32 AM CDT Addy Arias M.D. LAB BLOOD ADD-ON [facility] [address] [place] [address], [facility] DTL [facility] [address] [place] [address] * (ABNORMAL) Basic Metabolic Panel (07/10/2023 10:32 AM CDT) Potassium, S 4.5 3.6 - 5.2 mmol/L 07/10/2023 11:51 AM CDT DTL Sodium, S 137 135 - 145 mmol/L 07/10/2023 11:51 AM CDT DTL Chloride, S 97(L) 98 - 107 mmol/L 07/10/2023 11:51 AM CDT DTL Bicarbonate, S 27 22 - 29 mmol/L 07/10/2023 11:51 AM CDT DTL Anion Gap 13 7 - 15 07/10/2023 11:51 AM CDT DTL BUN (Blood Urea Nitrogen), S 23 8 - 24 mg/dL 07/10/2023 11:51 AM CDT DTL Creatinine 0.78 0.74 - 1.35 mg/dL 07/10/2023 11:51 AM CDT DTL Estimated GFR (eGFR) >90 >=60 mL/min/BSA 07/10/2023 11:51 AM CDT DTL Comment: Estimated GFR calculated using the 2020 CKD_EPI creatinine equation. Calcium, Total, S 9.0 8.8 - 10.2 mg/dL 07/10/2023 11:51 AM CDT DTL Glucose, S 197(H) 70 - 140 mg/dL 07/10/2023 11:51 AM CDT DTL Blood (Blood, Venous) 07/10/2023 10:32 AM CDT 07/10/2023 11:32 AM CDT Addy J Sinak M.D. LAB BLOOD ADD-ON [facility] [address] [place] [address], [facility] DTL [facility] [address] [place] [address] * (ABNORMAL) CBC with Differential, Blood (07/10/2023 10:32 AM CDT) Hemoglobin 12.5(L) 13.2 - 16.6 g/dL 07/10/2023 11:13 AM CDT DTL Hematocrit 39.2 38.3 - 48.6 % 07/10/2023 11:13 AM CDT DTL Erythrocytes 4.59 4.35 - 5.65 x10(12)/L 07/10/2023 11:13 AM CDT DTL MCV 85.4 78.2 - 97.9 fL 07/10/2023 11:13 AM CDT DTL RBC Distrib Width 17.7(H) 11.8 - 14.5 % 07/10/2023 11:13 AM CDT DTL Platelet Count 337(H) 135 - 317 x10(9)/L 07/10/2023 11:13 AM CDT DTL Leukocytes 7.4 3.4 - 9.6 x10(9)/L 07/10/2023 11:13 AM CDT DTL Neutrophils 5.19 1.56 - 6.45 x10(9)/L 07/10/2023 11:13 AM CDT DHPM Lymphocytes 1.35 0.95 - 3.07 x10(9)/L 07/10/2023 11:13 AM CDT DTL Monocytes 0.72 0.26 - 0.81 x10(9)/L 07/10/2023 11:13 AM CDT DTL Eosinophils 0.06 0.03 - 0.48 x10(9)/L 07/10/2023 11:13 AM CDT DTL Basophils 0.03 0.01 - 0.08 x10(9)/L 07/10/2023 11:13 AM CDT DTL Blood (Blood, Venous) 07/10/2023 10:32 AM CDT 07/10/2023 11:04 AM CDT Addy Arias M.D. LAB BLOOD ADD-ON [facility] [address] [place] [address], [place] DTL [facility] [address] [place] [address] DHPM [facility] [address] [place] [address] * Glucose, POCT (07/10/2023 8:15 AM CDT) Glucose, POCT, B 121 70 - 140 mg/dL 07/10/2023 8:22 AM CDT PCLX Site Capillary 07/10/2023 8:22 AM CDT PCLX Last Intake > 4 hours 07/10/2023 8:22 AM CDT PCLX Blood 07/10/2023 8:15 AM CDT 07/10/2023 8:22 AM CDT Unknown Provider LAB POCT ORDERABLES- MANUAL POC [facility] [address] [place] [address], [place] PCLX [facility] [address] [place] [address] * Glucose, POCT (07/10/2023 2:47 AM CDT) Glucose, POCT, B 117 70 - 140 mg/dL 07/10/2023 2:49 AM CDT PCLX Site Capillary 07/10/2023 2:49 AM CDT PCLX Last Intake > 4 hours 07/10/2023 2:49 AM CDT PCLX Blood 07/10/2023 2:47 AM CDT 07/10/2023 2:49 AM CDT Unknown Provider LAB POCT ORDERABLES- MANUAL POC [facility] [address] [place] [address], [place] PCLX [facility] [address] [place] [address] * (ABNORMAL) Glucose, POCT (07/09/2023 10:07 PM CDT) Glucose, POCT, B 158(H) 70 - 140 mg/dL 07/09/2023 10:14 PM CDT PCLX Site Capillary 07/09/2023 10:14 PM CDT PCLX Last Intake 2-3 hours 07/09/2023 10:14 PM CDT PCLX Blood 07/09/2023 10:0 7 PM CDT 07/09/2023 10:14 PM CDT Unknown Provider LAB POCT ORDERABLES- MANUAL Performing Organization Address City/[facility]/ZIP Co de Phone Number POC [facility] [address] [place] [address], [facility] PCLX [facility] [address] [place] [address] * (ABNORMAL) Cystatin C with Estimated GFR (07/09/2023 9:01 PM CDT) Pathologist [facility] eGFR by Cystatin C 49(L) >60 mL/min/BSA 07/10/2023 10:19 AM CDT DTL Comment: Estimated GFR calculated [...] lower with the new assay. Cystatin C 1.37(H) 0.67 - 1.21 mg/L 07/10/2023 10:19 AM CDT DTL Blood (Blood, Venous) 07/09/2023 9:01 PM CDT 07/10/2023 9:41 AM CDT Addy Arias M.D. LAB BLOOD ADD-ON [facility] [address] [place] [address], [facility] DTL [facility] [address] [place] [address] * (ABNORMAL) Basic Metabolic Panel (07/09/2023 9:01 PM CDT) Potassium, S 4.3 3.6 - 5.2 mmol/L 07/09/2023 10:08 PM CDT DTL Sodium, S 136 135 - 145 mmol/L 07/09/2023 10:08 PM CDT DTL Chloride, S 97(L) 98 - 107 mmol/L 07/09/2023 10:08 PM CDT DTL Bicarbonate, S 29 22 - 29 mmol/L 07/09/2023 10:08 PM CDT DTL Anion Gap 10 7 - 15 07/09/2023 10:08 PM CDT DTL BUN (Blood Urea Nitrogen), S 25(H) 8 - 24 mg/dL 07/09/2023 10:08 PM CDT DTL Creatinine 0.84 0.74 - 1.35 mg/dL 07/09/2023 10:08 PM CDT DTL Estimated GFR (eGFR) >90 >=60 mL/min/BSA 07/09/2023 10:08 PM CDT DTL Comment: Estimated GFR calculated using the 2020 CKD_EPI creatinine equation. Calcium, Total, S 9.0 8.8 - 10.2 mg/dL 07/09/2023 10:08 PM CDT DTL Glucose, S 182(H) 70 - 140 mg/dL 07/09/2023 10:08 PM CDT DTL Blood (Blood, Venous) 07/09/2023 9:01 PM CDT 07/09/2023 9:53 PM CDT Addy Arias M.D. LAB BLOOD ADD-ON [facility] [address] [place] [address], [facility] [address] [place] [address] * Glucose, POCT (07/09/2023 6:31 PM CDT) Glucose, POCT, B 117 70 - 140 mg/dL 07/09/2023 6:33 PM CDT PCLX Site Capillary 07/09/2023 6:33 PM CDT PCLX Blood 07/09/2023 6:31 PM CDT 07/09/2023 6:33 PM CDT Unknown Provider LAB POCT ORDERABLES- MANUAL Performing Organization Address City/[facility]/ZIP Co de Phone Number POC [facility] [address] [place] [address], [place] PCLX [facility] P[facility] [address] [place] [address] * Glucose, POCT (07/09/2023 4:42 PM CDT) Glucose, POCT, B 87 70 - 140 mg/dL 07/09/2023 4:47 PM CDT PCLX Site Capillary 07/09/2023 4:47 PM CDT PCLX Last Intake 3-4 hours 07/09/2023 4:47 PM CDT PCLX Blood 07/09/2023 4:42 PM CDT 07/09/2023 4:47 PM CDT Unknown Provider LAB POCT ORDERABLES- MANUAL Performing Organization Address City/[facility]/ZIP Co de Phone Number POC [facility] [address] [place] [address], [place] PCLX [facility] P[facility] [address] [place] [address] * Glucose, POCT (07/09/2023 2:07 PM CDT) Glucose, POCT, B 96 70 - 140 mg/dL 07/09/2023 2:19 PM CDT PCLX Last Intake 1-2 hours 07/09/2023 2:19 PM CDT PCLX Blood 07/09/2023 2:07 PM CDT 07/09/2023 2:19 PM CDT Unknown Provider LAB POCT ORDERABLES- MANUAL Performing Organization Address City/[facility]/ZIP Co de Phone Number POC [facility] [address] [place] [address], [place] PCLX [facility] P[facility] [address] [place] [address] * Glucose, POCT (07/09/2023 1:21 PM CDT) Glucose, POCT, B 97 70 - 140 mg/dL 07/09/2023 1:31 PM CDT PCLX Blood 07/09/2023 1:21 PM CDT 07/09/2023 1:31 PM CDT Unknown Provider LAB POCT ORDERABLES- MANUAL Performing Organization Address City/[facility] Co de Phone Number POC [facility] [address] [place] [address], [facility] PCLX [facility] P[facility] [address] [place] [address] * (ABNORMAL) Glucose, POCT (07/09/2023 12:56 PM CDT) Glucose, POCT, B 58(L) 70 - 140 mg/dL 07/09/2023 1:00 PM CDT PCLX Site Capillary 07/09/2023 1:00 PM CDT PCLX Last Intake 1-2 hours 07/09/2023 1:00 PM CDT PCLX Blood 07/09/2023 12:5 6 PM CDT 07/09/2023 1:00 PM CDT Unknown Provider LAB POCT ORDERABLES- MANUAL Performing Organization Address City/[facility] Co de Phone Number POC [facility] [address] [place] [address], [facility] PCLX [facility] [address] [place] [address] * (ABNORMAL) Glucose, POCT (07/09/2023 12:34 PM CDT) Glucose, POCT, B 60(L) 70 - 140 mg/dL 07/09/2023 12:37 PM CDT PCLX Site Capillary 07/09/2023 12:37 PM CDT PCLX Last Intake 3-4 hours 07/09/2023 12:37 PM CDT PCLX Blood 07/09/2023 12:3 4 PM CDT 07/09/2023 12:37 PM CDT Unknown Provider LAB POCT ORDERABLES- MANUAL POC [facility] [address] [place] [address], [facility] PCLX [facility] P[facility] [address] [place] [address] * (ABNORMAL) Glucose, POCT (07/09/2023 12:05 PM CDT) Glucose, POCT, B 38(L) 70 - 140 mg/dL 07/09/2023 12:11 PM CDT PCLX Site Capillary 07/09/2023 12:11 PM CDT PCLX Last Intake 3-4 hours 07/09/2023 12:11 PM CDT PCLX Blood 07/09/2023 12:0 5 PM CDT 07/09/2023 12:11 PM CDT Unknown Provider LAB POCT ORDERABLES- MANUAL Performing Organization Address City/[facility] Co de Phone Number POC [facility] [address] [place] [address], [facility] PCLX [facility] [address] [place] [address] * Phosphorus Inorganic (07/09/2023 8:11 AM CDT) Phosphorus (Inorganic), S 3.3 2.5 - 4.5 mg/dL 07/09/2023 9:25 AM CDT DTL Blood (Blood, Venous) 07/09/2023 8:11 AM CDT 07/09/2023 9:02 AM CDT Romina Dutta., Ph.D. LAB BLOOD ADD-ON Performing Organization Address City/[facility]/ZIP Co de Phone Number [facility] [address] [place] [address], [facility] [address] [place] [address] * Magnesium (07/09/2023 8:11 AM CDT) Magnesium, S 2.0 1.7 - 2.3 mg/dL 07/09/2023 9:25 AM CDT DTL Blood (Blood, Venous) 07/09/2023 8:11 AM CDT 07/09/2023 9:02 AM CDT Romina Law, Ph.D. LAB BLOOD ADD-ON [facility] [address] [place] [address], [facility] DTL [facility] [address] [place] [address] * (ABNORMAL) Basic Metabolic Panel (07/09/2023 8:11 AM CDT) Pathologist [facility] Potassium, S 3.9 3.6 - 5.2 mmol/L 07/09/2023 9:25 AM CDT DTL Sodium, S 139 135 - 145 mmol/L 07/09/2023 9:25 AM CDT DTL Chloride, S 99 98 - 107 mmol/L 07/09/2023 9:25 AM CDT DTL Bicarbonate, S 27 22 - 29 mmol/L 07/09/2023 9:25 AM CDT DTL Anion Gap 13 7 - 15 07/09/2023 9:25 AM CDT DTL BUN (Blood Urea Nitrogen), S 26(H) 8 - 24 mg/dL 07/09/2023 9:25 AM CDT DTL Creatinine 0.77 0.74 - 1.35 mg/dL 07/09/2023 9:25 AM CDT DTL Estimated GFR (eGFR) >90 >=60 mL/min/BSA 07/09/2023 9:25 AM CDT DTL Comment: Estimated GFR calculated using the 2020 CKD_EPI creatinine equation. Calcium, Total, S 9.5 8.8 - 10.2 mg/dL 07/09/2023 9:25 AM CDT DTL Glucose, S 107 70 - 140 mg/dL 07/09/2023 9:25 AM CDT DTL Blood (Blood, Venous) 07/09/2023 8:11 AM CDT 07/09/2023 9:02 AM CDT Romina Law, Ph.D. LAB BLOOD ADD-ON [facility] [address] [place] [address], [facility] [address] [place] [address] * (ABNORMAL) CBC without Differential (07/09/2023 8:11 AM CDT) [facility] Hemoglobin 11.8(L) 13.2 - 16.6 g/dL 07/09/2023 9:15 AM CDT DTL Hematocrit 35.8(L) 38.3 - 48.6 % 07/09/2023 9:15 AM CDT DTL Erythrocytes 4.19(L) 4.35 - 5.65 x10(12)/L 07/09/2023 9:15 AM CDT DTL MCV 85.4 78.2 - 97.9 fL 07/09/2023 9:15 AM CDT DTL RBC Distrib Width 18.0(H) 11.8 - 14.5 % 07/09/2023 9:15 AM CDT DTL Platelet Count 338(H) 135 - 317 x10(9)/L 07/09/2023 9:15 AM CDT DTL Leukocytes 8.5 3.4 - 9.6 x10(9)/L 07/09/2023 9:15 AM CDT DTL Blood (Blood, Venous) 07/09/2023 8:11 AM CDT 07/09/2023 8:47 AM CDT Romina Law, Ph.D. LAB BLOOD ADD-ON [facility] [address] [place] [address], [facility] [address] [place] [address] * (ABNORMAL) Cystatin C with Estimated GFR (07/09/2023 8:09 AM CDT) [facility] eGFR by Cystatin C 56(L) >60 mL/min/BSA 07/09/2023 3:59 PM CDT DTL Comment: Estimated GFR calculated [...] lower with the new assay. Cystatin C 1.24(H) 0.67 - 1.21 mg/L 07/09/2023 3:59 PM CDT DTL Blood (Blood, Venous) 07/09/2023 8:09 AM CDT 07/09/2023 3:21 PM CDT Addy Arias M.D. LAB BLOOD ADD-ON Performing Organization Address City/[facility]/ZIP Co de Phone Number [facility] [address] [place] [address], [facility] DTL [facility] [address] [place] [address] * Glucose, POCT (07/09/2023 8:05 AM CDT) [facility] Glucose, POCT, B 139 70 - 140 mg/dL 07/09/2023 8:10 AM CDT PCLX Site Capillary 07/09/2023 8:10 AM CDT PCLX Last Intake > 4 hours 07/09/2023 8:10 AM CDT PCLX Blood 07/09/2023 8:05 AM CDT 07/09/2023 8:11 AM CDT Unknown Provider LAB POCT ORDERABLES- MANUAL Performing Organization Address City/[facility]/ZIP Co de Phone Number [facility] [address] [place] [address], [facility] PCLX [facility] [address] [place] [address] * (ABNORMAL) Glucose, POCT (07/09/2023 6:06 AM CDT) Glucose, POCT, B 227(H) 70 - 140 mg/dL 07/09/2023 6:08 AM CDT PCLX Site Capillary 07/09/2023 6:08 AM CDT PCLX Last Intake > 4 hours 07/09/2023 6:08 AM CDT PCLX Blood 07/09/2023 6:06 AM CDT 07/09/2023 6:09 AM CDT Unknown Provider LAB POCT ORDERABLES- MANUAL Performing Organization Address [facility] Co de Phone Number [facility] [address] [place] [address], [facility] PCLX [facility] [address] [place] [address] * (ABNORMAL) Glucose, POCT (07/09/2023 3:10 AM CDT) Glucose, POCT, B 265(H) 70 - 140 mg/dL 07/09/2023 3:25 AM CDT PCLX Last Intake 2-3 hours 07/09/2023 3:25 AM CDT PCLX Blood 07/09/2023 3:10 AM CDT 07/09/2023 3:25 AM CDT Unknown Provider LAB POCT ORDERABLES- MANUAL Performing Organization Address [facility] de Phone Number [facility] [address] [place] [address], [facility] PCLX [facility] [address] [place] [address] * Glucose, POCT (07/08/2023 11:55 PM CDT) Glucose, POCT, B 137 70 - 140 mg/dL 07/08/2023 11:57 PM CDT PCLX Last Intake <1 hour 07/08/2023 11:57 PM CDT PCLX Blood 07/08/2023 11:5 5 PM CDT 07/08/2023 11:58 PM CDT Unknown Provider LAB POCT ORDERABLES- MANUAL Performing Organization Address City/[facility] Co de Phone Number POC [facility] [address] [place] [address], [facility] PCLX [facility] [address] [place] [address] * Glucose, POCT (07/08/2023 10:45 PM CDT) Glucose, POCT, B 82 70 - 140 mg/dL 07/08/2023 10:51 PM CDT PCLX Site Capillary 07/08/2023 10:51 PM CDT PCLX Last Intake 1-2 hours 07/08/2023 10:51 PM CDT PCLX Blood 07/08/2023 10:4 5 PM CDT 07/08/2023 10:51 PM CDT Unknown Provider LAB POCT ORDERABLES- MANUAL Performing Organization Address City/[facility]/ZIP Co de Phone Number [facility] [address] [place] [address], [place] PCLX [facility] POC [address] [place] [address] * Glucose, POCT (07/08/2023 10:20 PM CDT) Glucose, POCT, B 117 70 - 140 mg/dL 07/08/2023 10:22 PM CDT PCLX Site Capillary 07/08/2023 10:22 PM CDT PCLX Last Intake 3-4 hours 07/08/2023 10:22 PM CDT PCLX Blood 07/08/2023 10:2 0 PM CDT 07/08/2023 10:22 PM CDT Unknown Provider LAB POCT ORDERABLES- MANUAL Performing Organization Address City/[facility]/ZIP Co de Phone Number [facility] [address] [place] [address], [facility] PCLX [facility] [address] [place] [address] * (ABNORMAL) Glucose, POCT (07/08/2023 9:45 PM CDT) Glucose, POCT, B 59(L) 70 - 140 mg/dL 07/08/2023 10:22 PM CDT PCLX Site Capillary 07/08/2023 10:22 PM CDT PCLX Last Intake 3-4 hours 07/08/2023 10:22 PM CDT PCLX Blood 07/08/2023 9:45 PM CDT 07/08/2023 10:22 PM CDT Unknown Provider LAB POCT ORDERABLES- MANUAL Performing Organization Address City/[facility]/ZIP Co de Phone Number POC [facility] [address] [place] [address], [facility] PCLX [facility] [address] [place] [address] * (ABNORMAL) Glucose, POCT (07/08/2023 9:21 PM CDT) Glucose, POCT, B 40(L) 70 - 140 mg/dL 07/08/2023 10:22 PM CDT PCLX Site Capillary 07/08/2023 10:22 PM CDT PCLX Last Intake 3-4 hours 07/08/2023 10:22 PM CDT PCLX Blood 07/08/2023 9:21 PM CDT 07/08/2023 10:22 PM CDT Unknown Provider LAB POCT ORDERABLES- MANUAL Performing Organization Address [facility] Co de Phone Number [facility] [address] [place] [address], [place] [facility] [address] [place] [address] * (ABNORMAL) Glucose, POCT (07/08/2023 9:08 PM CDT) Glucose, POCT, B 33(L) 70 - 140 mg/dL 07/08/2023 10:22 PM CDT PCLX Last Intake 3-4 hours 07/08/2023 10:22 PM CDT PCLX Blood 07/08/2023 9:08 PM CDT 07/08/2023 10:22 PM CDT Unknown Provider LAB POCT ORDERABLES- MANUAL Performing Organization Address City/[facility]/ZIP Co de Phone Number [facility] [address] [place] [address], [facility] PCLX [facility] [address] [place] [address] * (ABNORMAL) Glucose, POCT (07/08/2023 8:53 PM CDT) Glucose, POCT, B 37(L) 70 - 140 mg/dL 07/08/2023 10:22 PM CDT PCLX Site Capillary 07/08/2023 10:22 PM CDT PCLX Last Intake 1-2 hours 07/08/2023 10:22 PM CDT PCLX Blood 07/08/2023 8:53 PM CDT 07/08/2023 10:22 PM CDT Unknown Provider LAB POCT ORDERABLES- MANUAL Performing Organization Address City/[facility]/ZIP Co de Phone Number POC [facility] [address] [place] [address], [facility] PCLX [facility] [address] [place] [address] * (ABNORMAL) Glucose, POCT (07/08/2023 8:47 PM CDT) Glucose, POCT, B 35(L) 70 - 140 mg/dL 07/08/2023 8:49 PM CDT PCLX Site Capillary 07/08/2023 8:49 PM CDT PCLX Blood 07/08/2023 8:47 PM CDT 07/08/2023 8:49 PM CDT Unknown Provider LAB POCT ORDERABLES- MANUAL POC [facility] [address] [place] [address], [facility] PCLX [facility] [address] [place] [address] * Glucose, POCT (07/08/2023 6:23 PM CDT) Glucose, POCT, B 75 70 - 140 mg/dL 07/08/2023 6:29 PM CDT PCLX Site Capillary 07/08/2023 6:29 PM CDT PCLX Last Intake 3-4 hours 07/08/2023 6:29 PM CDT PCLX Blood 07/08/2023 6:23 PM CDT 07/08/2023 6:29 PM CDT Unknown Provider LAB POCT ORDERABLES- MANUAL Performing Organization Address City/[facility]/ZIP Co de Phone Number POC [facility] [address] [place] [address], [facility] PCLX [facility] [address] [place] [address] * (ABNORMAL) Glucose, POCT (07/08/2023 6:03 PM CDT) Glucose, POCT, B 48(L) 70 - 140 mg/dL 07/08/2023 6:11 PM CDT PCLX Site Capillary 07/08/2023 6:11 PM CDT PCLX Last Intake 3-4 hours 07/08/2023 6:11 PM CDT PCLX Blood 07/08/2023 6:03 PM CDT 07/08/2023 6:11 PM CDT Unknown Provider LAB POCT ORDERABLES- MANUAL Performing Organization Address City/[facility]/ZIP Co de Phone Number POC [facility] [address] [place] [address], [facility] PCLX [facility] [address] [place] [address] * DX Chest Portable 1 View (07/08/2023 [...] Ph.D. IMG DIAGNO STIC IMAGING PROCEDURES * (ABNORMAL) NT-Pro B-Type Natriuretic Peptide (BNP) [...] CDT Romina Law, Ph.D. LAB BLOOD ADD-ON [facility] [address] [place] [address], [facility] [address] [place] [address] * Thyroid Function [place] (07/08/2023 3:44 PM CDT) TSH, Sensitive 1.3 0.3 - 4.2 mIU/L 07/08/2023 4:48 PM CDT DTL Blood (Blood, Venous) 07/08/2023 3:44 PM CDT 07/08/2023 4:12 PM CDT S. Nacho Duc.B.B.S., Ph.D. LAB BLOOD ADD-ON Performing Organization Address City/[facility] Co de Phone Number [facility] [address] [place], [place] [id number] [place] [address] [address] [place] [address] * Phosphorus Inorganic (07/08/2023 3:44 PM CDT) Pathologist [facility] Phosphorus (Inorganic), S 3.8 2.5 - 4.5 mg/dL 07/08/2023 4:48 PM CDT DTL Blood (Blood, Venous) 07/08/2023 3:44 PM CDT 07/08/2023 4:12 PM CDT Romina Law, Ph.D. LAB BLOOD ADD-ON Performing Organization Address City/[facility] Co de Phone Number [facility] [address] [place], [place] [id number] [place] [address] [address] [place] [address] * Magnesium (07/08/2023 3:44 PM CDT) Pathologist [facility] Magnesium, S 2.1 1.7 - 2.3 mg/dL 07/08/2023 4:48 PM CDT DTL Blood (Blood, Venous) 07/08/2023 3:44 PM CDT 07/08/2023 4:12 PM CDT Romina Law, Ph.D. LAB BLOOD ADD-ON Performing Organization Address City/[facility] Co de Phone Number [facility] [address] [place], [place] [phone] [place] [address] [address] [place] [address] * (ABNORMAL) Comprehensive Metabolic Panel (07/08/2023 3:44 PM CDT) Potassium, S 4.7 3.6 - 5.2 mmol/L [...] CDT Romina PageS., Ph.D. LAB BLOOD ADD-ON Performing Organization Address [facility] Co de Phone Number [facility] [address] [place] [address], [facility] [address] [place] [address] * (ABNORMAL) CBC without Differential (07/08/2023 3:44 PM CDT) Hemoglobin 12.9(L) 13.2 - 16.6 g/dL 07/08/2023 4:12 PM CDT DTL Hematocrit 39.3 38.3 - 48.6 % 07/08/2023 4:12 PM CDT DTL Erythrocytes 4.60 4.35 - 5.65 x10(12)/L 07/08/2023 4:12 PM CDT DTL MCV 85.4 78.2 - 97.9 fL 07/08/2023 4:12 PM CDT DTL RBC Distrib Width 17.7(H) 11.8 - 14.5 % 07/08/2023 4:12 PM CDT DTL Platelet Count 332(H) 135 - 317 x10(9)/L 07/08/2023 4:12 PM CDT DTL Leukocytes 9.3 3.4 - 9.6 x10(9)/L 07/08/2023 4:12 PM CDT DTL Blood (Blood, Venous) 07/08/2023 3:44 PM CDT 07/08/2023 4:01 PM CDT Romina PageS., Ph.D. LAB BLOOD ADD-ON [facility] [address] [place] [address], [facility] [address] [place] [address] * CORONARY ANGIOGRAPHY WITH POSSIBLE INTERVENTION (07/08/2023 [...] C.N.P., D.N.P. CV CARDIAC CATH PROCEDURES * Glucose, POCT (07/08/2023 9:42 AM CDT) [facility] Signature Glucose, POCT, B 140 70 - 140 mg/dL 07/08/2023 9:44 AM CDT PCLX Comment: Glucose results collected from venous catheters may be falsely elevated. Site Venline 07/08/2023 9:44 AM CDT PCLX Blood 07/08/2023 9:42 AM CDT 07/08/2023 9:44 AM CDT Unknown Provider LAB POCT ORDERABLES- MANUAL POC 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 (Stable Angina/Angina Of Exertion) (HCC) Coronary Stent Status Post Shortness Of Breath Abnormal Coronary Calcium Computed Tomography Edema Lower Extremity 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 (Stable Angina/Angina Of Exertion) (HCC) Shortness Of Breath Abnormal Coronary Calcium Computed Tomography Edema Lower Extremity 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 (Stable Angina/Angina Of Exertion) (HCC) documented in this encounter Admitting Diagnoses Diagnosis Shortness Of Breath Abnormal Coronary Calcium Computed Tomography Edema Lower Extremity Acute On Chronic Systolic (Congestive) Heart Failure (HCC) documented in this encounter Administered Medications Inactive Administered Medications - up to 3 most recent administrations Medication Order MAR Action Action Date Dose Rate Site aspirin chewable tablet 243 mg 243 mg, oral, Once, On Wed07/12/23 at 1445, For 1 dose, Preprocedure (CV) Given 07/12/2023 2:15 PM CDT 243 mg aspirin chewable tablet 81 mg 81 mg, oral, Daily, First dose on Wed07/09/23 at 0900 Given 07/13/2023 8:21 AM CDT 81 mg Given 07/12/2023 8:47 AM CDT 81 mg Given 07/11/2023 9:14 AM CDT 81 mg atorvastatin tablet 80 mg (LIPITOR) 80 mg, oral, Daily, First dose on Wed07/09/23 at 0900 Given 07/13/2023 8:21 AM CDT 80 mg Given 07/12/2023 8:46 AM CDT 80 mg Given 07/11/2023 9:14 AM CDT 80 mg calcium carbonate-vitamin D3 1,250 mg (500 mg calcium)-5 mcg (200 Unit) per tablet 1 tablet 1 tablet, oral, Every evening, First dose on Wed07/08/23 at 1800, Take with food. Given 07/12/2023 5:58 PM CDT 1 ta blet Given 07/11/2023 6:18 PM CDT 1 tablet Given 07/10/2023 6:04 PM CDT 1 tablet clopidogreL tablet 600 mg (PLAVIX) 600 mg, oral, Once, On Wed07/11/23 at 0945, For 1 dose Given 07/11/2023 9:47 AM CDT 600 mg clopidogreL tablet 75 mg (PLAVIX) 75 mg, oral, Daily, First dose on Wed07/12/23 at 0900, For 1 dose Given 07/12/2023 8:47 AM CDT 75 mg clopidogreL tablet 75 mg (PLAVIX) 75 mg, oral, Daily, First dose on Wed07/13/23 at 0900 Given 07/13/2023 8:21 AM CDT 75 mg dextrose 40 % gel 15 g (GLUTOSE) 15 g, oral, As needed, low blood sugar, For glucose 54-70 mg/dL, Starting on Wed07/08/23 at 2057, If patient is conscious and able to swallow safely and has a fuctioning gastrointestinal tract or on Acarbose (Precose??) or Miglitol (Glyset??). May use tablets or gel. dextrose 50 % injection 12.5 g 12.5 g, intravenous, As needed, low blood sugar, For glucose 54-70 mg/dL, Starting on Tania 07/08/23 at 2058, If the patient has intravenous access available, is not able to take oral feeding safely, does not have a functioning gastrointestinal tract or feeding tube, or is NPO, administer D50W intravenously. dextrose 50 % injection 25 g 25 g, intravenous, As needed, low blood sugar, For glucose less than 54 mg/dL, Starting on Tania 07/08/23 at 2058, If intravenous access is available, administer D50W intravenously enzalutamide capsule 160 mg (XTANDI) 160 mg, oral, Daily, First dose on Wed07/09/23 at 0900, Patient Own Medication HAZARDOUS - Handle with care. Swallow whole. Do NOT crush, chew or open capsule. Given 07/10/2023 10:44 AM CDT 160 mg enzalutamide capsule 160 mg (XTANDI) 160 mg, oral, Daily, First dose (after last modification) on Wed07/11/23 at 0900, Patient Own Medication HAZARDOUS - Handle with care. Swallow whole. Do NOT crush, chew or open capsule. Given 07/13/2023 11:09 AM CDT 160 mg Given 07/11/2023 11:26 AM CDT 160 mg furosemide 120 mg in NaCl 0.9% IVPB (LASIX) 120 mg, intravenous, at 124 mL/hr, Administer over 30 Minutes, Once, On Tania 07/08/23 at 1515, For 1 dose, Adults: Doses less than 120 mg: IV push over 20 mg/minute. Doses 120 mg or greater: IVPB at 4 mg/minute. Peds/Neonates: Doses less than 120 mg over 0.5 mg/kg/minute. Doses 120 mg or greater: IVPB at 4 mg/minute. Do NOT refrigerate. New Bag 07/08/2023 4:28 PM CDT 120 mg 124 mL/hr furosemide 120 mg in NaCl 0.9% IVPB (LASIX) 120 mg, intravenous, at 124 mL/hr, Administer over 30 Minutes, Once, On Wed07/09/23 at 0915, For 1 dose, Adults: Doses less than 120 mg: IV push over 20 mg/minute. Doses 120 mg or greater: IVPB at 4 mg/minute. Peds/Neonates: Doses less than 120 mg over 0.5 mg/kg/minute. Doses 120 mg or greater: IVPB at 4 mg/minute. Do NOT refrigerate. New Bag 07/09/2023 10:02 AM CDT 120 mg 124 mL/hr furosemide 200 mg in NaCl 0.9% IVPB (LASIX) 200 mg, intravenous, at 70 mL/hr, Administer over 60 Minutes, Once, On Wed07/09/23 at 1700, For 1 dose, Adults: Doses less than 120 mg: IV push over 20 mg/minute. Doses 120 mg or greater: IVPB at 4 mg/minute. Peds/Neonates: Doses less than 120 mg over 0.5 mg/kg/minute. Doses 120 mg or greater: IVPB at 4 mg/minute. Do NOT refrigerate. New Bag 07/09/2023 5:49 PM CDT 200 mg 70 mL/hr furosemide 200 mg in NaCl 0.9% IVPB (LASIX) 200 mg, intravenous, at 70 mL/hr, Administer over 60 Minutes, Once, On 07/10/23 at 0915, For 1 dose, Adults: Doses less than 120 mg: IV push over 20 mg/minute. Doses 120 mg or greater: IVPB at 4 mg/minute. Peds/Neonates: Doses less than 120 mg over 0.5 mg/kg/minute. Doses 120 mg or greater: IVPB at 4 mg/minute. Do NOT refrigerate. New Bag 07/10/2023 9:54 AM CDT 200 mg 70 mL/hr furosemide 200 mg in NaCl 0.9% IVPB (LASIX) 200 mg, intravenous, at 70 mL/hr, Administer over 60 Minutes, Once, On 07/10/23 at 1530, For 1 dose, Adults: Doses less than 120 mg: IV push over 20 mg/minute. Doses 120 mg or greater: IVPB at 4 mg/minute. Peds/Neonates: Doses less than 120 mg over 0.5 mg/kg/minute. Doses 120 mg or greater: IVPB at 4 mg/minute. Do NOT refrigerate. New Bag 07/10/2023 4:04 PM CDT 200 mg 70 mL/hr furosemide 200 mg in NaCl 0.9% IVPB (LASIX) 200 mg, intravenous, at 70 mL/hr, Administer over 60 Minutes, Once, On Wed07/11/23 at 0930, For 1 dose, Adults: Doses less than 120 mg: IV push over 20 mg/minute. Doses 120 mg or greater: IVPB at 4 mg/minute. Peds/Neonates: Doses less than 120 mg over 0.5 mg/kg/minute. Doses 120 mg or greater: IVPB at 4 mg/minute. Do NOT refrigerate. New Bag 07/11/2023 9:47 AM CDT 200 mg 70 mL/hr furosemide 200 mg in NaCl 0.9% IVPB (LASIX) 200 mg, intravenous, at 70 mL/hr, Administer over 60 Minutes, Once, On Wed07/12/23 at 1830, For 1 dose, Adults: Doses less than 120 mg: IV push over 20 mg/minute. Doses 120 mg or greater: IVPB at 4 mg/minute. Give 30 mins after metolazone administration Do NOT refrigerate. New Bag 07/12/2023 7:03 PM CDT 200 mg 70 mL/hr glucose chewable tablet 16 g 16 g, oral, As needed, low blood sugar, For glucose 54-70 mg/dL, Starting on Wed07/08/23 at 2058, If patient is conscious and able to swallow safely and has a functioning gastrointestinal tract or on Acarbose (Precose??) or Miglitol (Glyset??). Administer 4 tablets to total 16 grams. May use tablets or gel. heparin (porcine) injection 7,500 Units 7,500 Units, subcutaneous, Every 8 hours scheduled, First dose on Wed07/09/23 at 0600 Given 07/12/2023 6:56 AM CDT 7,500 Units Left Lower Abdomen Given 07/11/2023 10:31 PM CDT 7,500 Units Left Lower Abdomen Given 07/11/2023 1:31 PM CDT 7,500 Units L eft Lower Abdomen insulin lispro patient supplied pump basal (HumaLOG) subcutaneous, Continuous, Starting on Wed07/08/23 at 1630, Patient to self-manage insulin via continuous subcutaneous insulin infusion pump containing insulin ordered. Notify Pharmacy to request a vial to be dispensed for pump refill when needed. This order is linked to Insulin vial for pump refill., Patient to self-manage: Basal Pump Administration Self Administered Via Pump 07/12/2023 2:32 PM CDT Left Upper Arm (Back) insulin lispro patient supplied pump bolus (HumaLOG) subcutaneous, 3 times daily with meals, First dose on Tania 07/08/23 at 1700, Patient to self-manage insulin via continuous subcutaneous insulin infusion pump containing insulin ordered. Notify Pharmacy to request a vial to be dispensed for pump refill when needed. This order is linked to Insulin vial for pump refill., Patient to self-manage: Scheduled Bolus Pump Administration Self Administered Via Pump 07/13/2023 1:59 PM CDT 15.4 Units Left Lower Abdomen Self Administered Via Pump 07/13/2023 9:36 AM CDT 16.4 Uni ts Left Lower Abdomen Self Administered Via Pump 07/12/2023 8:00 PM CDT 11 Units Other insulin lispro patient supplied pump bolus (HumaLOG) subcutaneous, As needed, other, Correction and Snack Bolus, Starting on Tania 07/08/23 at 1607, Patient to self-manage insulin via continuous subcutaneous insulin infusion pump containing insulin ordered. Notify Pharmacy to request a vial to be dispensed for pump refill when needed. This order is linked to Insulin vial for pump refill., Patient to self-manage: Correction Bolus Pump Administration Self Administered Via Pump 07/11/2023 9:51 AM CDT 13 Units Other Self Administered Via Pump 07/11/2023 3:29 AM CDT 8 Units Other Self Administered Via Pump 07/09/2023 6:08 AM CDT 9.2 Unit s Other lisinopriL tablet 20 mg (PRINIVIL,ZESTRIL) 20 mg, oral, Every evening, First dose on Tania 07/08/23 at 1800 Given 07/12/2023 5:58 PM CDT 20 mg Given 07/11/2023 6:18 PM CDT 20 mg Given 07/10/2023 6:04 PM CDT 20 mg magnesium sulfate in D5W IVPB 1 g 1 g, intravenous, at 100 mL/hr, Administer over 60 Minutes, Once, On 07/10/23 at 2145, For 1 dose, Over 1 hours. New Bag 07/10/2023 10:28 PM CDT 1 g 100 mL/hr metOLazone tablet 5 mg (ZAROXOLYN) 5 mg, oral, Daily, First dose on Wed07/11/23 at 0815 Given 07/11/2023 9:13 AM CDT 5 mg metOLazone tablet 5 mg (ZAROXOLYN) 5 mg, oral, Once, On Wed07/12/23 at 1800, For 1 dose Given 07/12/2023 5:58 PM CDT 5 mg metOLazone tablet 5 mg (ZAROXOLYN) 5 mg, oral, Once, On Wed07/13/23 at 0845, For 1 dose Given 07/13/2023 8:25 AM CDT 5 mg metoprolol succinate 24 hr tablet 25 mg (TOPROL-XL) 25 mg, oral, Daily, First dose on Wed07/13/23 at 1330, Do NOT crush or chew. Tablet may be split on score if needed. Given 07/13/2023 1:58 PM CDT 25 mg metoprolol tartrate tablet 25 mg (LOPRESSOR) 25 mg, oral, 2 times daily, First dose on Wed07/08/23 at 2100 Given 07/08/2023 9:18 PM CDT 25 mg nystatin 100,000 unit/gram powder 1 Application (NYSTOP) 1 Application, topical, 2 times daily, First dose on Wed07/09/23 at 1500, Cleanse infected skin and apply evenly over affected area(s). [place] off any excess powder. Given 07/13/2023 8:22 AM CDT 1 Application Given 07/12/2023 8:47 AM CDT 1 Application Given 07/11/2023 10:34 PM CDT [address] tablet 40 mg (PROTONIX) 40 mg, oral, Daily before breakfast, First dose on Wed07/09/23 at 0700, pantoprazole 40 mg oral daily was interchanged for omeprazole 20 or 40 mg oral daily Swallow whole. Do NOT crush, chew, or split tablet. Given 07/13/2023 6:20 AM CDT 40 mg Given 07/12/2023 8:47 AM CDT 40 mg Given 07/11/2023 6:18 AM CDT 40 mg sodium chloride 0.9 % injection 3 mL 3 mL, intravenous, Every 12 hours scheduled, First dose on Tania 07/08/23 at 2100, Peripheral Intravenous Catheter and Rapid Infusion Catheter, when no infusion to maintain patency Given 07/13/2023 8: 21 AM CDT 3 mL Given 07/12/2023 9:20 PM CDT 3 mL Given 07/12/2023 8:47 AM CDT 3 mL spironolactone tablet 12.5 mg (ALDACTONE) 12.5 mg, oral, Daily, First dose on Wed07/09/23 at 0900 Given 07/13/2023 8:21 AM CDT 12.5 mg Given 07/12/2023 8:47 AM CDT 12.5 mg Given 07/11/2023 9:14 AM CDT 12.5 mg torsemide tablet 60 mg (DEMADEX) 60 mg, oral, Daily, First dose on Wed07/13/23 at 0900, 30 mins after metolazone Given 07/13/2023 8:26 AM CDT 60 mg documented in this encounter Active and Recently Administered Medications Times are shown in CDT. Scheduled Medication Order 07/11/2023 07/12/2023 07/13/2023 aspirin chewable tablet 243 mg (COMPLETED) 243 mg, oral, Once, On 07/12/23 at 1445, For 1 dose, Preprocedure (CV) 1415 (Given - Provider: Lizette Padilla RGaliNGali) aspirin chewable tablet 81 mg 81 mg, oral, Daily, First dose on Wed07/09/23 at 0900 0914 (Given - Provider: Saadia Brito R.N.) 0847 (Given - Provider: Humble Holbrook R.N.)1409 (JUN Hold - Provider: Transfer Provider, Automatic - Reason: Patient not available)1728 (JUN Unhold - Provider: Transfer Provider, Automatic) 0821 (Given - Provider: Humble Holbrook R.N.) atorvastatin tablet 80 mg (LIPITOR) 80 mg, oral, Daily, First dose on Wed07/09/23 at 0900 0914 (Given - Provider: Saadia Brito R.N.) 0846 (Given - Provider: Humble Holbrook R.N.)1409 (JUN Hold - Provider: Transfer Provider, Automatic - Reason: Patient not available)1728 (JUN Unhold - Provider: Transfer Provider, Automatic) 0821 (Given - Provider: Humble Holbrook R.N.) calcium carbonate-vitamin D3 1,250 mg (500 mg calcium)-5 mcg (200 Unit) per tablet 1 tablet 1 tablet, oral, Every evening, First dose on Tania 07/08/23 at 1800, Take with food. 1818 (Given - Provider: Saadia Brito R.N.) 1409 (JUN Hold - Provider: Transfer Provider, Automatic - Reason: Patient not available)1728 (JUN Unhold - Provider: Transfer Provider, Automatic)1758 (Given - Provider: Humble Holbrook R.N.) clopidogreL tablet 600 mg (PLAVIX) (COMPLETED) 600 mg, oral, Once, On 07/11/23 at 0945, For 1 dose 0947 (Given - Provider: Saadia Brito R.N.) clopidogreL tablet 75 mg (PLAVIX) (COMPLETED) 75 mg, oral, Daily, First dose on Wed07/12/23 at 0900, For 1 dose 0847 (Given - Provider: Humble Holbrook R.N.) clopidogreL tablet 75 mg (PLAVIX) 75 mg, oral, Daily, First dose on Wed07/13/23 at 0900 0821 (Given - Provider: Humble Holbrook R.N.) enzalutamide capsule 160 mg (XTANDI) 160 mg, oral, Daily, First dose (after last modification) on 07/11/23 at 0900, Patient Own Medication HAZARDOUS - Handle with care. Swallow whole. Do NOT crush, chew or open capsule. 1126 (Given - Provider: Saadia Brito R.N.) 0847 (Not Given - Provider: Humble Holbrook R.N. - Reason: Patient/family refused)1409 (JUN Hold - Provider: Transfer Provider, Automatic - Reason: Patient not available)1728 (JUN Unhold - Provider: Transfer Provider, Automatic) 1109 (Given - Provider: Humble Holbrook R.N.) furosemide 200 mg in NaCl 0.9% IVPB (LASIX) (COMPLETED) 200 mg, intravenous, at 70 mL/hr, Administer over 60 Minutes, Once, On 07/11/23 at 0930, For 1 dose, Adults: Doses less than 120 mg: IV push over 20 mg/minute. Doses 120 mg or greater: IVPB at 4 mg/minute. Peds/Neonates: Doses less than 120 mg over 0.5 mg/kg/minute. Doses 120 mg or greater: IVPB at 4 mg/minute. Do NOT refrigerate. 0947 (New Bag - Provider: Saadia Brito R.N.) furosemide 200 mg in NaCl 0.9% IVPB (LASIX) (COMPLETED) 200 mg, intravenous, at 70 mL/hr, Administer over 60 Minutes, Once, On Wed07/12/23 at 1830, For 1 dose, Adults: Doses less than 120 mg: IV push over 20 mg/minute. Doses 120 mg or greater: IVPB at 4 mg/minute. Give 30 mins after metolazone administration Do NOT refrigerate. 1903 (New Bag - Provider: Humble Holbrook R.N.) heparin (porcine) injection 7,500 Units 7,500 Units, subcutaneous, Every 8 hours scheduled, First dose on Wed07/09/23 at 0600 0619 (Given - Provider: Belinda Skelton RGaliNGali)1331 (Given - Provider: Saadia Brito R.N.)2231 (Given - Provider: Hortensia Adair R.N.) 0656 (Given - Provider: Hortensia Adair R.N.)1349 (Not Given - Provider: Humble Holbrook R.N. - Reason: Other - Comment: angio in 20 minutes)1409 (MAR Hold - Provider: Transfer Provider, Automatic - Reason: Patient not available)1728 (MAR Unhold - Provider: Transfer Provider, Automatic)2115 (Not Given - Provider: Marivel Fields R.N. - Reason: Contraindicated - Comment: Angio < 24 hrs ago) 0600 (Not Given - Provider: Marivel Fields R.N. - Reason: Contraindicated - Comment: Angio < 24 hours ago)1318 (Not Given - Provider: Humble Holbrook R.N. - Reason: Contraindicated - Comment: post angio 24hr and hep site bleeding) insulin lispro patient supplied pump bolus (HumaLOG)(Linked Group 1) subcutaneous, 3 times daily with meals, First dose on Tania 3/21/24 at 1700, Patient to self-manage insulin via continuous subcutaneous insulin infusion pump containing insulin ordered. Notify Pharmacy to request a vial to be dispensed for pump refill when needed. This order is linked to Insulin vial for pump refill., Patient to self-manage: Scheduled Bolus Pump Administration 0806 (Not Given - Provider: Terrie Goddard R.N. - Reason: Other - Comment: DCS reccomends no am bolus)1332 (Self Administered Via Pump - Provider: Saadia Brito R.N. - Comment: carbs 72g)1808 (Not Given - Provider: Saadia Brito R.N. - Reason: Other - Comment: hypoglycemic) 0848 (Not Given - Provider: Humble Holbrook R.N. - Reason: NPO)1153 (Not Given - Provider: Humble Holbrook R.N. - Reason: NPO)1409 (MAR Hold - Provider: Transfer Provider Automatic - Reason: Patient not available)1700 (Not Given - Provider: Humble Holbrook R.N. - Reason: Patient/family refused)1728 (MAR Unhold - Provider: Transfer Provider, Automatic)2000 (Self Administered Via Pump - Provider: Marivel Fields R.N.) 0936 (Self Administered Via Pump - Provider: Humble Holbrook R.N.)1359 (Self Administered Via Pump - Provider: Humble Holbrook R.N.) lisinopriL tablet 20 mg (PRINIVIL,ZESTRIL) 20 mg, oral, Every evening, First dose on Tania 07/08/23 at 1800 1818 (Given - Provider: Saadia Brito R.N.) 1409 (MAR Hold - Provider: Transfer Provider, Automatic - Reason: Patient not available)1728 (MAR Unhold - Provider: Transfer Provider, Automatic)1758 (Given - Provider: Humble Holbrook R.N.) metOLazone tablet 5 mg (ZAROXOLYN) (CANCELED) 5 mg, oral, Daily, First dose on Wed07/11/23 at 0815 0913 (Given - Provider: Saadia Brito R.N.) metOLazone tablet 5 mg (ZAROXOLYN) (COMPLETED) 5 mg, oral, Once, On Wed07/12/23 at 1800, For 1 dose 1758 (Given - Provider: Humble Holbrook R.N.) metOLazone tablet 5 mg (ZAROXOLYN) (COMPLETED) 5 mg, oral, Once, On Wed07/13/23 at 0845, For 1 dose 0825 (Given - Provider: Humble Holbrook R.N.) metoprolol succinate 24 hr tablet 25 mg (TOPROL-XL) 25 mg, oral, Daily, First dose on Wed07/13/23 at 1330, Do NOT crush or chew. Tablet may be split on score if needed. 1358 (Given - Provider: Humble Holbrook R.N.) nystatin 100,000 unit/gram powder 1 Application (NYSTOP) 1 Application, topical, 2 times daily, First dose on Wed07/09/23 at 1500, Cleanse infected skin and apply evenly over affected area(s). [place] off any excess powder. 0914 (Given - Provider: Saadia Brito RBren)2234 (Given - Provider: Hortensia Adair R.N.) 0847 (Given - Provider: Humble Holbrook R.N.)1409 (MAR Hold - Provider: Transfer Provider, Automatic - Reason: Patient not available)1728 (MAR Unhold - Provider: Transfer Provider, Automatic)2120 (Not Given - Provider: Marivel Fields R.N. - Reason: Patient/family refused) 0822 (Given - Provider: Humble Holbrook R.N.) pantoprazole DR tablet 40 mg (PROTONIX) 40 mg, oral, Daily before breakfast, First dose on Wed07/09/23 at 0700, pantoprazole 40 mg oral daily was interchanged for omeprazole 20 or 40 mg oral daily Swallow whole. Do NOT crush, chew, or split tablet. 0618 (Given - Provider: Belinda Skelton R.N.) 0847 (Given - Provider: Humble Holbrook R.N.)1409 (MAR Hold - Provider: Transfer Provider, Automatic - Reason: Patient not available)1728 (MAR Unhold - Provider: Transfer Provider, Automatic) 0620 (Given - Provider: Marivel Fields R.N.) sodium chloride 0.9 % injection 3 mL 3 mL, intravenous, Every 12 hours scheduled, First dose on Wed07/08/23 at 2100, Peripheral Intravenous Catheter and Rapid Infusion Catheter, when no infusion to maintain patency 0914 (Given - Provider: Saadia Brito R.N.)2100 (Due) 0847 (Given - Provider: Humble Holbrook R.N.)1409 (JUN Hold - Provider: Transfer Provider, Automatic - Reason: Patient not available)1728 (MAR Unhold - Provider: Transfer Provider, Automatic)2120 (Given - Provider: Marivel Fields R.N.) 0821 (Given - Provider: Humble Holbrook R.N.) spironolactone tablet 12.5 mg (ALDACTONE) 12.5 mg, oral, Daily, First dose on Wed07/09/23 at 0900 0914 (Given - Provider: Saadia Brito R.N.) 0847 (Given - Provider: Humble Holbrook R.N.)1409 (MAR Hold - Provider: Transfer Provider, Automatic - Reason: Patient not available)1728 (MAR Unhold - Provider: Transfer Provider, Automatic) 0821 (Given - Provider: Humble Holbrook R.N.) torsemide tablet 60 mg (DEMADEX) 60 mg, oral, Daily, First dose on Wed07/13/23 at 0900, 30 mins after metolazone 0826 (Given - Provider: Humble Holbrook R.N.) Continuous Medication Order 07/11/2023 07/12/2023 07/13/2023 insulin lispro patient supplied pump basal (HumaLOG)(Linked Group 1) subcutaneous, Continuous, Starting on Wed07/08/23 at 1630, Patient to self-manage insulin via continuous subcutaneous insulin infusion pump containing insulin ordered. Notify Pharmacy to request a vial to be dispensed for pump refill when needed. This order is linked to Insulin vial for pump refill., Patient to self-manage: Basal Pump Administration 1409 (JUN Hold - Provider: Transfer Provider, Automatic - Reason: Patient not available)1432 (Self Administered Via Pump - Provider: Lizette Padilla R.N. 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 Pump reapplied and running.)172 ([facility] Unhold - Provider: Transfer Provider, Automatic) PRN Medication Order 07/11/2023 07/12/2023 07/13/2023 acetaminophen tablet 1,000 mg (TYLENOL) 1,000 mg, oral, Every 6 hours PRN, mild pain or score 1-3 of 10, fever, Notify sevice prior to first administration for fever, Starting on Tania 07/08/23 at 1417 1409 ([facility] Hold - Provider: Transfer Provider, Automatic - Reason: Patient not available)1728 ([facility] Unhold - Provider: Transfer Provider, Automatic) aminophylline infusion 250 mg/250 mL NaCl 0.9% (Liaison Planner Only) (CANCELED) Code/trauma/sedation continuous med, Starting on 07/12/23 at 1515, Intraprocedure (CV) 1515 (New Bag - Provider: Lizette Padilla RLaya.)1528 (Stopped - Provider: Lizette Padilla RGaliN.)1601 (Restarted - Provider: Lizette Padilla RLaya.)1606 (Stopped - Provider: Lizette Padilla RLaya.) bisacodyL DR tablet 10 mg (DULCOLAX) 10 mg, oral, Daily PRN, constipation, Starting on Tania 07/08/23 at 1417, PO route preferred. Constipation unrelieved by docusate sodium (COLACE) if ordered. If results needed within 2 hours give rectal suppository if ordered. Swallow whole. Do NOT crush, chew, or split tablet. 1409 ([facility] Hold - Provider: Transfer Provider, Automatic - Reason: Patient not available)1728 ([facility] Unhold - Provider: Transfer Provider, Automatic) dextrose 40 % gel 15 g (GLUTOSE) 15 g, oral, As needed, low blood sugar, For glucose 54-70 mg/dL, Starting on Tania 07/08/23 at 2058, If patient is conscious and able to swallow safely and has a fuctioning gastrointestinal tract or on Acarbose (Precose??) or Miglitol (Glyset??). May use tablets or gel. 1409 ([facility] Hold - Provider: Transfer Provider, Automatic - Reason: Patient not available)1728 ([facility] Unhold - Provider: Transfer Provider, Automatic) dextrose 50 % injection 12.5 g 12.5 g, intravenous, As needed, low blood sugar, For glucose 54-70 mg/dL, Starting on Tania 07/08/23 at 2058, If the patient has intravenous access available, is not able to take oral feeding safely, does not have a functioning gastrointestinal tract or feeding tube, or is NPO, administer D50W intravenously. 1409 ([facility] Hold - Provider: Transfer Provider, Automatic - Reason: Patient not available)1728 ([facility] Unhold - Provider: Transfer Provider, Automatic) dextrose 50 % injection 25 g 25 g, intravenous, As needed, low blood sugar, For glucose less than 54 mg/dL, Starting on Tania 07/08/23 at 205, If intravenous access is available, administer D50W intravenously 140 ([facility] Hold - Provider: Transfer Provider, Automatic - Reason: Patient not available)172 ([facility] Unhold - Provider: Transfer Provider, Automatic) fentaNYL injection (SUBLIMAZE) (CANCELED) Code/trauma/sedation medication, Starting on Wed07/12/23 at 1453, Intraprocedure (CV) 1453 (Given - Provider: Mitch Rae R.N.)1502 (Given - Provider: Mitch Rae R.N.)1530 (Given - Provider: Lizette Padilla RGaliN.)1547 (Given - Provider: Lizette Padilla R.N.)1557 (Given - Provider: Lizette Padilla R.N.)1612 (Given - Provider: Lizette Padilla R.N.)1621 (Given - Provider: Lizette Padilla R.N.)1628 (Given - Provider: Lizette Padilla R.N.) glucose chewable tablet 16 g 16 g, oral, As needed, low blood sugar, For glucose 54-70 mg/dL, Starting on Tania 07/08/23 at 2058, If patient is conscious and able to swallow safely and has a functioning gastrointestinal tract or on Acarbose (Precose??) or Miglitol (Glyset??). Administer 4 tablets to total 16 grams. May use tablets or gel. 1409 ([facility] Hold - Provider: Transfer Provider, Automatic - Reason: Patient not available)1728 ([facility] Unhold - Provider: Transfer Provider, Automatic) heparin (porcine) 1,000 unit/mL injection (CANCELED) Code/trauma/sedation medication, Starting on Wed07/12/23 at 1506, Intraprocedure (CV) 1506 (Given - Provider: Mitch Rae R.N.) insulin lispro patient supplied pump bolus (HumaLOG)(Linked Group 1) subcutaneous, As needed, other, Correction and Snack Bolus, Starting on Tania 07/08/23 at 1607, Patient to self-manage insulin via continuous subcutaneous insulin infusion pump containing insulin ordered. Notify Pharmacy to request a vial to be dispensed for pump refill when needed. This order is linked to Insulin vial for pump refill., Patient to self-manage: Correction Bolus Pump Administration 0329 (Self Administered Via Pump - Provider: Belinda Skelton R.N. - Comment: RMG 223)0951 (Self Administered Via Pump - Provider: Saadia Brito R.N. - Comment: GLucose 252 via renetta) 1409 (MAR Hold - Provider: Transfer Provider, Automatic - Reason: Patient not available)1728 ([facility] Unhold - Provider: Transfer Provider, Automatic) iohexoL 350 mg iodine/mL solution (OMNIPAQUE) (CANCELED) Code/trauma/sedation medication, Starting on Wed07/12/23 at 1630, Intraprocedure (CV) 1630 (Given - Provider: Mt Crum M.D., Ph.D.) lidocaine 10 mg/mL (1 %) injection (XYLOCAINE) (CANCELED) Code/trauma/sedation medication, Starting on Wed07/12/23 at 1452, Intraprocedure (CV) 1452 (Given - Provider: Mliton Becker M.D.) midazolam (PF) injection (VERSED) (CANCELED) Code/trauma/sedation medication, Starting on Wed07/12/23 at 1453, Intraprocedure (CV) 1453 (Given - Provider: Mitch Rae R.N.)1502 (Given - Provider: Mitch Rae R.N.)1530 (Given - Provider: Lizette Padilla R.N.)1547 (Given - Provider: Lizette Padilla R.N.)1557 (Given - Provider: Lizette Padilla R.N.)1612 (Given - Provider: Lizette Padilla R.N.)1621 (Given - Provider: Lizette Padilla R.N.)1628 (Given - Provider: Lizette Padilla R.N.) ondansetron (PF) injection 4 mg (ZOFRAN) 4 mg, intravenous, Daily PRN, nausea, first line option, Starting on Tania 07/08/23 at 1417 1409 ([facility] Hold - Provider: Transfer Provider, Automatic - Reason: Patient not available)1728 ([facility] Unhold - Provider: Transfer Provider, Automatic) phenylephrine injection (CANCELED) Code/trauma/sedation medication, Starting on Wed07/12/23 at 1537, Intraprocedure (CV) 1537 (Given - Provider: Lizette Padilla R.N.) sodium chloride 0.9 % injection 10 mL 10 mL, intravenous, As needed, line care, Starting on Tania 07/08/23 at 1415, Peripheral Intravenous Catheter and Rapid Infusion Catheter, prior to blood sampling, post blood transfusion or post blood sampling 1409 ([facility] Hold - Provider: Transfer Provider, Automatic - Reason: Patient not available)1728 ([facility] Unhold - Provider: Transfer Provider, Automatic) sodium chloride 0.9 % injection 3 mL 3 mL, intravenous, As needed, line care, Starting on Tania 07/08/23 at 1415, Prior to and following infusion and between multiple consecutive infusions: sodium chloride 0.9 % injection 1409 ([facility] Hold - Provider: Transfer Provider, Automatic - Reason: Patient not available)1728 ([facility] Unhold - Provider: Transfer Provider, Automatic) Linked Groups Order Group 1: insulin lispro patient supplied pump basal (HumaLOG)Jump to med subcutaneous, Continuous, Starting on Wed07/08/23 at 1630, Patient to self- manage insulin via continuous subcutaneous insulin infusion pump containing insulin ordered. Notify Pharmacy to request a vial to be dispensed for pump refill when needed. This order is linked to Insulin vial for pump refill., Patient to self-manage: Basal Pump Administration And insulin lispro patient supplied pump bolus (HumaLOG)Jump to med subcutaneous, 3 times daily with meals, First dose on Wed07/08/23 at 1700, Patient to self-manage insulin via continuous subcutaneous insulin infusion pump containing insulin ordered. Notify Pharmacy to request a vial to be dispensed for pump refill when needed. This order is linked to Insulin vial for pump refill., Patient to self-manage: Scheduled Bolus Pump Administration And insulin lispro patient supplied pump bolus (HumaLOG)Jump to med subcutaneous, As needed, other, Correction and Snack Bolus, Starting on Tania 07/08/23 at 1607, Patient to self-manage insulin via continuous subcutaneous insulin infusion pump containing insulin ordered. Notify Pharmacy to request a vial to be dispensed for pump refill when needed. This order is linked to Insulin vial for pump refill., Patient to self-manage: Correction Bolus Pump Administration documented in this encounter
--- OUTSIDE RECORDS SUMMARY | 2023-08-30 16:18 | XMS_ITS | Encounter Summary ---
Author Name Unknown Organization [facility] Address [address] [place] [address] Care Team Providers Care Speed Operator Name Role Phone Unavailable Primary Care Provider Unavailabl e Reason for Visit * Reason Onset Date Comments Drug interaction - Enzalutamide 07/13/2023 Encounter Details Date Type Department Care Team (Latest Contact Info) Description 07/13/2023 Clinical Communication Department of Oncology in [place], [place] [address] [place] [phone] Agnieszka Ochoa, RGaliN. [address] [place] [phone] Drug interaction - Enzalutamide Social History Tobacco Use Types Packs/Day Years Used Date Smoking Tobacco: Never Passive Smoke Exposure: Past Smokeless Tobacco: Never Alcohol Use Standard Drinks/Week Comments Not Currently 0 (1 standard drink = 0.6 oz pur e alcohol) [facility] Utilities Answer Date Recorded In the past [...] How often do you attend chur or presybeterian services? 1 to 4 times per year [...] care, and heating? Not very hard 04/25/2022 [facility] [place] of Occupat ional Health - Occupational Stress [...] your living situation today? I have a [facility] place to live 07/08/2023 Education Answer [...] PM CDT Infusion Department of Oncology in [place], [place] 200 [place] [address] Ankush Mancia M.B.B.S., M.S. 200 [place] [address] 09/22/2023 1:30 PM CDT Appointment Department of Cardiovascular Diseases in [place], [place] 300 [place] [address] Addy Arias M.D. [address] [place] [phone] 09/27/2023 10:45 AM CDT Comprehensive Visit Department of Cardiovascular Diseases in [place], [place] [address] [place] [phone] Laith Feliciano M.D. [address] [place] [phone] 10/06/2023 9:00 AM CDT Infusion Department of Oncology in [place], [place] [address] [place] [phone] Ankush Mancia M.B.BGaliS., M.S. [address] [place] [phone] 11/01/2023 9:00 AM CDT Clinical Communication Virtual Review in [place], [place] 200 [place] [address] 11/03/2023 10:00 AM CDT Comprehensive Visit Division of Gastroenterology in [place], [place] [address] [place] [phone] Mliton Holden M.D. [address] [place] [address] 11/03/2023 1:00 PM CDT Appointment Department of Radiology, [facility], in [place], [place] [address] [place] [phone] Dev Jimenez M.D. [address] [place] [phone] 11/04/2023 8:45 AM CDT Appointment Division of Gastroenterology in [place], [place] [address] [place] [phone] Dev Jimenez M.D. [address] [place] [phone] 11/08/2023 8:00 AM CDT Appointment Division of Gastroenterology in [place], [place] [address] [place] [phone] Dev Jimenez M.D. [address] [place] [phone] 11/09/2023 7:45 AM CDT Appointment Division of Gastroenterology in [place], [place] [address] [place] [address] Dev Jimenez M.D. [address] [place] [phone] documented as of this encounter Visit Diagnoses Not on filedocumented in this encounter
--- OUTSIDE RECORDS SUMMARY | 2023-08-30 16:18 | XMS_ITS | Encounter Summary ---
Author Name Unknown Organization [facility] Address [address] [place] [address] Care Team Providers Care Car Customizer Name Role Phone Unavailable Primary Care Provider Unavailabl e Reason for Visit * Reason Onset Date Comments Pre-visit Intake 07/20/2023 Encounter Details Date Type Department Care Team (Latest Contact Info) Description 07/20/2023 1:30 PM CDT Clinical Communication Virtual Review in [place], [place] 200 [place] [address] Pre-visit Intake Social History Tobacco Use Types Packs/Day Years Used Date Smoking Tobacco: Never Passive Smoke Exposure: Past Smokeless Tobacco: Never Alcohol Use Standard Drinks/Week Comments Not Currently 0 (1 standard drink = 0.6 oz pur e alcohol) [facility] Utilities Answer Date Recorded [...] How often do you attend chur or mosque services? 1 to 4 times per year 04/25/2022 Do you belong to any clubs o r organizations such as scientology groups, unions, fraternal or athletic groups, or [...] care, and heating? Not very hard 04/25/2022 [facility] [place] of Occupat ional Health - Occupational Stress [...] your living situation today? I have a [facility] place to live 07/08/2023 Education Answer [...] PM CDT Infusion Department of Oncology in [place], [place] [address] [place] [address] Ankush Mancia M.B.B.S., M.S. [address] [place] [address] 09/22/2023 1:30 PM CDT Appointment Department of Cardiovascular Diseases in [place], [place] [address] [place] [address] Addy Arias M.D. [address] [place] [phone] 09/27/2023 10:45 AM CDT Comprehensive Visit Department of Cardiovascular Diseases in [place], [place] [address] [place] [phone] Laith Feliciano M.D. [address] [place] [phone] 10/06/2023 9:00 AM CDT Infusion Department of Oncology in [place], [place] [address] [place] [phone] Ankush Mancia M.B.B.S., M.S. [address] [place] [phone] 11/01/2023 9:00 AM CDT Clinical Communication Virtual Review in [place], [place] 200 [place] [address] 11/03/2023 10:00 AM CDT Comprehensive Visit Division of Gastroenterology in [place], [place] [address] [place] [phone] Milton Holden M.D. 1999 [place] [address] 11/03/2023 1:00 PM CDT Appointment Department of Radiology, [facility], in [place], [place] [address] [place] [phone] Dev Jimenez M.D. [address] [place] [phone] 11/04/2023 8:45 AM CDT Appointment Division of Gastroenterology in [place], [place] [address] [place] [phone] Dev Jimenez M.D. [address] [place] [phone] 11/08/2023 8:00 AM CDT Appointment Division of Gastroenterology in [place], [place] [address] [place] [phone] Dev Jimenez M.D. [address] [place] [phone] 11/09/2023 7:45 AM CDT Appointment Division of Gastroenterology in [place], [place] [address] [place] [address] Dev Jimenez M.D. [address] [place] [phone] documented as of this encounter Visit Diagnoses Not on filedocumented in this encounter
--- OUTSIDE RECORDS SUMMARY | 2023-08-30 16:18 | XMS_ITS | Encounter Summary ---
Author Name Unknown Organization [facility] Address [address] [place] [address] Care Team Providers Care Head Refrigerating Engineer Name Role Phone Unavailable Primary Care Provider Unavailabl e Encounter Details Date Type Department Care Team (Late st Contact Info) Description 07/14/2023 Clinical Communication Department of Oncology in [place], [place] [address] [place] [phone] Ankush Mancia M.B.B.S., M.S. [address] [place] [phone] Social History Tobacco Use Types Packs/Day Years Used Date Smoking Tobacco: Never Passive Smoke Exposure: Past Smokeless Tobacco: Never Alcohol Use Standard Drinks/Week Comments Not Currently 0 (1 standard drink = 0.6 oz pur e alcohol) [facility] Utilities Answer Date Recorded In the [...] How often do you attend chur or islam services? 1 to 4 times per year 04/25/2022 Do you belong to any clubs o r organizations such as jewish groups, unions, fraternal or athletic groups, or [...] care, and heating? Not very hard 04/25/2022 [facility] [place] of Occupat ional Health - Occupational Stress [...] your living situation today? I have a [facility] place to live 07/08/2023 Education Answer [...] PM CDT Infusion Department of Oncology in [place], [place] 200 [place] [address] Ankush Mancia M.B.B.S., M.S. 200 [place] [address] 09/22/2023 1:30 PM CDT Appointment Department of Cardiovascular Diseases in [place], [place] 300 [place] [phone] Addy Arias M.D. [address] [place] [phone] 09/27/2023 10:45 AM CDT Comprehensive Visit Department of Cardiovascular Diseases in [place], [place] [address] [place] [phone] Laith Feliciano M.D. [address] [place] [phone] 10/06/2023 9:00 AM CDT Infusion Department of Oncology in [place], [place] [address] [place] [phone] Ankush Mancia M.B.B.S., M.S. [address] [place] [phone] 11/01/2023 9:00 AM CDT Clinical Communication Virtual Review in [place], [place] 200 [place] [address] 11/03/2023 10:00 AM CDT Comprehensive Visit Division of Gastroenterology in [place], [place] [address] [place] [phone] Milton Holden M.D. [address] [place] [phone] 11/03/2023 1:00 PM CDT Appointment Department of Radiology, [facility], in [place], [place] [address] [place] [phone] Dev Jimenez M.D. [address] [place] [phone] 11/04/2023 8:45 AM CDT Appointment Division of Gastroenterology in [place], [place] [address] [place] [address] Dev Jimenez M.D. [address] [place] [phone] 11/08/2023 8:00 AM CDT Appointment Division of Gastroenterology in [place], [place] [address] [place] [address] Dev Jimenez M.D. [address] [place] [phone] 11/09/2023 7:45 AM CDT Appointment Division of Gastroenterology in [place], [place] [address] [place] [phone] Dev Jimenez M.D. [address] [place] [phone] documented as of this encounter Visit Diagnoses Not on filedocumented in this encounter
--- OUTSIDE RECORDS SUMMARY | 2023-08-30 16:19 | XMS_ITS | Encounter Summary ---
Author Name Unknown Organization [facility] Address [address] [place] [address] Care Team Providers Care Set Painter Name Role Phone Unavailable Primary Care Provider Unavailabl e Encounter Details Date Type Department Care Team (Late st Contact Info) Description 07/12/2023 2:11 PM CDT - 07/12/2023 3:41 PM CDT Surgery Division of Cardiovascular Diseases in [place], [place] [address] [place] [phone] Mt Crum M.D., Ph.D. [address] [place] [phone] Stent Placement Social History Tobacco Use Types Packs/Day Years [...] often do you attend chur ch or tenriism services? 1 to 4 times per year 04/25/2022 Do you belong to any clubs o r organizations such as protestant groups, unions, fraternal or athletic groups, or [...] very hard 04/25/2022 [facility] [place] of Occupat ional Health - Occupational Stress [...] your living situation today? I have a [facility] place to live 07/08/2023 Education Answer [...] Sign Reading Time Taken Comments Blood Pressure 113/58 07/12/2023 3:39 PM CDT Pulse 96 07/12/2023 3:39 PM CDT Temperature 36.2 ??C (97.2 ??F) 07/12/2023 8:15 AM CD T Respiratory Rate 0 07/12/2023 3:39 PM CDT Oxygen Saturation 100% 07/12/2023 3:39 PM CDT Inhaled Oxygen Concentration - - [...] Laboratory Medicine 07/21/2023 11:00 AM Ankush Mancia M.B.B.Kurt., M.S. Hematology 08/11/2023 2:00 PM ONC CHAIR [...] telephone number. For other questions, call the [facility] 24-hour telephone number: [phone]. Ask to be connected to the following [...] management, yearly follow up with a local Director Of Hotel and Dietitian is recommended. Please check with your insurance company as diabetes education visits are commonly covered. Your primary care provider can provide referrals for education. * Attachments The following attachments cannot be sent through Care Everywhere. * Glucagon (Into the nose) (Congolese) * Metoprolol (By mouth) (Congolese) * Pantoprazole (By mouth) (Congolese) * Spironolactone (By mouth) (Congolese) * Torsemide (By mouth) (Congolese) documented in this encounter Medications at Time [...] 2 sprays into each nostril daily. 05/11/2023 FreeStyle Jonathan 3 Sensor device CHANGE EVERY [...] Adult Diet Regular; Cardiovascular starting at 07/11 1657 VITALS Temperature: 36.4 ??C Heart Rate: 80 [...] in agreement with the plan. DCS pager [phone] will continue to follow. Call primary service for diabetes concerns between [phone]. Primary service to contact monument installer Endo fellow via hospital bucket wash operator for questions. * Addy Arias M.D. - 07/13/2023 10:09 AM CDT CARDIOVASCULAR PROGRESS NOTE Cardiology 1 Service; [facility], room [place] [address]. Patient seen and examined on rounds with [...] angiogram Plan discussed with RST CARD 1 Director Social Service, Addy Romero M.D., who was present during phillips portions of the evaluation today. Please contact the [place]ology 1 [place] [phone] with questions. Sadiq Celestin MD PGY-1 Internal Medicine Pager [phone] * Yanni Lange, MILY, C.N.P. - 07/12/2023 10:14 AM CDT SUBJECTIVE [...] in agreement with the plan. DCS pager [phone] will continue to follow. Call primary service for diabetes concerns between [phone]. Primary service to contact monument installer Endo fellow via hospital bucket wash operator for questions. * Addy Arias M.D. - 07/12/2023 8:54 AM CDT CARDIOVASCULAR PROGRESS NOTE Cardiology 1 Service; [facility], room [facility] [id number]-[id number]. Patient seen and examined on rounds with [...] 4 and Mg > 2. Consider beta rosalio initiation when euvolemic. Consider ACEi initiation after coronary intervention. SGLT2: Avoiding in the setting of DM1. Prostate Cancer Continuing enzalutamide Will be due for leuprolide 07/14 Shania Roca Pharm.D., R.Ph. * Kayleen Sharma M.D. - 07/12/2023 6:01 AM CDT [...] angiogram Plan discussed with RST CARD 1 Director Social Service, Addy Romero M.D., who was present during phillips portions of the evaluation today. [place] contact [place] 1 [place] [phone] with questions. * Lori Aguirre, MILY, C.N.P. - 07/11/2023 12:45 PM CDT SUBJECTIVE [...] developed hypoglycemia and suspended his pump from 2013-3124. He then ate evening meal of pot [...] 80% tonight as he is going from [place] tomorrow. [place]-4A: 2.4 units/hr 4A-10P: 2.5 units/hr [...] continue to follow through his provider in [place]. Blood glucose frequency: via continuous glucose monitor (CGM) Goal: 100-160 mg/dL Please page DCS within 24 hours prior to hospital dismissal for final dismissal recommendations. Discussed above plan with the patient and patient's family. Patient is alert and oriented and in agreement with the plan. DCS pager [phone] will continue to follow. Call primary service for diabetes concerns between [phone]. Primary service to contact monument installer Endo fellow via hospital bucket wash operator for questions. Addendum: Met with patient again [...] CDT CARDIOVASCULAR PROGRESS NOTE Cardiology 1 Service; [facility], room [place] [address]. Patient seen and examined on rounds with [...] Have arranged for PCI on Wednesday, 12-Jul-23. * Kayleen Sharma M.D. - 07/11/2023 [...] Uncertain Plan discussed with RST CARD 1 Director Social Service, Addy Romero M.D., who was present during phillips portions of the evaluation today. Please contact [place] 1 [place] [phone] with questions. * Lori Aguirre, MILY, C.N.P. [...] mornin 16.5 units, 0608 9.2 units and 09 14.7 units. Steroids: None Current Diet Adult [...] dose adjustment. Prescription sign and held for Cynthia. Blood glucose frequency: four times daily or via continuous glucose monitor (CGM) Goal: 100-140 mg/dL Please page DCS within 24 hours prior to hospital dismissal for final dismissal recommendations. Discussed above plan with the patient and patient's family. Patient is alert and oriented and in agreement with the plan. DCS pager [phone] will continue to follow. Call primary service for diabetes concerns between [phone]. Primary service to contact monument installer Endo fellow via hospital bucket wash operator for questions. * Addy Arias M.D. - 07/10/2023 10:38 AM CDT CARDIOVASCULAR PROGRESS NOTE Cardiology 1 Service; [facility], room [place] [address]. Patient seen and examined on rounds with [...] Uncertain Plan discussed with RST CARD 1 Director Social Service, Addy Romero M.D., who was present during phillips portions of the evaluation today. Please contact [place] 1 [place] [phone] with questions. * Madonna Reyes, [facility]-ASSISTED SALES REPRESENTATIVE - 07/09/2023 12:51 PM CDT Speech Language Pathology Dysphagia Evaluation- Acute Care Session Type: Evaluation Length of session: 20 minutes Time of Dysphagia Session: 1140 SUBJECTIVE Referred By: RST CARD 1 History: Mr. Butler is a 72 y.o. male who was admitted to [facility] on 07/08/2023 due to severe multi-vessel CAD. Mr. Butler's medical history is well documented in the electronic medical record, please refer to admission notes for full history. Briefly, pmhx is significant for D GA, ANA LILIA w/ CPAP compliance, morbid obesity [...] (WFL) Breath Support for Speech: Adequate Resonance (SHAFT SINKER Function): Within Functional Limits (WFL) Articulation: Within [...] best tolerated) Safety Precautions: Standard GERD precautions ASSISTED SALES REPRESENTATIVE to sign off at this time Discharge Location: Unknown ASSISTED SALES REPRESENTATIVE Ongoing Services: Ongoing formal Speech Pathology services not indicated at this time: follow written home program Rehab Potential: Good Thank you, Vicky Reyes MA, CCC-ASSISTED SALES REPRESENTATIVE Contact: Pager #[phone] Speech-Language Pathologist Speech Pathology Service Pager: Dysphagia [phone] Speech Pathology Service Pager: Communication [phone] * Lima Alas R.N., C.W.C.N. - 07/09/2023 11:50 AM CDT [facility] Wound RN consulted to assess Lawrence Butler [...] Patient agreeable to treatment plan noted below. 07/09/23 1035 Wound 07/09/23 Intertriginous Dermatitis Gluteal cleft ;Buttocks;Perineum Date First Assessed/Time First Assessed: 07/09/23 1035 Present on Original Admission: Yes Wound Approximate Age at First Assessment: Unknown Primary Wound Type: Intertriginous Dermatitis Location: Gluteal cleft Wound Description (Comments): ;But... Pain Score 0 - none *Signs of Infection None Unable to Measure Y *Wound Bed Closed;[place] Tissue Exposed None Odor None *Exudate Amount None Shakila-wound Assessment Blanchable erythema;[place];Intact *Primary Dressing Liquid skin protectant *Primary Dressing Frequency of Change 2x/day & PRN *Secondary Dressing Foam *Secondary Dressing Frequency of Change Daily & PRN Changed by Unit based nurse Complications none Ongoing management Nursing Documentation done by [facility] RN? Yes Wound 07/09/23 Incontinence Associated Dermatitis Groin Bilateral Date First Assessed/Time First Assessed: 07/09/23 1035 Present on Original Admission: Yes Wound Approximate Age at First Assessment: Unknown Primary Wound Type: Incontinence Associated Dermatitis Location: Groin Wound Location Orientation: Bilat... *Signs of Infection None Unable to Measure Y *Wound Bed Closed;[place] Tissue Exposed None Odor Mild *Exudate Amount None [place]akila-wound Assessment Blanchable erythema;[place] (moist) *Primary Dressing (nystatin powder to be ordered) *Primary Dressing Frequency of Change 2x/day & PRN *Secondary Dressing Textile Changed by Unit based nurse Complications none Ongoing management Nursing Documentation done by [facility] RN? Yes Focused assessment completed DRESSING RECOMMENDATIONS: [...] concerns. Electronically signed by: Lima Alas R.N., Jenna.W.CGaliN. 07/09/23 11:52 AM CDT * Yanni Lange APRN, C.NGaliP. - 07/09/2023 10:52 AM CDT SUBJECTIVE LOS: [...] 0606 07/09/23 0310 07/08/23 2355 07/08/23 2245 07/08/23 2220 07/08/23 2145 07/08/23 2121 07/08/23 2108 07/08/23 2053 07/08/23 2047 07/08/23 1823 07/08/23 1803 07/08/23 1544 GLUCOSEPOC -- [...] in agreement with the plan. DCS pager [phone] will continue to follow. Call primary service for diabetes concerns between [phone]. Primary service to contact monument installer Endo fellow via hospital bucket wash operator for questions. ADDENDUM: Patient was hypoglycemic again at lunch. Having my colleague Meka Wilson CNP change hisbolus to 1 unit per 5 grams of carbohydrate and starting a temporary basal of 80% for the next 24 hours. Told patient to not cover for lunch today. He is in agreement with plan. * Rolly Keyes, RGaliN., [facility] - 07/09/2023 10:15 AM CDT Patient's diabetes technology (Medtronic 770G and Jonathan 3 CGM) downloaded. Reports have been uploaded [...] 4 and Mg > 2. Consider beta rosalio initiation when euvolemic. Consider ACEi initiation after coronary intervention. SGLT2: Avoiding in the setting of DM1. Svc to touch base with oncology to determine if enzalutamide should be continued. JANET Marroquin, PharmGaliD., R.Ph. * Kayleen Sharma M.D. - 07/09/2023 [...] Uncertain Plan discussed with RST CARD 1 Director Social Service, Addy Romero M.D., who was present during phillips portions of the evaluation today. [place] contact [place] 1 [place] [phone] with questions. * Claudio Marroquin, Pharm.D., R.Ph. [...] 2 sprays into each nostril daily. FreeStyle Jonathan 3 Sensor device -- -- 05/11/23 -- [...] as needed for irritation. Ongoing Comment Clary Beal C.Ph.T. 05/20/2023 11:26 AM * Sky Whatley [...] results with the patient as well as Sarina Marroquin. He has 100% occluded circumflex, 99% [...] CDT CARDIOVASCULAR ADMISSION NOTE Cardiology 1 Service; [facility], room [facility] [id number]-[id number]. Mr. Lawrence Butler is a 72-year-old man [...] diastolic LV-CHF Sub / Obj No prior GA, angina - ? MCCLELLAN as angina equivalent. [...] disease and presence of CHF, admit to [facility] Cardiology 1 Service. Overnight, VS have remained [...] reduced with severe generalized hypokinesis along with trgo-kr-eekrvqtm right ventricular systolic dysfunction. . Side by [...] Ejection Fraction NYHA III --GDMT-- - B Rosalio, start metoprolol 25mg BID - RADHA-i , [...] Patient will use home CPAP machine - ASSISTED SALES REPRESENTATIVE swallow assessment - PRN bowel regimen Medication Reconciliation Stop Plavix Start Metoprolol BID Start Spironolactone Start IV Furosemide Consider SGLT2 addition Restart RADHA-i if renal function normal post cath Barby Gruber PGY3 Resident. Patient will be staffed with Dr Arias within 24 hours of admission. Please contact service pager [phone] if there are any questions regarding this [...] 8 TIMES PER DAY DME CPAP FreeStyle Jonathan 3 Sensor device CHANGE EVERY [...] No evidence of disorganized thinking. Reliable history customer account representative. DIAGNOSTICS I have reviewed the diagnostics from [...] be discussed with the RST CARD 1 Director Social Service. [place] 1 [place] [phone] with questions. documented in this encounter Consult Notes * Rosalia Blackwell CEP - 07/13/2023 10:32 AM CDTAssociated Order(s): [...] the cardiac rehab program. Patient referred to: [facility] [address] [place] [address] Recommend that the patient check with insurance [...] monitors blood glucose at home continuously with [facility] Jonathan continuous glucose monitor (CGM). Results of home [...] Thank you for the consult. DCS pager [phone] will follow. Call primary service for diabetes concerns between [phone]. Primary service to contact monument installer Endo fellow via hospital bucket wash operator for questions. * Kathryn Rivero APRN, C.N.P., M.S.N. - 07/08/2023 3:23 PM CDTAssociated Order(s): IP CONSULT TO CARDIOVASCULAR SURGERY SUBJECTIVE Chief Complaint: Multi-vessel CAD History of present illness: Mr. Butler is a 72 y.o. male admitted to [facility] on 07/07 following a coronary angio where [...] triple vessel disease. He was admitted to [facility] for consideration for surgical revascularization versus complex PCI. Cardiovascular Surgery was consulted to see by [facility] for evaluation and treatment of multi-vessel CAD. [...] 8 TIMES PER DAY DME CPAP FreeStyle Jonathan 3 Sensor device CHANGE EVERY [...] reduced with severe generalized hypokinesis along with uqtz-sy-qocavzuo right ventricular systolic dysfunction. . Side by [...] Heart Failure (HCC) #5 Atherosclerotic Heart Disease [place] 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 (Stable Angina/Angina Of Exertion) ([facility]) Mr. Butler is a 72 y.o. male admitted to [facility] with acute on chronic heart failure and multivessel coronary artery disease. A TTE showed a newly reduced EF of 25% with severe generalize LV hypokinesis. He underwent a coronary angio today (07/07) which demonstrated severe multi-vessel disease. [facility] was consulted for consideration for surgical revascularization. After talking with Mr. Butler and his daughter, they are interested to hear his options to best manage his cardiac symptoms while still maintaining quality of life. This consult will be staffed by Dr. Abbasi. Please reach out to the [facility] team assembler pager [phone]) with questions. documented in this encounter Nursing [...] Goal: Skin/Tissue integrity maintained or improved 07/11/2023 1805 by Terrie Goddard R.N. Outcome: Progressing Note: Patients groin was cleansed and Nystatin powder applied. Interdry applied to groin. 07/11/2023 172 by Terrie Goddard RGaliNGali Outcome: Progressing Problem: SAFETY ADULT Goal: Maintain a safe environment Outcome: Progressing Note: Patient used call light appropriately and remained free from falls during the shift. Problem: SAFETY ADULT - RISK FOR FALL AND OR FALL INJURY Goal: Patient remains free from fall/fall injury 07/11/2023 180 by Terrie Goddard RGaliN. Outcome: Progressing 07/11/2023 172 by Terrie Goddard R.N. Outcome: Progressing Note: Patient used call light adequately and remained free from falls. 07/11/2023 172 by Terrie Goddard R.N. Outcome: Progressing Problem: POTENTIAL OR ACTUAL PRESSURE INJURY-ADULT Goal: Achieve optimal activity and/or mobility to maintain or improve skin integrity 07/11/2023 180 by Terrie Goddard RGaliN. Outcome: Progressing Note: Patient ambulated in hallway and tolerated fairly well. 07/11/2023 172 by Terrie Goddard R.NGali Outcome: Progressing Note: Patient ambulated in hallway with walker. 07/11/2023 172 by Terrie Goddard R.NGali Outcome: Progressing Problem: Compromised Skin Integrity Goal: Skin/Tissue integrity maintained or improved 07/11/2023 180 by Terrie Goddard RGaliNGali Outcome: Progressing Note: Patients groin was cleansed and Nystatin powder applied. Interdry applied to groin. 07/11/2023 172 by Terrie Goddard RGaliNGali Outcome: Progressing Problem: Incontinence and/or Moisture Goal: [...] cleft, new Mepilex applied, external catheter changed. 07/10/20231725 by Terrie Goddard R.N. Outcome: Progressing Problem: SAFETY ADULT - RISK FOR FALL AND OR FALL INJURY Goal: Patient remains free from fall/fall injury 07/10/20231726 by Terrie Goddard RGaliNGali Outcome: Progressing Note: Patient used the call light appropriately and remained free from falls. Patient used seated walker with ambulation. 07/10/20231725 by Terrie Goddard RGaliNGali Outcome: Progressing Problem: Compromised Skin Integrity Goal: Skin/Tissue integrity maintained or improved 07/10/20231726 by Terrie Goddard R.N. Outcome: Progressing Note: Patient showered, Nystatin applied to groin and skin folds, Liquid skin protectant applied togluteal cleft, new Mepilex applied, external catheter changed. 07/10/20231725 by Terrie Goddard RGaliNGali Outcome: Progressing Problem: Incontinence and/or Moisture Goal: [...] telephone number. For other questions, call the [facility] 24-hour telephone number: [phone]. Ask to be connected to the following service: RST CARD 1 documented in this encounter Plan of Treatment Upcoming Encounters Date Type Department Care Team (Late st Contact Info) Description 09/07/2023 4:30 PM CDT Infusion Department of Oncology in [place], [place] [address] [place] [phone] Ankush Mancia M.B.B.S., M.S. [address] [place] [phone] 09/22/2023 1:30 PM CDT Appointment Department of Cardiovascular Diseases in [address] [phone] Addy Arias M.D. [address] [place] [phone] 09/27/2023 10:45 AM CDT Comprehensive Visit Department of Cardiovascular Diseases in [place], [place] [address], [place] [address] Laith Feliciano M.D. [address] [place] [phone] 10/06/2023 9:00 AM CDT Infusion Department of Oncology in [place], [place] [address] [place] [phone] Ankush Mancia M.B.B.S., M.S. [address] [place] [phone] 11/01/2023 9:00 AM CDT Clinical Communication Virtual Review in [place], [place] [address] [place] [address] 11/03/2023 10:00 AM CDT Comprehensive Visit Division of Gastroenterology in [place], [place] [address] [place] [phone] Milton Holden M.D. [address] [place] [address] 11/03/2023 1:00 PM CDT Appointment Department of Radiology, [facility], in [place], [place] [address] [place] [address] Dev Jimenez M.D. [address] [place] [phone] 11/04/2023 8:45 AM CDT Appointment Division of Gastroenterology in [place], [place] [address] [place] [address] Dev Jimenez M.D. [address] [place] [phone] 11/08/2023 8:00 AM CDT Appointment Division of Gastroenterology in [place], [place] [address] [place] [address] Dev Jimenez M.D. [address] [place] [phone] 11/09/2023 7:45 AM CDT Appointment Division of Gastroenterology in [place], [place] [address] [place] [address] Dev Jimenez M.D. [address] [place] [phone] Scheduled Referrals Name Type Priority Associated Diagnoses Orde r Schedule External referral cardiac rehab program (non-[place]) Outpatient Referral Routine Coronary Stent Status Post [...] 07/12/2023 4:33 PM CDT Atherosclerotic Heart Disease [place] 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 (Stable Angina/Angina Of Exertion) (HCC) CARDIAC CATHETERIZATION Routine 07/12/2023 4:33 PM CDT Atherosclerotic Heart Disease [place] 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 (Stable Angina/Angina Of Exertion) (HCC) CARDIAC CATHETERIZATION Routine 07/12/2023 4:33 PM CDT Atherosclerotic Heart Disease [place] 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 (Stable Angina/Angina Of Exertion) (HCC) CARDIAC CATHETERIZATION Routine 07/12/2023 4:33 PM CDT Atherosclerotic Heart Disease [place] 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 (Stable Angina/Angina Of Exertion) (HCC) CARDIAC CATHETERIZATION Routine 07/12/2023 4:33 PM CDT Atherosclerotic Heart Disease [place] 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 [...] (ABNORMAL) Glucose, POCT (07/13/2023 11:43 AM CDT) [facility] Glucose, POCT, B 228(H) 70 - 140 mg/dL 07/13/2023 11:45 AM CDT PCLX Site Capillary 07/13/2023 11:45 AM CDT PCLX Blood 07/13/2023 11:4 3 AM CDT 07/13/2023 11:45 AM CDT Unknown Provider LAB POCT ORDERABLES- MANUAL POC [facility] [address] [place] [address], [facility] PCLX [facility] POC [address] [place] [address] * (ABNORMAL) Glucose, POCT (07/13/2023 8:17 AM CDT) Glucose, POCT, B 168(H) 70 - 140 mg/dL 07/13/2023 9:57 AM CDT PCLX Site Capillary 07/13/2023 9:57 AM CDT PCLX Last Intake 3-4 hours 07/13/2023 9:57 AM CDT PCLX Blood 07/13/2023 8:17 AM CDT 07/13/2023 9:57 AM CDT Unknown Provider LAB POCT ORDERABLES- MANUAL Performing Organization Address City/[facility]/ZIP Co de Phone Number POC [facility] [address] [place] [address], [facility] PCLX [facility] POC [address] [place] [address] * Magnesium (07/13/2023 7:32 AM CDT) Magnesium, S 1.9 1.7 - 2.3 mg/dL 07/13/2023 8:41 AM CDT DTL Blood (Blood, Venous) 07/13/2023 7:32 AM CDT 07/13/2023 7:32 AM CDT Addy Arias M.D. LAB BLOOD ADD-ON [facility] [address] [place] [address], [facility] DTL [facility] [address] [place] [address] * (ABNORMAL) Basic Metabolic Panel (07/13/2023 7:32 [...] CDT Addy Arias M.D. LAB BLOOD ADD-ON [facility] [address] [place] [address], [facility] [place] [address] [place] [address] * (ABNORMAL) CBC with Differential, Blood (07/13/2023 [...] CDT Addy Arias M.D. LAB BLOOD ADD-ON [facility] [address] [place] [address], [facility] DTL [facility] [address] [place] [address] [facility] [address] [place] [address] * Glucose, POCT (07/13/2023 2:11 AM CDT) [facility] Glucose, POCT, B 128 70 - 140 mg/dL 07/13/2023 2:12 AM CDT PCLX Site Capillary 07/13/2023 2:12 AM CDT PCLX Last Intake 3-4 hours 07/13/2023 2:12 AM CDT PCLX Blood 07/13/2023 2:11 AM CDT 07/13/2023 2:13 AM CDT Unknown Provider LAB POCT ORDERABLES- MANUAL Performing Organization Address City/[facility] Co de Phone Number POC [facility] [address] [place] [address], [facility] PCLX [facility] POC [address] [place] [address] * (ABNORMAL) Glucose, POCT (07/12/2023 9:19 PM CDT) Glucose, POCT, B 216(H) 70 - 140 mg/dL 07/12/2023 9:27 PM CDT PCLX Site Capillary 07/12/2023 9:27 PM CDT PCLX Last Intake 3-4 hours 07/12/2023 9:27 PM CDT PCLX Blood 07/12/2023 9:19 PM CDT 07/12/2023 9:28 PM CDT Unknown Provider LAB POCT ORDERABLES- MANUAL Performing Organization Address [facility] de Phone Number [facility] [address] [place] [address], [facility] PCLX [facility] POC [address] [place] [address] * ECG 12 Lead (07/12/2023 7:46 PM CDT) Ventricular Rate ECG/Min 94 BPM MUSE FL Interval 236 ms MUSE QRSD Interval 138 ms MUSE QT Interval 402 ms MUSE QTC Interval 502 ms MUSE R [place] -84 degrees MUSE T Wave [place] 94 degrees MUSE 07/12/2023 7:46 PM CDT [...] Irwin Romina Law, Ph.D. ECG ORDERA BLES Performing Organization Address City/[facility] Co de Phone Number MUSE NA * (ABNORMAL) Glucose, POCT (07/12/2023 6:00 PM CDT) [facility] Glucose, POCT, B 206(H) 70 - 140 mg/dL 07/12/2023 7:09 PM CDT PCLX Site Capillary 07/12/2023 7:09 PM CDT PCLX Last Intake 3-4 hours 07/12/2023 7:09 PM CDT PCLX Blood 07/12/2023 6:00 PM CDT 07/12/2023 7:09 PM CDT Unknown Provider LAB POCT ORDERABLES- MANUAL POC [facility] [address] [place] [address], [facility] PCLX [facility] POC [address] [place] [address] * STENT PLACEMENT, PERCUTANEOUS CORONARY ANGIOPLASTY, CORONARY [...] ?? PRE-PROCEDURE DIAGNOSIS 1. ??Atherosclerotic Heart Disease [place] 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 (Stable Angina/Angina Of Exertion) ([facility]LY [facility]) ?? INTERVENTIONAL NOTE Indication: Decompensated [...] lesion with a 1.25 mm kenroy at [id number] rpm with successful passage and polishing. We [...] stent PRE-PROCEDURE DIAGNOSIS 1. 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 We wired [...] Documents. Addy Arias M.D. CV CARDIAC CATH FL OCEDURES * (ABNORMAL) ACT (Activated Clotting Time), POCT (07/12/2023 3:54 PM CDT) Activated Clotting Time, POCT 306(H) 84 - 139 sec 07/12/2023 3:59 PM CDT PCSM Blood 07/12/2023 3:54 PM CDT 07/12/2023 4:00 PM CDT Unknown Provider LAB POCT ORDERABLES - DEVICE Performing Organization Address [facility] Co de Phone Number POC T [facility] [address] [place] [address], [facility] PCSM [facility] POC [address] [place] [id number] * (ABNORMAL) ACT (Activated Clotting Time), POCT (07/12/2023 3:16 PM CDT) Activated Clotting Time, POCT 330(H) 84 - 139 sec 07/12/2023 3:21 PM CDT PCSM Blood 07/12/2023 3:16 PM CDT 07/12/2023 3:22 PM CDT Unknown Provider LAB POCT ORDERABLES - DEVICE Performing Organization Address [facility] Co de Phone Number POC T [facility] [address] [place] [address], [facility] PCSM [facility] POC [address] [place] [address] * (ABNORMAL) Glucose, POCT (07/12/2023 3:15 PM CDT) Glucose, POCT, B 265(H) 70 - 140 mg/dL 07/12/2023 4:41 PM CDT PCLX Blood 07/12/2023 3:15 PM CDT 07/12/2023 4:42 PM CDT Unknown Provider LAB POCT ORDERABLES- MANUAL POC [facility] [address] [place] [address], [facility] PCLX [facility]OC [address] [place] [address] * (ABNORMAL) Glucose, POCT (07/12/2023 11:50 AM CDT) Glucose, POCT, B 266(H) 70 - 140 mg/dL 07/12/2023 11:53 AM CDT PCLX Site Capillary 07/12/2023 11:53 AM CDT PCLX Last Intake 3-4 hours 07/12/2023 11:53 AM CDT PCLX Blood 07/12/2023 11:5 0 AM CDT 07/12/2023 11:53 AM CDT Unknown Provider LAB POCT ORDERABLES- MANUAL Performing Organization Address City/[facility]/ZIP Co de Phone Number POC [facility] [address] [place] [address], [facility] PCLX [facility] [address] [place] [address] * (ABNORMAL) Glucose, POCT (07/12/2023 8:55 AM CDT) Glucose, POCT, B 275(H) 70 - 140 mg/dL 07/12/2023 11:52 AM CDT PCLX Site Capillary 07/12/2023 11:52 AM CDT PCLX Last Intake 3-4 hours 07/12/2023 11:52 AM CDT PCLX Blood 07/12/2023 8:55 AM CDT 07/12/2023 11:53 AM CDT Unknown Provider LAB POCT ORDERABLES- MANUAL Performing Organization Address City/[facility]/ZIP Co de Phone Number [facility] [address] [place] [address], [facility] PCLX [facility] [address] [place] [address] * Magnesium (07/12/2023 6:51 AM CDT) Magnesium, S 2.1 1.7 - 2.3 mg/dL 07/12/2023 8:30 AM CDT DT Blood (Blood, Venous) 07/12/2023 6:51 AM CDT 07/12/2023 8:02 AM CDT Addy Arias M.D. LAB BLOOD ADD-ON [facility] [address] [place] [address], [facility] [address] [place] [address] * (ABNORMAL) Cystatin C with Estimated GFR (07/12/2023 6:51 AM CDT) Pathologist [facility] eGFR by Cystatin C 50(L) >60 mL/min/BSA 07/12/2023 8:30 AM CDT DT Comment: Estimated GFR calculated using the CKD-EPI [...] - 1.21 mg/L 07/12/2023 8:30 AM CDT DT Blood (Blood, Venous) 07/12/2023 6:51 AM CDT 07/12/2023 8:02 AM CDT Addy Arias M.D. LAB BLOOD ADD-ON [facility] [address] [place] [address], [facility] [place] [address] [place] [address] * (ABNORMAL) Basic Metabolic Panel (07/12/2023 6:51 AM CDT) Pathologist [facility] Potassium, S 5.0 3.6 - 5.2 mmol/L [...] CDT Addy Arias M.D. LAB BLOOD ADD-ON [facility] [address] [place] [address], [facility] [place] [address] [place] [address] * (ABNORMAL) CBC without Differential (07/12/2023 6:51 AM CDT) Hemoglobin 12.4(L) 13.2 - 16.6 g/dL 07/12/2023 [...] M.D. LAB BLOOD ADD-ON Performing Organization Address City/[facility]/ZIP Co de Phone Number [facility] [address] [place] [address], [facility] [place] [address] [place] [address] * (ABNORMAL) Glucose, POCT (07/12/2023 3:28 AM CDT) Glucose, POCT, B 282(H) 70 - 140 mg/dL 07/12/2023 3:30 AM CDT PCLX Site Capillary 07/12/2023 3:30 AM CDT PCLX Last Intake > 4 hours 07/12/2023 3:30 AM CDT PCLX Blood 07/12/2023 3:28 AM CDT 07/12/2023 3:30 AM CDT Unknown Provider LAB POCT ORDERABLES- MANUAL Performing Organization Address City/[facility]/ZIP Co de Phone Number POC [facility] [address] [place] [address], [facility] PCLX [facility] [address] [place] [address] * (ABNORMAL) Glucose, POCT (07/11/2023 10:30 PM CDT) Glucose, POCT, B 286(H) 70 - 140 mg/dL 07/11/2023 10:43 PM CDT PCLX Site Capillary 07/11/2023 10:43 PM CDT PCLX Last Intake > 4 hours 07/11/2023 10:43 PM CDT PCLX Blood 07/11/2023 10:3 0 PM CDT 07/11/2023 10:43 PM CDT Unknown Provider LAB POCT ORDERABLES- MANUAL Performing Organization Address City/[facility] Co de Phone Number POC [facility] [address] [place] [address], [facility] PCLX [facility] [address] [place] [address] * (ABNORMAL) Glucose, POCT (07/11/2023 7:25 PM CDT) Glucose, POCT, B 148(H) 70 - 140 mg/dL 07/11/2023 7:29 PM CDT PCLX Site Capillary 07/11/2023 7:29 PM CDT PCLX Last Intake 1-2 hours 07/11/2023 7:29 PM CDT PCLX Blood 07/11/2023 7:25 PM CDT 07/11/2023 7:29 PM CDT Unknown Provider LAB POCT ORDERABLES- MANUAL Performing Organization Address [facility] Co de Phone Number POC [facility] [address] [place] [address], [facility] PCLX [facility] [address] [place] [address] * Glucose, POCT (07/11/2023 6:55 PM CDT) Glucose, POCT, B 121 70 - 140 mg/dL 07/11/2023 7:05 PM CDT PCLX Site Capillary 07/11/2023 7:05 PM CDT PCLX Last Intake <1 hour 07/11/2023 7:05 PM CDT PCLX Blood 07/11/2023 6:55 PM CDT 07/11/2023 7:05 PM CDT Unknown Provider LAB POCT ORDERABLES- MANUAL Performing Organization Address City/[facility]/ZIP Co de Phone Number POC [facility] [address] [place] [address], [facility] PCLX [facility] [address] [place] [address] * Glucose, POCT (07/11/2023 6:38 PM CDT) Glucose, POCT, B 82 70 - 140 mg/dL 07/11/2023 6:40 PM CDT PCLX Site Capillary 07/11/2023 6:40 PM CDT PCLX Last Intake <1 hour 07/11/2023 6:40 PM CDT PCLX Blood 07/11/2023 6:38 PM CDT 07/11/2023 6:41 PM CDT Unknown Provider LAB POCT ORDERABLES- MANUAL Performing Organization Address [facility] Co de Phone Number [facility] [address] [place] [address], [facility] PCLX [facility] [address] [place] [address] * (ABNORMAL) Glucose, POCT (07/11/2023 6:19 PM CDT) Glucose, POCT, B 58(L) 70 - 140 mg/dL 07/11/2023 6:23 PM CDT PCLX Site Capillary 07/11/2023 6:23 PM CDT PCLX Last Intake <1 hour 07/11/2023 6:23 PM CDT PCLX Blood 07/11/2023 6:19 PM CDT 07/11/2023 6:23 PM CDT Unknown Provider LAB POCT ORDERABLES- MANUAL Performing Organization Address City/[facility]/ZIP Co de Phone Number [facility] [address] [place] [address], [facility] PCLX [facility] [address] [place] [address] * (ABNORMAL) Glucose, POCT (07/11/2023 5:58 PM CDT) Glucose, POCT, B 44(L) 70 - 140 mg/dL 07/11/2023 6:00 PM CDT PCLX Site Capillary 07/11/2023 6:00 PM CDT PCLX Last Intake 3-4 hours 07/11/2023 6:00 PM CDT PCLX Blood 07/11/2023 5:58 PM CDT 07/11/2023 6:01 PM CDT Unknown Provider LAB POCT ORDERABLES- MANUAL Performing Organization Address City/[facility]/ZIP Co de Phone Number [facility] [address] [place] [address], [facility] PCLX [facility] [address] [place] [address] * (ABNORMAL) Glucose, POCT (07/11/2023 5:53 PM CDT) Glucose, POCT, B 47(L) 70 - 140 mg/dL 07/11/2023 5:58 PM CDT PCLX Site Capillary 07/11/2023 5:58 PM CDT PCLX Last Intake 3-4 hours 07/11/2023 5:58 PM CDT PCLX Blood 07/11/2023 5:53 PM CDT 07/11/2023 5:59 PM CDT Unknown Provider LAB POCT ORDERABLES- MANUAL Performing Organization Address [facility] Co de Phone Number [facility] [address] [place] [address], [facility] PCLX [facility] [address] [place] [address] * Glucose, POCT (07/11/2023 4:41 PM CDT) Glucose, POCT, B 128 70 - 140 mg/dL 07/11/2023 4:44 PM CDT PCLX Site Capillary 07/11/2023 4:44 PM CDT PCLX Blood 07/11/2023 4:41 PM CDT 07/11/2023 4:44 PM CDT Unknown Provider LAB POCT ORDERABLES- MANUAL POC [facility] [address] [place] [address], [facility] PCLX [facility] [address] [place] [address] * (ABNORMAL) Glucose, POCT (07/11/2023 12:38 PM CDT) Glucose, POCT, B 232(H) 70 - 140 mg/dL 07/11/2023 12:45 PM CDT PCLX Site Capillary 07/11/2023 12:45 PM CDT PCLX Last Intake 3-4 hours 07/11/2023 12:45 PM CDT PCLX Blood 07/11/2023 12:3 8 PM CDT 07/11/2023 12:45 PM CDT Unknown Provider LAB POCT ORDERABLES- MANUAL POC [facility] [address] [place] [address], [facility] PCLX [facility] [address] [place] [address] * ECG 12 Lead (07/11/2023 9:31 AM CDT) Ventricular Rate ECG/Min 83 BPM MUSE FL Interval 248 ms MUSE QRSD Interval 126 ms MUSE QT Interval 410 ms MUSE QTC Interval 481 ms MUSE P [place] 19 degrees MUSE R [place] -84 degrees MUSE T Wave [place] 102 degrees MUSE 07/11/2023 9:31 AM CDT [...] PLACIDO Ovalle Addy Arias M.D. ECG ORDERABLES MUSE NA * Glucose, POCT (07/11/2023 8:06 AM CDT) Glucose, POCT, B 100 70 - 140 mg/dL 07/11/2023 8:15 AM CDT PCLX Site Capillary 07/11/2023 8:15 AM CDT PCLX Last Intake > 4 hours 07/11/2023 8:15 AM CDT PCLX Blood 07/11/2023 8:06 AM CDT 07/11/2023 8:15 AM CDT Unknown Provider LAB POCT ORDERABLES- MANUAL POC [facility] [address] [place] [address], [facility] PCLX [facility] [address] [place] [address] * (ABNORMAL) Cystatin C with Estimated GFR [...] M.D. LAB BLOOD ADD-ON Performing Organization Address City/[facility]/[place] [address] * Magnesium (07/11/2023 7:34 AM CDT) Magnesium, S 2.2 1.7 - 2.3 mg/dL 07/11/2023 9:14 AM CDT DTL Blood (Blood, Venous) 07/11/2023 7:34 AM CDT 07/11/2023 8:28 AM CDT Addy Arias M.D. LAB BLOOD ADD-ON Performing Organization Address [facility] [place] [address] * (ABNORMAL) Basic Metabolic Panel (07/11/2023 7:34 [...] CDT Addy Arias M.D. LAB BLOOD ADD-ON [facility] [address] [place] [address], [facility] [place] [address] [place] [address] * (ABNORMAL) CBC with Differential, Blood (07/11/2023 [...] M.D. LAB BLOOD ADD-ON Performing Organization Address City/[facility]/ZIP Co de Phone Number [facility] [address] [place] [address], [facility] DTL [facility] [address] [place] [address] [facility] [address] [place] [address] * Glucose, POCT (07/11/2023 6:27 AM CDT) Glucose, POCT, B 121 70 - 140 mg/dL 07/11/2023 6:34 AM CDT PCLX Site Capillary 07/11/2023 6:34 AM CDT PCLX Last Intake > 4 hours 07/11/2023 6:34 AM CDT PCLX Blood 07/11/2023 6:27 AM CDT 07/11/2023 6:34 AM CDT Unknown Provider LAB POCT ORDERABLES- MANUAL POC [facility] [address] [place] [address], [facility] PCLX [facility] [address] [place] [address] * (ABNORMAL) Glucose, POCT (07/11/2023 3:28 AM CDT) Glucose, POCT, B 223(H) 70 - 140 mg/dL 07/11/2023 3:34 AM CDT PCLX Site Capillary 07/11/2023 3:34 AM CDT PCLX Last Intake > 4 hours 07/11/2023 3:34 AM CDT PCLX Blood 07/11/2023 3:28 AM CDT 07/11/2023 3:34 AM CDT Unknown Provider LAB POCT ORDERABLES- MANUAL Performing Organization Address City/[facility]/ZIP Co de Phone Number POC [facility] [address] [place] [address], [facility] PCLX [facility] [address] [place] [address] * (ABNORMAL) Glucose, POCT (07/10/2023 10:14 PM CDT) Glucose, POCT, B 186(H) 70 - 140 mg/dL 07/10/2023 10:18 PM CDT PCLX Site Capillary 07/10/2023 10:18 PM CDT PCLX Last Intake > 4 hours 07/10/2023 10:18 PM CDT PCLX Blood 07/10/2023 10:1 4 PM CDT 07/10/2023 10:18 PM CDT Unknown Provider LAB POCT ORDERABLES- MANUAL Performing Organization Address City/[facility]/ZIP Co de Phone Number [facility] [address] [place] [address], [facility] PCLX [facility] [address] [place] [address] * Magnesium (07/10/2023 8:02 PM CDT) Magnesium, S 1.9 1.7 - 2.3 mg/dL 07/10/2023 8:49 PM CDT DTL Blood (Blood, Venous) 07/10/2023 8:02 PM CDT 07/10/2023 8:34 PM CDT Addy Arias M.D. LAB BLOOD ADD-ON [facility] [address] [place] [address], [facility] DTL [facility] [address] [place] [address] * (ABNORMAL) Basic Metabolic Panel (07/10/2023 8:02 [...] CDT Addy Arias M.D. LAB BLOOD ADD-ON [facility] [address] [place] [address], [facility] DTHca [facility] Laboratories[facility] [address] [place] [address] * Glucose, POCT (07/10/2023 5:15 PM CDT) Glucose, POCT, B 97 70 - 140 mg/dL 07/10/2023 5:17 PM CDT PCLX Site Capillary 07/10/2023 5:17 PM CDT PCLX Last Intake 1-2 hours 07/10/2023 5:17 PM CDT PCLX Blood 07/10/2023 5:15 PM CDT 07/10/2023 5:17 PM CDT Unknown Provider LAB POCT ORDERABLES- MANUAL Performing Organization Address City/[facility]/ZIP Co de Phone Number [facility] [address] [place] [address], [facility] PCLX [facility] [address] [place] [address] * Glucose, POCT (07/10/2023 5:03 PM CDT) Glucose, POCT, B 106 70 - 140 mg/dL 07/10/2023 5:06 PM CDT PCLX Site Capillary 07/10/2023 5:06 PM CDT PCLX Last Intake <1 hour 07/10/2023 5:06 PM CDT PCLX Blood 07/10/2023 5:03 PM CDT 07/10/2023 5:06 PM CDT Unknown Provider LAB POCT ORDERABLES- MANUAL Performing Organization Address [facility] Co de Phone Number [facility] [address] [place] [address], [facility] PCLX [facility] [address] [place] [address] * Glucose, POCT (07/10/2023 4:46 PM CDT) Glucose, POCT, B 81 70 - 140 mg/dL 07/10/2023 4:55 PM CDT PCLX Site Capillary 07/10/2023 4:55 PM CDT PCLX Last Intake 1-2 hours 07/10/2023 4:55 PM CDT PCLX Blood 07/10/2023 4:46 PM CDT 07/10/2023 4:55 PM CDT Unknown Provider LAB POCT ORDERABLES- MANUAL Performing Organization Address City/[facility]/ZIP Co de Phone Number [facility] [address] [place] [address], [place] PCLX [facility] [address] [place] [address] * (ABNORMAL) Glucose, POCT (07/10/2023 4:32 PM CDT) Glucose, POCT, B 51(L) 70 - 140 mg/dL 07/10/2023 4:35 PM CDT PCLX Site Capillary 07/10/2023 4:35 PM CDT PCLX Last Intake 1-2 hours 07/10/2023 4:35 PM CDT PCLX Blood 07/10/2023 4:32 PM CDT 07/10/2023 4:35 PM CDT Unknown Provider LAB POCT ORDERABLES- MANUAL [facility] [address] [place] [address], [place] PCLX [facility] [address] [place] [address] * (ABNORMAL) Glucose, POCT (07/10/2023 4:04 PM CDT) Glucose, POCT, B 54(L) 70 - 140 mg/dL 07/10/2023 4:08 PM CDT PCLX Site Capillary 07/10/2023 4:08 PM CDT PCLX Last Intake 3-4 hours 07/10/2023 4:08 PM CDT PCLX Blood 07/10/2023 4:04 PM CDT 07/10/2023 4:08 PM CDT Unknown Provider LAB POCT ORDERABLES- MANUAL POC [facility] [address] [place] [address], [place] PCLX [facility] [address] [place] [address] * Glucose, POCT (07/10/2023 12:36 PM CDT) Glucose, POCT, B 73 70 - 140 mg/dL 07/10/2023 12:38 PM CDT PCLX Site Capillary 07/10/2023 12:38 PM CDT PCLX Last Intake 2-3 hours 07/10/2023 12:38 PM CDT PCLX Blood 07/10/2023 12:3 6 PM CDT 07/10/2023 12:39 PM CDT Unknown Provider LAB POCT ORDERABLES- MANUAL Performing Organization Address City/[facility]/ZIP Co de Phone Number POC [facility] [address] [place] [address], [facility] PCLX [facility] [address] [place] [address] * Magnesium (07/10/2023 10:32 AM CDT) Magnesium, S 2.0 1.7 - 2.3 mg/dL 07/10/2023 11:51 AM CDT DTL Blood (Blood, Venous) 07/10/2023 10:32 AM CDT 07/10/2023 11:32 AM CDT Addy Arias M.D. LAB BLOOD ADD-ON Performing Organization Address City/[facility]/ZIP Co de Phone Number [facility] [address] [place] [address], [facility] DTL [facility] [address] [place] [address] * (ABNORMAL) Basic Metabolic Panel (07/10/2023 10:32 [...] CDT Addy Arias M.D. LAB BLOOD ADD-ON [facility] [address] [place] [address], [facility] [place] [address] [place] [address] * (ABNORMAL) CBC with Differential, Blood (07/10/2023 [...] CDT Addy Arias M.D. LAB BLOOD ADD-ON [facility] [address] [place] [address], [facility] DTL [facility] [address] [place] [address] [facility] [address] [place] [address] * Glucose, POCT (07/10/2023 8:15 AM CDT) [facility] Glucose, POCT, B 121 70 - 140 mg/dL 07/10/2023 8:22 AM CDT PCLX Site Capillary 07/10/2023 8:22 AM CDT PCLX Last Intake > 4 hours 07/10/2023 8:22 AM CDT PCLX Blood 07/10/2023 8:15 AM CDT 07/10/2023 8:22 AM CDT Unknown Provider LAB POCT ORDERABLES- MANUAL POC [facility] [address] [place] [address], [place] PCLX [facility] [address] [place] [address] * Glucose, POCT (07/10/2023 2:47 AM CDT) Glucose, POCT, B 117 70 - 140 mg/dL 07/10/2023 2:49 AM CDT PCLX Site Capillary 07/10/2023 2:49 AM CDT PCLX Last Intake > 4 hours 07/10/2023 2:49 AM CDT PCLX Blood 07/10/2023 2:47 AM CDT 07/10/2023 2:49 AM CDT Unknown Provider LAB POCT ORDERABLES- MANUAL Performing Organization Address City/[facility] Co de Phone Number POC [facility] [address] [place] [address], [place] PCLX [facility] [address] [place] [address] * (ABNORMAL) Glucose, POCT (07/09/2023 10:07 PM CDT) Glucose, POCT, B 158(H) 70 - 140 mg/dL 07/09/2023 10:14 PM CDT PCLX Site Capillary 07/09/2023 10:14 PM CDT PCLX Last Intake 2-3 hours 07/09/2023 10:14 PM CDT PCLX Blood 07/09/2023 10:0 7 PM CDT 07/09/2023 10:14 PM CDT Unknown Provider LAB POCT ORDERABLES- MANUAL Performing Organization Address City/[facility] Co de Phone Number POC [facility] [address] [place] [address], [place] PCLX [facility] [address] [place] [address] * (ABNORMAL) Cystatin C with Estimated GFR (07/09/2023 9:01 PM CDT) Pathologist [facility] eGFR by Cystatin C 49(L) >60 mL/min/BSA [...] CDT Addy Arias M.D. LAB BLOOD ADD-ON [facility] [address] [place] [address], [facility] [place] [address] [place] [address] * (ABNORMAL) Basic Metabolic Panel (07/09/2023 9:01 PM CDT) [facility] Potassium, S 4.3 3.6 - 5.2 mmol/L [...] CDT Addy Arias M.D. LAB BLOOD ADD-ON [facility] [address] [place] [address], [facility] DTL [facility] [address] [place] [address] * Glucose, POCT (07/09/2023 6:31 PM CDT) Glucose, POCT, B 117 70 - 140 mg/dL 07/09/2023 6:33 PM CDT PCLX Site Capillary 07/09/2023 6:33 PM CDT PCLX Blood 07/09/2023 6:31 PM CDT 07/09/2023 6:33 PM CDT Unknown Provider LAB POCT ORDERABLES- MANUAL POC [facility] [address] [place] [address], [facility] PCLX [facility] P[facility] [address] [place] [address] * Glucose, POCT (07/09/2023 4:42 PM CDT) Glucose, POCT, B 87 70 - 140 mg/dL 07/09/2023 4:47 PM CDT PCLX Site Capillary 07/09/2023 4:47 PM CDT PCLX Last Intake 3-4 hours 07/09/2023 4:47 PM CDT PCLX Blood 07/09/2023 4:42 PM CDT 07/09/2023 4:47 PM CDT Unknown Provider LAB POCT ORDERABLES- MANUAL POC [facility] [address] [place] [address], [place] PCLX [facility] P[facility] [address] [place] [address] * Glucose, POCT (07/09/2023 2:07 PM CDT) Glucose, POCT, B 96 70 - 140 mg/dL 07/09/2023 2:19 PM CDT PCLX Last Intake 1-2 hours 07/09/2023 2:19 PM CDT PCLX Blood 07/09/2023 2:07 PM CDT 07/09/2023 2:19 PM CDT Unknown Provider LAB POCT ORDERABLES- MANUAL POC [facility] [address] [place] [address], [facility] PCLX [facility] [address] [place] [address] * Glucose, POCT (07/09/2023 1:21 PM CDT) Glucose, POCT, B 97 70 - 140 mg/dL 07/09/2023 1:31 PM CDT PCLX Blood 07/09/2023 1:21 PM CDT 07/09/2023 1:31 PM CDT Unknown Provider LAB POCT ORDERABLES- MANUAL POC [facility] [address] [place] [address], [place] PCLX [facility] [address] [place] [address] * (ABNORMAL) Glucose, POCT (07/09/2023 12:56 PM CDT) Glucose, POCT, B 58(L) 70 - 140 mg/dL 07/09/2023 1:00 PM CDT PCLX Site Capillary 07/09/2023 1:00 PM CDT PCLX Last Intake 1-2 hours 07/09/2023 1:00 PM CDT PCLX Blood 07/09/2023 12:5 6 PM CDT 07/09/2023 1:00 PM CDT Unknown Provider LAB POCT ORDERABLES- MANUAL Performing Organization Address City/[facility]/ZIP Co de Phone Number POC [facility] [address] [place], [place] [id number], [facility] PCLX [facility] POC [address] [place] [address] * (ABNORMAL) Glucose, POCT (07/09/2023 12:34 PM CDT) Glucose, POCT, B 60(L) 70 - 140 mg/dL 07/09/2023 12:37 PM CDT PCLX Site Capillary 07/09/2023 12:37 PM CDT PCLX Last Intake 3-4 hours 07/09/2023 12:37 PM CDT PCLX Blood 07/09/2023 12:3 4 PM CDT 07/09/2023 12:37 PM CDT Unknown Provider LAB POCT ORDERABLES- MANUAL Performing Organization Address [facility] Co de Phone Number [facility] [address] [place] [address], [facility] PCLX [facility] P[facility] [address] [place] [address] * (ABNORMAL) Glucose, POCT (07/09/2023 12:05 PM CDT) Glucose, POCT, B 38(L) 70 - 140 mg/dL 07/09/2023 12:11 PM CDT PCLX Site Capillary 07/09/2023 12:11 PM CDT PCLX Last Intake 3-4 hours 07/09/2023 12:11 PM CDT PCLX Blood 07/09/2023 12:0 5 PM CDT 07/09/2023 12:11 PM CDT Unknown Provider LAB POCT ORDERABLES- MANUAL Performing Organization Address City/[facility] Co de Phone Number [facility] [address] [place] [address], [facility] PCLX [facility] POC [address] [place] [address] * Phosphorus Inorganic (07/09/2023 8:11 AM CDT) Phosphorus (Inorganic), S 3.3 2.5 - 4.5 mg/dL 07/09/2023 9:25 AM CDT DTL Blood (Blood, Venous) 07/09/2023 8:11 AM CDT 07/09/2023 9:02 AM CDT Romina Law, Ph.D. LAB BLOOD ADD-ON [facility] [address] [place] [address], [facility] [place] [address] [place] [address] * Magnesium (07/09/2023 8:11 AM CDT) Pathologist [facility] Magnesium, S 2.0 1.7 - 2.3 mg/dL 07/09/2023 9:25 AM CDT DTL Blood (Blood, Venous) 07/09/2023 8:11 AM CDT 07/09/2023 9:02 AM CDT Romina Law, Ph.D. LAB BLOOD ADD-ON Performing Organization Address City/[facility]/ZIP Co de Phone Number [facility] [address] [place] [address], [facility] [address] [place] [address] * (ABNORMAL) Basic Metabolic Panel (07/09/2023 8:11 AM CDT) Potassium, S 3.9 3.6 - 5.2 mmol/L [...] CDT Romina Law, Ph.D. LAB BLOOD ADD-ON [facility] [place] [address], [facility] [place] [address] * (ABNORMAL) CBC without Differential (07/09/2023 8:11 AM CDT) Hemoglobin 11.8(L) 13.2 - 16.6 g/dL 07/09/2023 [...] AM CDT 07/09/2023 8:47 AM CDT Romina Dutta., Ph.D. LAB BLOOD ADD-ON [facility] [address] [place] [address], [facility] [place] [address] [place] [address] * (ABNORMAL) Cystatin C with Estimated GFR (07/09/2023 8:09 AM CDT) [facility] eGFR by Cystatin C 56(L) >60 [...] - 1.21 mg/L 07/09/2023 3:59 PM CDT DT Blood (Blood, Venous) 07/09/2023 8:09 AM CDT 07/09/2023 3:21 PM CDT Addy Arias M.D. LAB BLOOD ADD-ON [facility] [address] [place] [address], [facility] [place] [address] [place] [address] * Glucose, POCT (07/09/2023 8:05 AM CDT) Pathologist [facility] Glucose, POCT, B 139 70 - 140 mg/dL 07/09/2023 8:10 AM CDT PCLX Site Capillary 07/09/2023 8:10 AM CDT PCLX Last Intake > 4 hours 07/09/2023 8:10 AM CDT PCLX Blood 07/09/2023 8:05 AM CDT 07/09/2023 8:11 AM CDT Unknown Provider LAB POCT ORDERABLES- MANUAL Performing Organization Address City/[facility]/ZIP Co de Phone Number POC [facility] [address] [place] [address], [facility] P[facility]X [facility] [address] [place] [address] * (ABNORMAL) Glucose, POCT (07/09/2023 6:06 AM CDT) Glucose, POCT, B 227(H) 70 - 140 mg/dL 07/09/2023 6:08 AM CDT PCLX Site Capillary 07/09/2023 6:08 AM CDT PCLX Last Intake > 4 hours 07/09/2023 6:08 AM CDT PCLX Blood 07/09/2023 6:06 AM CDT 07/09/2023 6:09 AM CDT Unknown Provider LAB POCT ORDERABLES- MANUAL Performing Organization Address City/[facility] de Phone Number POC [facility] [address] [place] [address], [facility] P[facility] [address] [place] [address] * (ABNORMAL) Glucose, POCT (07/09/2023 3:10 AM CDT) Glucose, POCT, B 265(H) 70 - 140 mg/dL 07/09/2023 3:25 AM CDT PCLX Last Intake 2-3 hours 07/09/2023 3:25 AM CDT PCLX Blood 07/09/2023 3:10 AM CDT 07/09/2023 3:25 AM CDT Unknown Provider LAB POCT ORDERABLES- MANUAL Performing Organization Address City/[facility]/ZIP Co de Phone Number POC [facility] [address] [place] [address], [place] [facility] [address] [place] [address] * Glucose, POCT (07/08/2023 11:55 PM CDT) Glucose, POCT, B 137 70 - 140 mg/dL 07/08/2023 11:57 PM CDT PCLX Last Intake <1 hour 07/08/2023 11:57 PM CDT PCLX Blood 07/08/2023 11:5 5 PM CDT 07/08/2023 11:58 PM CDT Unknown Provider LAB POCT ORDERABLES- MANUAL Performing Organization Address City/[facility]/ZIP Co de Phone Number POC [facility] [address] [place] [address], [place] [facility] [address] [place] [address] * Glucose, POCT (07/08/2023 10:45 PM CDT) Glucose, POCT, B 82 70 - 140 mg/dL 07/08/2023 10:51 PM CDT PCLX Site Capillary 07/08/2023 10:51 PM CDT PCLX Last Intake 1-2 hours 07/08/2023 10:51 PM CDT PCLX Blood 07/08/2023 10:4 5 PM CDT 07/08/2023 10:51 PM CDT Unknown Provider LAB POCT ORDERABLES- MANUAL Performing Organization Address City/[facility]/ZIP Co de Phone Number POC [facility] [address] [place] [address], [place] [facility] [address] [place] [address] * Glucose, POCT (07/08/2023 10:20 PM CDT) Glucose, POCT, B 117 70 - 140 mg/dL 07/08/2023 10:22 PM CDT PCLX Site Capillary 07/08/2023 10:22 PM CDT PCLX Last Intake 3-4 hours 07/08/2023 10:22 PM CDT PCLX Blood 07/08/2023 10:2 0 PM CDT 07/08/2023 10:22 PM CDT Unknown Provider LAB POCT ORDERABLES- MANUAL Performing Organization Address City/[facility]/ZIP Co de Phone Number POC [facility] [address] [place] [address], [facility] P[facility] [address] [place] [address] * (ABNORMAL) Glucose, POCT (07/08/2023 9:45 PM CDT) Glucose, POCT, B 59(L) 70 - 140 mg/dL 07/08/2023 10:22 PM CDT PCLX Site Capillary 07/08/2023 10:22 PM CDT PCLX Last Intake 3-4 hours 07/08/2023 10:22 PM CDT PCLX Blood 07/08/2023 9:45 PM CDT 07/08/2023 10:22 PM CDT Unknown Provider LAB POCT ORDERABLES- MANUAL Performing Organization Address [facility] Co de Phone Number [facility] [address] [place] [address], [facility] P[facility] [address] [place] [address] * (ABNORMAL) Glucose, POCT (07/08/2023 9:21 PM CDT) Glucose, POCT, B 40(L) 70 - 140 mg/dL 07/08/2023 10:22 PM CDT PCLX Site Capillary 07/08/2023 10:22 PM CDT PCLX Last Intake 3-4 hours 07/08/2023 10:22 PM CDT PCLX Blood 07/08/2023 9:21 PM CDT 07/08/2023 10:22 PM CDT Unknown Provider LAB POCT ORDERABLES- MANUAL POC [facility] [address] [place] [address], [place] [facility] [address] [place] [address] * (ABNORMAL) Glucose, POCT (07/08/2023 9:08 PM CDT) Glucose, POCT, B 33(L) 70 - 140 mg/dL 07/08/2023 10:22 PM CDT PCLX Last Intake 3-4 hours 07/08/2023 10:22 PM CDT PCLX Blood 07/08/2023 9:08 PM CDT 07/08/2023 10:22 PM CDT Unknown Provider LAB POCT ORDERABLES- MANUAL Performing Organization Address City/[facility]/ZIP Co de Phone Number [facility] [address] [place] [address], [place] [facility] [address] [place] [address] * (ABNORMAL) Glucose, POCT (07/08/2023 8:53 PM CDT) Glucose, POCT, B 37(L) 70 - 140 mg/dL 07/08/2023 10:22 PM CDT PCLX Site Capillary 07/08/2023 10:22 PM CDT PCLX Last Intake 1-2 hours 07/08/2023 10:22 PM CDT PCLX Blood 07/08/2023 8:53 PM CDT 07/08/2023 10:22 PM CDT Unknown Provider LAB POCT ORDERABLES- MANUAL POC [facility] [address] [place] [address], [facility] P[facility] [address] [place] [address] * (ABNORMAL) Glucose, POCT (07/08/2023 8:47 PM CDT) Glucose, POCT, B 35(L) 70 - 140 mg/dL 07/08/2023 8:49 PM CDT PCLX Site Capillary 07/08/2023 8:49 PM CDT PCLX Blood 07/08/2023 8:47 PM CDT 07/08/2023 8:49 PM CDT Unknown Provider LAB POCT ORDERABLES- MANUAL POC [facility] [address] [place] [address], [facility] P[facility] [address] [place] [address] * Glucose, POCT (07/08/2023 6:23 PM CDT) Glucose, POCT, B 75 70 - 140 mg/dL 07/08/2023 6:29 PM CDT PCLX Site Capillary 07/08/2023 6:29 PM CDT PCLX Last Intake 3-4 hours 07/08/2023 6:29 PM CDT PCLX Blood 07/08/2023 6:23 PM CDT 07/08/2023 6:29 PM CDT Unknown Provider LAB POCT ORDERABLES- MANUAL Performing Organization Address City/[facility]/ZIP Co de Phone Number POC [facility] [address] [place] [address], [facility] P[facility] [address] [place] [address] * (ABNORMAL) Glucose, POCT (07/08/2023 6:03 PM CDT) Glucose, POCT, B 48(L) 70 - 140 mg/dL 07/08/2023 6:11 PM CDT PCLX Site Capillary 07/08/2023 6:11 PM CDT PCLX Last Intake 3-4 hours 07/08/2023 6:11 PM CDT PCLX Blood 07/08/2023 6:03 PM CDT 07/08/2023 6:11 PM CDT Unknown Provider LAB POCT ORDERABLES- MANUAL POC [facility] [address] [place] [address], [facility] PCLX [facility] [address] [place] [address] * DX Chest Portable 1 View (07/08/2023 [...] CDT Romina Law, Ph.D. LAB BLOOD ADD-ON [facility] [address] [place] [address] * Thyroid Function [place] (07/08/2023 3:44 PM CDT) TSH, Sensitive 1.3 0.3 - 4.2 mIU/L 07/08/2023 4:48 PM CDT DTL Blood (Blood, Venous) 07/08/2023 3:44 PM CDT 07/08/2023 4:12 PM CDT Romina Law, Ph.D. LAB BLOOD ADD-ON Performing Organization Address City/[facility]/ZIP Co de Phone Number [facility] [address] 200 [place] [address] * Phosphorus Inorganic (07/08/2023 3:44 PM CDT) Phosphorus (Inorganic), S 3.8 2.5 - 4.5 mg/dL 07/08/2023 4:48 PM CDT DTL Blood (Blood, Venous) 07/08/2023 3:44 PM CDT 07/08/2023 4:12 PM CDT Romina Law, Ph.D. LAB BLOOD ADD-ON [facility] [address] [place] [address] * Magnesium (07/08/2023 3:44 PM CDT) Magnesium, S 2.1 1.7 - 2.3 mg/dL 07/08/2023 4:48 PM CDT DTL Blood (Blood, Venous) 07/08/2023 3:44 PM CDT 07/08/2023 4:12 PM CDT Romina Law, Ph.D. LAB BLOOD ADD-ON [facility] [address] [place] [address], [facility] DTL [facility] [address] [place] [address] * (ABNORMAL) Comprehensive Metabolic Panel (07/08/2023 3:44 [...] CDT Romina Law, Ph.D. LAB BLOOD ADD-ON [facility] [address] [place] [address], [facility] [address] [place] [address] * (ABNORMAL) CBC without Differential (07/08/2023 3:44 [...] PM CDT 07/08/2023 4:01 PM CDT Romina Nacho Law, Ph.D. LAB BLOOD ADD-ON [facility] [address] [place] [address], [place] DTL [facility] [address] [place] [address] * CORONARY ANGIOGRAPHY WITH POSSIBLE INTERVENTION (07/08/2023 [...] report, see the Order-Level Documents. Sarina Marroquin APRN C.N.P., D.N.P. CV CARDIAC CATH PROCEDURES * Glucose, POCT (07/08/2023 9:42 AM CDT) Glucose, POCT, B 140 70 - 140 mg/dL 07/08/2023 9:44 AM CDT PCLX Comment: Glucose results collected from venous catheters may be falsely elevated. Site Venline 07/08/2023 9:44 AM CDT PCLX Blood 07/08/2023 9:42 AM CDT 07/08/2023 9:44 AM CDT Unknown Provider LAB POCT ORDERABLES- MANUAL POC [facility] [address] [place] [id number] PCLX [facility] POC [address] [place] [address] documented in this encounter Visit Diagnoses Diagnosis Acute On Chronic Systolic (Congestive) Heart Failure (HCC)- Primary Shortness Of Breath Abnormal Coronary Calcium Computed Tomography Edema Lower Extremity Dysphagia [R13.10] Atherosclerotic Heart Disease [place] 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 (Stable Angina/Angina Of Exertion) (HCC) Coronary Stent Status Post Shortness Of Breath Abnormal Coronary Calcium Computed Tomography Edema Lower Extremity Atherosclerotic Heart Disease [place] 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 (Stable Angina/Angina Of Exertion) (HCC) Shortness Of Breath Abnormal Coronary Calcium Computed Tomography Edema Lower Extremity Atherosclerotic Heart Disease [place] 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 (Stable Angina/Angina Of Exertion) ([facility]) documented in this encounter Admitting Diagnoses Diagnosis Shortness Of Breath Abnormal Coronary Calcium Computed Tomography Edema Lower Extremity Acute On Chronic Systolic (Congestive) Heart Failure (HCC) documented in this encounter Administered Medications Inactive Administered Medications - up to 3 most recent administrations Medication Order MAR Action Action Date Dose Rate Site aminophylline infusion 250 mg/250 mL NaCl 0.9% (Data Center [employer] Architect Only) Code/trauma/sedation continuous med, Starting on Wed07/12/23 at 1515, Intraprocedure (CV) Restarted 07/12/2023 4:01 PM CDT 750 mg/hr 750 mL/hr New Bag 07/12/2023 3:15 PM CDT 750 mg/hr 750 mL/hr aspirin chewable tablet 81 mg 81 mg, [...] 6:04 PM CDT 1 tablet clopidogreL tablet 75 mg (PLAVIX) 75 mg, oral, Daily, First dose on Tu07/13/23 at 0900 Given 07/13/2023 8:21 AM CDT 75 mg dextrose 40 % gel 15 g (GLUTOSE) 15 g, oral, As needed, low blood sugar, For glucose 54-70 mg/dL, Starting on Tania 07/08/23 at 2057, If patient is conscious and able to swallow safely and has a fuctioning gastrointestinal tract or on Acarbose (Precose??) or Miglitol (Glyset??). May use tablets or gel. dextrose 50 % injection 12.5 g 12.5 g, intravenous, As needed, low blood sugar, For glucose 54-70 mg/dL, Starting on Tania 07/08/23 at 2057, If the patient has intravenous access available, is not able to take oral feeding safely, does not have a functioning gastrointestinal tract or feeding tube, or is NPO, administer D50W intravenously. dextrose 50 % injection 25 g 25 g, intravenous, As needed, low blood sugar, For glucose less than 54 mg/dL, Starting on Tania 07/08/23 at 2057, If intravenous access is available, administer D50W intravenously enzalutamide capsule 160 mg (XTANDI) 160 mg, oral, Daily, First dose (after last modification) on Wed07/11/23 at 0900, Patient Own Medication HAZARDOUS - Handle with care. Swallow whole. Do NOT crush, chew or open capsule. Given 07/13/2023 11:09 AM CDT 160 mg Given 07/11/2023 11:26 AM CDT 160 mg fentaNYL injection (SUBLIMAZE) Code/trauma/sedation medication, Starting on Wed07/12/23 at 1453, Intraprocedure (CV) Given 07/12/2023 4:28 PM CDT 25 mcg Given 07/12/2023 4:21 PM CDT 25 mcg Given 07/12/2023 4:12 PM CDT 25 mcg glucose chewable tablet 16 g 16 g, oral, As needed, low blood sugar, For glucose 54-70 mg/dL, Starting on Wed07/08/23 at 2058, If patient is conscious and able to swallow safely and has a functioning gastrointestinal tract or on Acarbose (Precose??) or Miglitol (Glyset??). Administer 4 tablets to total 16 grams. May use tablets or gel. heparin (porcine) 1,000 unit/mL injection Code/trauma/sedation medication, Starting on Wed07/12/23 at 1506, Intraprocedure (CV) Given 07/12/2023 3:06 PM CDT 12,000 Units heparin (porcine) injection 7,500 Units 7,500 Units, [...] 6:08 AM CDT 9.2 Unit s Other iohexoL 350 mg iodine/mL solution (OMNIPAQUE) Code/trauma/sedation medication, Starting on Wed07/12/23 at 1630, Intraprocedure (CV) Given 07/12/2023 4:30 PM CDT 200 mL lidocaine 10 mg/mL (1 %) injection (XYLOCAINE) Code/trauma/sedation medication, Starting on Wed07/12/23 at 1452, Intraprocedure (CV) Given 07/12/2023 2:52 PM CDT 2 mL Right Wrist lisinopriL tablet 20 mg (PRINIVIL,ZESTRIL) 20 mg, oral, Every evening, First dose on Tania 07/08/23 at 1800 Given 07/12/2023 5:58 PM CDT 20 mg Given 07/11/2023 6:18 PM CDT 20 mg Given 07/10/2023 6:04 PM CDT 20 mg metoprolol succinate 24 hr tablet 25 mg (TOPROL-XL) 25 mg, oral, Daily, First dose on Wed07/13/23 at 1330, Do NOT crush or chew. Tablet may be split on score if needed. Given 07/13/2023 1:58 PM CDT 25 mg midazolam (PF) injection (VERSED) Code/trauma/sedation medication, Starting on Wed07/12/23 at 1453, Intraprocedure (CV) Given 07/12/2023 4:28 PM CDT 0.5 mg Given 07/12/2023 4:21 PM CDT 0.5 mg Given 07/12/2023 4:12 PM CDT 0.5 mg nystatin 100,000 unit/gram powder 1 Application (NYSTOP) 1 Application, topical, 2 times daily, First dose on Wed07/09/23 at 1500, Cleanse infected skin and apply evenly over affected area(s). [place] off any excess powder. Given 07/13/2023 8:22 [...] Given 07/11/2023 6:18 AM CDT 40 mg phenylephrine injection Code/trauma/sedation medication, Starting on Wed07/12/23 at 1537, Intraprocedure (CV) Given 07/12/2023 3:37 PM CDT 100 mcg sodium chloride 0.9 % injection 3 mL 3 mL, intravenous, Every 12 hours scheduled, First dose on Tania 07/08/23 at 2100, Peripheral Intravenous Catheter and Rapid Infusion Catheter, when no infusion to maintain patency Given 07/13/2023 8:21 AM CDT 3 mL Given 07/12/2023 9:20 [...] mg (COMPLETED) 243 mg, oral, Once, On Wed07/12/23 at 1445, For 1 dose, Preprocedure (CV) 1415 (Given - Provider: Lizette Padilla R.N.) aspirin chewable tablet 81 mg 81 mg, oral, Daily, First dose on Wed07/09/23 at 0900 0914 (Given - Provider: Saadia Brito R.N.) 0847 (Given - Provider: Humble Holbrook R.N.)1409 ([facility] Hold - Provider: Transfer Provider, Automatic - Reason: Patient not available)1728 ([facility] Unhold - Provider: Transfer Provider, Automatic) 0821 (Given - Provider: Humble Holbrook R.N.) atorvastatin tablet 80 mg (LIPITOR) 80 mg, oral, Daily, First dose on Wed07/09/23 at 0900 0914 (Given - Provider: Saadia Brito R.N.) 0846 (Given - Provider: Humble Holbrook R.N.)1409 ([facility] Hold - Provider: Transfer Provider, Automatic - Reason: Patient not available)1728 ([facility] Unhold - Provider: Transfer Provider, Automatic) 0821 (Given - Provider: Humble Holbrook R.N.) calcium carbonate-vitamin D3 1,250 mg (500 mg calcium)-5 mcg (200 Unit) per tablet 1 tablet 1 tablet, oral, Every evening, First dose on Tania 07/08/23 at 1800, Take with food. 1818 (Given - Provider: Saadia Brito R.N.) 1409 ([facility] Hold - Provider: Transfer Provider, Automatic - Reason: Patient not available)1728 ([facility] Unhold - Provider: Transfer Provider, Automatic)1758 (Given - Provider: Humble Holbrook R.N.) clopidogreL tablet 600 mg (PLAVIX) (COMPLETED) 600 mg, oral, Once, On Wed07/11/23 at 0945, For 1 dose 0947 (Given [...] IVPB at 4 mg/minute. Do NOT refrigerate. 09 (New Bag - Provider: Saadia Brito R.N.) furosemide 200 mg in NaCl 0.9% IVPB (LASIX) (COMPLETED) 200 mg, intravenous, at 70 mL/hr, Administer over 60 Minutes, Once, On Wed07/12/23 at 1830, For 1 dose, Adults: Doses less than 120 mg: IV push over 20 mg/minute. Doses 120 mg or greater: IVPB at 4 mg/minute. Give 30 mins after metolazone administration Do NOT refrigerate. 190 (New Bag - Provider: Humble Holbrook R.N.) [...] 0806 (Not Given - Provider: Terrie Goddard RGaliNGali - Reason: Other - Comment: DCS reccomends no am bolus)1332 (Self Administered Via Pump - Provider: Saadia Brito R.N. - Comment: carbs 72g)1808 (Not Given - Provider: Saadia Brito R.N. - Reason: Other - Comment: hypoglycemic) 0848 (Not Given - Provider: Humble Holbrook R.N. - Reason: NPO)1153 (Not Given - Provider: Humble Holbrook R.N. - Reason: NPO)1409 ([facility] Hold - Provider: Transfer Provider, Automatic - Reason: Patient not available)1700 (Not Given - Provider: Humble Holbrook R.N. - Reason: Patient/family refused)1728 (JUN Unhold - Provider: Transfer Provider, Automatic)1999 (Self Administered Via Pump - Provider: Marivel Fields R.N.) 0936 (Self Administered Via Pump - Provider: Humble Holbrook R.N.)1359 (Self Administered Via Pump - Provider: Humble Holbrook R.N.) lisinopriL tablet 20 mg (PRINIVIL,ZESTRIL) 20 mg, oral, Every evening, First dose on Wed07/08/23 at 1800 1818 (Given - Provider: Saadia [...] skin and apply evenly over affected area(s). [place] off any excess powder. 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 RN called DCS, intructed to keep pump on. Pump reapplied and running.)1728 (JUN Unhold - Provider: Transfer Provider, Automatic) PRN Medication Order 07/11/2023 07/12/2023 07/13/2023 acetaminophen tablet 1,000 mg (TYLENOL) 1,000 mg, oral, Every 6 hours PRN, mild pain or score 1-3 of 10, fever, Notify sevice prior to first administration for fever, Starting on Wed07/08/23 at 1417 1409 (JUN Hold - Provider: Transfer Provider, Automatic - Reason: Patient not available)1728 (JUN Unhold - Provider: Transfer Provider, Automatic) aminophylline infusion 250 mg/250 mL NaCl 0.9% (Data Center Solutions Architect Only) (CANCELED) Code/trauma/sedation continuous med, Starting on Wed07/12/23 at 1515, Intraprocedure (CV) 1515 (New Bag - Provider: Lizette Padilla R.N.)1528 (Stopped - Provider: Lizette Padilla R.N.)1601 (Restarted - Provider: Lizette Padilla RGaliN.)1606 (Stopped - Provider: Lizette Padilla R.N.) bisacodyL DR tablet 10 mg (DULCOLAX) 10 mg, oral, Daily PRN, constipation, Starting on Tania 07/08/23 at 1417, PO route preferred. Constipation unrelieved by docusate sodium (COLACE) if ordered. If results needed within 2 hours give rectal suppository if ordered. Swallow whole. Do NOT crush, chew, or split tablet. 1409 ([facility] Hold - Provider: Transfer Provider, Automatic - Reason: Patient not available)1728 ([facility] Unhold - Provider: Transfer Provider, Automatic) dextrose 40 % gel 15 g (GLUTOSE) 15 g, oral, As needed, low blood sugar, For glucose 54-70 mg/dL, Starting on Tania 07/08/23 at 2058, If patient is conscious and able to swallow safely and has a fuctioning gastrointestinal tract or on Acarbose (Precose??) or Miglitol (Glyset??). May use tablets or gel. 1409 ([facility] Hold - Provider: Transfer Provider, Automatic - Reason: Patient not available)1728 ([facility] Unhold - Provider: Transfer Provider, Automatic) dextrose 50 % injection 12.5 g 12.5 g, intravenous, As needed, low blood sugar, For glucose 54-70 mg/dL, Starting on Tania 07/08/23 at 2058, If the patient has intravenous access available, is not able to take oral feeding safely, does not have a functioning gastrointestinal tract or feeding tube, or is NPO, administer D50W intravenously. 1409 ([facility] Hold - Provider: Transfer Provider, Automatic - Reason: Patient not available)1728 ([facility] Unhold - Provider: Transfer Provider, Automatic) dextrose 50 % injection 25 g 25 g, intravenous, As needed, low blood sugar, For glucose less than 54 mg/dL, Starting on Tania 07/08/23 at 2058, If intravenous access is available, administer D50W intravenously 1409 ([facility] Hold - Provider: Transfer Provider, Automatic - Reason: Patient not available)1728 ([facility] Unhold - Provider: Transfer Provider, Automatic) fentaNYL [...] grams. May use tablets or gel. 1409 ([facility] Hold - Provider: Transfer Provider, Automatic - Reason: Patient not available)1728 ([facility] Unhold - Provider: Transfer Provider, Automatic) heparin (porcine) 1,000 unit/mL injection (CANCELED) Code/trauma/sedation medication, Starting on Wed07/12/23 at 1506, Intraprocedure (CV) 1506 (Given - Provider: Mitch Rae R.N.) insulin lispro patient supplied pump bolus (HumaLOG)(Linked Group 1) subcutaneous, As needed, other, Correction and Snack Bolus, Starting on Wed07/08/23 at 1607, Patient to self-manage insulin via [...] Brito R.N. - Comment: GLucose 252 via jonathan) 1409 (MAR Hold - Provider: Transfer Provider, Automatic - Reason: Patient not available)1728 (JUN Unhold - Provider: Transfer Provider, Automatic) iohexoL 350 mg iodine/mL solution (OMNIPAQUE) (CANCELED) Code/trauma/sedation medication, Starting on Wed07/12/23 at 1630, Intraprocedure (CV) 1630 (Given - Provider: Mt Crum M.D., Ph.D.) lidocaine 10 mg/mL (1 %) injection (XYLOCAINE) (CANCELED) Code/trauma/sedation medication, Starting on Wed07/12/23 at 1452, Intraprocedure (CV) 1452 (Given - Provider: Milton Becker M.D.) midazolam (PF) injection (VERSED) (CANCELED) [...] Starting on Tania 07/08/23 at 1417 1409 (JUN Hold - Provider: Transfer Provider, Automatic - Reason: Patient not available)1728 (JUN Unhold - Provider: Transfer Provider, Automatic) phenylephrine injection (CANCELED) Code/trauma/sedation medication, Starting on 07/12/23 at 1537, Intraprocedure (CV) 1537 (Given - Provider: Lizette Padilla R.N.) sodium chloride 0.9 % injection 10 mL 10 mL, intravenous, As needed, line care, Starting on Tania 07/08/23 at 1415, Peripheral Intravenous Catheter and Rapid Infusion Catheter, prior to blood sampling, post blood transfusion or post blood sampling 1409 ([facility] Hold - Provider: Transfer Provider, Automatic - Reason: Patient not available)1728 ([facility] Unhold - Provider: Transfer Provider, Automatic) sodium chloride 0.9 % injection 3 mL 3 mL, intravenous, As needed, line care, Starting on Tania 07/08/23 at 1415, Prior to and following infusion and between multiple consecutive infusions: sodium chloride 0.9 % injection 1409 ([facility] Hold - Provider: Transfer Provider, Automatic - Reason: Patient not available)1728 ([facility] Unhold - Provider: Transfer Provider, Automatic) Linked Groups Order Group 1: insulin lispro patient supplied pump basal (HumaLOG)Jump to med subcutaneous, Continuous, Starting on Tania 07/08/23 at 1630, Patient to self- manage insulin [...]
--- OUTSIDE RECORDS SUMMARY | 2023-08-30 16:20 | XMS_ITS | Encounter Summary ---
Author Name Unknown Organization [facility] Address [address] [place] [address] Care Team Providers Care Outsole Cutter Machine Name Role Phone Unavailable Primary Care Provider Unavailabl e Encounter Details Date Type Department Care Team (Late st Contact Info) Description 07/08/2023 12:01 PM CDT - 07/08/2023 1:16 PM CDT Surgery Division of Cardiovascular Diseases in [place], [place] [address] [place] [phone] Sky Whatley M.D., Ph.D. [address] [place] [phone] CORONARY ANGIOGRAPHY WITH POSSIBLE INTERVENTION Social History Tobacco Use Types Packs/Day Years Used Date Smoking Tobacco: Never Passive Smoke Exposure: Past Smokeless Tobacco: Never Alcohol Use Standard Drinks/Week Comments Not Currently 0 (1 standard drink = 0.6 oz pur e alcohol) [facility] Utilities Answer Date Recorded In the [...] How often do you attend chur or holiness services? 1 to 4 times per year 04/25/2022 Do you belong to any clubs o r organizations such as orthodoxy groups, unions, fraternal or athletic groups, or [...] care, and heating? Not very hard 04/25/2022 [facility] Stanley of Occupat ional Health - Occupational Stress [...] your living situation today? I have a [facility] to live 07/08/2023 Education Answer [...] Sign Reading Time Taken Comments Blood Pressure 96/46 07/08/2023 1:00 PM CDT Pulse 85 07/08/2023 1:09 PM CDT Temperature 36.6 ??C (97.9 ??F) 07/08/2023 9:30 AM CD T Respiratory Rate 28 07/08/2023 10:45 AM CDT Oxygen Saturation 97% 07/08/2023 1:09 PM CDT Inhaled Oxygen Concentration - - Weight 182 kg (401 lb 7.3 oz) 07/08/2023 9:28 AM CDT Height 181.9 cm (5' 11.61) [...] 814 Radiology 09/08/2023 11:00 AM Ankush Mancia M.B.BMilan., M.S. Oncology Displaying the next 10 appointments. [...] telephone number. For other questions, call the [facility] 24-hour telephone number: [phone]. Ask to be connected to the following service: RST CARD 1 CONDITION ON DISCHARGE: Stable. DIET AT DISCHARGE: Adult Diet Regular; Cardiovascular Discharge Diet for Adults, 2L fluid restriction, 2 g sodium restriction PRIMARY PROVIDER Patient Care Team: iMlton Holden M.D. as External Primary Care Physician [...] management, yearly follow up with a local Meat Pickler and Dietitian is recommended. Please check with your insurance company as diabetes education visits are commonly covered. Your primary care provider can provide referrals for education. * Attachments The following attachments cannot be sent through Care Everywhere. * Glucagon (Into the nose) (Jamaican) * Metoprolol (By mouth) (Jamaican) * Pantoprazole (By mouth) (Jamaican) * Spironolactone (By mouth) (Jamaican) * Torsemide (By mouth) (Jamaican) documented in this encounter Medications at Time [...] 2 sprays into each nostril daily. 05/11/2023 [employer] Renetta 3 Sensor device CHANGE EVERY 2 [...] in agreement with the plan. DCS pager [phone] will continue to follow. Call primary service for diabetes concerns between [phone]. Primary service to contact material preparation worker Endo fellow via hospital drop wire operator for questions. * Addy Arias M.D. - 07/13/2023 10:09 AM CDT CARDIOVASCULAR PROGRESS NOTE Cardiology 1 Service; [facility], room [place] [address]. Patient seen and examined on rounds with [...] angiogram Plan discussed with RST CARD 1 Cook 3 Pastry, Addy Romero M.D., who was present during phillips portions of the evaluation today. Please contact the cardiology 1 [place] [phone] with questions. Sadiq Celestin MD PGY-1 Internal Medicine Pager [phone] * Yanni Lange, MILY, C.N.P. - 07/12/2023 [...] in agreement with the plan. DCS pager [phone] will continue to follow. Call primary service for diabetes concerns between [phone]. Primary service to contact material preparation worker Endo fellow via hospital drop wire operator for questions. * Addy Arias M.D. - 07/12/2023 8:54 AM CDT CARDIOVASCULAR PROGRESS NOTE Cardiology 1 Service; [facility], room [facility] [phone]. Patient seen and examined on rounds with [...] of diffusely diseased RCA. * Shania Roca, PharmGaliD., R.Ph. - 07/12/2023 7:01 AM CDT Pharmacist [...] angiogram Plan discussed with RST CARD 1 Cook 3 Pastry, Addy Romero M.D., who was present during phillips portions of the evaluation today. Please contact [place]ology 1 [place] [phone] with questions. * Lori Aguirre, MILY, C.N.P. [...] developed hypoglycemia and suspended his pump from [phone]. 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 [place]-4A: 2.4 units/hr 4A-10P: 2.5 [...] continue to follow through his provider in [place]. Blood glucose frequency: via continuous glucose monitor (CGM) Goal: 100-160 mg/dL Please page DCS within 24 hours prior to hospital dismissal for final dismissal recommendations. Discussed above plan with the patient and patient's family. Patient is alert and oriented and in agreement with the plan. DCS pager [phone] will continue to follow. Call primary service for diabetes concerns between [phone]. Primary service to contact material preparation worker Endo fellow via hospital drop wire operator for questions. Addendum: Met with patient [...] CDT CARDIOVASCULAR PROGRESS NOTE Cardiology 1 Service; [facility], room [place] [address]. Patient seen and examined on rounds with [...] Uncertain Plan discussed with RST CARD 1 Cook 3 Pastry, Addy Romero M.D., who was present during phillips portions of the evaluation today. Please contact [place]ology 1 [place] [phone] with questions. * Lori Aguirre, MILY, C.N.P. [...] in agreement with the plan. DCS pager [phone] will continue to follow. Call primary service for diabetes concerns between [phone]. Primary service to contact material preparation worker Endo fellow via hospital drop wire operator for questions. * Addy Arias M.D. - 07/10/2023 10:38 AM CDT CARDIOVASCULAR PROGRESS NOTE Cardiology 1 Service; [facility], room [place] [address]. Patient seen and examined on rounds with [...] Uncertain Plan discussed with RST CARD 1 Cook 3 Pastry, Addy Romero M.D., who was present during phillips portions of the evaluation today. Please contact the [place] 1 [place] [phone] with questions. * Madonna Reyes, [facility]-PAPER PRODUCTS SUPERVISOR - 07/09/2023 12:51 PM CDT Speech Language Pathology Dysphagia Evaluation- Acute Care Session Type: Evaluation Length of session: 20 minutes Time of Dysphagia Session: 1140 SUBJECTIVE Referred By: RST CARD 1 History: Mr. Butler is a 72 y.o. male who was admitted to [facility] on 07/08/2023 due to severe multi-vessel CAD. Mr. Butler's medical history is well documented in the electronic medical record, please refer to admission notes for full history. Briefly, pmhx is significant for D ID, ANA LILIA w/ CPAP compliance, morbid obesity [...] (WFL) Breath Support for Speech: Adequate Resonance (WOOD TREATING INSPECTOR Function): Within Functional Limits (WFL) Articulation: Within [...] best tolerated) Safety Precautions: Standard GERD precautions PAPER PRODUCTS SUPERVISOR to sign off at this time Discharge Location: Unknown PAPER PRODUCTS SUPERVISOR Ongoing Services: Ongoing formal Speech Pathology services not indicated at this time: follow written home program Rehab Potential: Good Thank you, Vicky Reyes MA, CCC-PAPER PRODUCTS SUPERVISOR Contact: Pager #[phone] Speech-Language Pathologist Speech Pathology Service Pager: Dysphagia [phone] Speech Pathology Service Pager: Communication [phone] * Lima Alas R.N., C.W.C.N. - 07/09/2023 11:50 AM CDT [facility] Wound RN consulted to assess Lawrence [...] None Unable to Measure Y *Wound Bed Closed;Redlands Tissue Exposed None Odor None *Exudate Amount None Shakila-wound Assessment Blanchable erythema;Redlands;Intact *Primary Dressing Liquid skin protectant *Primary Dressing [...] None Unable to Measure Y *Wound Bed Closed;Redlands Tissue Exposed None Odor Mild *Exudate Amount None Shakila-wound Assessment Blanchable erythema;Redlands (moist) *Primary Dressing (nystatin powder to be ordered) *Primary Dressing Frequency of Change 2x/day & PRN *Secondary Dressing Textile Changed by Unit based nurse Complications none Ongoing management Nursing Documentation done by C RN? Yes Focused assessment completed DRESSING RECOMMENDATIONS: [...] concerns. Electronically signed by: Lima Alas R.N., C.W.C.N. 07/09/23 11:52 AM CDT * Yanni Lange [...] in agreement with the plan. DCS pager [phone] will continue to follow. Call primary service for diabetes concerns between [phone]. Primary service to contact material preparation worker Endo fellow via hospital drop wire operator for questions. ADDENDUM: Patient was hypoglycemic again at lunch. Having my colleague Meka Wilson CNP change hisbolus to 1 unit per 5 grams of carbohydrate and starting a temporary basal of 80% for the next 24 hours. Told patient to not cover for lunch today. He is in agreement with plan. * Rolly Keyes, R.N., [facility] - 07/09/2023 10:15 AM CDT Patient's diabetes [...] if enzalutamide should be continued. JANET Marroquin, Aftab., R.Ph. * Kayleen Sharma M.D. - 07/09/2023 [...] Pharmacy needs to verify medication before administered. #AN ALILIA on CPAP #Obesity #GERD - Continue home Protonix 40 mg daily - Patient will use home CPAP machine - PRN bowel regimen Diet: Adult Diet Regular; 90 gm Carbs (per meal); 1500 mL Fluid; Cardiovascular VTE prophylaxis: heparin Disposition: Uncertain Plan discussed with RST CARD 1 Cook 3 Pastry, Addy Romero M.D., who was present during phillips portions of the evaluation today. Please contact the [place] 1 [place] [phone] with questions. * Claudio Marroquin, Pharm.D., R.Ph. [...] CDT CARDIOVASCULAR ADMISSION NOTE Cardiology 1 Service; [facility], room [facility] [phone]. Mr. Lawrence Butler is a 72-year-old man [...] diastolic LV-CHF Sub / Obj No prior ID, angina - ? MCCLELLAN as angina equivalent. [...] disease and presence of CHF, admit to [facility] Cardiology 1 Service. Overnight, VS have remained [...] reduced with severe generalized hypokinesis along with adli-tm-reoxjmhy right ventricular systolic dysfunction. . Side by [...] Patient will use home CPAP machine - PAPER PRODUCTS SUPERVISOR swallow assessment - PRN bowel regimen Medication Reconciliation Stop Plavix Start Metoprolol BID Start Spironolactone Start IV Furosemide Consider SGLT2 addition Restart RADHA-i if renal function normal post cath Barby Gruber PGY3 Resident. Patient will be staffed with Dr Arias within 24 hours of admission. Please contact service pager [phone] if there are any questions regarding this [...] No evidence of disorganized thinking. 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 DIAGNOSTICS I have reviewed the diagnostics from [...] be discussed with the RST CARD 1 Cook 3 Pastry. [place] 1 [place] [phone] with questions. documented in this encounter Consult [...] the cardiac rehab program. Patient referred to: [facility] [address] [place] [address] Recommend that the patient check with insurance [...] monitors blood glucose at home continuously with [employer] Renetta continuous glucose monitor (CGM). Results of [...] Thank you for the consult. DCS pager [phone] will follow. Call primary service for diabetes concerns between [phone]. Primary service to contact material preparation worker Endo fellow via hospital drop wire operator for questions. * Kathryn Rivero APRN, C.N.P., M.S.N. - 07/08/2023 3:23 PM CDTAssociated Order(s): IP CONSULT TO CARDIOVASCULAR SURGERY SUBJECTIVE Chief Complaint: Multi-vessel CAD History of present illness: Mr. Butler is a 72 y.o. male admitted to [facility] on 07/07 following a coronary angio [...] triple vessel disease. He was admitted to [facility] for consideration for surgical revascularization versus complex PCI. Cardiovascular Surgery was consulted to see by [facility] for evaluation and treatment of multi-vessel [...] 07/09/2023] heparin (porcine), 7,500 Units, subcutaneous, Q8H [facility] insulin lispro, , subcutaneous, TID with meals [...] reduced with severe generalized hypokinesis along with yncl-wz-juewqywm right ventricular systolic dysfunction. . Side by [...] Heart Failure (HCC) #5 Atherosclerotic Heart Disease [place] 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 (Stable Angina/Angina Of Exertion) (FORM[facility]) Mr. Butler is a 72 y.o. male admitted to [facility] with acute on chronic heart failure [...] Please reach out to the [facility] team driver pager ([phone]) with questions. documented in this encounter Nursing [...] to groin. 07/11/2023 172 by Terrie Goddard RGaliN. Outcome: Progressing Problem: SAFETY ADULT Goal: Maintain a safe environment Outcome: Progressing Note: Patient used call light appropriately and remained free from falls during the shift. Problem: SAFETY ADULT - RISK FOR FALL AND OR FALL INJURY Goal: Patient remains free from fall/fall injury 07/11/2023 1805 by Terrie Goddard R.N. Outcome: Progressing 07/11/2023 172 by Terrie Goddard R.N. Outcome: Progressing Note: Patient used call light adequately and remained free from falls. 07/11/2023 172 by Terrie Goddard R.N. Outcome: Progressing Problem: POTENTIAL OR ACTUAL PRESSURE INJURY-ADULT Goal: Achieve optimal activity and/or mobility to maintain or improve skin integrity 07/11/2023 180 by Terrie Goddard R.N. Outcome: Progressing Note: Patient ambulated in hallway and tolerated fairly well. 07/11/2023 172 by Terrie Goddard R.N. Outcome: Progressing Note: Patient ambulated in hallway with walker. 07/11/2023 172 by Terrie Goddard, R.N. Outcome: Progressing Problem: Compromised Skin Integrity [...] from fall/fall injury 07/10/20231726 by Terrie Goddard R.NGali Outcome: Progressing Note: Patient used the call light appropriately and remained free from falls. Patient used seated walker with ambulation. 07/10/20231725 by Terrie Goddard R.NGali Outcome: Progressing Problem: [...] telephone number. For other questions, call the [facility] 24-hour telephone number: [phone]. Ask to be connected to the following service: RST CARD 1 documented in this encounter Plan of Treatment Upcoming Encounters Date Type Department Care Team (Late st Contact Info) Description 09/07/2023 4:30 PM CDT Infusion Department of Oncology in [place], [place] [address] [place] [phone] Ankush Mancia M.B.B.S., M.S. [address] [place] [phone] 09/22/2023 1:30 PM CDT Appointment Department of Cardiovascular Diseases in [place], [place] [address] [place] [phone] Addy Arias M.D. [address] [place] [phone] 09/27/2023 10:45 AM CDT Comprehensive Visit Department of Cardiovascular Diseases in [place], [place] [address] [place] [phone] Laith Feliciano M.D. [address] [place] [phone] 10/06/2023 9:00 AM CDT Infusion Department of Oncology in [place], [place] [address] [place] [phone] Ankush Mancia M.B.B.S., M.S. [address] [place] [phone] 11/01/2023 9:00 AM CDT Clinical Communication Virtual Review in [place], [place] [address] [place] [address] 11/03/2023 10:00 AM CDT Comprehensive Visit Division of Gastroenterology in [place], [place] [address] [place] [phone] Milton Holden M.D. [address] [place] [address] 11/03/2023 1:00 PM CDT Appointment Department of Radiology, [facility], in [place], [place] [address] [place] [phone] Dev Jimenez M.D. [address] [place] [phone] 11/04/2023 8:45 AM CDT Appointment Division of Gastroenterology in [place], [place] [address] [place] [address] Dev Jimenez M.D. [address] [place] [phone] 11/08/2023 8:00 AM CDT Appointment Division of Gastroenterology in [place], [place] [address] [place] [phone] Dev Jimenez M.D. [address] [place] [phone] 11/09/2023 7:45 AM CDT Appointment Division of Gastroenterology in [place], [place] [address] [place] [phone] Dev Jimenez M.D. [address] [place] [phone] Scheduled Referrals Name Type Priority Associated Diagnoses Orde r Schedule External referral cardiac rehab program (non-[place]) Outpatient Referral Routine Coronary Stent Status Post [...] 07/12/2023 4:33 PM CDT Atherosclerotic Heart Disease [place] 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 (Stable Angina/Angina Of Exertion) (HCC) CARDIAC CATHETERIZATION Routine 07/12/2023 4:33 PM CDT Atherosclerotic Heart Disease [place] 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 (Stable Angina/Angina Of Exertion) (HCC) CARDIAC CATHETERIZATION Routine 07/12/2023 4:33 PM CDT Atherosclerotic Heart Disease [place] 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 (Stable Angina/Angina Of Exertion) (HCC) CARDIAC CATHETERIZATION Routine 07/12/2023 4:33 PM CDT Atherosclerotic Heart Disease [place] 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 (Stable Angina/Angina Of Exertion) (HCC) CARDIAC CATHETERIZATION Routine 07/12/2023 4:33 PM CDT Atherosclerotic Heart Disease [place] 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 [...] Unknown Provider LAB POCT ORDERABLES- MANUAL POC [facility] [address] [place] [address], [facility] PCLX [facility] POC 200 [place] [address] * (ABNORMAL) Glucose, POCT (07/13/2023 8:17 AM CDT) Glucose, POCT, B 168(H) 70 - 140 mg/dL 07/13/2023 9:57 AM CDT PCLX Site Capillary 07/13/2023 9:57 AM CDT PCLX Last Intake 3-4 hours 07/13/2023 9:57 AM CDT PCLX Blood 07/13/2023 8:17 AM CDT 07/13/2023 9:57 AM CDT Unknown Provider LAB POCT ORDERABLES- MANUAL Performing Organization Address City/[facility]/ZIP Co de Phone Number POC [facility] [address] [place] [address], [facility] POC 200 [place] [address] * Magnesium (07/13/2023 7:32 AM CDT) Magnesium, S 1.9 1.7 - 2.3 mg/dL 07/13/2023 8:41 AM CDT DTL Blood (Blood, Venous) 07/13/2023 7:32 AM CDT 07/13/2023 7:32 AM CDT Addy Arias M.D. LAB BLOOD ADD-ON [facility] [address] [place] [address], [facility] DTL [facility] 200 [place] [address] * (ABNORMAL) Basic Metabolic Panel (07/13/2023 7:32 [...] CDT Addy Arias M.D. LAB BLOOD ADD-ON [facility] [address] [place] [address], [facility] [address] [place] [address] * (ABNORMAL) CBC with Differential, Blood (07/13/2023 [...] CDT Addy Arias M.D. LAB BLOOD ADD-ON [facility] [address] [place] [address], [facility] DTL [facility] [address] [place] [address] [facility] [address] [place] [address] * Glucose, POCT (07/13/2023 2:11 AM CDT) [facility] Glucose, POCT, B 128 70 - 140 mg/dL 07/13/2023 2:12 AM CDT PCLX Site Capillary 07/13/2023 2:12 AM CDT PCLX Last Intake 3-4 hours 07/13/2023 2:12 AM CDT PCLX Blood 07/13/2023 2:11 AM CDT 07/13/2023 2:13 AM CDT Unknown Provider LAB POCT ORDERABLES- MANUAL Performing Organization Address City/[facility] Co de Phone Number POC [facility] [address] [place] [address], [facility] POC [address] [place] [address] * (ABNORMAL) Glucose, POCT (07/12/2023 9:19 PM CDT) Glucose, POCT, B 216(H) 70 - 140 mg/dL 07/12/2023 9:27 PM CDT PCLX Site Capillary 07/12/2023 9:27 PM CDT PCLX Last Intake 3-4 hours 07/12/2023 9:27 PM CDT PCLX Blood 07/12/2023 9:19 PM CDT 07/12/2023 9:28 PM CDT Unknown Provider LAB POCT ORDERABLES- MANUAL Performing Organization Address [facility] de Phone Number POC [facility] [address] [place] [address], [facility] POC [address] [place] [address] * ECG 12 Lead (07/12/2023 7:46 PM CDT) Ventricular Rate ECG/Min 94 BPM MUSE NE Interval 236 ms MUSE QRSD Interval 138 ms MUSE QT Interval 402 ms MUSE QTC Interval 502 ms MUSE R [place] -84 degrees MUSE T Wave [place] 94 degrees MUSE 07/12/2023 7:46 PM CDT [...] Ph.D. ECG ORDERA BLES Performing Organization Address City/[facility] Co de Phone Number MUSE NA * (ABNORMAL) Glucose, POCT (07/12/2023 6:00 PM CDT) [facility] Glucose, POCT, B 206(H) 70 - 140 mg/dL 07/12/2023 7:09 PM CDT PCLX Site Capillary 07/12/2023 7:09 PM CDT PCLX Last Intake 3-4 hours 07/12/2023 7:09 PM CDT PCLX Blood 07/12/2023 6:00 PM CDT 07/12/2023 7:09 PM CDT Unknown Provider LAB POCT ORDERABLES- MANUAL POC [facility] [address] [place] [address], [facility] POC [address] [place] [address] * STENT PLACEMENT, PERCUTANEOUS CORONARY ANGIOPLASTY, CORONARY [...] ?? PRE-PROCEDURE DIAGNOSIS 1. ??Atherosclerotic Heart Disease [place] 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 [...] lesion with a 1.25 mm kenroy at 728095 rpm with successful passage and polishing. We [...] stent PRE-PROCEDURE DIAGNOSIS 1. Atherosclerotic Heart Disease [place] Coronary Artery With Other FormsAngina Pectoris (Stable Angina/Angina Of Exertion) (FORMERLY [facility]) INTERVENTIONAL NOTE Indication: Decompensated heart failure (stabilized), [...] lesion with a 1.25 mm kenroy at 260944 rpm withsuccessful passage and polishing. We wired [...] Documents. Addy Arias M.D. CV CARDIAC CATH NE OCEDURES * (ABNORMAL) ACT (Activated Clotting Time), POCT (07/12/2023 3:54 PM CDT) Activated Clotting Time, POCT 306(H) 84 - 139 sec 07/12/2023 3:59 PM CDT PCSM Blood 07/12/2023 3:54 PM CDT 07/12/2023 4:00 PM CDT Unknown Provider LAB POCT ORDERABLES - DEVICE Performing Organization Address [facility] Co de Phone Number POC [facility] [address] [facility] [address] [place] [address] * (ABNORMAL) ACT (Activated Clotting Time), POCT (07/12/2023 3:16 PM CDT) Activated Clotting Time, POCT 330(H) 84 - 139 sec 07/12/2023 3:21 PM CDT PCSM Blood 07/12/2023 3:16 PM CDT 07/12/2023 3:22 PM CDT Unknown Provider LAB POCT ORDERABLES - DEVICE Performing Organization Address [facility] Co de Phone Number [facility]OC [facility] 200 [place] [address], [facility] [address] [place] [address] * (ABNORMAL) Glucose, POCT (07/12/2023 3:15 PM CDT) Glucose, POCT, B 265(H) 70 - 140 mg/dL 07/12/2023 4:41 PM CDT PCLX Blood 07/12/2023 3:15 PM CDT 07/12/2023 4:42 PM CDT Unknown Provider LAB POCT ORDERABLES- MANUAL Performing Organization Address City/[facility]/ZIP Co de Phone Number POC [facility] [address] [place] [address], [facility] POC [address] [place] [address] * (ABNORMAL) Glucose, POCT (07/12/2023 11:50 AM CDT) Glucose, POCT, B 266(H) 70 - 140 mg/dL 07/12/2023 11:53 AM CDT PCLX Site Capillary 07/12/2023 11:53 AM CDT PCLX Last Intake 3-4 hours 07/12/2023 11:53 AM CDT PCLX Blood 07/12/2023 11:5 0 AM CDT 07/12/2023 11:53 AM CDT Unknown Provider LAB POCT ORDERABLES- MANUAL Performing Organization Address City/[facility] Co de Phone Number [facility] [address] [place] [address], [facility] [address] [place] [address] * (ABNORMAL) Glucose, POCT (07/12/2023 8:55 AM CDT) Glucose, POCT, B 275(H) 70 - 140 mg/dL 07/12/2023 11:52 AM CDT PCLX Site Capillary 07/12/2023 11:52 AM CDT PCLX Last Intake 3-4 hours 07/12/2023 11:52 AM CDT PCLX Blood 07/12/2023 8:55 AM CDT 07/12/2023 11:53 AM CDT Unknown Provider LAB POCT ORDERABLES- MANUAL Performing Organization Address City/[facility]/ZIP Co de Phone Number [facility] [address] [place] [address], [facility] [address] [place] [address] * Magnesium (07/12/2023 6:51 AM CDT) Pathologist [facility] Magnesium, S 2.1 1.7 - 2.3 mg/dL 07/12/2023 8:30 AM CDT DTL Blood (Blood, Venous) 07/12/2023 6:51 AM CDT 07/12/2023 8:02 AM CDT Addy Arias M.D. LAB BLOOD ADD-ON [facility] [address] [place] [address], [facility] [address] [place] [address] * (ABNORMAL) Cystatin C with Estimated GFR (07/12/2023 6:51 AM CDT) [facility] eGFR by Cystatin C 50(L) >60 mL/min/BSA [...] M.D. LAB BLOOD ADD-ON Performing Organization Address City/[facility]/ZIP Co de Phone Number [facility] [address] [place] [address], [facility] [address] [place] [address] * (ABNORMAL) Basic Metabolic Panel (07/12/2023 6:51 AM CDT) Pathologist [facility] Potassium, S 5.0 3.6 - 5.2 mmol/L [...] CDT Addy Arias M.D. LAB BLOOD ADD-ON [facility] [address] [place] [address], [facility] [address] [place] [address] * (ABNORMAL) CBC without Differential (07/12/2023 6:51 [...] M.D. LAB BLOOD ADD-ON Performing Organization Address City/[facility]/ZIP Co de Phone Number [facility] [address] [place] [address], [facility] [address] [place] [address] * (ABNORMAL) Glucose, POCT (07/12/2023 3:28 AM CDT) Glucose, POCT, B 282(H) 70 - 140 mg/dL 07/12/2023 3:30 AM CDT PCLX Site Capillary 07/12/2023 3:30 AM CDT PCLX Last Intake > 4 hours 07/12/2023 3:30 AM CDT PCLX Blood 07/12/2023 3:28 AM CDT 07/12/2023 3:30 AM CDT Unknown Provider LAB POCT ORDERABLES- MANUAL Performing Organization Address City/[facility]/ZIP Co de Phone Number [facility] [address] [place] [address], [facility] [address] [place] [address] * (ABNORMAL) Glucose, POCT (07/11/2023 10:30 PM CDT) Glucose, POCT, B 286(H) 70 - 140 mg/dL 07/11/2023 10:43 PM CDT PCLX Site Capillary 07/11/2023 10:43 PM CDT PCLX Last Intake > 4 hours 07/11/2023 10:43 PM CDT PCLX Blood 07/11/2023 10:3 0 PM CDT 07/11/2023 10:43 PM CDT Unknown Provider LAB POCT ORDERABLES- MANUAL Performing Organization Address City/[facility] Co de Phone Number [facility] [address] [place] [address], [facility] [address] [place] [address] * (ABNORMAL) Glucose, POCT (07/11/2023 7:25 PM CDT) Glucose, POCT, B 148(H) 70 - 140 mg/dL 07/11/2023 7:29 PM CDT PCLX Site Capillary 07/11/2023 7:29 PM CDT PCLX Last Intake 1-2 hours 07/11/2023 7:29 PM CDT PCLX Blood 07/11/2023 7:25 PM CDT 07/11/2023 7:29 PM CDT Unknown Provider LAB POCT ORDERABLES- MANUAL Performing Organization Address [facility] de Phone Number [facility] [address] [place] [address], [facility] [address] [place] [address] * Glucose, POCT (07/11/2023 6:55 PM CDT) Glucose, POCT, B 121 70 - 140 mg/dL 07/11/2023 7:05 PM CDT PCLX Site Capillary 07/11/2023 7:05 PM CDT PCLX Last Intake <1 hour 07/11/2023 7:05 PM CDT PCLX Blood 07/11/2023 6:55 PM CDT 07/11/2023 7:05 PM CDT Unknown Provider LAB POCT ORDERABLES- MANUAL Performing Organization Address City/[facility] Co de Phone Number [facility] [address] [place] [address], [facility] [address] [place] [address] * Glucose, POCT (07/11/2023 6:38 PM CDT) Glucose, POCT, B 82 70 - 140 mg/dL 07/11/2023 6:40 PM CDT PCLX Site Capillary 07/11/2023 6:40 PM CDT PCLX Last Intake <1 hour 07/11/2023 6:40 PM CDT PCLX Blood 07/11/2023 6:38 PM CDT 07/11/2023 6:41 PM CDT Unknown Provider LAB POCT ORDERABLES- MANUAL Performing Organization Address City/[facility] Co de Phone Number [facility] [address] [place] [address], [place] [facility] [address] [place] [address] * (ABNORMAL) Glucose, POCT (07/11/2023 6:19 PM CDT) Glucose, POCT, B 58(L) 70 - 140 mg/dL 07/11/2023 6:23 PM CDT PCLX Site Capillary 07/11/2023 6:23 PM CDT PCLX Last Intake <1 hour 07/11/2023 6:23 PM CDT PCLX Blood 07/11/2023 6:19 PM CDT 07/11/2023 6:23 PM CDT Unknown Provider LAB POCT ORDERABLES- MANUAL Performing Organization Address City/[facility] Co de Phone Number [facility] [address] [place] [address], [facility] [address] [place] [address] * (ABNORMAL) Glucose, POCT (07/11/2023 5:58 PM CDT) Glucose, POCT, B 44(L) 70 - 140 mg/dL 07/11/2023 6:00 PM CDT PCLX Site Capillary 07/11/2023 6:00 PM CDT PCLX Last Intake 3-4 hours 07/11/2023 6:00 PM CDT PCLX Blood 07/11/2023 5:58 PM CDT 07/11/2023 6:01 PM CDT Unknown Provider LAB POCT ORDERABLES- MANUAL Performing Organization Address City/[facility]/ZIP Co de Phone Number [facility] [address] [place] [address], [facility] [address] [place] [address] * (ABNORMAL) Glucose, POCT (07/11/2023 5:53 PM CDT) Glucose, POCT, B 47(L) 70 - 140 mg/dL 07/11/2023 5:58 PM CDT PCLX Site Capillary 07/11/2023 5:58 PM CDT PCLX Last Intake 3-4 hours 07/11/2023 5:58 PM CDT PCLX Blood 07/11/2023 5:53 PM CDT 07/11/2023 5:59 PM CDT Unknown Provider LAB POCT ORDERABLES- MANUAL Performing Organization Address [facility] de Phone Number [facility] [address] [place] [address], [facility] [address] [place] [address] * Glucose, POCT (07/11/2023 4:41 PM CDT) Glucose, POCT, B 128 70 - 140 mg/dL 07/11/2023 4:44 PM CDT PCLX Site Capillary 07/11/2023 4:44 PM CDT PCLX Blood 07/11/2023 4:41 PM CDT 07/11/2023 4:44 PM CDT Unknown Provider LAB POCT ORDERABLES- MANUAL Performing Organization Address City/[facility]/ZIP Co de Phone Number [facility] [address] [place] [address], [facility] [address] [place] [address] * (ABNORMAL) Glucose, POCT (07/11/2023 12:38 PM CDT) Glucose, POCT, B 232(H) 70 - 140 mg/dL 07/11/2023 12:45 PM CDT PCLX Site Capillary 07/11/2023 12:45 PM CDT PCLX Last Intake 3-4 hours 07/11/2023 12:45 PM CDT PCLX Blood 07/11/2023 12:3 8 PM CDT 07/11/2023 12:45 PM CDT Unknown Provider LAB POCT ORDERABLES- MANUAL Performing Organization Address [facility] Co de Phone Number [facility] [address] [place] [address], [facility] [address] [place] [address] * ECG 12 Lead (07/11/2023 9:31 AM CDT) Ventricular Rate ECG/Min 83 BPM MUSE NE Interval 248 ms MUSE QRSD Interval 126 ms MUSE QT Interval 410 ms MUSE QTC Interval 481 ms MUSE P [place] 19 degrees MUSE R [place] -84 degrees MUSE T Wave [place] 102 degrees MUSE 07/11/2023 9:31 AM CDT [...] * Glucose, POCT (07/11/2023 8:06 AM CDT) Pathologist [facility] Glucose, POCT, B 100 70 - 140 mg/dL 07/11/2023 8:15 AM CDT PCLX Site Capillary 07/11/2023 8:15 AM CDT PCLX Last Intake > 4 hours 07/11/2023 8:15 AM CDT PCLX Blood 07/11/2023 8:06 AM CDT 07/11/2023 8:15 AM CDT Unknown Provider LAB POCT ORDERABLES- MANUAL [facility] [address] PCL[facility] [address] [place] [address] * (ABNORMAL) Cystatin C with Estimated GFR (07/11/2023 7:34 AM CDT) [facility] eGFR by Cystatin C 50(L) >60 mL/min/BSA [...] M.D. LAB BLOOD ADD-ON Performing Organization Address City/[facility]/[place] [address] * Magnesium (07/11/2023 7:34 AM CDT) Magnesium, S 2.2 1.7 - 2.3 mg/dL 07/11/2023 9:14 AM CDT DTL Blood (Blood, Venous) 07/11/2023 7:34 AM CDT 07/11/2023 8:28 AM CDT Addy Arias M.D. LAB BLOOD ADD-ON Performing Organization Address [facility] [place] [address] * (ABNORMAL) Basic Metabolic Panel (07/11/2023 7:34 [...] CDT Addy Arias M.D. LAB BLOOD ADD-ON [facility] [address] [place] [address], [facility] [address] [place] [address] * (ABNORMAL) CBC with Differential, Blood (07/11/2023 [...] CDT Addy Arias M.D. LAB BLOOD ADD-ON [facility] [address] [place] [address], [facility] DTL [facility] [address] [place] [address] DHPM [facility] [address] [place] [address] * Glucose, POCT (07/11/2023 6:27 AM CDT) Glucose, POCT, B 121 70 - 140 mg/dL 07/11/2023 6:34 AM CDT PCLX Site Capillary 07/11/2023 6:34 AM CDT PCLX Last Intake > 4 hours 07/11/2023 6:34 AM CDT PCLX Blood 07/11/2023 6:27 AM CDT 07/11/2023 6:34 AM CDT Unknown Provider LAB POCT ORDERABLES- MANUAL [facility] [address] [place] [address], [facility] [address] [place] [address] * (ABNORMAL) Glucose, POCT (07/11/2023 3:28 AM CDT) Glucose, POCT, B 223(H) 70 - 140 mg/dL 07/11/2023 3:34 AM CDT PCLX Site Capillary 07/11/2023 3:34 AM CDT PCLX Last Intake > 4 hours 07/11/2023 3:34 AM CDT PCLX Blood 07/11/2023 3:28 AM CDT 07/11/2023 3:34 AM CDT Unknown Provider LAB POCT ORDERABLES- MANUAL Performing Organization Address City/[facility]/ZIP Co de Phone Number [facility] [address] [place] [address], [facility] [address] [place] [address] * (ABNORMAL) Glucose, POCT (07/10/2023 10:14 PM CDT) Glucose, POCT, B 186(H) 70 - 140 mg/dL 07/10/2023 10:18 PM CDT PCLX Site Capillary 07/10/2023 10:18 PM CDT PCLX Last Intake > 4 hours 07/10/2023 10:18 PM CDT PCLX Blood 07/10/2023 10:1 4 PM CDT 07/10/2023 10:18 PM CDT Unknown Provider LAB POCT ORDERABLES- MANUAL Performing Organization Address City/[facility]/ZIP Co de Phone Number [facility] [address] [place] [address], [facility] [address] [place] [address] * Magnesium (07/10/2023 8:02 PM CDT) Magnesium, S 1.9 1.7 - 2.3 mg/dL 07/10/2023 8:49 PM CDT DTL Blood (Blood, Venous) 07/10/2023 8:02 PM CDT 07/10/2023 8:34 PM CDT Addy Arias M.D. LAB BLOOD ADD-ON [facility] [address] [place], [place] [id number] [place] [address] DTL [facility] [address] [place] [address] * (ABNORMAL) Basic Metabolic Panel (07/10/2023 8:02 [...] CDT Addy Arias M.D. LAB BLOOD ADD-ON [facility] [address] [place] [address], [place] DTL [facility] [address] [place] [address] * Glucose, POCT (07/10/2023 5:15 PM CDT) Glucose, POCT, B 97 70 - 140 mg/dL 07/10/2023 5:17 PM CDT PCLX Site Capillary 07/10/2023 5:17 PM CDT PCLX Last Intake 1-2 hours 07/10/2023 5:17 PM CDT PCLX Blood 07/10/2023 5:15 PM CDT 07/10/2023 5:17 PM CDT Unknown Provider LAB POCT ORDERABLES- MANUAL Performing Organization Address City/[facility]/ZIP Co de Phone Number [facility] [address] [place] [address], [facility] [address] [place] [address] * Glucose, POCT (07/10/2023 5:03 PM CDT) Glucose, POCT, B 106 70 - 140 mg/dL 07/10/2023 5:06 PM CDT PCLX Site Capillary 07/10/2023 5:06 PM CDT PCLX Last Intake <1 hour 07/10/2023 5:06 PM CDT PCLX Blood 07/10/2023 5:03 PM CDT 07/10/2023 5:06 PM CDT Unknown Provider LAB POCT ORDERABLES- MANUAL Performing Organization Address [facility] Co de Phone Number [facility] [address] [place] [address], [place] [facility] [address] [place] [address] * Glucose, POCT (07/10/2023 4:46 PM CDT) Glucose, POCT, B 81 70 - 140 mg/dL 07/10/2023 4:55 PM CDT PCLX Site Capillary 07/10/2023 4:55 PM CDT PCLX Last Intake 1-2 hours 07/10/2023 4:55 PM CDT PCLX Blood 07/10/2023 4:46 PM CDT 07/10/2023 4:55 PM CDT Unknown Provider LAB POCT ORDERABLES- MANUAL Performing Organization Address City/[facility]/ZIP Co de Phone Number [facility] [address] [place] [address], [place] [facility] [address] [place] [address] * (ABNORMAL) Glucose, POCT (07/10/2023 4:32 PM CDT) Glucose, POCT, B 51(L) 70 - 140 mg/dL 07/10/2023 4:35 PM CDT PCLX Site Capillary 07/10/2023 4:35 PM CDT PCLX Last Intake 1-2 hours 07/10/2023 4:35 PM CDT PCLX Blood 07/10/2023 4:32 PM CDT 07/10/2023 4:35 PM CDT Unknown Provider LAB POCT ORDERABLES- MANUAL Performing Organization Address City/[facility]/ZIP Co de Phone Number [facility] [address] [place] [address], [place] [facility] [address] [place] [address] * (ABNORMAL) Glucose, POCT (07/10/2023 4:04 PM CDT) Glucose, POCT, B 54(L) 70 - 140 mg/dL 07/10/2023 4:08 PM CDT PCLX Site Capillary 07/10/2023 4:08 PM CDT PCLX Last Intake 3-4 hours 07/10/2023 4:08 PM CDT PCLX Blood 07/10/2023 4:04 PM CDT 07/10/2023 4:08 PM CDT Unknown Provider LAB POCT ORDERABLES- MANUAL Performing Organization Address City/[facility]/ZIP Co de Phone Number [facility] [address] [place] [address], [place] [facility] [address] [place] [address] * Glucose, POCT (07/10/2023 12:36 PM CDT) Glucose, POCT, B 73 70 - 140 mg/dL 07/10/2023 12:38 PM CDT PCLX Site Capillary 07/10/2023 12:38 PM CDT PCLX Last Intake 2-3 hours 07/10/2023 12:38 PM CDT PCLX Blood 07/10/2023 12:3 6 PM CDT 07/10/2023 12:39 PM CDT Unknown Provider LAB POCT ORDERABLES- MANUAL Performing Organization Address City/[facility]/ZIP Co de Phone Number [facility] [address] [place] [address], [facility] [address] [place] [address] * Magnesium (07/10/2023 10:32 AM CDT) Magnesium, S 2.0 1.7 - 2.3 mg/dL 07/10/2023 11:51 AM CDT DTL Blood (Blood, Venous) 07/10/2023 10:32 AM CDT 07/10/2023 11:32 AM CDT Addy Arias M.D. LAB BLOOD ADD-ON Performing Organization Address City/[facility]/ZIP Co de Phone Number [facility] [address] [place] [address], [facility] [address] [place] [address] * (ABNORMAL) Basic Metabolic Panel (07/10/2023 10:32 [...] CDT Addy Arias M.D. LAB BLOOD ADD-ON [facility] [address] [place] [address], [facility] [address] [place] [address] * (ABNORMAL) CBC with Differential, Blood (07/10/2023 [...] M.D. LAB BLOOD ADD-ON Performing Organization Address City/[facility]/ZIP Co de Phone Number [facility] [address] [place] [address], [facility] DTL [facility] [address] [place] [address] DHPM [facility] [address] [place] [address] * Glucose, POCT (07/10/2023 8:15 AM CDT) [facility] Glucose, POCT, B 121 70 - 140 mg/dL 07/10/2023 8:22 AM CDT PCLX Site Capillary 07/10/2023 8:22 AM CDT PCLX Last Intake > 4 hours 07/10/2023 8:22 AM CDT PCLX Blood 07/10/2023 8:15 AM CDT 07/10/2023 8:22 AM CDT Unknown Provider LAB POCT ORDERABLES- MANUAL [facility] [address] [place] [address], [facility] [address] [place] [address] * Glucose, POCT (07/10/2023 2:47 AM CDT) Glucose, POCT, B 117 70 - 140 mg/dL 07/10/2023 2:49 AM CDT PCLX Site Capillary 07/10/2023 2:49 AM CDT PCLX Last Intake > 4 hours 07/10/2023 2:49 AM CDT PCLX Blood 07/10/2023 2:47 AM CDT 07/10/2023 2:49 AM CDT Unknown Provider LAB POCT ORDERABLES- MANUAL Performing Organization Address City/[facility]/ZIP Co de Phone Number [facility] [address] [place] [address], [facility] [address] [place] [address] * (ABNORMAL) Glucose, POCT (07/09/2023 10:07 PM CDT) Pathologist [facility] Glucose, POCT, B 158(H) 70 - 140 mg/dL 07/09/2023 10:14 PM CDT PCLX Site Capillary 07/09/2023 10:14 PM CDT PCLX Last Intake 2-3 hours 07/09/2023 10:14 PM CDT PCLX Blood 07/09/2023 10:0 7 PM CDT 07/09/2023 10:14 PM CDT Unknown Provider LAB POCT ORDERABLES- MANUAL Performing Organization Address City/[facility] Co de Phone Number [facility] [address] [place] [address], [facility] [address] [place] [address] * (ABNORMAL) Cystatin C with Estimated GFR (07/09/2023 9:01 PM CDT) [facility] eGFR by Cystatin C 49(L) >60 mL/min/BSA [...] CDT Addy Arias M.D. LAB BLOOD ADD-ON [facility] [address] [place] [address], [facility] [address] [place] [address] * (ABNORMAL) Basic Metabolic Panel (07/09/2023 9:01 PM CDT) [facility] Potassium, S 4.3 3.6 - 5.2 mmol/L [...] CDT Addy Arias M.D. LAB BLOOD ADD-ON [facility] [address] [place] [address], [facility] [address] [place] [address] * Glucose, POCT (07/09/2023 6:31 PM CDT) Glucose, POCT, B 117 70 - 140 mg/dL 07/09/2023 6:33 PM CDT PCLX Site Capillary 07/09/2023 6:33 PM CDT PCLX Blood 07/09/2023 6:31 PM CDT 07/09/2023 6:33 PM CDT Unknown Provider LAB POCT ORDERABLES- MANUAL [facility] [address] [place] [address], [place] [facility] [address] [place] [address] * Glucose, POCT (07/09/2023 4:42 PM CDT) Glucose, POCT, B 87 70 - 140 mg/dL 07/09/2023 4:47 PM CDT PCLX Site Capillary 07/09/2023 4:47 PM CDT PCLX Last Intake 3-4 hours 07/09/2023 4:47 PM CDT PCLX Blood 07/09/2023 4:42 PM CDT 07/09/2023 4:47 PM CDT Unknown Provider LAB POCT ORDERABLES- MANUAL [facility] [address] [place] [address], [place] [facility] [address] [place] [address] * Glucose, POCT (07/09/2023 2:07 PM CDT) Glucose, POCT, B 96 70 - 140 mg/dL 07/09/2023 2:19 PM CDT PCLX Last Intake 1-2 hours 07/09/2023 2:19 PM CDT PCLX Blood 07/09/2023 2:07 PM CDT 07/09/2023 2:19 PM CDT Unknown Provider LAB POCT ORDERABLES- MANUAL [facility] [address] [place] [address], [facility] [address] [place] [address] * Glucose, POCT (07/09/2023 1:21 PM CDT) Glucose, POCT, B 97 70 - 140 mg/dL 07/09/2023 1:31 PM CDT PCLX Blood 07/09/2023 1:21 PM CDT 07/09/2023 1:31 PM CDT Unknown Provider LAB POCT ORDERABLES- MANUAL [facility] [address] [place] [address], [place] [facility] [address] [place] [address] * (ABNORMAL) Glucose, POCT (07/09/2023 12:56 PM CDT) Glucose, POCT, B 58(L) 70 - 140 mg/dL 07/09/2023 1:00 PM CDT PCLX Site Capillary 07/09/2023 1:00 PM CDT PCLX Last Intake 1-2 hours 07/09/2023 1:00 PM CDT PCLX Blood 07/09/2023 12:5 6 PM CDT 07/09/2023 1:00 PM CDT Unknown Provider LAB POCT ORDERABLES- MANUAL Performing Organization Address City/[facility]/ZIP Co de Phone Number [facility] [address] [place] [address], [facility] [address] [place] [address] * (ABNORMAL) Glucose, POCT (07/09/2023 12:34 PM CDT) Glucose, POCT, B 60(L) 70 - 140 mg/dL 07/09/2023 12:37 PM CDT PCLX Site Capillary 07/09/2023 12:37 PM CDT PCLX Last Intake 3-4 hours 07/09/2023 12:37 PM CDT PCLX Blood 07/09/2023 12:3 4 PM CDT 07/09/2023 12:37 PM CDT Unknown Provider LAB POCT ORDERABLES- MANUAL Performing Organization Address [facility]/ZIP Co de Phone Number [facility] [address] [place] [address], [facility] P[facility] P[facility] [address] [place] [address] * (ABNORMAL) Glucose, POCT (07/09/2023 12:05 PM CDT) Glucose, POCT, B 38(L) 70 - 140 mg/dL 07/09/2023 12:11 PM CDT PCLX Site Capillary 07/09/2023 12:11 PM CDT PCLX Last Intake 3-4 hours 07/09/2023 12:11 PM CDT PCLX Blood 07/09/2023 12:0 5 PM CDT 07/09/2023 12:11 PM CDT Unknown Provider LAB POCT ORDERABLES- MANUAL Performing Organization Address City/[facility]/ZIP Co de Phone Number [facility] [address] [place] [address], [facility] P[facility] [address] [place] [address] * Phosphorus Inorganic (07/09/2023 8:11 AM CDT) Phosphorus (Inorganic), S 3.3 2.5 - 4.5 mg/dL 07/09/2023 9:25 AM CDT DTL Blood (Blood, Venous) 07/09/2023 8:11 AM CDT 07/09/2023 9:02 AM CDT Romina Law, Ph.D. LAB BLOOD ADD-ON [facility] [address] [place] [address], [facility] [address] [place] [address] * Magnesium (07/09/2023 8:11 AM CDT) Magnesium, S 2.0 1.7 - 2.3 mg/dL 07/09/2023 9:25 AM CDT DTL Blood (Blood, Venous) 07/09/2023 8:11 AM CDT 07/09/2023 9:02 AM CDT Romina Law, Ph.D. LAB BLOOD ADD-ON [facility] [address] [place] [address], [facility] [address] [place] [address] * (ABNORMAL) Basic Metabolic Panel (07/09/2023 8:11 [...] CDT Romina Law, Ph.D. LAB BLOOD ADD-ON [facility] [address] [place] [address], [facility] [address] [place] [address] * (ABNORMAL) CBC without Differential (07/09/2023 8:11 [...] CDT Romina Dutta., Ph.D. LAB BLOOD ADD-ON [facility] [address] [place] [address], [facility] [address] [place] [address] * (ABNORMAL) Cystatin C with Estimated GFR (07/09/2023 8:09 AM CDT) [facility] eGFR by Cystatin C 56(L) >60 mL/min/BSA [...] CDT Addy Arias M.D. LAB BLOOD ADD-ON [facility] [address] [place] [address], [facility] DTL [facility] [address] [place] [address] * Glucose, POCT (07/09/2023 8:05 AM CDT) Pathologist [facility] Glucose, POCT, B 139 70 - 140 mg/dL 07/09/2023 8:10 AM CDT PCLX Site Capillary 07/09/2023 8:10 AM CDT PCLX Last Intake > 4 hours 07/09/2023 8:10 AM CDT PCLX Blood 07/09/2023 8:05 AM CDT 07/09/2023 8:11 AM CDT Unknown Provider LAB POCT ORDERABLES- MANUAL Performing Organization Address City/[facility]/ZIP Co de Phone Number POC [facility] [address] [place] [address], [facility] PCLX [facility] [address] [place] [address] * (ABNORMAL) Glucose, POCT (07/09/2023 6:06 AM CDT) Glucose, POCT, B 227(H) 70 - 140 mg/dL 07/09/2023 6:08 AM CDT PCLX Site Capillary 07/09/2023 6:08 AM CDT PCLX Last Intake > 4 hours 07/09/2023 6:08 AM CDT PCLX Blood 07/09/2023 6:06 AM CDT 07/09/2023 6:09 AM CDT Unknown Provider LAB POCT ORDERABLES- MANUAL Performing Organization Address City/[facility] Co de Phone Number POC [facility] [address] [place] [address], [facility] PCLX [facility] [address] [place] [address] * (ABNORMAL) Glucose, POCT (07/09/2023 3:10 AM CDT) Glucose, POCT, B 265(H) 70 - 140 mg/dL 07/09/2023 3:25 AM CDT PCLX Last Intake 2-3 hours 07/09/2023 3:25 AM CDT PCLX Blood 07/09/2023 3:10 AM CDT 07/09/2023 3:25 AM CDT Unknown Provider LAB POCT ORDERABLES- MANUAL Performing Organization Address City/[facility]/ZIP Co de Phone Number POC [facility] [address] [place] [address], [facility] PCL[facility] [address] [place] [address] * Glucose, POCT (07/08/2023 11:55 PM CDT) Glucose, POCT, B 137 70 - 140 mg/dL 07/08/2023 11:57 PM CDT PCLX Last Intake <1 hour 07/08/2023 11:57 PM CDT PCLX Blood 07/08/2023 11:5 5 PM CDT 07/08/2023 11:58 PM CDT Unknown Provider LAB POCT ORDERABLES- MANUAL Performing Organization Address City/[facility]/ZIP Co de Phone Number POC [facility] [address] [place] [address], [place] PCLX [facility] [address] [place] [address] * Glucose, POCT (07/08/2023 10:45 PM CDT) Glucose, POCT, B 82 70 - 140 mg/dL 07/08/2023 10:51 PM CDT PCLX Site Capillary 07/08/2023 10:51 PM CDT PCLX Last Intake 1-2 hours 07/08/2023 10:51 PM CDT PCLX Blood 07/08/2023 10:4 5 PM CDT 07/08/2023 10:51 PM CDT Unknown Provider LAB POCT ORDERABLES- MANUAL Performing Organization Address City/[facility]/ZIP Co de Phone Number [facility] [address] [place] [address], [place] [facility] [address] [place] [address] * Glucose, POCT (07/08/2023 10:20 PM CDT) Glucose, POCT, B 117 70 - 140 mg/dL 07/08/2023 10:22 PM CDT PCLX Site Capillary 07/08/2023 10:22 PM CDT PCLX Last Intake 3-4 hours 07/08/2023 10:22 PM CDT PCLX Blood 07/08/2023 10:2 0 PM CDT 07/08/2023 10:22 PM CDT Unknown Provider LAB POCT ORDERABLES- MANUAL Performing Organization Address City/[facility]/ZIP Co de Phone Number [facility] [address] [place] [address], [facility] [address] [place] [address] * (ABNORMAL) Glucose, POCT (07/08/2023 9:45 PM CDT) Glucose, POCT, B 59(L) 70 - 140 mg/dL 07/08/2023 10:22 PM CDT PCLX Site Capillary 07/08/2023 10:22 PM CDT PCLX Last Intake 3-4 hours 07/08/2023 10:22 PM CDT PCLX Blood 07/08/2023 9:45 PM CDT 07/08/2023 10:22 PM CDT Unknown Provider LAB POCT ORDERABLES- MANUAL Performing Organization Address [facility] Co de Phone Number [facility] [address] [place] [address], [facility] [address] [place] [address] * (ABNORMAL) Glucose, POCT (07/08/2023 9:21 PM CDT) Glucose, POCT, B 40(L) 70 - 140 mg/dL 07/08/2023 10:22 PM CDT PCLX Site Capillary 07/08/2023 10:22 PM CDT PCLX Last Intake 3-4 hours 07/08/2023 10:22 PM CDT PCLX Blood 07/08/2023 9:21 PM CDT 07/08/2023 10:22 PM CDT Unknown Provider LAB POCT ORDERABLES- MANUAL [facility] [address] [place] [address], [place] [facility] [address] [place] [address] * (ABNORMAL) Glucose, POCT (07/08/2023 9:08 PM CDT) Glucose, POCT, B 33(L) 70 - 140 mg/dL 07/08/2023 10:22 PM CDT PCLX Last Intake 3-4 hours 07/08/2023 10:22 PM CDT PCLX Blood 07/08/2023 9:08 PM CDT 07/08/2023 10:22 PM CDT Unknown Provider LAB POCT ORDERABLES- MANUAL Performing Organization Address City/[facility]/ZIP Co de Phone Number [facility] [address] [place] [address], [place] [facility] [address] [place] [address] * (ABNORMAL) Glucose, POCT (07/08/2023 8:53 PM CDT) Glucose, POCT, B 37(L) 70 - 140 mg/dL 07/08/2023 10:22 PM CDT PCLX Site Capillary 07/08/2023 10:22 PM CDT PCLX Last Intake 1-2 hours 07/08/2023 10:22 PM CDT PCLX Blood 07/08/2023 8:53 PM CDT 07/08/2023 10:22 PM CDT Unknown Provider LAB POCT ORDERABLES- MANUAL [facility] [address] [place] [address], [place] [facility] [address] [place] [address] * (ABNORMAL) Glucose, POCT (07/08/2023 8:47 PM CDT) Glucose, POCT, B 35(L) 70 - 140 mg/dL 07/08/2023 8:49 PM CDT PCLX Site Capillary 07/08/2023 8:49 PM CDT PCLX Blood 07/08/2023 8:47 PM CDT 07/08/2023 8:49 PM CDT Unknown Provider LAB POCT ORDERABLES- MANUAL [facility] [address] [place] [address], [facility] [address] [place] [address] * Glucose, POCT (07/08/2023 6:23 PM CDT) Glucose, POCT, B 75 70 - 140 mg/dL 07/08/2023 6:29 PM CDT PCLX Site Capillary 07/08/2023 6:29 PM CDT PCLX Last Intake 3-4 hours 07/08/2023 6:29 PM CDT PCLX Blood 07/08/2023 6:23 PM CDT 07/08/2023 6:29 PM CDT Unknown Provider LAB POCT ORDERABLES- MANUAL Performing Organization Address City/[facility]/ZIP Co de Phone Number [facility] [address] [place] [address], [facility] [address] [place] [address] * (ABNORMAL) Glucose, POCT (07/08/2023 6:03 PM CDT) Glucose, POCT, B 48(L) 70 - 140 mg/dL 07/08/2023 6:11 PM CDT PCLX Site Capillary 07/08/2023 6:11 PM CDT PCLX Last Intake 3-4 hours 07/08/2023 6:11 PM CDT PCLX Blood 07/08/2023 6:03 PM CDT 07/08/2023 6:11 PM CDT Unknown Provider LAB POCT ORDERABLES- MANUAL [facility] [address] [place] [address], [facility] [address] [place] [address] * DX Chest Portable 1 View (07/08/2023 [...] pneumothorax. Multileveldegenerative changes of the spine. Romina PageS., Ph.D. IMG DIAGNO STIC IMAGING PROCEDURES * [...] PM CDT 07/08/2023 4:12 PM CDT Romina YorkB.S., Ph.D. LAB BLOOD ADD-ON [facility] [address] [place] [address] * Thyroid Function [employer] (07/08/2023 3:44 PM CDT) TSH, Sensitive 1.3 0.3 - 4.2 mIU/L 07/08/2023 4:48 PM CDT DTL Blood (Blood, Venous) 07/08/2023 3:44 PM CDT 07/08/2023 4:12 PM CDT Romina Law, Ph.D. LAB BLOOD ADD-ON Performing Organization Address City/[facility]/ZIP Co de Phone Number [facility] [address] [place] [address] * Phosphorus Inorganic (07/08/2023 3:44 PM CDT) Pathologist [facility] Phosphorus (Inorganic), S 3.8 2.5 - 4.5 mg/dL 07/08/2023 4:48 PM CDT DTL Blood (Blood, Venous) 07/08/2023 3:44 PM CDT 07/08/2023 4:12 PM CDT Romina Law, Ph.D. LAB BLOOD ADD-ON [facility] [address] [place] [address] * Magnesium (07/08/2023 3:44 PM CDT) Magnesium, S 2.1 1.7 - 2.3 mg/dL 07/08/2023 4:48 PM CDT DTL Blood (Blood, Venous) 07/08/2023 3:44 PM CDT 07/08/2023 4:12 PM CDT Romina Law, Ph.D. LAB BLOOD ADD-ON [facility] [address] [place] [address], [facility] DTL [facility] [address] [place] [address] * (ABNORMAL) Comprehensive Metabolic Panel (07/08/2023 3:44 [...] CDT Romina Law, Ph.D. LAB BLOOD ADD-ON [facility] [address] [place] [address], [facility] [address] [place] [address] * (ABNORMAL) CBC without Differential (07/08/2023 3:44 [...] Romina Nacho Law, Ph.D. 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 (Stable Angina/Angina Of Exertion) (HCC) Coronary Stent Status Post Shortness Of Breath Abnormal Coronary Calcium Computed Tomography Edema Lower Extremity Shortness Of Breath Abnormal Coronary Calcium Computed Tomography Edema Lower Extremity 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 Swallow whole. Do NOT crush, chew or open capsule. Given 07/13/2023 11:09 AM CDT 160 mg Given 07/11/2023 11:26 AM CDT 160 mg fentaNYL injection (SUBLIMAZE) Code/trauma/sedation medication, Starting on Tania 07/08/23 at 1014, Intraprocedure (CV) Given 07/08/2023 10:24 AM CDT 25 mcg Given 07/08/2023 10:14 AM CDT 25 mcg glucose chewable tablet 16 g 16 g, oral, As needed, low blood sugar, For glucose 54-70 mg/dL, Starting on Tania 07/08/23 at 8, If patient is conscious and able to swallow safely and has a functioning gastrointestinal tract or on Acarbose (Precose??) or Miglitol (Glyset??). Administer 4 tablets to total 16 grams. May use tablets or gel. heparin (porcine) 1,000 unit/mL injection Code/trauma/sedation medication, Starting on Tania 07/08/23 at 1030, Intraprocedure (CV) Given 07/08/2023 10:30 AM CDT 5,000 Units heparin (porcine) injection 7,500 Units 7,500 [...] iodine/mL solution (OMNIPAQUE) Code/trauma/sedation medication, Starting on Wed07/08/23 at 1052, Intraprocedure (CV) Given 07/08/2023 10:52 AM CDT 100 mL lidocaine 10 mg/mL (1 %) injection (XYLOCAINE) Code/trauma/sedation medication, Starting on Wed07/08/23 at 1023, Intraprocedure (CV) Given 07/08/2023 10:25 AM CDT 2 mL Right Wrist Given 07/08/2023 10:23 AM CDT 2 mL R ight Wrist lisinopriL tablet 20 mg (PRINIVIL,ZESTRIL) 20 mg, oral, Every evening, First dose on Wed07/08/23 at 1800 Given 07/12/2023 5:58 PM CDT 20 mg Given 07/11/2023 6:18 PM CDT 20 mg Given 07/10/2023 6:04 PM CDT 20 mg metoprolol succinate 24 hr tablet 25 mg (TOPROL-XL) 25 mg, oral, Daily, First dose on Wed07/13/23 at 1330, Do NOT crush or chew. Tablet may be split on score if needed. Given 07/13/2023 1:58 PM CDT 25 m g midazolam (PF) injection (VERSED) Code/trauma/sedation medication, Starting on Wed07/08/23 at 1014, Intraprocedure (CV) Given 07/08/2023 10:34 AM CDT 0. 5 mg Given 07/08/2023 10:30 AM CDT 0.5 mg Given 07/08/2023 10:22 AM CDT 0.5 mg nystatin 100,000 unit/gram powder 1 Application (NYSTOP) 1 Application, topical, 2 times daily, First dose on Wed07/09/23 at 1500, Cleanse infected skin and apply evenly over affected area(s). [place] off any excess powder. Given 07/13/2023 8:22 [...] on Wed07/08/23 at 1800, Take with food. 1818 (Given [...] 0600 0619 (Given - Provider: Belinda Skelton R.N.)1331 (Given - Provider: Saadia Brito RBren)2231 (Given - Provider: Hortensia Adair R.N.) 0656 (Given - Provider: Hortensia Adair R.N.)1349 (Not Given - Provider: Humble Holbrook R.N. - Reason: Other - Comment: angio in 20 minutes)1409 (JUN Hold - Provider: Transfer Provider, Automatic - Reason: Patient not available)1728 (JUN Unhold - Provider: Transfer Provider, Automatic)2115 (Not [...] Provider: Humble Holbrook R.N. - Reason: NPO)1409 (JUN Hold - Provider: Transfer Provider, Automatic [...] skin and apply evenly over affected area(s). [place] off any excess powder. 0914 (Given - [...] split tablet. 0618 (Given - Provider: Belinda Skleton R.N.) 0847 (Given - Provider: Humble Holbrook [...] Patient to self-manage: Basal Pump Administration 1409 (BANNER Hold - Provider: Transfer Provider, Automatic - Reason: Patient not available)1432 (Self Administered Via Pump - Provider: Lizette Padilla R.N. 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 Pump reapplied and running.)1728 (BANNER Unhold - Provider: Transfer Provider, Automatic) PRN Medication Order 07/11/2023 07/12/2023 07/13/2023 acetaminophen tablet 1,000 mg (TYLENOL) 1,000 mg, oral, Every 6 hours PRN, mild pain or score 1-3 of 10, fever, Notify sevice prior to first administration for fever, Starting on Tania 07/08/23 at 1417 1409 (BANNER Hold - Provider: Transfer Provider, Automatic - Reason: Patient not available)1728 (BANNER Unhold - Provider: Transfer Provider, Automatic) aminophylline infusion 250 mg/250 mL NaCl 0.9% (Patient Financial Rep Only) (CANCELED) Code/trauma/sedation continuous med, Starting on 07/12/23 at 1515, Intraprocedure (CV) 1515 (New Bag - Provider: Lizette Padilla R.N.)1528 (Stopped - Provider: Shemar BonillaN.)1601 (Restarted - Provider: Lizette Padilla R.N.)1606 (Stopped - Provider: Lizette Padilla R.N.) bisacodyL DR tablet 10 mg (DULCOLAX) 10 mg, oral, Daily PRN, constipation, Starting on Tania 07/08/23 at 1417, PO route preferred. Constipation unrelieved by docusate sodium (COLACE) if ordered. If results needed within 2 hours give rectal suppository if ordered. Swallow whole. Do NOT crush, chew, or split tablet. 1409 (BANNER Hold - Provider: Transfer Provider, Automatic - Reason: Patient not available)1728 (BANNER Unhold - Provider: Transfer Provider, Automatic) dextrose 40 % gel 15 g (GLUTOSE) 15 g, oral, As needed, low blood sugar, For glucose 54-70 mg/dL, Starting on Tania 07/08/23 at 205, If patient is conscious and able to swallow safely and has a fuctioning gastrointestinal tract or on Acarbose (Precose??) or Miglitol (Glyset??). May use tablets or gel. 1409 (BANNER Hold - Provider: Transfer Provider, Automatic - Reason: Patient not available)1728 (BANNER Unhold - Provider: Transfer Provider, Automatic) dextrose 50 % injection 12.5 g 12.5 g, intravenous, As needed, low blood sugar, For glucose 54-70 mg/dL, Starting on Tania 07/08/23 at 2058, If the patient has intravenous access available, is not able to take oral feeding safely, does not have a functioning gastrointestinal tract or feeding tube, or is NPO, administer D50W intravenously. 1409 (BANNER Hold - Provider: Transfer Provider, Automatic - Reason: Patient not available)1728 (BANNER Unhold - Provider: Transfer Provider, Automatic) dextrose 50 % injection 25 g 25 g, intravenous, As needed, low blood sugar, For glucose less than 54 mg/dL, Starting on Tania 07/08/23 at 205, If intravenous access is available, administer D50W intravenously 1409 (BANNER Hold - Provider: Transfer Provider, Automatic - Reason: Patient not available)1728 (BANNER Unhold - Provider: Transfer Provider, Automatic) fentaNYL injection (SUBLIMAZE) (CANCELED) Code/trauma/sedation medication, Starting on Wed07/12/23 at 1453, Intraprocedure (CV) 1453 (Given - Provider: Mitch Rae R.N.)1502 (Given - Provider: Mitch Rae R.N.)1530 (Given - Provider: Lizette Padilla R.N.)1547 (Given - Provider: Lizette Padilla R.N.)1557 (Given - Provider: Roz Bonilla.N.)1612 (Given - Provider: Roz Bonilla.N.)1621 (Given - Provider: Lizette Padilla R.N.)1628 (Given [...] May use tablets or gel. 1409 (BANNER Hold - Provider: Transfer Provider, Automatic - Reason: Patient not available)1728 (BANNER Unhold - Provider: Transfer Provider, Automatic) heparin [...] - Provider: Belinda Skelton R.N. - Comment: [facility] [phone] (Self Administered Via Pump - Provider: Saadia Brito R.N. - Comment: GLucose 252 via renetta) 1409 (BANNER Hold - Provider: Transfer Provider, Automatic - Reason: Patient not available)1728 (BANNER Unhold - Provider: Transfer Provider, Automatic) iohexoL [...] on Tania 07/08/23 at 1417 1409 (BANNER Hold - Provider: Transfer Provider, Automatic - Reason: Patient not available)1728 (BANNER Unhold - Provider: Transfer Provider, Automatic) phenylephrine [...] transfusion or post blood sampling 1409 (BANNER Hold - Provider: Transfer Provider, Automatic - Reason: Patient not available)1728 (BANNER Unhold - Provider: Transfer Provider, Automatic) sodium chloride 0.9 % injection 3 mL 3 mL, intravenous, As needed, line care, Starting on Tania 07/08/23 at 1415, Prior to and following infusion and between multiple consecutive infusions: sodium chloride 0.9 % injection 1409 (BANNER Hold - Provider: Transfer Provider, Automatic - Reason: Patient not available)1728 (BANNER Unhold - Provider: Transfer Provider, Automatic) Linked [...]
--- OUTSIDE RECORDS SUMMARY | 2023-08-30 16:20 | XMS_ITS | Encounter Summary ---
Author Name Unknown Organization 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 [address] [place] [phone] Social History Tobacco Use Types Packs/Day Years [...] shut off services in your home? No 06/25/2023 Humiliation, Afraid, Rape, and Kick questionnair e Answer Date Recorded Within the last year, have y ou been afraid of your partner or ex-partner? No 04/25/2022 Within the last year, have y ou been humiliated or emotionally abused in other ways by your partner or ex-partner? No Within the last year, have y ou been kicked, hit, slapped, or otherwise physically hurt by your partner or ex-partner? No 04/25/2022 Within the last year, have y ou been raped or forced to have any kind of sexual activity by your partner or ex-partner? No 04/25/2022 Social Connection and Isolat ion Panel [NHANES] Answer Date Recorded In a typical week, how many times do you talk on the phone with family, friends, or neighbors? More than three times a week 04/25/2022 How often do you get togethe r with friends or relatives? More than three times a week 04/25/2022 How often do you attend chur or congregation services? 1 to 4 times per year 04/25/2022 Do you belong to any clubs o r organizations such as voodoo groups, unions, fraternal or athletic groups, or [...] care, and heating? Not very hard 04/25/2022 [facility] [place] [facility] - Occupational Stress [...] the money to buy more. Never true 06/25/19 24 Within the past 12 months, t he food you bought just didn't last and you didn't have money to get more. Never true 06/25/2023 PRAPARE - Transportation Answer Date Re corded In the past 12 months, has l ack of transportation kept you from medical appointments or from getting medications? No 11/2023 In the past 12 months, has l ack of transportation kept you from meetings, work, or from getting things needed for daily living? No 06/25/2023 Nutrition Answer Date Recorded Nutrition: EVOO Fat [...] your living situation today? I have a [facility] place to live 06/25/2023 Education Answer Date Recorded What is the [...] PM CDT Infusion Department of Oncology in [place], [place] 200 [place] [phone] Ankush Mancia M.B.B.S., M.S. 200 [place] [phone] 09/22/2023 1:30 PM CDT Appointment Department of Cardiovascular Diseases in [place], [place] [address] [place] [phone] Addy Arias M.D. [address] [place] [phone] 09/27/2023 10:45 AM CDT Comprehensive Visit Department of Cardiovascular Diseases in [place], [place] [address] [place] [phone] Laith Feliciano M.D. [address] [place] [phone] 10/06/2023 9:00 AM CDT Infusion Department of Oncology in [place], [place] [address] [place] [phone] Ankush Mancia M.B.B.S., M.S. [address] [place] [phone] 11/01/2023 9:00 AM CDT Clinical Communication Virtual Review in [place], [place] 200 [place] [phone] 11/03/2023 10:00 AM CDT Comprehensive Visit Division of Gastroenterology in [place], [place] [address] [place] [phone] Milton Holden M.D. [address] [place] [phone] 11/03/2023 1:00 PM CDT Appointment Department of Radiology, [facility], in [place], [place] [address] [place] [phone] Dev Jimenez M.D. [address] [place] [phone] 11/04/2023 8:45 AM CDT Appointment Division of Gastroenterology in [place], [place] [address] [place] [phone] Dev Jimenez M.D. [address] [place] [phone] 11/08/2023 8:00 AM CDT Appointment Division of Gastroenterology in [place], [place] [address] [place] [phone] Dev Jimenez M.D. [address] [place] [phone] 11/09/2023 7:45 AM CDT Appointment Division of Gastroenterology in [place], [place] [address] [place] [phone] Dev Jimenez M.D. [address] [place] [phone] documented as of this encounter Visit Diagnoses Not on filedocumented in this encounter
--- OUTSIDE RECORDS SUMMARY | 2023-08-30 16:20 | XMS_ITS | Encounter Summary ---
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 [address] [place] [phone] [facility] Referral ID Status Reason Start Date Expiration Date Visits Re quested Visits Authorized [id number] Closed 07/01/2023 12/30/2024 1 1 Encounter Details Date Type Department Care Team (Latest Contact Info) Description 07/07/2023 9:30 AM CDT Virtual Visit Department of Cardiovascular Medicine in [place], [place] [address] [place] [phone] Sarina Marroquin APRN, C.N.P., D.N.P. [address] [place] [phone] Ledy Hall R.N. [address] [place] [phone] Diabetes Mellitus Type 1 (HCC) (Primary Dx); Hyperlipidemia; Shortness Of Breath; Morbid Obesity Body Mass Index 45.0-49.9 Adult (HCC); Hypertension Essential Primary Social History Tobacco Use Types Packs/Day Years Used Date Smoking Tobacco: Never Passive Smoke Exposure: Past Smokeless Tobacco: Never Alcohol Use Standard Drinks/Week Comments Not Currently 0 (1 standard drink = 0.6 oz pur e alcohol) [facility] Utilities Answer Date Recorded In the past 12 months has e [employer], oil, or water [employer] threatened to shut off services in your [...] often do you attend chur ch or holiness services? 1 to 4 times per year 04/25/2022 Do you belong to any clubs o r organizations such as denominational groups, unions, fraternal or athletic groups, or [...] care, and heating? Not very hard 04/25/2022 [facility] of Occupat ional Health - Occupational Stress [...] living situation today? I have a [facility] place to live 07/08/2023 Education Answer Date Recorded What is the highest level of school you have completed or the highest degree you have received? 12th grade 05/13/2021 Sex and Gender Information Value Date Recorded Sex Assigned at Male 09/14/2019 9:19 PM CDT Gender Identity Not on file Sexual Orientation Not on file documented as of this encounter Patient Instructions * Attachments The following attachments cannot be sent through Care Everywhere. * VIDEO: CORONARY ANGIOGRAM (MALAGASY) * Instructions To Get Ready for Your Cardiac Catheterization or Heart Rhythm Procedure: [facility] (Angolan) * About Your Heart-Catheter Procedures (Angolan) documented in this encounter Progress Notes * eLdy Hall R.N. - 07/07/2023 9:30 AM CDT SUBJECTIVE REASON FOR VISIT Pre-procedure education OBJECTIVE Nurse education visit was completed within the Pre-Procedure Clinic (PPC) as ordered by the referring provider for a Personnel Clerks Supervisor readiness review and education prior to procedure. The visit was conducted via telephone. Procedure to be done: Coronary Angiogram with possible intervention Date of procedure: 07/08/23 MIGUEL ANGEL completed within 30 days of procedure? Yes Labs completed within 45 days of procedure? Yes ECG completed within designated timeframe of procedure? Yes Allergy to contrast dye/iodine? No Medications -- Aspirin Instructions: Take four tablets of 81 mg non-enteric Aspirin (for a total of 324 mg) or one tablet of 325 mg non-enteric coated Aspirin on the morning of your procedure. -- Anti-Platelet Therapy Instructions: Take 4 tablets (300 mg total) of Plavix on the day prior to your procedure. Take 1 tablet (75 mg) of Plavix on the morning of your procedure. -- Diabetic Instructions: Follow specific instructions per our visit or refer to Preparing For YourCardiac Catheterization or Heart Rhythm Procedure booklet, 3596-08, pages 14 through 17. Insulinpump can continue at basal rate. No boluses morning of procedure. -- Vitamins/Supplements Instructions: Do not take vitamins or supplements the morning of the procedure. Anticoagulation Plan Not applicable ASSESSMENT / PLAN Information Discussed Reviewed pre-procedure instructions with patient/family including: Basic information about the scheduled procedure. Fasting for 8 hours, 6 hours, and 2 hours prior to report time. Please refer to the ???Instructions To Get Ready for Your Cardiac Catheterization or Heart Rhythm Procedure: [facility] pamphlet for further details. Taking all medications as instructed. Calling the [facility] Service Line ([phone]) the evening before the procedure between the hours of 7:00 pm and midnight to learn what time and where to report to the hospital the next day. Needing a responsible adult (18 years of age or older) to be present the day of procedure includingat discharge for transportation home. Planning to stay within 100 miles of [facility] overnight. Visitor Policy Please check the [facility] Visitor Policy website for the most up to date visitor policy information. Disposition/Recommendation: protocol orders Information/Education: patient/caller able to teach back Caller agreeable to plan of care: yes The following references were used: patient education resources: as documented in the Education Activity and [facility] protocol: Cardiovascular Clinic Pre- Cardiac Invasive Catheterization ProcedurePatient Management documented in this encounter Plan of Treatment Upcoming Encounters Date Type Department Care Team (Late st Contact Info) Description 09/07/2023 4:30 PM CDT Infusion Department of Oncology in [place], [place] [address] [place] [phone] Ankush Mancia M.B.B.S., M.S. [address] [place] [phone] 09/22/2023 1:30 PM CDT Appointment Department of Cardiovascular Diseases in [place], [place] [address] [place] [phone] Addy Arias M.D. [address] [place] [phone] 09/27/2023 10:45 AM CDT Comprehensive Visit Department of Cardiovascular Diseases in [place], [place] [address] [place] [phone] Laith Feliciano M.D. [address] [place] [phone] 10/06/2023 9:00 AM CDT Infusion Department of Oncology in [place], [place] [address] [place] [phone] Ankush Mancia M.B.B.S., M.S. [address] [place] [phone] 11/01/2023 9:00 AM CDT Clinical Communication Virtual Review in [place], [place] 200 [place] [phone] 11/03/2023 10:00 AM CDT Comprehensive Visit Division of Gastroenterology in [place], [place] [address] [place] [phone] Milton Holden M.D. [address] [place] [phone] 11/03/2023 1:00 PM CDT Appointment Department of Radiology, [facility], in [place], [place] [address] [place] [phone] Dev Jimenez M.D. [address] [place] [phone] 11/04/2023 8:45 AM CDT Appointment Division of Gastroenterology in [place], [place] [address] [place] [phone] Dev Jimenez M.D. [address] [place] [phone] 11/08/2023 8:00 AM CDT Appointment Division of Gastroenterology in [place], [place] [address] [place] [phone] Dev Jimenez M.D. [address] [place] [phone] 11/09/2023 7:45 AM CDT Appointment Division of Gastroenterology in [place], [place] [address] [place] [phone] Dev Jimenez M.D. [address] [place] [phone] documented as of this encounter Visit Diagnoses Diagnosis Diabetes Mellitus Type 1 (HCC)- Primary Hyperlipidemia Shortness Of Breath Morbid Obesity Body Mass Index 45.0-49.9 Adult (HCC) Hypertension Essential Primary documented in this encounter
--- OUTSIDE RECORDS SUMMARY | 2023-08-30 16:21 | XMS_ITS | Encounter Summary ---
Author Name Unknown Organization [facility] Address [address] [place] [address] Care Team Providers Care Contact Center Associate Name Role Phone Unavailable Primary Care Provider Unavailabl e Encounter Details Date Type Department Care Team (Latest Contact Info) Description 06/29/2023 9:30 AM CDT - 06/29/2023 11:59 PM CDT Hospital Encounter Department of Laboratory Medicine in [place], [place] 300 [place] [phone] Shaheen Fuentes M.D. [address] [place] [phone] Coronary Artery Disease With Stable Angina (HCC) Discharge Disposition: Home or Self Care Social History Tobacco Use Types Packs/Day Years Used Date Smoking Tobacco: Never Passive Smoke Exposure: Past Smokeless Tobacco: Never Alcohol Use Standard Drinks/Week Comments Not Currently 0 (1 standard drink = 0.6 oz pur e alcohol) [facility] Utilities Answer Date Recorded In [...] How often do you attend chur or restorationism services? 1 to 4 times per year [...] care, and heating? Not very hard 04/25/2022 [employer] of Occupat ional Health - Occupational Stress [...] your living situation today? I have a [facility] place to live 06/25/2023 Education Answer Date Recorded What is the highest level of school you have completed or the highest degree you have received? 12th grade 05/13/2021 Sex and Gender Information Value Date Recorded Sex Assigned at Male 09/14/2019 9:19 PM CDT Gender Identity Not on file Sexual Orientation Not on file documented as of this encounter Medications at Time of Discharge Medication Sig Dispensed Refills Start Date End Date acetaminophen (TYLENOL) 500 mg tablet Take 2 tablets (1,000 mg total) by mouth every 6 (six) hours for 80 doses. Continue to take while requiring narcotic pain medication. Do not take more than 4000 mg in one day. 90 tablet 1 07/01/2020 aspirin 81 mg chewable tablet Chew 81 [...] 2 sprays into each nostril daily. 05/11/2023 FreeStR2integrated Jonathan 3 Sensor device CHANGE EVERY 2 WEEKS 05/11/2023 insulin lispro 100 unit/mL injection INJECT 180 [...] tablet Take 10 mg by mouth daily. triamcinolone (KENALOG) 0.1 % ointment 1 Application as needed for irritation. 11/11/2021 atorvastatin (LIPITOR) 80 mg tablet Take 1 tablet (80 mg total) by mouth daily. 90 tablet 3 07/23/2022 08/05/2023 cholecalciferol (VITAMIN D3) 50 mcg (2,000 Unit) capsule furosemide (LASIX) 40 mg tablet Take by mouth 2 (two) times a day. 2 tablets in the AM, 1 tablet in the afternoon 07/13/2023 GLUCAGON 1 mg injection INJECT 1 MG UNDER THE SKIN ONE TIME NEEDED FOR BLOOD GLUCOSE <60 MG/DL 12 12/12/2017 07/13/2023 omeprazole (PriLOSEC) [address] capsule Take 40 mg by mouth daily. 08/14/2022 07/13/2023 documented as of this encounter Plan of Treatment Upcoming Encounters Date Type Department Care Team (Late st Contact Info) Description 09/07/2023 4:30 PM CDT Infusion Department of Oncology in [place], [place] [address] [place] [phone] Ankush Mancia M.B.B.S., M.S. [address] [place] [phone] 09/22/2023 1:30 PM CDT Appointment Department of Cardiovascular Diseases in [place], [place] [address] [place] [phone] Addy Arias M.D. [address] [place] [phone] 09/27/2023 10:45 AM CDT Comprehensive Visit Department of Cardiovascular Diseases in [place], [place] [address] [place] [phone] Laith Feliciano M.D. [address] [place] [phone] 10/06/2023 9:00 AM CDT Infusion Department of Oncology in [place], [place] [address] [place] [phone] Ankush Mancia M.B.BGaliS., M.S. [address] [place] [phone] 11/01/2023 9:00 AM CDT Clinical Communication Virtual Review in [place], [place] 200 [place] [phone] 11/03/2023 10:00 AM CDT Comprehensive Visit Division of Gastroenterology in [place], [place] [address] [place] [phone] Milton Holden M.D. [address] [place] [phone] 11/03/2023 1:00 PM CDT Appointment Department of Radiology, [facility], in [place], [place] [address] [place] [phone] Dev Jimenez M.D. [address] [place] [phone] 11/04/2023 8:45 AM CDT Appointment Division of Gastroenterology in [place], [place] [address] [place] [phone] Dev Jimenez M.D. [address] [place] [phone] 11/08/2023 8:00 AM CDT Appointment Division of Gastroenterology in [place], [place] [address] [place] [phone] Dev Jimenez M.D. [address] [place] [phone] 11/09/2023 7:45 AM CDT Appointment Division of Gastroenterology in [place], [place] [address] [place] [phone] Dev Jimenez M.D. [address] [place] [phone] documented as of this encounter Procedures Procedure Name Priority Date/Time Associated Diagnosis Comments GLUCOSE, FASTING, S/P Routine 06/29/2023 9:45 AM CDT Coronary Artery Disease With Stable Angina (HCC) LIPID PANEL, S Routine 06/29/2023 9:44 AM CDT Coronary Artery Disease With Stable Angina (HCC) PROTHROMBIN TIME (PT), P Routine 024 9:44 AM CDT Coronary Artery Disease With Stable Angina (HCC) CBC WITH DIFFERENTIAL, B Routine 024 9:44 AM CDT Coronary Artery Disease With [...] Coronary Artery Disease With Stable Angina (HCC) documented in this encounter Results * (ABNORMAL) Glucose, Fasting (06/29/2023 9:45 AM CDT) Glucose, P 108(H) 70 - 100 mg/dL 06/29/2023 2:34 PM CDT OWAT Last Intake 2 hr 06/29/2023 1:31 PM CDT OWAT Blood (Blood, Venous) 06/29/2023 9:45 AM CDT 06/29/2023 1:29 PM CDT Shaheen Fuentes M.D. LAB BLOOD NON AD D-ON [facility] [address] [place] [address], [place] OWAT [facility] [place] [address] [place] [address] * ALT (Alanine Aminotransferase) (06/29/2023 9:44 AM CDT) Alanine Aminotransferase (ALT), P 9 7 - 55 U/L 06/29/2023 2:42 PM CDT OWAT Blood (Blood, Venous) 06/29/2023 9:44 AM CDT 06/29/2023 1:31 PM CDT Shaheen Fuentes M.D. LAB BLOOD ADD-ON Performing Organization Address City/[facility]/ZIP Co de Phone Number [facility] [address] [place] [address], [place] [facility] [place] [address] [place] [address] * AST (Aspartate Aminotransferase) (06/29/2023 9:44 AM CDT) Aspartate Aminotransferase (AST), P 20 8 - 48 U/L 06/29/2023 2:42 PM CDT OWAT Blood (Blood, Venous) 06/29/2023 9:44 AM CDT 06/29/2023 1:31 PM CDT Shaheen Fuentes M.D. LAB BLOOD ADD-ON [facility] [address] [place] [address], [place] OW[facility] [place] [address] [place] [address] * Lipid Panel (06/29/2023 9:44 AM CDT) [...] CDT Shaheen Fuentes M.D. LAB BLOOD ADD-ON [facility] [address] [place] [address], [facility] OWAT [facility] [place] [address] [place] [address] * Prothrombin Time (PT) (06/29/2023 9:44 AM [...] M.D. LAB BLOOD ADD-ON Performing Organization Address City/[facility]/ZIP Co de Phone Number [facility] [address] [place] [address], [facility] OWAT [facility] [place] [address] [place] [address] * (ABNORMAL) Hemoglobin A1c (06/29/2023 9:44 AM [...] CDT Shaheen Fuentes M.D. LAB BLOOD ADD-ON [facility] [address] [place] [address], [facility] OWAT [facility] [place] [address] [place] [address] * Sodium (06/29/2023 9:44 AM CDT) Sodium, P 139 135 - 145 mmol/L 06/29/2023 2:42 PM CDT OWAT Blood (Blood, Venous) 06/29/2023 9:44 AM CDT 06/29/2023 1:31 PM CDT Shaheen Fuentes M.D. LAB BLOOD ADD-ON Performing Organization Address City/[facility]/ZIP Co de Phone Number [facility] [address] [place] [address], [facility] OWAT [facility] [place] [address] [place] [address] * Potassium (06/29/2023 9:44 AM CDT) Potassium, P 4.0 3.6 - 5.2 mmol/L 06/29/2023 2:42 PM CDT OWAT Blood (Blood, Venous) 06/29/2023 9:44 AM CDT 06/29/2023 1:31 PM CDT Shaheen Fuentes M.D. LAB BLOOD ADD-ON Performing Organization Address City/[facility]/ZIP Co de Phone Number [facility] [address] [place] [address], [place] OWAT [facility] [place] [address] [place] [address] * (ABNORMAL) Creatinine with Estimated GFR (06/29/2023 9:44 AM CDT) Creatinine 0.68(L) 0.74 - 1.35 mg/dL 06/29/2023 2:42 PM CDT OWAT Estimated GFR (eGFR) >90 >=60 mL/min/BSA 06/29/2023 2:42 PM CDT OWAT Comment: Estimated GFR calculated using the 2020 CKD_EPI creatinine equation. Blood (Blood, Venous) 06/29/2023 9:44 AM CDT 06/29/2023 1:31 PM CDT Shaheen Fuentes M.D. LAB BLOOD ADD-ON [facility] [address] [place] [address], [place] OW[place] [facility] [place] [address] [place] [address] * Chloride (06/29/2023 9:44 AM CDT) Chloride, P 99 98 - 107 mmol/L 06/29/2023 2:42 PM CDT OWAT Blood (Blood, Venous) 06/29/2023 9:44 AM CDT 06/29/2023 1:31 PM CDT Shaheen Fuentes M.D. LAB BLOOD ADD-ON Performing Organization Address City/[facility]/ZIP Co de Phone Number [facility] [address] [place] [address], [place] AT [facility] [place] [address] [place] [address] * BUN (Blood Urea Nitrogen) (06/29/2023 9:44 AM CDT) BUN (Blood Urea Nitrogen), P 22 8 - 24 mg/dL 06/29/2023 2:42 PM CDT OWAT Blood (Blood, Venous) 06/29/2023 9:44 AM CDT 06/29/2023 1:31 PM CDT Shaheen Fuentes M.D. LAB BLOOD ADD-ON [facility] [address] [place] [address], [place] OW[place] [facility] [place] [address] [place] [address] * Bicarbonate (06/29/2023 9:44 AM CDT) Bicarbonate, P 27 22 - 29 mmol/L 06/29/2023 2:42 PM CDT OW Blood (Blood, Venous) 06/29/2023 9:44 AM CDT 06/29/2023 1:31 PM CDT Shaheen Fuentes M.D. LAB BLOOD ADD-ON [facility] [address] [place] [address], [facility] OWAT [facility] [place] [address] [place] [address] * (ABNORMAL) CBC with Differential, Blood (06/29/2023 9:44 AM CDT) Hemoglobin 13.0(L) 13.2 - 16.6 g/dL 06/29/2023 9:48 AM CDT FB60 Hematocrit 40.9 38.3 - 48.6 % 06/29/2023 9:48 AM CDT FB60 Erythrocytes 4.73 4.35 - 5.65 x10(12)/L 06/29/2023 9:48 AM CDT FB60 MCV 86.5 78.2 - 97.9 fL 06/29/2023 9:48 AM CDT FB60 RBC Distrib Width 17.4(H) 11.8 - 14.5 % 06/29/2023 9:48 AM CDT FB60 Platelet Count 285 135 - 317 x10(9)/L 06/29/2023 9:48 AM CDT FB60 Leukocytes 8.1 3.4 - 9.6 x10(9)/L 06/29/2023 9:48 AM CDT FB60 Neutrophils 5.20 1.56 - 6.45 x10(9)/L 06/29/2023 9:48 AM CDT FB60 Lymphocytes 2.04 0.95 - 3.07 x10(9)/L 06/29/2023 9:48 AM CDT FB60 Monocytes 0.73 0.26 - 0.81 x10(9)/L 06/29/2023 9:48 AM CDT FB60 Eosinophils 0.11 0.03 - 0.48 x10(9)/L 06/29/2023 9:48 AM CDT FB60 Basophils <0.04 0.01 - 0.08 x10(9)/L 06/29/2023 9:48 AM CDT FB60 Blood (Blood, Venous) 06/29/2023 9:44 AM CDT 06/29/2023 9:45 AM CDT Shaheen Fuentes M.D. LAB BLOOD ADD-ON [facility] [address] [place] [address], [facility] FB60 [facility] [place] [address] [place] [address] documented in this encounter Visit Diagnoses Diagnosis Coronary Artery Disease With Stable Angina (HCC) documented in this encounter
--- OUTSIDE RECORDS SUMMARY | 2023-08-30 16:21 | XMS_ITS | Encounter Summary ---
Author Name Unknown Organization [facility] Address [address] [place] [address] Care Team Providers Care Senior Sharepoint Developer Name Role Phone Unavailable Primary Care Provider Unavailabl e Reason for Referral * Outpatient (Routine) - Closed Specialty Diagnoses / Procedures Referred By Cornelio price Referred To Contact Diagnoses Coronary Artery Disease With Stable Angina (HCC) Procedures DX Chest AP or PA and Lateral 2 Views Shaheen Fuentes M.D. [address] [place] [address] [facility] Referral ID Status Reason Start Date Expiration Date Visits Re quested Visits Authorized [id number] Closed 05/05/2023 05/04/2024 1 1 Reason for Visit * Outpatient (Routine) - Closed Specialty Diagnoses / Procedures Referred By Cornelio price Referred To Contact Diagnoses Coronary Artery Disease With Stable Angina (HCC) Procedures DX Chest AP or PA and Lateral 2 Views Shaheen Fuentes M.D. [address] [place] [address] [facility] Referral ID Status Reason Start Date Expiration Date Visits Re quested Visits Authorized [id number] Closed 05/05/2023 05/04/2024 1 1 Encounter Details Date Type Department Care Team (Latest Contact Info) Description 07/01/2023 9:31 AM CDT - 07/01/2023 12:56 PM CDT Hospital Encounter Department of Radiology, [facility], in [place], [place] [address] [place] [address] Shaheen Fuentes M.D. [address] [place] [address] Coronary Artery Disease With Stable Angina (HCC) Discharge Disposition: Home or Self Care Social History Tobacco Use Types Packs/Day Years Used Date Smoking Tobacco: Never Passive Smoke Exposure: Past Smokeless Tobacco: Never Alcohol Use Standard Drinks/Week Comments Not Currently 0 (1 standard drink = 0.6 oz pur e alcohol) [facility] Utilities Answer Date Recorded In the past 12 months has [employer], gas, oil, or water [employer] threatened to shut off services in your [...] often do you attend [facility] or protestant services? 1 to 4 times per year 04/25/2022 Do you belong to any clubs o r organizations such as episcopalian groups, unions, fraternal or athletic groups, or [...] care, and heating? Not very hard 04/25/2022 [facility] of Occupat ional [facility] - Occupational Stress Questionnaire Answer Date Recorded [...] Date Recorded Dental: Regular Dentist Yes 10/14/19 21 Employment Answer Date Recorded Employment status Retired 06/25/2023 Housing Stability Answer Date Recorded What is your living situation today? I have a [facility] place to live 06/25/2023 Education Answer Date [...] (VITAMIN D3) 50 mcg (2,000 Unit) capsule 024 clopidogreL (PLAVIX) 75 mg tablet Take 1 tablet (75 mg total) by mouth daily. 300 mg (4 tabs at once) on 06 July, and 75 mg on 07 July 5 tablet 07/13/2023 07/13/2023 clopidogreL (PLAVIX) 75 mg tablet Take 1 tablet (75 mg total) by mouth daily. 07/13/2023 07/13/2023 furosemide (LASIX) 40 mg tablet Take by mouth 2 (two) times a day. 2 tablets in the AM, 1 tablet in the afternoon 07/13/2023 GLUCAGON 1 mg injection INJECT 1 MG UNDER THE SKIN ONE TIME NEEDED FOR BLOOD GLUCOSE <60 MG/DL 12 12/12/2017 07/13/2023 omeprazole (PriLOSEC) [address] capsule Take 40 mg by mouth daily. 08/14/2022 07/13/2023 spironolactone (ALDACTONE) 25 mg tablet Take 0.5 tablets (12.5 mg total) by mouth daily. 45 tablet 07/14/2023 07/21/2023 torsemide (DEMADEX) 20 mg tablet Take 3 tablets (60 mg total) by mouth 2 (two) times a day. 180 tablet 07/13/2023 08/10/2023 documented as of this encounter Plan of Treatment Upcoming Encounters Date Type Department Care Team (Late st Contact Info) Description 09/07/2023 4:30 PM CDT Infusion Department of Oncology in [place], [place] [address] [place] [phone] Ankush Mancia M.B.B.S., M.S. [address] [place] [phone] 09/22/2023 1:30 PM CDT Appointment Department of Cardiovascular Diseases in [place], [place] 300 [place] [phone] Addy Arias M.D. [address] [place] [phone] 09/27/2023 10:45 AM CDT Comprehensive Visit Department of Cardiovascular Diseases in [place], [place] [address] [place] [phone] Laith Feliciano M.D. [address] [place] [phone] 10/06/2023 9:00 AM CDT Infusion Department of Oncology in [place], [place] [address] [place] [phone] Ankush Mancia M.B.B.S., M.S. [address] [place] [phone] 11/01/2023 9:00 AM CDT Clinical Communication Virtual Review in [place], [place] 200 [place] [address] 11/03/2023 10:00 AM CDT Comprehensive Visit Division of Gastroenterology in [place], [place] [address] [place] [phone] Milton Holden M.D. 1999 [place] [address] 11/03/2023 1:00 PM CDT Appointment Department of Radiology, [facility], in [place], [place] [address] [place] [phone] Dev Jimenez M.D. [address] [place] [phone] 11/04/2023 8:45 AM CDT Appointment Division of Gastroenterology in [place], [place] [address] [place] [phone] Dev Jimenez M.D. [address] [place] [phone] 11/08/2023 8:00 AM CDT Appointment Division of Gastroenterology in [place], [place] [address] [place] [phone] Dev Jimenez M.D. [address] [place] [phone] 11/09/2023 7:45 AM CDT Appointment Division of Gastroenterology in [place], [place] [address] [place] [phone] Dev Jimenez M.D. [address] [place] [phone] documented as of this encounter Procedures Procedure Name Priority Date/Time Associated Diagnosis Comments DX CHEST AP OR PA AND LATERAL 2 VIEWS RAD - Routine (most inpatients and all outpatients) 07/01/2023 9:40 AM CDT Coronary Artery Disease With Stable Angina (HCC) documented in this encounter Results * DX Chest AP or PA and [...] positioning. Degenerative changes in the spine. Shaheen [facility] I MAGING PROCEDURES documented in this encounter Visit Diagnoses Diagnosis Coronary Artery Disease With Stable Angina (HCC) documented in this encounter
--- OUTSIDE RECORDS SUMMARY | 2023-08-30 16:21 | XMS_ITS | Encounter Summary ---
Author Name Unknown Organization [facility] Address [address] [place] [address] Care Team Providers Care Vascular Physician Name Role Phone Unavailable Primary Care Provider Unavailabl e Reason for Visit * Episode Based Medications (Routine) - Authorized Specialty Diagnoses / Procedures Referred By Contac t Referred To Contact Diagnoses Primary Malignant Neoplasm Of Prostate (HCC) Procedures AK LEUPROLIDE ACETATE SUSPNSION Ankush Mancia M.B.BGaliS., M.S. [address] [place] [phone] [facility] [address] [place] [phone] Referral ID Status Reason Start Date Expiration Date V isits Requested Visits Authorized [id number] Authorized 12/03/2020 06/23/2024 99 99 Encounter Details Date Type Department Care Team (Late st Contact Info) Description 06/16/2023 4:30 PM RODENT EXTERMINATOR Infusion Department of Oncology in [place], [place] [address] [place] [phone] Ankush Mancia M.B.BGaliS., M.S. [address] [place] [phone] Primary Malignant Neoplasm Of Prostate (HCC) (Primary Dx) Social History Tobacco Use Types Packs/Day Years Used Date Smoking Tobacco: Never Smokeless Tobacco: Never Alcohol Use Standard Drinks/Week Comments Not Currently 0 (1 standard drink = 0.6 oz pur e alcohol) Humiliation, Afraid, Rape, and Kick questionnair e [...] often do you attend chur ch or christianity services? 1 to 4 times per year [...] Not very hard 04/25/2022 [facility] [place] of Occupat ional Health - Occupational Stress [...] to strenuous exercise (like a brisk walk)? 2 days 04/25/2022 On average, how many minutes do you engage in exercise at this level? 10 min 04/25/2022 Hunger Vital Sign Answer Date Recorded Within the past 12 months, y ou worried that your food would run out before you got the money to buy more. Never true 04/25/19 23 Within the past 12 months, t he food you bought just didn't last and you didn't have money to get more. Never true 04/25/2022 [facility] - Transportation Answer Date Re corded In the past 12 months, has l ack of transportation kept you from medical appointments or from getting medications? No 10/2022 In the past 12 months, has l ack of transportation kept you from meetings, work, or from getting things needed for daily living? No 04/25/2022 Housing Stability Vital Sign Answer Rocael e Recorded In the last 12 months, was t here a time when you were not able to pay the mortgage or rent on time? No 04/25/2022 In the last 12 months, how many places have you lived? 1 04/25/2022 In the last 12 months, was t here a time when you did not have a steady place to sleep or slept in a mcc (including now)? No 04/25/2022 Nutrition Answer Date Recorded Nutrition: EVOO Fat Source Yes 04/25 On average, how many serving s of fruits and vegetables do you eat per day (serving size is equal to 1 cup or approximately the size of a tennis ball)? 2-3 04/25/2022 Dental Answer Date Recorded Dental: Regular Dentist Yes 10/14/19 21 Employment Answer Date Recorded Employment status Retired 04/25/2022 Education Answer Date Recorded What is the [...] PM CDT Infusion Department of Oncology in [place], [place] [address] [place] [phone] Ankush Mancia M.B.B.S., M.S. [address] [place] [phone] 09/22/2023 1:30 PM CDT Appointment Department of Cardiovascular Diseases in [place], [place] 300 [place] [phone] Addy Arias M.D. [address] [place] [phone] 09/27/2023 10:45 AM CDT Comprehensive Visit Department of Cardiovascular Diseases in [place], [place] [address] [place] [address] Laith Feliciano M.D. [address] [place] [phone] 10/06/2023 9:00 AM CDT Infusion Department of Oncology in [place], [place] [address] [place] [phone] Ankush Mancia M.B.BGaliS., M.S. [address] [place] [phone] 11/01/2023 9:00 AM CDT Clinical Communication Virtual Review in [place], [place] 200 [place] [phone] 11/03/2023 10:00 AM CDT Comprehensive Visit Division of Gastroenterology in [place], [place] [address] [place] [phone] Milton Holden M.D. 1999 [place] [phone] 11/03/2023 1:00 PM CDT Appointment Department of Radiology, [facility], in [place], [place] [address] [place] [phone] Dev Jimenez M.D. [address] [place] [phone] 11/04/2023 8:45 AM CDT Appointment Division of Gastroenterology in [place], [place] [address] [place] [phone] Dev Jimenez M.D. [address] [place] [phone] 11/08/2023 8:00 AM CDT Appointment Division of Gastroenterology in [place], [place] [address] [place] [phone] Dev Jimenez M.D. [address] [place] [phone] 11/09/2023 7:45 AM CDT Appointment Division of Gastroenterology in [place], [place] [address] [place] [phone] Dev Jimenez M.D. [address] [place] [phone] documented as of this encounter Visit Diagnoses Diagnosis Primary Malignant Neoplasm Of Prostate (HCC)- Primary documented in this encounter Administered Medications Inactive Administered Medications - up to 3 most recent administrations Medication Order MAR Action Action Date Dose Rate Site leuprolide injection 7.5 mg (ELIGARD 1 MONTH) 7.5 mg, subcutaneous, Once, On Wed06/16/23 at 1615, For 1 dose Given 06/16/2023 4:00 PM RODENT EXTERMINATOR 7.5 mg Right Lower Abdomen documented in this encounter
--- OUTSIDE RECORDS SUMMARY | 2023-08-30 16:21 | XMS_ITS | Encounter Summary ---
Author Name Unknown Organization [facility] Address [address] [place] [address] Care Team Providers Care Supervisor Public Health Nursing Name Role Phone Unavailable Primary Care Provider Unavailabl e Reason for Visit * Reason Onset Date Comments Patient reported medication 05/20/2023 Encounter Details Date Type Department Care Team (Latest Contact Info) Description 05/20/2023 Clinical Communication [facility] [address] [place] [address] aRcquel Villegas, Pharm.D., BCACP, R.Ph. [address] [place] [phone] Patient reported medication Social History Tobacco Use Types Packs/Day Years [...] How often do you attend chur or caodaism services? 1 to 4 times per year 04/25/2022 Do you belong to any clubs o r organizations such as shinto groups, unions, fraternal or athletic groups, or [...] hard 04/25/2022 [facility] [place] of Occupat ional Health - Occupational Stress [...] place to sleep or slept in a senior living (including now)? No 04/25/2022 Nutrition Answer Date [...] PM CDT Infusion Department of Oncology in [place], [place] [address] [place] [address] Ankush Mancia M.B.B.S., M.S. [address] [place] [phone] 09/22/2023 1:30 PM CDT Appointment Department of Cardiovascular Diseases in [place], [place] 300 [place] [address] Addy Arias M.D. [address] [place] [phone] 09/27/2023 10:45 AM CDT Comprehensive Visit Department of Cardiovascular Diseases in [place], [place] [address] [place] [phone] Laith Feliciano M.D. [address] [place] [phone] 10/06/2023 9:00 AM CDT Infusion Department of Oncology in [place], [place] [address] [place] [phone] Ankush Mancia M.B.B.S., M.S. [address] [place] [phone] 11/01/2023 9:00 AM CDT Clinical Communication Virtual Review in [place], [place] 200 [place] [address] 11/03/2023 10:00 AM CDT Comprehensive Visit Division of Gastroenterology in [place], [place] [address] [place] [phone] Milton Holden M.D. 1999 [place] [phone] 11/03/2023 1:00 PM CDT Appointment Department of Radiology, [facility], in [place], [place] [address] [place] [phone] Dev Jimenez M.D. [address] [place] [phone] 11/04/2023 8:45 AM CDT Appointment Division of Gastroenterology in [place], [place] [address] [place] [address] Dev Jimenez M.D. [address] [place] [phone] 11/08/2023 8:00 AM CDT Appointment Division of Gastroenterology in [place], [place] [address] [place] [phone] Dev Jimenez M.D. [address] [place] [phone] 11/09/2023 7:45 AM CDT Appointment Division of Gastroenterology in [place], [place] [address] [place] [phone] Dev Jimenez M.D. [address] [place] [phone] documented as of this encounter Visit Diagnoses Not on filedocumented in this encounter
--- OUTSIDE RECORDS SUMMARY | 2023-08-30 16:21 | XMS_ITS | Encounter Summary ---
Author Name Unknown Organization [facility] Address [address] [place] [address] Care Team Providers Care Security Consultant Name Role Phone Unavailable Primary Care Provider Unavailabl e Reason for Visit * Reason Onset Date Comments Order Request 05/05/2023 Encounter Details Date Type Department Care Team (Late st Contact Info) Description 05/05/2023 Clinical Communication Department of Oncology in [place], [place] [address] [place] [phone] Ankush Mancia M.B.B.S., M.S. [address] [place] [phone] Order Request Social History Tobacco Use Types Packs/Day Years [...] How often do you attend chur or mandaen services? 1 to 4 times per year 04/25/2022 Do you belong to any clubs o r organizations such as sikh groups, unions, fraternal or athletic groups, or [...] care, and heating? Not very hard 04/25/2022 [facility] of Occupat ional Health - Occupational Stress [...] place to sleep or slept in a custodial (including now)? No 04/25/2022 Nutrition Answer Date [...] PM CDT Infusion Department of Oncology in [place], [place] [address] [place] [address] Ankush Mancia M.B.B.S., M.S. [address] [place] [phone] 09/22/2023 1:30 PM CDT Appointment Department of Cardiovascular Diseases in [place], [place] 300 [place] [address] Addy Arias M.D. [address] [place] [phone] 09/27/2023 10:45 AM CDT Comprehensive Visit Department of Cardiovascular Diseases in [place], [place] [address] [place] [phone] Laith Feliciano M.D. [address] [place] [phone] 10/06/2023 9:00 AM CDT Infusion Department of Oncology in [place], [place] [address] [place] [phone] Ankush Mancia M.B.B.S., M.S. [address] [place] [phone] 11/01/2023 9:00 AM CDT Clinical Communication Virtual Review in [place], [place] 200 [place] [address] 11/03/2023 10:00 AM CDT Comprehensive Visit Division of Gastroenterology in [place], [place] [address] [place] [phone] Milton Holden M.D. [address] [place] [phone] 11/03/2023 1:00 PM CDT Appointment Department of Radiology, [facility], in [place], [place] [address] [place] [phone] Dev Jimenez M.D. [address] [place] [phone] 11/04/2023 8:45 AM CDT Appointment Division of Gastroenterology in [place], [place] [address] [place] [address] Dev Jimenez M.D. [address] [place] [phone] 11/08/2023 8:00 AM CDT Appointment Division of Gastroenterology in [place], [place] [address] [place] [address] Dev Jimenez M.D. [address] [place] [phone] 11/09/2023 7:45 AM CDT Appointment Division of Gastroenterology in [place], [place] [address] [place] [address] Dev Jimenez M.D. [address] [place] [phone] documented as of this encounter Visit Diagnoses Not on filedocumented in this encounter
--- OUTSIDE RECORDS SUMMARY | 2023-08-30 16:21 | XMS_ITS | Encounter Summary ---
Author Name Unknown Organization [facility] Address [address] [place] [address] Care Team Providers Care Interior Design Faculty Member Name Role Phone Unavailable Primary Care Provider Unavailabl e Reason for Visit * Reason Onset Date Comments Heart failure clinic triage 07/01/2023 Encounter Details Date Type Department Care Team (Latest Contact Info) Description 07/01/2023 Clinical Communication Department of Cardiovascular Medicine in [place], [place] [address] [place] [address] Raleigh Denney, PGaliAGali-C. [address] [place] [phone] Heart failure clinic triage Social History Tobacco Use Types Packs/Day Years Used Date Smoking Tobacco: Never Passive Smoke Exposure: Past Smokeless Tobacco: Never Alcohol Use Standard Drinks/Week Comments Not Currently 0 (1 standard drink = 0.6 oz pur e alcohol) [facility] Utilities Answer Date Recorded In [...] any clubs o r organizations such as latter day groups, unions, fraternal or athletic groups, or [...] care, and heating? Not very hard 04/25/2022 [facility] [place] of Occupat ional Health - Occupational Stress [...] your living situation today? I have a [facility] place to live 06/25/2023 Education Answer Date [...] encounter Miscellaneous Notes * Telephone Encounter - Raleigh Denney P.A.-C. - 07/01/2023 4:46 PM CDT This patient was triaged for a new heart failure clinic appointment The patient was denied for Heart Failure Clinic appointment. This patient would be best served in [facility] Cardiology clinic. If that clinic feels as though this patient needs more advanced heart failure treatment/evaluation, then that CV provider can refer to the heart failure clinic at that time. Please cancel all testing associated with this referral. documented in this encounter Plan of Treatment Upcoming Encounters Date Type Department Care Team (Late st Contact Info) Description 09/07/2023 4:30 PM CDT Infusion Department of Oncology in [place], [place] [address] [place] [phone] Ankush Mancia M.B.BGaliS., M.S. [address] [place] [phone] 09/22/2023 1:30 PM CDT Appointment Department of Cardiovascular Diseases in [place], [place] 300 [place] [address] Addy Arias M.D. [address] [place] [phone] 09/27/2023 10:45 AM CDT Comprehensive Visit Department of Cardiovascular Diseases in [place], [place] [address] [place] [phone] Laith Feliciano M.D. [address] [place] [phone] 10/06/2023 9:00 AM CDT Infusion Department of Oncology in [place], [place] [address] [place] [phone] Ankush Mancia M.B.BGaliS., M.S. [address] [place] [phone] 11/01/2023 9:00 AM CDT Clinical Communication Virtual Review in [place], [place] [address] [place] [address] 11/03/2023 10:00 AM CDT Comprehensive Visit Division of Gastroenterology in [place], [place] [address] [place] [address] Milton Holden M.D. 1999 [place] [address] 11/03/2023 1:00 PM CDT Appointment Department of Radiology, [facility], in [place], [place] [address] [place] [address] Dev Jimenez M.D. [address] [place] [phone] 11/04/2023 8:45 AM CDT Appointment Division of Gastroenterology in [place], [place] [address] [place] [address] Dev Jimenez M.D. [address] [place] [address] 11/08/2023 8:00 AM CDT Appointment Division of Gastroenterology in [place], [place] [address] [place] [address] Dev Jimenez M.D. [address] [place] [phone] 11/09/2023 7:45 AM CDT Appointment Division of Gastroenterology in [place], [place] [address] [place] [address] Dev Jimenez M.D. [address] [place] [phone] documented as of this encounter Visit Diagnoses Not on filedocumented in this encounter
--- OUTSIDE RECORDS SUMMARY | 2023-08-30 16:21 | XMS_ITS | Encounter Summary ---
Author Name Unknown Organization [facility] Address [address] [place] [address] Care Team Providers Care Stage Driver Name Role Phone Unavailable Primary Care Provider Unavailabl e Reason for Referral * Outpatient (Routine) - Closed Specialty Diagnoses / Procedures Referred By Cornelio price Referred To Contact Diagnoses Shortness Of Breath Procedures Echo Transthoracic (TTE) Sarina Marroquin APRN, C.N.P., D.N.P. [address] [place] [phone] [facility] Referral ID Status Reason Start Date Expiration Date Visits Re quested Visits Authorized [id number] Closed 07/01/2023 06/30/2024 1 1 Reason for Visit * Outpatient (Routine) - Closed Specialty Diagnoses / Procedures Referred By Cornelio price Referred To Contact Diagnoses Shortness Of Breath Procedures Echo Transthoracic (TTE) Sarina Marroquin APRN, C.N.P., D.N.P. [address] [place] [phone] [facility] Referral ID Status Reason Start Date Expiration Date Visits Re quested Visits Authorized [id number] Closed 07/01/2023 06/30/2024 1 1 Encounter Details Date Type Department Care Team (Latest Contact Info) Description 07/01/2023 12:57 PM CDT - 07/01/2023 11:59 PM CDT Hospital Encounter Department of Cardiovascular Diseases in [place], [place] [address] [place] [address] Sarina Marroquin, MILY, C.N.P., D.N.P. [address] [place] [address] Shortness Of Breath Discharge Disposition: Home or Self Care Social History Tobacco Use Types Packs/Day Years Used Date Smoking Tobacco: Never Passive Smoke Exposure: Past Smokeless Tobacco: Never Alcohol Use Standard Drinks/Week Comments Not Currently 0 (1 standard drink = 0.6 oz pur e alcohol) [facility] Utilities Answer Date Recorded In the past 12 months has [employer], gas, oil, or water [employer] threatened to shut off services in your [...] often do you attend chur ch or baptism services? 1 to 4 times per year 04/25/2022 Do you belong to any clubs o r organizations such as druze groups, unions, fraternal or athletic groups, or [...] care, and heating? Not very hard 04/25/2022 [facility] of Occupat ional Health - Occupational [...] your living situation today? I have a [facility] place to live 06/25/2023 Education Answer [...] 2 sprays into each nostril daily. 05/11/2023 Intela Jonathan 3 Sensor device CHANGE EVERY 2 [...] 024 clopidogreL (PLAVIX) 75 mg tablet Take 1-4 tablets (75-300 mg total) by mouth as directed. 300 mg (4 tabs at once) on 06 July, and 75 mg on 07 July 5 tablet 07/01/2023 07/13/2023 clopidogreL (PLAVIX) 75 mg tablet Take [...] PM CDT Infusion Department of Oncology in [place], [place] [address] [place] [phone] Ankush Mancia M.B.B.S., M.S. [address] [place] [phone] 09/22/2023 1:30 PM CDT Appointment Department of Cardiovascular Diseases in [place], [place] [address] [place] [phone] Addy Arias M.D. [address] [place] [phone] 09/27/2023 10:45 AM CDT Comprehensive Visit Department of Cardiovascular Diseases in [place], [place] [address] [place] [phone] Laith Feliciano M.D. [address] [place] [phone] 10/06/2023 9:00 AM CDT Infusion Department of Oncology in [place], [place] [address] [place] [phone] Ankush Mancia M.B.B.S., M.S. [address] [place] [phone] 11/01/2023 9:00 AM CDT Clinical Communication Virtual Review in [place], [place] 200 [place] [address] 11/03/2023 10:00 AM CDT Comprehensive Visit Division of Gastroenterology in [place], [place] [address] [place] [phone] Milton Holden M.D. [address] [place] [address] 11/03/2023 1:00 PM CDT Appointment Department of Radiology, [facility], in [place], [place] [address] [place] [phone] Dev Jimenez M.D. [address] [place] [phone] 11/04/2023 8:45 AM CDT Appointment Division of Gastroenterology in [place], [place] [address] [place] [phone] Dev Jimenez M.D. [address] [place] [phone] 11/08/2023 8:00 AM CDT Appointment Division of Gastroenterology in [place], [place] [address] [place] [phone] Dev Jimenez M.D. [address] [place] [phone] 11/09/2023 7:45 AM CDT Appointment Division of Gastroenterology in [place], [place] [address] [place] [phone] Dev Jimenez M.D. [address] [place] [address] documented as of this encounter Procedures Procedure Name Priority Date/Time Associated Diagnosis Comments (TTE) 2D ECHO DOPPLER COLOR AND CONTRAST Routine 07/01/2023 2:25 PM CDT Shortness Of Breath documented in this encounter Results * (TTE) 2D ECHO DOPPLER COLOR AND [...] per Echocardiography Contrast Administration Protocol Reference Document [id number] Rev 07/31/2021. Patient met an inclusion criterion [...] reduced with severe generalized hypokinesis along with [id number] right ventricular systolic dysfunction. . ??Side by [...] significantly reducedwith severe generalized hypokinesis along with zvoz-mu-[id number] rightventricular systolic dysfunction. . Side by side [...] agentadministered per Echocardiography Contrast Administration ProtocolReference Document [id number] Rev 07/31/2021. Patient met an inclusioncriterion and did not have contraindications in screening sections. For the complete report, see the Order-Level Documents. Sarina Marroquin APRN C.N.P., D.N.P. CV ECHO PROCEDURES documented in this encounter Visit Diagnoses Diagnosis Shortness Of Breath documented in this encounter Administered Medications Inactive Administered Medications - up to 3 most recent administrations Medication Order MAR Action Action Date Dose Rate Site perflutren lipid microspheres injection (DEFINITY) intravenous, Once in imaging, contrast, Starting on Tania 07/01/23 at 1353, For 1 dose, Intraprocedure - Diagnostic, See protocol. Given 07/01/2023 2:05 PM CDT 2.5 mL sodium chloride 0.9 % injection 10 mL 10 mL, intravenous, Once, On Tania 07/01/23 at 1415, For 1 dose, Intraprocedure - Diagnostic, Prior to and following infusion and between multiple consecutive infusions: sodium chloride 0.9 % injection Given 07/01/2023 2:05 PM CDT 10 mL documented in this encounter
--- OUTSIDE RECORDS SUMMARY | 2023-08-30 16:21 | XMS_ITS | Encounter Summary ---
Author Name Unknown Organization [facility] Address [address] [place] [address] Care Team Providers Care Incoming Inspector Name Role Phone Unavailable Primary Care Provider Unavailabl e Reason for Visit * Reason Onset Date Comments Pre-scheduling Questionnaire 06/28/2023 Encounter Details Date Type Department Care Team (Latest Contact Info) Description 06/28/2023 12:45 PM CDT Clinical Communication Virtual Review in [place], [place] 200 [place] [address] Pre-scheduling Questionnaire Social History Tobacco Use Types Packs/Day Years Used Date Smoking Tobacco: Never Passive Smoke Exposure: Past Smokeless Tobacco: Never Tobacco Cessation:Counseling Given: Not Answered Alcohol Use Standard Drinks/Week Comments Not Currently 0 (1 standard drink = 0.6 oz pur e alcohol) [facility] Utilities Answer Date Recorded In the [...] [facility] [place] of Occupat ional Health - Occupational Stress [...] PM CDT Infusion Department of Oncology in [place], [place] [address] [place] [address] Ankush Mancia M.B.B.S., M.S. [address] [place] [address] 09/22/2023 1:30 PM CDT Appointment Department of Cardiovascular Diseases in [place], [place] [address] [place] [address] Addy Arias M.D. [address] [place] [phone] 09/27/2023 10:45 AM CDT Comprehensive Visit Department of Cardiovascular Diseases in [place], [place] [address] [place] [phone] Laith Feliciano M.D. [address] [place] [phone] 10/06/2023 9:00 AM CDT Infusion Department of Oncology in [place], [place] [address] [place] [phone] Ankush Mancia M.B.BGaliS., M.S. [address] [place] [phone] 11/01/2023 9:00 AM CDT Clinical Communication Virtual Review in [place], [place] [address] [place] [phone] 11/03/2023 10:00 AM CDT Comprehensive Visit Division of Gastroenterology in [place], [place] [address] [place] [phone] Milton Holden M.D. 1999 [place] [phone] 11/03/2023 1:00 PM CDT Appointment Department of Radiology, [facility], in [place], [place] [address] [place] [phone] Dev Jimenez M.D. [address] [place] [phone] 11/04/2023 8:45 AM CDT Appointment Division of Gastroenterology in [place], [place] [address] [place] [phone] Dev Jimenez M.D. [address] [place] [phone] 11/08/2023 8:00 AM CDT Appointment Division of Gastroenterology in [place], [place] [address] [place] [phone] Dev Jimenez M.D. [address] [place] [phone] 11/09/2023 7:45 AM CDT Appointment Division of Gastroenterology in [place], [place] [address] [place] [address] Dev Jimenez M.D. [address] [place] [phone] documented as of this encounter Visit Diagnoses Not on filedocumented in this encounter
--- OUTSIDE RECORDS SUMMARY | 2023-08-30 16:21 | XMS_ITS | Encounter Summary ---
Author Name Unknown Organization [facility] Address [address] [place] [address] Care Team Providers Care Presiding Judge Name Role Phone Unavailable Primary Care Provider Unavailabl e Reason for Referral * Outpatient (Routine) - Closed Specialty Diagnoses / Procedures Referred By Cornelio t Referred To Contact Diagnoses Coronary Artery Disease With Stable Angina (HCC) Procedures DX Chest AP or PA and Lateral 2 Views Shaheen Fuentes M.D. 200 [place] [address] [facility] Referral ID Status Reason Start Date Expiration Date Visits Re quested Visits Authorized [id number] Closed 05/05/2023 05/04/2024 1 1 L MAKER * Outpatient (Routine) - Closed Specialty Diagnoses / Procedures Referred By Cornelio price Referred To Contact Diagnoses Coronary Artery Disease With Stable Angina (HCC) Procedures ECG 12 Lead Shaheen Fuentes M.D. [address] [place] [address] [facility] Referral ID Status Reason Start Date Expiration Date Visits Re quested Visits Authorized [id number] Closed 05/05/2023 05/04/2024 1 1 L MAKER Reason for Visit * Reason Onset Date Comments Pre-visit Testing Orders 05/05/2023 Encounter Details Date Type Department Care Team (Latest Contact Info) Description 05/05/2023 Clinical Communication Department of Cardiovascular Medicine in [place], [place] [address] [place] [phone] Reginaldo Salas M.D. [address] [place] [address] Pre-visit Testing Orders Social History Tobacco Use Types Packs/Day Years [...] often do you attend chur ch or sabianism services? 1 to 4 times per year 04/25/2022 Do you belong to any clubs o r organizations such as christianity groups, unions, fraternal or athletic groups, or [...] care, and heating? Not very hard 04/25/2022 [facility] [place] of Occupat ional Health - Occupational Stress [...] place to sleep or slept in a detention (including now)? No 04/25/2022 Nutrition Answer Date [...] PM CDT Infusion Department of Oncology in [place], [place] [address] [place] [phone] Ankush Mancia M.B.B.S., M.S. [address] [place] [phone] 09/22/2023 1:30 PM CDT Appointment Department of Cardiovascular Diseases in [place], [place] [address] [place] [phone] Addy Arias M.D. [address] [place] [phone] 09/27/2023 10:45 AM CDT Comprehensive Visit Department of Cardiovascular Diseases in [place], [place] [address] [place] [phone] Laith Feliciano M.D. [address] [place] [phone] 10/06/2023 9:00 AM CDT Infusion Department of Oncology in [place], [place] [address] [place] [phone] Ankush Mancia M.B.B.S., M.S. [address] [place] [phone] 11/01/2023 9:00 AM CDT Clinical Communication Virtual Review in [place], [place] [address] [place] [address] 11/03/2023 10:00 AM CDT Comprehensive Visit Division of Gastroenterology in [place], [place] [address] [place] [phone] Milton Holden M.D. 1999 [place] [phone] 11/03/2023 1:00 PM CDT Appointment Department of Radiology, [facility], in [place], [place] [address] [place] [phone] Dev Jimenez M.D. [address] [place] [phone] 11/04/2023 8:45 AM CDT Appointment Division of Gastroenterology in [place], [place] [address] [place] [phone] Dev Jimenez M.D. [address] [place] [phone] 11/08/2023 8:00 AM CDT Appointment Division of Gastroenterology in [place], [place] [address] [place] [phone] Dev Jimenez M.D. [address] [place] [phone] 11/09/2023 7:45 AM CDT Appointment Division of Gastroenterology in [place], [place] [address] [place] [address] Dev Jimenez M.D. [address] [place] [phone] documented as of this encounter Results * DX Chest AP [...] spine. Shaheen SMITH DIAGNOSTIC I MAGING PROCEDURES * ECG 12 Lead (07/01/2023 9:14 AM CDT) Ventricular Rate ECG/Min 107 BPM MUSE QRSD Interval 134 ms MUSE QT Interval 380 ms MUSE QTC Interval 507 ms MUSE R [place] 109 degrees MUSE T Wave [place] 91 degrees MUSE 07/01/2023 9:14 AM CDT 07/01/2023 9:15 AM CDT Impressions MUSE - 07/01/2023 9:15 AM CDT Sinus tachycardia with Premature ventricular complexes or Fusion complexes Rightward axis Non-specific intra-ventricular conduction block Nonspecific ST and T wave abnormality Prolonged QT When compared with ECG of 15-MAY-2021 13:10, Premature atrial complexes are now present Bifascicular block is no longer present Reviewed by PLACIDO Bush Narrative Procedure Note Mingo Weiss Jr., M.D. - 07/01/2023 IMPRESSION: Sinus tachycardia with Premature ventricular complexes or Fusion complexes Rightward axis Non-specific intra-ventricular conduction block Nonspecific ST and T wave abnormality Prolonged QT When compared with ECG of 15-MAY-2021 13:10, Premature atrial complexes are now present Bifascicular block is no longer present Reviewed by PLACIDO Bush Shaheen Fuentes M.D. ECG ORDERABLES Performing Organization Address City/[facility] Co de Phone Number [place] NA * (ABNORMAL) Glucose, Fasting (06/29/2023 9:45 AM CDT) Pathologist [facility] Glucose, P 108(H) 70 - 100 mg/dL 06/29/2023 2:34 PM CDT OWAT Last Intake 2 hr 06/29/2023 1:31 PM CDT OW[facility] Blood (Blood, Venous) 06/29/2023 9:45 AM CDT 06/29/2023 1:29 PM CDT Shaheen Fuentes M.D. LAB BLOOD NON AD D-ON [facility] [address] [place] [address], [facility] [address] [facility] [place] [address] [place] [address] * ALT (Alanine Aminotransferase) (06/29/2023 9:44 AM CDT) Alanine Aminotransferase (ALT), P 9 7 - 55 U/L 06/29/2023 2:42 PM CDT OWAT Blood (Blood, Venous) 06/29/2023 9:44 AM CDT 06/29/2023 1:31 PM CDT Shaheen Fuentes M.D. LAB BLOOD ADD-ON [facility] [address] [place] [address], [place] [address] [facility] [place] [address], [place] [address] * AST (Aspartate Aminotransferase) (06/29/2023 9:44 AM CDT) Aspartate Aminotransferase (AST), P 20 8 - 48 U/L 06/29/2023 2:42 PM CDT OWAT Blood (Blood, Venous) 06/29/2023 9:44 AM CDT 06/29/2023 1:31 PM CDT Shaheen Fuentes M.D. LAB BLOOD ADD-ON [facility] [address] [place] [address], [facility] [address] [facility] [place] [address], [place] [address] * Lipid Panel (06/29/2023 9:44 AM CDT) [...] CDT Shaheen Fuentes M.D. LAB BLOOD ADD-ON [facility] [address] [place] [address], [facility] [address] [facility] [place] [address] [place] [address] * Prothrombin Time (PT) (06/29/2023 9:44 AM [...] M.D. LAB BLOOD ADD-ON Performing Organization Address [facility] Co de Phone Number [facility] [address] [place] [address], [facility] [address] [facility] [place] [address] [place] [address] * (ABNORMAL) Hemoglobin A1c (06/29/2023 9:44 AM [...] M.D. LAB BLOOD ADD-ON Performing Organization Address [facility] Co de Phone Number [facility] [address] [place] [address], [place] [address] [facility] [place] [address] [place] [address] * Sodium (06/29/2023 9:44 AM CDT) Sodium, P 139 135 - 145 mmol/L 06/29/2023 2:42 PM CDT OWAT Blood (Blood, Venous) 06/29/2023 9:44 AM CDT 06/29/2023 1:31 PM CDT Shaheen Fuentes M.D. LAB BLOOD ADD-ON [facility] [address] [place] [address], [place] [address] [facility] [place] [address] [place] [address] * Potassium (06/29/2023 9:44 AM CDT) Potassium, P 4.0 3.6 - 5.2 mmol/L 06/29/2023 2:42 PM CDT OWAT Blood (Blood, Venous) 06/29/2023 9:44 AM CDT 06/29/2023 1:31 PM CDT Shaheen Fuentes M.D. LAB BLOOD ADD-ON Performing Organization Address [facility]/ZIP Co de Phone Number [facility] [address] [place] [address], [place] [address] [facility] [place] [address] [place] [address] * (ABNORMAL) Creatinine with Estimated GFR (06/29/2023 9:44 AM CDT) Creatinine 0.68(L) 0.74 - 1.35 mg/dL 06/29/2023 2:42 PM CDT OWAT Estimated GFR (eGFR) >90 >=60 mL/min/BSA 06/29/2023 2:42 PM CDT OWAT Comment: Estimated GFR calculated using the 2020 CKD_EPI creatinine equation. Blood (Blood, Venous) 06/29/2023 9:44 AM CDT 06/29/2023 1:31 PM CDT Narrative Authorizing Provider Result Sandra Fuentes M.D. LAB BLOOD ADD-ON [facility] [address] [place] [address], [place] [address] [facility] [place] [address] [place] [address] * Chloride (06/29/2023 9:44 AM CDT) Chloride, P 99 98 - 107 mmol/L 06/29/2023 2:42 PM CDT OWAT Blood (Blood, Venous) 06/29/2023 9:44 AM CDT 06/29/2023 1:31 PM CDT Shaheen Fuentes M.D. LAB BLOOD ADD-ON Performing Organization Address City/[facility]/ZIP Co de Phone Number [facility] [address] [place] [address], [place] [address] [facility] [place] [address] [place] [address] * BUN (Blood Urea Nitrogen) (06/29/2023 9:44 AM CDT) BUN (Blood Urea Nitrogen), P 22 8 - 24 mg/dL 06/29/2023 2:42 PM CDT OWAT Blood (Blood, Venous) 06/29/2023 9:44 AM CDT 06/29/2023 1:31 PM CDT Shaheen Fuentes M.D. LAB BLOOD ADD-ON [facility] [address] [place] [address], [place] [address] [facility] [place] [address] [place] [address] * Bicarbonate (06/29/2023 9:44 AM CDT) Bicarbonate, P 27 22 - 29 mmol/L 06/29/2023 2:42 PM CDT OWAT Blood (Blood, Venous) 06/29/2023 9:44 AM CDT 06/29/2023 1:31 PM CDT Shaheen Fuentes M.D. LAB BLOOD ADD-ON [facility] [address] [place] [address], [facility] [address] [facility] [place] [address] [place] [address] * (ABNORMAL) CBC with Differential, Blood (06/29/2023 [...] CDT Shaheen Fuentes M.D. LAB BLOOD ADD-ON [facility] [address] [place] [address], [facility] [address] [facility] [place] [address] [place] [address] documented in this encounter Visit Diagnoses Diagnosis Coronary Artery Disease With Stable Angina (HCC)- Primary Coronary Artery Disease With Stable Angina (HCC) documented in this encounter
--- OUTSIDE RECORDS SUMMARY | 2023-08-30 16:21 | XMS_ITS | Encounter Summary ---
Author Name Unknown Organization [facility] Address [address] [place] [address] Care Team Providers Care Physician In Private Practice Name Role Phone Unavailable Primary Care Provider Unavailabl e Reason for Referral * Outpatient (Routine) - Closed Specialty Diagnoses / Procedures Referred By Cornelio price Referred To Contact Cardiovascular Disease Sarina Ang APRN, C.N.P., D.N.P. [address] [place] [phone] [facility] Referral ID Status Reason Start Date Expiration Date Visits Re quested Visits Authorized [id number] Closed 07/01/2023 12/30/2024 1 1 * Outpatient (Routine) - Closed Specialty Diagnoses / Procedures Referred By Cornelio price Referred To Contact Diagnoses Shortness Of Breath Procedures Echo Transthoracic (TTE) Sarina Ang APRN, C.N.P., D.N.P. [address] [place] [phone] [facility] Referral ID Status Reason Start Date Expiration Date Visits Re quested Visits Authorized [id number] Closed 07/01/2023 06/30/2024 1 1 Reason for Visit * Appointment Request (Routine) - Closed Specialty Diagnoses / Procedures Referred By Contac t Referred To Contact Cardiovascular Disease Referral ID Status Reason Start Date Expiration Date Visits Re quested Visits Authorized [id number] Closed 05/05/2023 05/04/2024 1 1 Encounter Details Date Type Department Care Team (Latest Contact Info) Description 07/01/2023 11:00 AM CDT Office Visit Department of Cardiovascular Medicine in [place], [place] [address] [place] [phone] Sarina Ang APRN, C.N.[place], D.N.P. 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 Utilities Answer Date Recorded In the past 12 months has e [employer], [employer], or water [employer] threatened to shut off services in your [...] often do you attend chur ch or quaker services? 1 to 4 times per year 04/25/2022 Do you belong to any clubs o r organizations such as mormon groups, unions, [employer] or athletic groups, or school groups? No [...] care, and heating? Not very hard 04/25/2022 [facility] - Occupational [...] your living situation today? I have a [facility] place to live 06/25/2023 Education Answer [...] Sign Reading Time Taken Comments Blood Pressure 104/70 07/01/2023 10:47 AM CDT Pulse 96 07/01/2023 10:47 AM CDT Temperature - - Respiratory Rate - - Oxygen Saturation - - Inhaled Oxygen Concentration - - Weight 180 kg (396 lb 6.2 oz) 07/01/2023 10:47 A M CDT Height 181.9 cm (5' 11.61) 07/01/2023 10:47 AM CDT Body Mass Index 54.34 07/01/2023 10:47 AM CDT documented in this encounter Progress Notes * Sarina Ang, [employer]IN[employer]ICE [employer]AC[employer], C.N.P., D.N.P. - 07/01/2023 11:00 AM CDT CHIEF COMPLAINT/REASON FOR VISIT Cardiac evaluation HISTORY OF PRESENT ILLNESS Lawrence Butler is a 72 y.o. male who presents for a cardiovascular evaluation. He has been evaluated by Dr. Salas in the past (2021). Medical history is significant for type I diabetes, morbid obesity, pulmonary nodules, hypertension, GERD, ANA LILIA with CPAP compliance, and prostate cancer with metas tasis to the bone. He has received pelvic radiation and biological/target/hormone therapy for the cancer. Cardiac history outlined as follows: 2018-Present: Severe coronary calcifications incidentally noted on surveillance chest CTs for cancer. 04/2021: 2nd opinion [facility] with Dr. Salas. He was asymptomatic from a cardiac standpoint but did have mild generalized fatigue and chronic lower extremity edema. TTE: LVEF 56% without RWMA. Grade 1 LV diastolic dysfunction. Borderline enlarged RV chamber size with normal systolic function. No further cardiac testing indicated. He now presents back to the [facility] Clinic for multiple symptoms. Around Fall 2022 he had an upper respiratory infection that persisted through April 2023. During that time he developed symptoms of a cough, nasal/chest congestion, worsening BLE edema, questionable orthopnea (recalled needing to sleepin a recliner but felt that this was due to nasal congestion and not shortness of breath), and exertional shortness of breath. The majority of these symptoms improved with antibiotics, however he continues to have persist shortness of breath after walking 1/2 a city block that resolves with rest. He has not been physically active over the last 5-6 years primarily due to his cancer diagnoses and right hip arthroplasty (June 2020)- the most exertion he has done as of recent is walk to and from the bathroom at home. He denies chest pain, lightheadedness, syncope, palpitations, or stroke-like symptoms. He is no longer experiencing orthopnea. His BLE edema is at it's current baseline per the patient's verbal report. He continues to experience generalized fatigue that has been present and unchanged for the last 2years. He also mentions that he has had difficulty swallowing his pills at times and will cough them up. Per the patient, his local provider is concerned about aspiration. It does not appear that he has hadany additional testing regarding this. Current cardiovascular medications include: - Antiplatelet therapy: Aspirin 81 mg daily - Hyperlipidemia treatment: Atorvastatin 80 mg daily - Blood pressure: Furosemide 40 mg b.i.d., lisinopril 20 mg daily Current Outpatient Medications Medication Instructions acetaminophen (TYLENOL) 1,000 mg, oral, Every 6 hours, Continue to take while requiring narcotic pain medication. Do not take more than 4000 mg in one day. aspirin 81 mg, oral, Daily atorvastatin (LIPITOR) 80 mg, oral, Daily blood sugar diagnostic strips TEST 8 TIMES PER DAY blood-glucose meter kit [place] Contour Next Meter. E11.9 IDDM type II - Test 8 times/day. Reason: Unstable diabetes CALCIUM CARBONATE-VITAMIN D3 ORAL 1 tablet, oral, Every evening, In the afternoon. Strength Unknown cholecalciferol (VITAMIN D3) 50 mcg (2,000 Unit) capsule No dose, route, or frequency recorded. CONTOUR NEXT EZ METER misc TEST 8 TIMES PER DAY DME CPAP No dose, route, or frequency recorded. enzalutamide (XTANDI) 40 mg capsule Take 4 capsules (160 mg total) by mouth daily. Take with or without food at the same time each day. Swallow capsules whole. Do not chew, dissolve, or open the capsules. fluticasone propionate (FLONASE) 50 mcg/actuation nasal spray 2 sprays, each nostril, Daily FreeStyle Jonathan 3 Sensor device CHANGE EVERY 2 WEEKS furosemide (LASIX) 40 mg, oral, 2 times daily, 2 tablets in the AM, 1 tablet in the afternoon GLUCAGON 1 mg injection INJECT 1 MG UNDER THE SKIN ONE TIME NEEDED FOR BLOOD GLUCOSE <60 MG/DL insulin lispro 100 unit/mL injection INJECT 180 UNITS VIA CONTINUOUS UNDER THE SKIN INFUSION EVERY DAY ketotifen (ZADITOR) 0.025 % (0.035 %) ophthalmic solution 1 drop, both eyes, 2 times daily PRN leuprolide (ELIGARD 1 MONTH) 7.5 mg (1 month) injection Monthly lisinopril (for_PRINIVIL,ZESTRIL) 20 mg tablet 1 tablet, oral, Every evening loratadine (CLARITIN) 10 mg, oral, Daily omeprazole (PRILOSEC) 40 mg, oral, Daily triamcinolone (KENALOG) 0.1 % ointment 1 Application, As needed The following portions of the patient's history were reviewed and updated as appropriate: allergies, current medications, family history, medical history, social history, surgical history, and problem list. REVIEW OF SYSTEMS CVD ROS - Complete: Pertinent items are noted in HPI; all other review of systems was negative. OBJECTIVE Vitals: 07/01/23 1047 BP: 104/70 BP Location: Left arm Patient Position: Sitting Cuff Size: Large Pulse: 96 Weight: (!) 180 kg Height: 181.9 cm Body mass index is 54.34 kg/m??. PHYSICAL EXAMINATION General: This is a pleasant talkative male seen in the sitting position is alert and oriented x4. Obesity. Peripheral vessel: Bilateral radial pulses palpable. Heart: S1S2 regular rate and rhythm. No murmurs, gallops, rubs. PMI is nondisplaced. Lungs: Clear to auscultation bilaterally. Extremities: +2 pitting BLE edema (R > L chronically) and warm to touch. DIAGNOSTICS LABS: Recent Results (from the past 72 hour(s)) CBC with Differential, Blood Collection Time: 06/29/23 9:44 AM Result Value Hemoglobin 13.0 (L) Hematocrit 40.9 Erythrocytes 4.73 MCV 86.5 RBC Distrib Width 17.4 (H) Platelet Count 285 Leukocytes 8.1 Neutrophils 5.20 Lymphocytes 2.04 Monocytes 0.73 Eosinophils 0.11 Basophils <0.04 Bicarbonate Collection Time: 06/29/23 9:44 AM Result Value Bicarbonate, P 27 BUN (Blood Urea Nitrogen) Collection Time: 06/29/23 9:44 AM Result Value BUN (Blood Urea Nitrogen), P 22 Chloride Collection Time: 06/29/23 9:44 AM Result Value Chloride, P 99 Creatinine with Estimated GFR Collection Time: 06/29/23 9:44 AM Result Value Creatinine 0.68 (L) Estimated GFR (eGFR) >90 Potassium Collection Time: 06/29/23 9:44 AM Result Value Potassium, P 4.0 Sodium Collection Time: 06/29/23 9:44 AM Result Value Sodium, P 139 Hemoglobin A1c Collection Time: 06/29/23 9:44 AM Result Value Hemoglobin A1c, B 7.2 (H) Prothrombin Time (PT) Collection Time: 06/29/23 9:44 AM Result Value Prothrombin Time, P 11.4 INR 1.0 Lipid Panel Collection Time: 06/29/23 9:44 AM Result Value Triglycerides 95 Cholesterol, Total 131 Cholesterol, LDL, Calculated 60 Cholesterol, HDL 53 Cholesterol, Non-HDL, Calculated 78 Fasting (8 HR or more) no AST (Aspartate Aminotransferase) Collection Time: 06/29/23 9:44 AM Result Value Aspartate Aminotransferase (AST), P 20 ALT (Alanine Aminotransferase) Collection Time: 06/29/23 9:44 AM Result Value Alanine Aminotransferase (ALT), P 9 Glucose, Fasting Collection Time: 06/29/23 9:45 AM Result Value Glucose, P 108 (H) Last Intake 2 ECG: ECG 12 Lead Result Date: 07/01/2023 Sinus tachycardia with Premature ventricular complexes or Fusion complexes Rightward axis Non-specific intra-ventricular conduction block Nonspecific ST and T wave abnormality Prolonged QT When compared with ECG of 15-MAY-2021 13:10, Premature atrial complexes are now present Bifascicular block is no longer present Reviewed by PLACIDO [place] EXAM: DX CHEST AP OR PA AND [...] in positioning. Degenerative changes in the spine. 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 His chest xray shows evidence of cardiomegaly and tiny-small pleural effusions. We will obtain a TTE to reassess his LVEF and filling pressures. Per Dr. Whatley ([facility] workforce consultant today) additional cardiac testing is not indicated at this time. I agree with his PCP that he may be aspirating on his pills, which could also increase his risk forrecurrent lung infections. If this continues to persist I would encourage the PCP to look into thisfurther. Moving forward, will continue with aggressive ASCVD risk factor management. LDL is at at the goal of <70 with atorvastatin 80mg daily. Blood pressure is at the goal of <130/80 with the current medical therapy. Patient was agreeable to the plan. All questions and concerns addressed. Followup: I will followup with him regarding the TTE results and next steps. Addendum 07/01/23 The TTE showed a newly reduced LVEF of 25% (previously 56% in 2021). We will likely be proceeding with an invasive coronary angiogram to assess his coronary anatomy +/- PCI. I have called the patientand discussed this with him and will officially confirm once I hear back from Dr. Whatley. Addendum 07/02/23 Dr. Whatley is in agreement with the coronary angiogram +/- PCI. He will be loaded with aspirin and clopidogrel prior. * Yinka Rivas R.N. - 07/01/2023 11:00 AM CDT Asked by MsGali Ang to schedule this patient for coronary angiography with possible intervention in the context of newly reduced LVEF with heart failure symptoms. Medication list includes aspirin 81 atorvastatin 80 furosemide 40 lisinopril 20 omeprazole, and insulin. 28 June Labs: Hemoglobin 13 hematocrit 40.9 WBCs 8.1 platelets [id number] sodium 139 potassium 4.0 creatinine 0.68 LDL 60 28 June ECG: Sinus tachycardia, QTC 507 We will get the patient a nurse visit. We will provide a prescription for clopidogrel with a 300 mgdose to be taken on 06 July, and 75 mg on 07 July. documented in this encounter Miscellaneous Notes * Addendum Note - Yinka Rivas R.N. - 07/01/2023 11:00 AM CDTAddended by: YINKA RIVAS on: 07/01/2023 03:56 PM Modules accepted: Orders * Addendum Note - Sarina Ang APRN, C.N.P., D.N.P. - 07/01/2023 11:00 AM CDTAddended by: SARINA ANG on: 07/01/2023 04:08 PM Modules accepted: Orders documented in this encounter Plan of Treatment Upcoming Encounters Date Type Department Care Team (Late st Contact Info) Description 09/07/2023 4:30 PM CDT Infusion Department of Oncology in [place], [place] [address] [place] [phone] Ankush Mancia M.B.B.S., M.S. [address] [place] [phone] 09/22/2023 1:30 PM CDT Appointment Department of Cardiovascular Diseases in [place], [place] [address] [place] [phone] Addy Arias M.D. [address] [place] [phone] 09/27/2023 10:45 AM CDT Comprehensive Visit Department of Cardiovascular Diseases in [place], [place] [address], [place] [phone] Laith Feliciano M.D. [address] [place] [phone] 10/06/2023 9:00 AM CDT Infusion Department of Oncology in [place], [place] [address] [place] [phone] Ankush Mancia M.B.B.S., M.S. [address] [place] [phone] 11/01/2023 9:00 AM CDT Clinical Communication Virtual Review in [place], [place] [address] [place] [address] 11/03/2023 10:00 AM CDT Comprehensive Visit Division of Gastroenterology in [place], [place] [address] [place] [phone] Milton Holden M.D. [address] [place] [address] 11/03/2023 1:00 PM CDT Appointment Department of Radiology, [facility], in [place], [place] [address] [place] [phone] Dev Jimenez M.D. [address] [place] [phone] 11/04/2023 8:45 AM CDT Appointment Division of Gastroenterology in [place], [place] [address] [place] [address] Dev Jimenez M.D. [address] [place] [phone] 11/08/2023 8:00 AM CDT Appointment Division of Gastroenterology in [place], [place] [address] [place] [phone] Dev Jimenez M.D. [address] [place] [phone] 11/09/2023 7:45 AM CDT Appointment Division of Gastroenterology in [place], [place] [address] [place] [phone] Dev Jimenez M.D. [address] [place] [phone] Scheduled Referrals Name Type Priority Associated Diagnoses Order Schedule Cardiovascular Disease nurse visit (clinic) Outpatient Referral Routine Expecte d: 07/07/2023, Expires: 09/30/2024 documented as of this encounter Results * (TTE) 2D ECHO [...] per Echocardiography Contrast Administration Protocol Reference Document [id number] Rev 07/31/2021. Patient met an inclusion criterion [...] reduced with severe generalized hypokinesis along with [id number] right ventricular systolic dysfunction. . ??Side by [...] significantly reducedwith severe generalized hypokinesis along with [id number] rightventricular systolic dysfunction. . Side by side [...] agentadministered per Echocardiography Contrast Administration ProtocolReference Document [id number] Rev 07/31/2021. Patient met an inclusioncriterion and did not have contraindications in screening sections. For the complete report, see the Order-Level Documents. Sarina Ang APRN, C.N.P., D.N.P. 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
--- OUTSIDE RECORDS SUMMARY | 2023-08-30 16:21 | XMS_ITS | Encounter Summary ---
Author Name Unknown Organization [facility] Address [address] [place] [address] Care Team Providers Care Steamfitter Supervisor Name Role Phone Unavailable Primary Care Provider Unavailabl e Reason for Referral * Outpatient (Routine) - Closed Specialty Diagnoses / Procedures Referred By Cornelio t Referred To Contact Oncology Diagnoses Primary Malignant Neoplasm Of Prostate (HCC) Morbid Obesity Body Mass Index 45.0-49.9 Adult (HCC) Secondary Malignant Neoplasm Bone (HCC) Ankush Mancia M.B.B.S., M.S. [address] [place] [phone] [facility] Referral ID Status Reason Start Date Expiration Date Visits Re quested Visits Authorized [id number] Closed 07/02/2023 2024 1 1 Encounter Details Date Type Department Care Team (Late st Contact Info) Description 07/02/2023 Orders Only Department of Oncology in [place], [place] [address] [place] [phone] Ankush Mancia M.B.B.S., M.S. [address] [place] [phone] Primary Malignant Neoplasm Of Prostate (HCC) (Primary Dx); Morbid Obesity Body Mass Index 45.0-49.9 Adult (HCC); Secondary Malignant Neoplasm Bone (HCC) Social History Tobacco Use Types Packs/Day Years Used Date Smoking Tobacco: Never Passive Smoke Exposure: Past Smokeless Tobacco: Never Alcohol Use Standard Drinks/Week Comments Not Currently 0 (1 standard drink = 0.6 oz pur e alcohol) [facility] Utilities Answer Date Recorded In the past 12 months has e [employer], gas, oil, or water [employer] threatened to shut off services in your [...] often do you attend chur ch or restorationism services? 1 to 4 times [...] care, and heating? Not very hard 04/25/2022 [facility] - Occupational Stress [...] your living situation today? I have a [facility] place to live 07/08/2023 Education Answer [...] PM CDT Infusion Department of Oncology in [place], [place] [address] [place] [phone] Ankush Mancia M.B.BGaliS., M.S. [address] [place] [phone] 09/22/2023 1:30 PM CDT Appointment Department of Cardiovascular Diseases in [place], [place] [address] [place] [phone] Addy Arias M.D. [address] [place] [phone] 09/27/2023 10:45 AM CDT Comprehensive Visit Department of Cardiovascular Diseases in [place], [place] [address] [place] [phone] Laith Feliciano M.D. [address] [place] [phone] 10/06/2023 9:00 AM CDT Infusion Department of Oncology in [place], [place] [address] [place] [phone] Ankush Mancia M.B.BGaliS., M.S. [address] [place] [phone] 11/01/2023 9:00 AM CDT Clinical Communication Virtual Review in [place], [place] [address] [place] [address] 11/03/2023 10:00 AM CDT Comprehensive Visit Division of Gastroenterology in [place], [place] [address] [place] [phone] Milton Holden M.D. [address] [place] [phone] 11/03/2023 1:00 PM CDT Appointment Department of Radiology, [facility], in [place], [place] [address] [place] [phone] Dev Jimenez M.D. [address] [place] [phone] 11/04/2023 8:45 AM CDT Appointment Division of Gastroenterology in [place], [place] [address] [place] [phone] Dev Jimenez M.D. [address] [place] [phone] 11/08/2023 8:00 AM CDT Appointment Division of Gastroenterology in [place], [place] [address] [place] [phone] Dev Jimenez M.D. [address] [place] [phone] 11/09/2023 7:45 AM CDT Appointment Division of Gastroenterology in [place], [place] [address] [place] [phone] Dev Jimenez M.D. [address] [place] [phone] Scheduled Referrals Name Type Priority Associated Diagnoses Orde r Schedule Oncology office visit (clinic) Outpatient Referral Routine Primary Malignant Neoplasm Of Prostate (HCC) Morbid Obesity Body Mass Index 45.0-49.9 Adult (HCC) Secondary Malignant Neoplasm Bone (HCC) Expected: 07/21/2023, Expires: 10/01/2024 documented as of this encounter Results * PSA (Prostate-Specific Antigen), Diagnostic (07/21/2023 9:25 AM CDT) Prostate-Specific Ag <0.10 <=6.5 ng/mL 07/21/2023 10:34 AM CDT DTL Comment: ----ADDITIONAL INFORMATION---- The testing method is an electrochemiluminescence assay manufactured by [employer] and performed on the Modular or Yeimi system. Values obtained with different assay methods or kits may be different and cannot be used interchangeably. Test results cannot be interpreted as absolute evidence for the presence or absence of malignant disease. Blood (Blood, Venous) 07/21/2023 9:25 AM CDT 07/21/2023 10:02 AM CDT Ankush PageS., M.S. LAB BLOOD ADD-ON [facility] [address] [place] [address], [facility] DTL [facility] [address] [place] [address] documented in this encounter Visit Diagnoses Diagnosis Primary Malignant Neoplasm Of Prostate (HCC)- Primary Morbid Obesity Body Mass Index 45.0-49.9 Adult (HCC) Secondary Malignant Neoplasm Bone (HCC) documented in this encounter
== END 2023-08-30 16:13 | disposition home or self-care (01) ==
PROVIDERS: PCP Family Medicine; Visit Provider Family Medicine
DX: I10 Essential (primary) hypertension (principal); I50.9 Heart failure, unspecified
CPT/HCPCS: 80048; 83880; 85025

== ENCOUNTER 2024-03-03 13:16 | Outpatient (CLI) | payer MEDICARE, BC, SELFPAY | END 2024-03-03 13:17 | disposition home or self-care (01) | LOC: KYNREF 13:16 | PROVIDERS: PCP Family Medicine; Visit Provider Nurse Practitioner Family | DX: Z01.818 Encounter for other preprocedural examination (principal); I10 Essential (primary) hypertension; Z79.899 Other long term (current) drug therapy | CPT/HCPCS: 80048 ==